=== PATIENT | male | born 1945 | race Caucasian/White ===

== ENCOUNTER 2023-11-29 17:43 | Observation (INO) ==
--- OUTSIDE RECORDS SUMMARY | 2023-11-29 17:48 | External Medical Summary | Summary of Care ---
Author Name Unknown Organization [facility] Address [address] [place] [address] Phone [phone] Care Team Providers Care Neurological Physiotherapist Name Role Phone Deangelo Saldaña MD Primary Care Provider + Reason for Visit * Reason Comments Follow Up 4 month return. Pt d enied any new concerns Encounter Details Date Type Department Care Team (Late st Contact Info) Description 11/11/2023 12:00 PM EDT [facility] [address] [facility] [place] [address] Deangelo Saldaña MD [address] [facility] [place] [address] HTN, goal below 130/80*; Mixed hyperlipidemia; Recurrent UTI; Chronic kidney disease, stage 3a (HCC); Bilateral carpal tunnel syndrome; Need for yyginmazpv-tkzqued-zn rtussis (Tdap) vaccine Allergies No known active allergiesdocumented as of this encounter (statuses as of 11/11/2023) Medications Medication Sig Dispensed Refills Start Date End Date Status Atorvastatin Calcium 80 MG Oral Tablet (Lipitor) Take 1 Tablet by mouth in the morning. 04/25/2021 Active Escitalopram Oxalate 10 MG Oral Tablet (Lexapro) Take 1 Tablet by mouth in the morning. 05/18/2021 Active Multivitamin Men 50+ Oral Tablet Take by mouth daily . Active Co Q10 200 MG Oral Capsule Take 100 mg by mouth in the morning. Active Bioflavonoids 1000 MG Oral Tablet Take by mouth daily . Active Ginkgo Biloba 40 MG Oral Tablet Take 1 Tablet by mouth in the morning. Active Fluticasone Propionate HFA 110 MCG/ACT Inhalation Aerosol (Flovent Hfa) Inhale 2 Puffs by mouth in the morning and 2 Puffs before bedtime. Active Systane ICaps AREDS2 Oral Capsule Take by mouth . Active Betamethasone Dipropionate Aug 0.05 % External Cream (Diprolene AF) 2 times a day. To affected area. 08/11/2022 Active Famotidine 10 MG Oral Tablet (Pepcid AC) Take 1 Tablet by mouth in the morning and 1 Tablet before bedtime. Take 1 tab every morning take 2 tabs at bedtime . Active Candesartan Cilexetil 16 MG Oral Tablet (Atacand)Indicatio ns:HTN, goal below 130/80 Take 1 Tablet by mouth in the morning. 90 Tablet 1 11/11/2023 Active Htsizrb-Phovkb-Ykp ll Pertussis 5-2.5-18.5 LF-MCG/0.5 Suspension Prefilled Syringe (Boostrix)Indicati ons:Need for diphtheria-tetanus -pertussis (Tdap) vaccine Inject 0.5 mL into a large muscle once for 1 dose. As directed 0.5 mL 11/11/2023 11/11/2023 Active Candesartan Cilexetil 32 MG Oral Tablet (Atacand) Take 1 Tablet by mouth at bedtime. 04/25/2021 11/11/2023 Discontinued (Medication/ Dose Changed) documented as of this encounter (statuses as of 11/11/2023) Active Problems Problem Noted Date Diagnosed Date Chronic kidney disease, stage 3a 09/15/2022 Overview: Per CKD protocol HTN, goal below 130/80 05/29/2021 Mixed hyperlipidemia 05/29/2021 VLADIMIR (generalized anxiety disorder) 05/29/2021 Nonrheumatic mitral valve regurgitation 05/29/20 Mild aortic insufficiency 05/29/2021 Aortic valve sclerosis 05/29/2021 History of acute prostatitis 05/29/2021 documented as of this encounter (statuses as of 11/11/2023) Resolved Problems Problem Noted Date Diagnosed Date Resolved Date Hyperlipidemia 05/29/2021 05/29/2021 documented as of this encounter (statuses as of 11/11/2023) Immunizations Name Administration Dates Next Due COVID-19 mRNA, LNP-s, No Pre serve, 2-Dose Series (Tiendeo) 05/17/2021,07/06/2020,06/15/2020 Covid-19, Mrna, Lnp-s, Pf, B ivalent, 30 Mcg, IM, 12 yrs and above (Tiendeo) 05/26/2022 Pneumococcal Conjugate Vacci ne, 20-valent ([id number]) 12/04/2021 Pneumococcal Polysaccharide PPV23 (Pneumovax) 04/22/2020 Seasonal Influenza, Quadriva lent Hd (Fluzone Hd) 05/22/2023,05/29/2021 Seasonal Influenza, Quadriva lent Hd, 65+ Yrs 05/19/2022 Zoster Vaccine Recombinant (Shingrix) 04/22/2020 documented as of this encounter Social History Tobacco Use Types Packs/Day Years Used Date Smoking Tobacco: Never Smokeless Tobacco: Never Tobacco Cessation:Counseling Given: Not Answered Alcohol Use Standard Drinks/Week Comments Never 0 (1 standard drink = 0.6 oz pur e alcohol) PHQ-2 Answer Date Recorded PHQ Adult Total Score 0 05/07/2022 Hunger Vital Sign Answer Date Recorded Within the past 12 months, y ou worried that your food would run out before you got the money to buy more. Never true 05/28/20 21 Within the past 12 months, t he food you bought just didn't last and you didn't have money to get more. Never true 05/28/2021 Sex and Gender Information Value Date Recorded Sex Assigned at Male 12/01/2021 8:12 PM EDT Gender Identity Male 12/01/2021 8:12 PM EDT Sexual Orientation Straight 12/01/2021 8: 12 PM EDT Job Start Date Occupation Industry Not on file Not on file Not on file documented as of this encounter Last Filed Vital Signs Vital Sign Reading Time Taken Comments Blood Pressure 108/58 11/11/2023 12:01 PM EDT Pulse 64 11/11/2023 12:01 PM EDT Temperature 35.7 C (96.3 F) 11/11/2023 12:01 PM E DT Respiratory Rate - - Oxygen Saturation 97% 11/11/2023 12:01 PM EDT Inhaled Oxygen Concentration - - Weight 73.6 kg (162 lb 3.2 oz) 11/11/2023 12:01 PM EDT Height 172.7 cm (5' 8") 11/11/2023 12:01 PM EDT Body Mass Index 24.66 11/11/2023 12:01 PM EDT documented in this encounter Progress Notes * Deangelo Saldaña MD - 11/11/2023 12:40 PM EDT Chief Complaint Patient presents with Follow Up 4 month return. Pt denied any new concerns SUBJECTIVE: Michael Farah is a 78 year old male with PMH as below who presents for f/u htn, ckd iii. No cp, sob bojorquez. Active at home, golfing, staying hydrated. Has seen urology about uti, told to hydrate which is doing now, no uti symptoms. Sees cardiology this month as well and also seeing ortho for cts. Patient Active Problem List Diagnosis HTN, goal below 130/80 Mixed hyperlipidemia VLADIMIR (generalized anxiety disorder) Nonrheumatic mitral valve regurgitation Mild aortic insufficiency Aortic valve sclerosis History of acute prostatitis Chronic kidney disease, stage 3a (HCC) Current Outpatient Medications Medication Sig Dispense Refill Atorvastatin Calcium 80 MG Oral Tablet (Lipitor) Take 1 Tablet by mouth in the morning. Escitalopram Oxalate 10 MG Oral Tablet (Lexapro) Take 1 Tablet by mouth in the morning. Multivitamin Men 50+ Oral Tablet Take by mouth daily . Co Q10 200 MG Oral Capsule Take 100 mg by mouth in the morning. Bioflavonoids 1000 MG Oral Tablet Take by mouth daily . Ginkgo Biloba 40 MG Oral Tablet Take 1 Tablet by mouth in the morning. Fluticasone Propionate HFA 110 MCG/ACT Inhalation Aerosol (Flovent Hfa) Inhale 2 Puffs by mouth in the morning and 2 Puffs before bedtime. Systane ICaps AREDS2 Oral Capsule Take by mouth . Betamethasone Dipropionate Aug 0.05 % External Cream (Diprolene AF) 2 times a day. To affected area. Famotidine 10 MG Oral Tablet (Pepcid AC) Take 1 Tablet by mouth in the morning and 1 Tablet before bedtime. Take 1 tab every morning take 2 tabs at bedtime . Candesartan Cilexetil 16 MG Oral Tablet (Atacand) Take 1 Tablet by mouth in the morning. 90 Tablet 1 Zkdcmku-Bvwzvv-Hncvi Pertussis 5-2.5-18.5 LF-MCG/0.5 Suspension Prefilled Syringe (Boostrix) Inject0.5 mL into a large muscle once for 1 dose. As directed 0.5 mL 0 No current facility-administered medications for this visit. Review of patient's allergies indicates: No Known Allergies Health Maintenance Due Topic Date Due DTaP,Tdap,and Td Vaccines (1 - Tdap) Never done Zoster Vaccines (2 of 2) 06/17/2020 COVID-19 Vaccine (5 - 2022- season) 2023 Albumin/Creatinine Ratio 11/14/2023 CKD PHOS USE SMARTSET 87344 11/14/2023 ROS: CONSTITUTIONAL: No fevers, sweats, or chills EYE: No recent significant change in vision and No eye pain, redness, discharge EARS: No ear pain, No drainage, No tinnitus or vertigo, and No recent change in hearing PULMONARY: No cough, sputum, or hemoptysis, No wheezing, No rales, No shortness of breath, and No recent change in breathing CARDIOVASCULAR: No chest pain, No shortness of breath, No dyspnea on exertion, No orthopnea, No paroxysmal nocturnal dyspnea, No edema, No palpitations, and No syncope GASTROINTESTINAL: No abdominal pain, No change in bowel habits, No significant heartburn, No significant change in appetite, No nausea, vomiting, diarrhea, or constipation, No hematemesis, No blood in stools or black tarry stools, No abdominal bloating or early satiety, and No dysphagia ALL OTHER SYSTEMS NEGATIVE I reviewed social, PMH, PSH, and family history and updated where needed. Social History Socioeconomic History Marital status: Spouse name: Not on file Number of children: 3 Years of education: Not on file Highest education level: Not on file Occupational History Occupation: retired Tobacco Use Smoking status: Never Smokeless tobacco: Never Vaping Use Vaping status: Never Used Substance and Sexual Activity Alcohol use: Never Drug use: Never Sexual activity: Not on file Other Topics Concern Not on file Social History Narrative Not on file Social Determinants of Health Financial Resource Strain: Not on file Food Insecurity: No Food Insecurity (05/28/2021) Hunger Vital Sign Worried About Running Out of Food in the Last Year: Never true Ran Out of Food in the Last Year: Never true Transportation Needs: Not on file Physical Activity: Not on file Stress: Not on file Social Connections: Not on file Intimate Partner Violence: Not on file Housing Stability: Not on file Past Medical History: Diagnosis Date History of acute prostatitis 05/29/2021 Mild aortic insufficiency 05/29/2021 Nonrheumatic mitral valve regurgitation 05/29/2021 Past Surgical History: Procedure Laterality Date COLONOSCOPY, DIAGNOSTIC (RECTUM) 09/03/2021 diverticulosis / COLONOSCOPY FLEXIBLE PROXIMAL DIAGNOSTIC performed by Slava Nash MD at ENDOSCOPY [facility] EGD, FLEXIBLE, DIAGNOSTIC 09/03/2021 reflux esophagitis, gastric polyps / ESOPHAGOGASTRODUODENOSCOPY (EGD), FLEXIBLE, TRANSORAL, DIAGNOSTIC performed by Slava Nash MD at ENDOSCOPY [facility] INNER EAR FLUID SAC SURGERY W/SHUNT Left NECK SPINE FUSION (CERV, BELOW C2) NECK SPINE FUSION (CERV, BELOW C2) 06/16/2023 CO RPR INGUN HERNIA SLIDING ANY AGE REMOVE CATARACT, INSERT LENS PROSTH Right 07/28/2023 RIGHT EXTRACAPSULAR CATARACT REMOVAL WITH INTRAOCULAR LENS performed by Eugene Shipley MDa OR [facility] REMOVE CATARACT, INSERT LENS PROSTH Left 08/11/2023 LEFT EXTRACAPSULAR CATARACT REMOVAL WITH INTRAOCULAR LENS performed by Eugene Shipley MD at OR [facility] UROLOGY SURGERY PROCEDURE NEC 08/2022 urolift Family History Problem Relation Name Age of Onset Cancer Sister melanoma OBJECTIVE: PHYSICAL EXAM: BP 108/58 | Pulse 64 | Temp 35.7 C (96.3 F) (Tympanic) | Ht 1.727 m (5' 8") | Wt 73.6 kg (162 lb 3.2 oz) | SpO2 97% | BMI 24.66 kg/m | BSA 1.88 m General: alert, healthy, and no distress Head: Normocephalic, No masses, lesions, tenderness or abnormalities Eye Exam: conjunctiva are pink and non-injected, sclera clear Heart: regular rate & rhythm, no murmur, no gallops, PMI non-displaced, S-1 normal, and S-2 normal Lungs: normal respiratory rate and rhythm, lungs clear to auscultation Psych: normal affect, no flight of ideas or tangential thought, good eye contact, no pressured speech ASSESSMENT: I10 HTN, goal below 130/80 (primary encounter diagnosis) E78.2 Mixed hyperlipidemia N39.0 Recurrent UTI N18.31 Chronic kidney disease, stage 3a (HCC) G56.03 Bilateral carpal tunnel syndrome Z23 Need for pttdcpkkcy-svwsukj-mvfoyfamw (Tdap) vaccine PLAN: HTN, goal below 130/80 (Primary) - Candesartan Cilexetil 16 MG Oral Tablet (Atacand); Take 1 Tablet by mouth in the morning. Low last 2 readings, cut candesartan to 16 mg from 32 Recheck bp cardiology Mixed hyperlipidemia Cont atorvastatin Recurrent UTI Monitor Hydration Chronic kidney disease, stage 3a (HCC) - COMPREHENSIVE METABOLIC PANEL; Future; Expected date: 11/11/2023 - ALBUMIN / CREATININE RATIO, URINE; Future; Expected date: 11/11/2023 - PHOSPHORUS; Future; Expected date: 11/11/2023 Bilateral carpal tunnel syndrome Await ortho Need for aoqxhsnknm-ngljngl-szhtrwhck (Tdap) vaccine - Wdxmqdh-Fvbflv-Sbsui Pertussis 5-2.5-18.5 LF-MCG/0.5 Suspension Prefilled Syringe (Boostrix); Inject 0.5 mL into a large muscle once for 1 dose. As directed Follow Up: Return in about 6 months (around 05/12/2024), or if symptoms worsen or fail to improve, for Labs Today. | For: Labs Today Deangelo Saldaña MD documented in this encounter Nursing Notes * Mulu Garcia MED ASSIST - 11/11/2023 12:03 PM EDT Chief Complaint Patient presents with Follow Up 4 month return. Pt denied any new concerns documented in this encounter Plan of Treatment Upcoming Encounters Date Type Department Care Team (Late st Contact Info) Description 11/24/2023 2:15 PM EDT Office Visit Orthopaedics Jimmy [address] [phone] Carri Taylor MD [address] [place] [address] 12/04/2023 11:00 AM EDT Office Visit Cardiology, [facility] [address] [place] [address] Pipe Moctezuma PA-C [address] [place] [address] 01/19/2024 3:00 PM EDT Office Visit General Internal Medicine [facility] [address] [facility] [place] [address] Deangelo Saldaña MD [address] [facility] [place] [address] 03/07/2024 3:00 PM EDT Office Visit Dermatology [facility] [address] [place] [address] Oriana Ambrosio MD [address] [place] [address] 06/23/2024 1:00 PM EST Office Visit General Internal Medicine [facility] [address] [place] [address] Deangelo Saldaña MD [address] [facility] [place] [address] Pending Results Name Type Priority Associated Diagnoses Date /Time COMPREHENSIVE METABOLIC PANEL Lab Routine Chronic kidney disease, stage 3a (HCC) 11/11/2023 12:42 PM EDT ALBUMIN / CREATININE RATIO, URINE Lab Routine Chronic kidney disease, stage 3a (HCC) 11/11/2023 12:43 PM EDT PHOSPHORUS Lab Routine Chronic kidney disease, stage 3a (HCC) 11/11/2023 12:42 PM EDT Scheduled Orders Name Type Priority Associated Diagnoses Orde r Schedule COMPREHENSIVE METABOLIC PANEL Lab Routine Chronic kidney disease, stage 3a (HCC) Expected: 11/11/2023 (Approximate), Expires: 11/10/2024 ALBUMIN / CREATININE RATIO, URINE Lab Routine Chronic kidney disease, stage 3a (HCC) Expected: 11/11/2023 (Approximate), Expires: 11/10/2024 PHOSPHORUS Lab Routine Chronic kidney disease, stage 3a (HCC) Expected: 11/11/2023 (Approximate), Expires: 11/10/2024 Health Maintenance Due Date Last Done Comments DTaP,Tdap,and Td Vaccines (1 - Tdap) 1964 Zoster Vaccines (2 of 2) 06/17/2020 04/22/2020 COVID-19 Vaccine (5 - 2022-24 season) 2023 05/26/2022, 05/17/2021, 07/06/2020, Additional history exists Albumin/Creatinine Ratio 11/14/2023 11/13/2022, 05/09 CKD PHOS USE SMARTSET 82175 11/14/2023 11/13/2022 GFR 01/12/2024 07/14/2023, 05/08, 11/13/2022, Additional history exists CKD HGB USE SMARTSET 93782 07/14/202407/14, 07/14/2023, 05/22/2023, Additional history exists Depression Screening 11/10/2024 11/11/2023 Pneumococcal Vaccine: 65+ Years Completed 12/04/2021, 04/22/2020 Influenza Vaccine (FLU shot) Completed , 05/19/2022, 03/20/2022, Additional history exists GARDASIL-HPV IMMUNIZATION SERIES Aged Out No longer eligible based on patient's age to complete this topic Hepatitis B Aged Out No longer eligi ble based on patient's age to complete this topic MENINGOCOCCAL (MENACTRA/MENVEO) Aged Out No longer eligible based on patient's age to complete this topic documented as of this encounter Medical Devices Implanted Type Area Adobe Flex Developer Device Identifier Shelf Expiration Date Model / Serial / Lot Lens Li61ao 13.00mm 18.00 - [id number] - [id number] Implanted:Qty: 1 on 07/28/2023 by Eugene Shipley MD at OR [facility] Right: Eye [employer] 04/07/2028 [id number] / [id number] / [id number] Lens Li61ao 13.00mm 17.50 - [id number] - [id number] Implanted:Qty: 1 on 08/11/2023 by Eugene Shipley MD at OR [facility] Left: Eye [employer] 03/07/2028 [id number] / [id number] / [id number] documented as of this encounter Visit Diagnoses Diagnosis HTN, goal below 130/80- Primary Unspecified essential hypertension Mixed hyperlipidemia Recurrent UTI Urinary tract infection, site not specified Chronic kidney disease, stage 3a (HCC) Bilateral carpal tunnel syndrome Carpal tunnel syndrome Need for qcaemcyruk-uonqouf-hllzqzzim (Tdap) vaccine Need for prophylactic vaccination with combined mwgfrnzroe-agmttfl-rtsuqypsz (DTP) vaccine documented in this encounter Advance Directives * Full Code (Latest Code Status on File) Date Activated Date Inactivated Comments 08/11/2023 11:27 AM 08/11/2023 5:24 PM This order re flects the patients wishes and were consensually agreed upon. Question Answer Comments Discussion of Advance Directives occurred with: Patient Does the patient have a Living Will? No Does the patient have Health Care Power of Attor leslie? No * Full Code Date Activated Date Inactivated Comments 07/28/2023 11:12 AM 07/28/2023 5:12 PM This order reflects the patients wishes and were consensually agreed upon. Question Answer Comments Discussion of Advance Directives occurred with: Patient Does the patient have a Living Will? No Does the patient have Health Care Power of Attor leslie? No Care Teams Neurological Physiotherapist Relationship Specialty Start Date End Date Deangelo Saldaña MD [address] [place] [address] PCP - General Internal Medicine 02/06/21 documented as of this encounter
--- OUTSIDE RECORDS SUMMARY | 2023-11-29 17:48 | External Medical Summary | Summary of Care ---
Author Name Unknown Organization [facility] Address [address] [place] [address] Phone [phone] Care Team Providers Care Handy Worker Name Role Phone Deangelo Saldaña MD Primary Care Provider + Reason for Visit * Reason Onset Date Comments Surgery 11/24/2023 Encounter Details Date Type Department Care Team (Late st Contact Info) Description 11/24/2023 Telephone Orthopaed[address] [phone] Carri Taylor MD [address] [place] [address] Surgery Allergies No known active allergiesdocumented as of this encounter (statuses as of 11/24/2023) Medications Medication Sig Dispensed Refills Start Date [...] Active Candesartan Cilexetil 16 MG Oral Tablet (Atacand)Indications: HTN, goal below 130/80 Take 1 Tablet by mouth in the morning. 90 Tablet 1 11/11/2023 Active documented as of this encounter (statuses as of 11/24/2023) Active Problems Problem Noted Date Diagnosed Date Bilateral carpal tunnel syndrome 11/24/2023 Chronic kidney disease, stage 3a 09/15/2022 Overview: Per CKD protocol HTN, goal below 130/80 05/29/2021 Mixed hyperlipidemia 05/29/2021 VLADIMIR (generalized anxiety disorder) 05/29/2021 Nonrheumatic mitral valve regurgitation 05/29/20 21 Mild aortic insufficiency 05/29/2021 Aortic valve sclerosis 05/29/2021 History of acute prostatitis 05/29/2021 documented as of this encounter (statuses as of 11/24/2023) Resolved Problems Problem Noted Date Diagnosed Date Resolved Date Hyperlipidemia 05/29/2021 05/29/2021 documented as of this encounter (statuses as of 11/24/2023) Immunizations Name Administration Dates Next Due COVID-19 mRNA, LNP-s, No Pre serve, 2-Dose Series (iKaaz) 05/17/2021,07/06/2020,06/15/2020 Covid-19, Mrna, Lnp-s, Pf, B ivalent, 30 Mcg, IM, 12 yrs and above (iKaaz) 05/26/2022 Pneumococcal Conjugate Vacci ne, 20-valent ([id number]) 12/04/2021 Pneumococcal Polysaccharide PPV23 (Pneumovax) 04/22/2020 Seasonal Influenza, Quadriva lent Hd (Fluzone Hd) 05/22/2023,05/29/2021 Seasonal Influenza, Quadriva lent Hd, 65+ Yrs 05/19/2022 Zoster Vaccine Recombinant (Shingrix) 04/22/2020 documented as of this encounter Social History Tobacco Use Types Packs/Day Years Used Date Smoking Tobacco: Never Smokeless Tobacco: Never Alcohol Use Standard Drinks/Week Comments Never 0 (1 standard drink = 0.6 oz pur e alcohol) PHQ-2 Answer Date Recorded PHQ Adult Total Score 0 11/11/2023 Hunger Vital Sign Answer Date Recorded Within [...] on file documented as of this encounter Miscellaneous Notes * Telephone Encounter - Palak Hutton OSA - 11/24/2023 2:59 PM EDT Per Brandon team please schedule 2 week post-op. DOS: 11/27/2023. Thank you. documented in this encounter Plan of Treatment Upcoming Encounters Date Type Department Care Team (Late st Contact Info) Description 11/27/2023 Hospital Encounter OR [facility], Operating Room, [facility] 3rd Floor [address] [place] [address] Carri Taylor MD [address] [place] [address] [place] [id number] 12/04/2023 11:00 AM EDT Office Visit Cardiology, [facility] [address] [facility] [place] [address] Pipe Moctezuma PA-C [address] [place] [address] 03/07/2024 3:00 PM EDT Office Visit Dermatology Shanika Paul [address] [place] [address] Oriana Ambrosio MD [address] [place] [address] 06/23/2024 1:00 PM EST Office Visit General Internal Medicine [facility] [address] [facility] [place] [address] Deangelo Saldaña MD [address] [place] [address] Scheduled Procedures Name Priority Associated Diagnoses Date/Ti me NEUROPLASTY MEDIAN NERVE AT CARPAL TUNNEL Bilateral carpal tunnel syndrome Health Maintenance Due Date Last Done Comments DTaP,Tdap,and Td Vaccines (1 - Tdap) 1964 Zoster Vaccines (2 of 2) 06/17/2020 04/22/2020 COVID-19 Vaccine ( season) 2023 05/26/2022, 05/17/2021, 07/06/2020, Additional history exists GFR 05/12/2024 11/11/2023, 02/0 11/2023, 05/22/2023, Additional history exists CKD HGB USE SMARTSET 10663 07/14/202407/14, 07/14/2023, 05/22/2023, Additional history exists Albumin/Creatinine Ratio 11/10/2024 024, 11/13/2022, 06/05/2021 CKD PHOS USE SMARTSET 37846 11/10/2024 11/11/2023, 0 11/13/2022 Depression Screening 11/10/2024 11/11/2023 Pneumococcal Vaccine: 65+ [...] this encounter Medical Devices Implanted Type Area Rail Switch Operator Device Identifier Shelf Expiration Date Model / Serial / Lot Lens Li61ao 13.00mm 18.00 - [id number] - [id number] Implanted:Qty: 1 on 07/28/2023 by Eugene Shipley MD at OR [facility] Right: Eye [employer] 04/07/2028 [id number] / [id number] / [id number] Lens Li61ao 13.00mm 17.50 - [id number] - [id number] Implanted:Qty: 1 on 08/11/2023 by Eugene Shipley MD at OR [facility] Left: Eye [employer]OM[employer] 03/07/2028 [id number] / [id number] / [id number] documented as of this encounter Advance Directives * Full Code [...] Power of Attor leslie? No Care Teams Handy Worker Relationship Specialty Start Date End Date Deangelo Saldaña MD [address] [facility], [place] [address] PCP - General Internal Medicine 02/06/21 documented as of this encounter
--- OUTSIDE RECORDS SUMMARY | 2023-11-29 17:48 | External Medical Summary | Summary of Care ---
Author Name Unknown Organization [facility] Address [address] [place] [address] Phone [phone] Care Team Providers Care Dietary Tech Name Role Phone Deangelo Saldaña MD Primary Care Provider + Reason for Visit * Reason Onset Date Comments Test Results 11/27/2023 Encounter Details Date Type Department Care Team (Late st Contact Info) Description 11/27/2023 Telephone Cardiology, [facility] [address] [place] [address] Shraddha Aquino CRNP [address] [place] [address] Test Results Allergies No known active allergiesdocumented as of this encounter (statuses as of 11/27/2023) Medications Medication Sig Dispensed Refills Start Date [...] as of this encounter (statuses as of 11/27/2023) Active Problems Problem Noted Date Diagnosed Date Bilateral carpal tunnel syndrome 11/24/2023 Chronic kidney disease, stage 3a 09/15/2022 Overview: Per CKD protocol HTN, goal below 130/80 05/29/2021 Mixed hyperlipidemia 05/29/2021 VLADIMIR (generalized anxiety disorder) 05/29/2021 Nonrheumatic mitral valve regurgitation 05/29/20 Mild aortic insufficiency 05/29/2021 Aortic valve sclerosis 05/29/2021 History of acute prostatitis 05/29/2021 documented as of this encounter (statuses as of 11/27/2023) Resolved Problems Problem Noted Date Diagnosed Date Resolved Date Hyperlipidemia 05/29/2021 05/29/2021 documented as of this encounter (statuses as of 11/27/2023) Immunizations Name Administration Dates Next Due COVID-19 mRNA, LNP-s, No Pre serve, 2-Dose Series ([employer]) 05/17/2021,07/06/2020,06/15/2020 Covid-19, Mrna, Lnp-s, Pf, B ivalent, 30 Mcg, IM, 12 yrs and above ([employer]) 05/26/2022 Pneumococcal Conjugate Vacci ne, 20-valent ([id number]) 12/04/2021 Pneumococcal Polysaccharide PPV23 (Pneumovax) 04/22/2020 Seasonal [...] money to get more. Never true 05/28/2021 Utilities Answer Date Recorded Do you have trouble paying y our heating, water, or electric bill? (Adult - for ages 18 years and over) Not on file 11/24/2023 Is your family able to pay t he heat, water, or electric bill? (Household - for ages 0-17 years) Not on file 11/24/2023 Does your family have access to good internet? (Household - for ages 0-17 years) Not on file 11/24/2023 Social Connections Answer Date Recorded How often do you feel lonely or isolated from those around you? (Adult - for ages 18 years and over) Not on file 11/24/2023 Sex and Gender Information Value Date Recorded Sex Assigned at Male 12/01/2021 8:12 PM EDT Gender Identity Male 12/01/2021 8:12 PM EDT Sexual Orientation Straight 12/01/2021 8: 12 PM EDT Job Start Date Occupation Industry Not on file Not on file Not on file documented as of this encounter Miscellaneous Notes * Telephone Encounter - Nadia Delgado CMA - 11/27/2023 9:25 AM EDT My g sent. * Telephone Encounter - Nadia Delgado CMA - 11/27/2023 9:24 AM EDT ----- Message from Shraddha Aquino sent at 11/27/2023 9:00 AM EDT ----- Results reviewed in coverage of Dr. Gentile LVEF normal 69%. Moderate concentric LVH with left ventricular outflow tract gradient. LV was hyperdynamic. Mild aortic stenosis and regurgitation. Please have the patient keep his follow-up appointment with Pipe on 08/05. Consider cardiac MRI due to LVOT gradient. documented in this encounter Plan of Treatment Upcoming Encounters Date Type Department Care Team (Late st Contact Info) Description 12/04/2023 11:00 AM EDT Office Visit Cardiology, [facility] [address] [facility] [place] [address] [facility] [address] [facility] [place] [address] 12/11/2023 11:30 AM EDT Office Visit Orthopaedics, [facility] [address] [place] [address] Karena Brumfield PA-C [address] [place] [address] 03/07/2024 3:00 PM EDT Office Visit [facility] [address] [place] [address] Oriana Ambrosio MD [address] [place] [address] 06/23/2024 1:00 PM EST Office Visit General Internal Medicine [facility] Samuel [address] [facility] [place] [address] Deangelo Saldaña MD [address] [facility] [place] [address] Scheduled Procedures Name Priority Associated Diagnoses Date/Ti me NEUROPLASTY MEDIAN NERVE AT CARPAL TUNNEL Bilateral carpal tunnel syndrome 11/27/2023 2:34 PM EDT Health Maintenance Due Date Last Done Comments DTaP,Tdap,and Td Vaccines (1 - Tdap) 1964 Zoster Vaccines (2 of 2) 06/17/2020 04/22/2020 COVID-19 Vaccine ( season) 2023 05/26/2022, 05/17/2021, 07/06/2020, Additional history exists GFR 05/12/2024 11/11/2023, 02/0 11/2023, 05/22/2023, Additional history exists CKD HGB USE SMARTSET 26798 07/14/202407/14, 07/14/2023, 05/22/2023, Additional history exists Albumin/Creatinine Ratio 11/10/2024 024, 11/13/2022, 06/05/2021 CKD PHOS USE SMARTSET 56210 11/10/2024 11/11/2023, 0 11/13/2022 Depression Screening 11/10/2024 [...] this encounter Medical Devices Implanted Type Area Bellmaker Device Identifier Shelf Expiration Date Model / Serial / Lot Lens Li61ao 13.00mm 18.00 - [id number] - [id number] Implanted:Qty: 1 on 07/28/2023 by Eugene Shipley MD at OR [facility] Right: Eye [employer] 04/07/2028 [id number] / [id number] / [id number] Lens Li61ao 13.00mm 17.50 - [id number] - [id number] Implanted:Qty: 1 on 08/11/2023 by Eugene Shipley MD at OR [facility] Left: Eye BAUSCH & LOMB 03/07/2028 [id number] / [id number] / [id number] documented as of this encounter Advance Directives [...] Power of Attor leslie? No Care Teams Dietary Tech Relationship Specialty Start Date End Date Deangelo Saldaña MD [address] [place] [address] PCP - General Internal Medicine 02/06/21 documented as of this encounter
--- OUTSIDE RECORDS SUMMARY | 2023-11-29 17:48 | External Medical Summary | Summary of Care ---
Author Name Unknown Organization [facility] Address [address] [place] [address] Phone [phone] Care Team Providers Care [place] Laborer Name Role Phone Deangelo Saldaña MD Primary Care Provider + Reason for Visit * Reason Comments Outpatient Testing Encounter Details Date Type Department Care Team (Late st Contact Info) Description 11/11/2023 12:40 PM EDT Laboratory Laboratory [facility] Petra Muro [address] [place] [phone] [facility] [address] [place] [address] Chronic kidney disease, stage 3a (HCC) Allergies No known active allergiesdocumented as of [...] Active Candesartan Cilexetil 16 MG Oral Tablet (Atacand)Indications :HTN, goal below 130/80 Take 1 Tablet by mouth in the morning. 90 Tablet 1 11/11/2023 Active Jtfxxtk-Bydpyl-Kumyq Pertussis 5-2.5-18.5 LF-MCG/0.5 Suspension Prefilled Syringe (Boostrix)Indication s:Need for uegtjymwaf-jtzbiqy-v ertussis (Tdap) vaccine Inject 0.5 mL into a large muscle once for 1 dose. As directed 0.5 mL 11/11/2023 11/11/2023 Active documented as of this encounter [...] mRNA, LNP-s, No Pre serve, 2-Dose Series ([employer]) 05/17/2021,07/06/2020,06/15/2020 Covid-19, Mrna, Lnp-s, Pf, B ivalent, 30 Mcg, IM, 12 yrs and above ([employer]) 05/26/2022 Pneumococcal Conjugate Vacci ne, 20-valent ([id number]) 12/04/2021 Pneumococcal Polysaccharide PPV23 (Pneumovax) 04/22/2020 Seasonal [...] on file documented as of this encounter Plan of Treatment Upcoming Encounters Date Type Department Care Team (Late st Contact Info) Description 11/24/2023 2:15 PM EDT [facility] [address] [place] [phone] Carri Taylor MD [address] [place] [address] 12/04/2023 11:00 AM EDT Office Visit Cardiology, [facility] [address] [place] [address] Pipe Moctezuma PA-C [address] [place] [address] 01/19/2024 3:00 PM EDT Office Visit [facility] [address] Deangelo Saldaña MD 200 [facility] [place] [address] 03/07/2024 3:00 PM EDT Office Visit Dermatology [facility] [address] [place] [address] Oriana Ambrosio MD [address] [place] [address] 06/23/2024 1:00 PM EST Office Visit General Internal Medicine [facility] [place] [address] [facility] [place] [address] Deangelo Saldaña MD [address] [facility] [place] [address] Pending Results Name Type Priority Associated Diagnoses Date /Time COMPREHENSIVE METABOLIC PANEL Lab Routine Chronic kidney disease, stage 3a (HCC) 11/11/2023 12:42 PM EDT PHOSPHORUS Lab Routine Chronic kidney disease, stage 3a (HCC) 11/11/2023 12:42 PM EDT ALBUMIN / CREATININE RATIO, URINE Lab Routine Chronic kidney disease, stage 3a ([facility]) 11/11/2023 12:43 PM EDT Health Maintenance Due Date Last Done Comments DTaP,Tdap,and Td Vaccines (1 - Tdap) 1964 Zoster Vaccines (2 of 2) 06/17/2020 04/22/2020 COVID-19 Vaccine (24 season) 2023 05/26/2022, 05/17/2021, 07/06/2020, Additional history exists Albumin/Creatinine Ratio 11/14/2023 11/13/2022, 05/09 CKD PHOS USE SMARTSET 48895 11/14/2023 11/13/2022 GFR 01/12/2024 07/14/2023, 05/08, 11/13/2022, Additional history exists CKD HGB USE SMARTSET 71045 07/14/202407/14, 07/14/2023, 05/22/2023, Additional history exists Depression [...] this encounter Medical Devices Implanted Type Area [employer] Device Identifier Shelf Expiration Date Model / Serial / Lot Lens Li61ao 13.00mm 18.00 - [id number] - [id number] Implanted:Qty: 1 on 07/28/2023 by Eugene Shipley MD at OR [facility] Right: Eye [employer] 04/07/2028 [id number] / [id number] / [id number] Lens Li61ao 13.00mm 17.50 - [id number] - [id number] Implanted:Qty: 1 on 08/11/2023 by Eugene Shipley MD at OR [facility] Left: Eye [employer]OMB 03/07/2028 [id number] / [id number] / [id number] documented as of this encounter Visit Diagnoses Diagnosis Chronic kidney disease, stage 3a (HCC) documented in this encounter Advance Directives * [...] Power of Attor leslie? No Care Teams [place] Laborer Relationship Specialty Start Date End Date Deagnelo Saldaña MD [address] [facility] [place] [address] PCP - General Internal Medicine 02/06/21 documented as of this encounter
--- OUTSIDE RECORDS SUMMARY | 2023-11-29 17:48 | External Medical Summary | Summary of Care ---
Author Name Unknown Organization [facility] Address [address] [place] [address] Phone [phone] Care Team Providers Care Photostat Operator Name Role Phone Deangelo Saldaña MD Primary Care Provider + Reason for Visit * Auth/Cert Specialty Diagnoses / Procedures Referred By Stefanie stephenson Referred To Contact Diagnoses Bilateral carpal tunnel syndrome Bilateral carpal tunnel syndrome [G56.03] Procedures CARPAL TUNNEL SURGERY BILATERAL NEUROPLASTY MEDIAN NERVE AT CARPAL TUNNEL Carri Taylor MD [address] [place] [address] Or [facility] [address] [place] [address] Referral ID Status Reason Start Date Expiration Date Visits Re quested Visits Authorized [id number] Encounter Details Date Type Department Care Team (Latest Contact Info) Description 11/27/2023 10:01 AM EDT - 11/27/2023 12:43 PM EDT Hospital Encounter OR [facility], Operating Room, [facility] 3rd Floor [address] [place] [address] Carri Taylor MD [address] [place] [phone] Discharge Disposition: Home - Self Care Allergies No known active allergiesdocumented as of this encounter (statuses as of 11/28/2023) Medications Medication Sig Dispensed Refills Start Date [...] as of this encounter (statuses as of 11/28/2023) Active Problems Problem Noted Date Diagnosed Date Bilateral carpal tunnel syndrome 11/24/2023 Chronic kidney disease, stage 3a 09/15/2022 Overview: Per CKD protocol HTN, goal below 130/80 05/29/2021 Mixed hyperlipidemia 05/29/2021 VLADIMIR (generalized anxiety disorder) 05/29/2021 Nonrheumatic mitral valve regurgitation 05/29/20 Mild aortic insufficiency 05/29/2021 Aortic valve sclerosis 05/29/2021 History of acute prostatitis 05/29/2021 documented as of this encounter (statuses as of 11/28/2023) Resolved Problems Problem Noted Date Diagnosed Date Resolved Date Hyperlipidemia 05/29/2021 05/29/2021 documented as of this encounter (statuses as of 11/28/2023) Immunizations Name Administration Dates Next Due COVID-19 mRNA, LNP-s, No Pre serve, 2-Dose Series (iHandle) 05/17/2021,07/06/2020,06/15/2020 Covid-19, Mrna, Lnp-s, Pf, B ivalent, 30 Mcg, IM, 12 yrs and above (Pfizer) 05/26/2022 Pneumococcal Conjugate Vacci ne, 20-valent (Hoyxhpd30) 12/04/2021 Pneumococcal Polysaccharide PPV23 (Pneumovax) 04/22/2020 Seasonal [...] Sign Reading Time Taken Comments Blood Pressure 150/84 11/27/2023 12:18 PM EDT Pulse 60 11/27/2023 12:18 PM EDT Temperature 36 C (96.8 F) 11/27/2023 12:18 PM EDT Respiratory Rate 14 11/27/2023 12:18 PM EDT Oxygen Saturation 98% 11/27/2023 12:18 PM EDT Inhaled Oxygen Concentration - - Weight - - Height - - Body Mass Index - - documented in this encounter Discharge Instructions * Discharge Instr - AVS* Shraddha Chahal PA-C - 11/27/2023 12:19 PM EDT Discharge Date: 11/27/2023 Check your Patient Education Brochure for further information. If you have any further questions orconcerns after discharge and before 4:00 p.m. please contact your orthopaedic surgeon at [phone] (Orthopaedics [facility]). After 4:00 p.m. or on the weekend, call [phone] and ask for the physician animated cartoons painter. Scheduling Services is available daily between the hours of 8:00 a.m. and 9:00 p.m. by calling . Go to the Emergency Room if you feel the situation is an emergency. If you present to another facility's emergency room, please call and inform your surgeon's office at the phone number provided above. The information below provides you with the instructions and the list of medications you need to betaking following discharge from the hospital. If you have any questions, please ask before leaving.Please carry this letter with you when you see your doctor in the clinic. If you have questions, you can reach us at the numbers above. Diet: Progress to prescribed diet as tolerated. Activity: Keep hand elevated above the level of your heart and apply ice as needed. Light use of your hand and fingers is encouraged, but please avoid any heavy lifting or twisting maneuvers with the hand that was operated on. Swelling of your operative hand is normal. Encourage elevation and movement of fingers. Wound Care: Keep dressing clean and dry until first postoperative visit. You may take a shower or bath as long as you do not get the dressing wet. Medications: Ibuprofen or Tylenol as needed. Warnings/Concerns: Call your surgeon promptly if any of the following occur: A. Excessive bleeding B. Fever greater than 101 degrees F (38.3 degrees centigrade) C. Persistent nausea and vomiting D. Redness, swelling or pus-like drainage E. Pain that is not relieved by medication F. Fingers become cold, blue, or numb G. You are unable to pass urine within eight hours after your arrival home Date you may return to work or school: To be discussed post operatively. Notes to be provided if needed. See your primary care physician as needed. documented in this encounter Progress Notes * Shraddha Chahal PA-C - 11/27/2023 12:19 PM EDT [facility] [address] [facility] [id number] OUTPATIENT SURGERY DISCHARGE SUMMARY NOTE Name: Michael Farah Location: [facility] Date: 11/27/2023 Time: 12:19 PM Surgery Date: 11/27/2023 Procedure: BILATERAL NEUROPLASTY MEDIAN NERVE AT CARPAL TUNNEL Bilateral Surgeon: Carri Taylor MD Discharge Diagnosis: same After examination of this patient, I have determined he is ready for discharge to home when the patient meets criteria. Discharge instructions were given to the patient. documented in this encounter H&P Notes * Shraddha Chahal PA-C - 11/27/2023 11:02 AM EDT HISTORY & PHYSICAL INTERVAL NOTE [facility] [address] [facility] [id number] History and Physical Update: Name: Michael Farah Location: [facility] Date: 11/27/2023 Time: 11:02 AM DATE OF HISTORY AND PHYSICAL: 11/24/23 BP: 147 mmHg/67 mmHg (11/27/23 1041) Pulse: 59 (11/27/23 1041) Resp: 13 (11/27/23 1041) Temp: 36.11 C (11/27/23 1041) Temp Summary: Temp Min: 36.1 C (97 F) Max: 36.1 C (97 F) SpO2: 98 % (11/27/23 1041) O2 flow rate: Supplemental O2 Delivery: Room Air, None (11/27/23 104) Heart: 2+ distal regular pulses Lung: equal non-labored respirations bilaterally Other Pertinent Physical Exam: none I have reviewed the H&P previously performed and examined the patient today. There are no new findings noted. Source Note - Delisa Brown MD - 11/24/2023 2:48 PM EDT Images from the original note were not included. Name : Michael Farah Date : 11/24/2023 Michael Farah is a 78 year old male who presents for consultation for bilateral carpal tunnel syndrome. Consult requested by Self. History: Date of injury / Onset of symptoms : 6 months ago History - Patient endorses approximately 6 months of numbness, paresthesias, and weakness in bilateral hands affecting thumb, index and long fingers, and palm. Symptoms are worse at night and often keep him awake. Denies pain. Weakness has developed mostly in the right hand and he occasionally drops things and has difficulty with fine motor tasks. EMG from 10/20/23 shows moderate/severe bilateral carpal tunnel syndrome. Patient is also approx 4 months s/p C spine fusion surgery and initially attributed his symptoms tohis radiculopathy, but since the surgery his proximal symptoms have improved but his hand/wrist symptoms continued to worsen. His neurosurgeon was the one who initially ordered the EMG study. 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 Does not smoke. Denies diabetes, heart disease, or lung disease. Does not take blood thinners. Duration of symptoms : 6 mo Sport or Occupation: retired Workman Compensation: n/a Severity: Pain Scale - none Previous Treatments : none Dominant Hand : right EM10/20/23 at [facility]- moderate/severe median nerve compression on the right and moderate median nerve compression on the left. Past Medical History: Diagnosis Date History of acute prostatitis 05/29/2021 Mild aortic insufficiency 05/29/2021 Nonrheumatic mitral valve regurgitation 05/29/2021 Past Surgical History: Procedure Laterality Date COLONOSCOPY, DIAGNOSTIC (RECTUM) 09/03/2021 diverticulosis / COLONOSCOPY FLEXIBLE PROXIMAL DIAGNOSTIC performed by Slava Nash MD at ENDOSCOPY [facility] EGD, FLEXIBLE, DIAGNOSTIC 09/03/2021 reflux esophagitis, gastric polyps / ESOPHAGOGASTRODUODENOSCOPY (EGD), FLEXIBLE, TRANSORAL, DIAGNOSTIC performed by Slava Nash MD at ENDOSCOPY [facility] INNER EAR FLUID SAC SURGERY W/SHUNT Left NECK SPINE FUSION (CERV, BELOW C2) NECK SPINE FUSION (CERV, BELOW C2) 06/16/2023 MO RPR INGUN HERNIA SLIDING ANY AGE REMOVE CATARACT, INSERT LENS PROSTH Right 07/28/2023 RIGHT EXTRACAPSULAR CATARACT REMOVAL WITH INTRAOCULAR LENS performed by Eugene Shipley MDat OR [facility] REMOVE CATARACT, INSERT LENS PROSTH Left 08/11/2023 LEFT EXTRACAPSULAR CATARACT REMOVAL WITH INTRAOCULAR LENS performed by Eugene Shipley MD at OR [facility] UROLOGY SURGERY PROCEDURE NEC 08/2022 urolift Current medication list reviewed. Review of patient's allergies indicates: No Known Allergies Family History Problem Relation Name Age of Onset Cancer Sister melanoma Social History Socioeconomic History Marital status: Spouse [...] Never true Transportation Needs: Not on file Social Connections: Unknown (11/24/2023) Social Connections How often do you feel lonely or isolated from those around you? (Adult - for ages 18 years and over): Not on file Housing Stability: Not on file ROS EXAM: Constitutional - No change in weight, No weakness, No fatigue and No fevers, sweats, or chills HEENT - Normal Musculoskelatal - normal, except as noted otherwise Pulmonary - No cough, sputum, or hemoptysis, No wheezing and No shortness of breath Cardiovascular - No chest pain, No shortness of breath, No dyspnea on exertion, No edema and No palpitations Hematologic - No coagulation disorder, No anemia and No abnormal bleeding Extremities - No pain, redness or edema in the extremities Skin / Integumentary - No edema , No rash and No itching Neurologic - Normal balance, No headaches and No seizures Endocrine - No thyroid disease and No history of diabetes Sleep - No sleep disorders Physical Exam: HAND / WRIST / ELBOW EXAM: There were no vitals filed for this visit. There is no height or weight on file to calculate BMI. General: alert & oriented x 3, pleasant, cooperative, appears stated age and well developed, well nourished HEENT: hearing intact, EOMI, conjunctiva pink and mucous membranes moist Neck: no masses/good motion Skin: no pertinent skin lesions, openings, rashes, ulcers and no erythema PV: good peripheral pulses to b/L UE, less than 2 sec cap refill b/L UE and no cyanosis Elbow: no lesions or tenderness to palpation, full range of motion without pain or obvious instability. Hand: Positive tinel's sign over bilateral carpal tunnel. Diminished sensation in median nerve distribution bilaterally, R>L. Sensation normal in ulnar and radial distributions bilaterally. Food Production Manager strength 5/5 bilaterally. Motor intact in median, ulnar, and radial nerve distributions bilaterally. No evidence of thenar atrophy, no intrinsic weakness. Neuro: aside from above findings, motor/sensory grossly intact b/L UE and normal mental status MS: 5/5 motor strength to bilateral UE, normal symmetry and tone. Heart: 2+ distal regular pulses Lung: equal non-labored respirations bilaterally Radiology: I personally reviewed the EMG report with Dr. Taylor indicating moderate/severe median nerve compression on the right and moderate median nerve compression on the left. EMG 10/20/23 Assessment : Michael Farah is a 78 year old lxftl-wtiz-rwapuhax male with bilateral carpal tunnel syndrome for 6 months. Plan: Complete discussion of diagnosis, prognosis, and treatment options including risks and benefits hastaken place on this encounter. Patient has elected to proceed with bilateral open carpal tunnel release under local anesthesia in the operating room. Surgical date set for this 11/27/23. Consent form was reviewed and signed in office today after thorough discussion of risks/benefits ofsurgery. Discussed the possibility of trial of steroid injections however given the patient's disease severity and personal preferences, would like to proceed with surgery. Patient has demonstrated understanding, with all current questions answered, and is satisfied with the plan of care. Educational Handout and Contact information has been provided and the patient has been instructed to contact the office with any questions or concerns that may arise. This patient was seen and examined with Dr. Saulo Taylor MD. in clinic on 11/24/2023. Delisa Brown MD [facility] Name : Michael Farah Date : 11/24/2023 I saw and evaluated the patient today. I have reviewed the resident/fellow physician note and agree. Michael Farah is a 78 year old yaixr-hjxw-icefurad male with bilateral carpal tunnel syndrome for 6 months. Discussion of diagnosis, prognosis, and treatment options have been reviewed in detailon today's date. Discussion of treatment options of conservative non-operative management includingobservation, activity modification, medical management, bracing, versus injection, versus additional diagnostic testing, versus surgery reviewed on todays date. Patient presents with bilateral hand numbness, primarily thumb index and long finger with associated weakness and night time symptoms. On exam, subjective numbness in median distribution with positive tinels otherwise neurovascularly intact distally. EMG positive for bilateral carpal tunnel. Has attempted conservative treatment including bracing. After discussion of patient's symptoms, exam, diagnosis, prognosis, and treatment options, patient agrees to proceed with surgical treatment. Risks of continued symptoms, pain, decreased function, decreased mobility, infection, bleeding, bruising, stiffness, scarring, swelling, neurovascular injury, need for additional surgery reviewed. Plan for bilateral carpal tunnel release under local only anesthesia. Consents signed. Patient scheduled. Patient is instructed to monitor their symptoms and call with questions or concerns or to arrange a follow-up appointment on an as-needed basis.The patient demonstrates understanding, willing to proceed, with all current questions answered, satisfied with the plan of care. I have discussed the patient's management with the medical trainee and agree with the note. Please refer to the documented findings and plan of care. This patient's visit today consisted of an evaluation. I was present and confirmed the findings of the history and exam. Carri Taylor MD FAAOS Hand & Upper Extremity Surgeon [facility] documented in this encounter OR Notes * OR Surgeon - Carri Taylor MD - 11/27/2023 12:19 PM EDT [facility] [address] [place] [id number] OPERATIVE REPORT Name: Michael Farah Encounter: [id number] Date: 11/27/23 Location: OR [facility] Date of Service: 11/27/23 Pre-operative Diagnosis: Bilateral Carpal Tunnel Syndrome Post-operative Diagnosis: Same Procedure Performed: Bilateral Carpal Tunnel Release Surgeon: Carri Taylor MD Assistants: Shraddha Chahal PA-C. No qualified resident available. My Fire Chief Deputy was necessary throughout the procedure(s) for positioning, retraction, and closure. I understand that section 1842 (b)(7)(D) of the Social Security Act generally prohibits Medicare physician fee schedule payment for the services of snkzwqzmso-my-rlngnew in teaching hospitals when qualified residents are available to furnish such services. I certify that the services for which payoh nt is claimed were medically necessary, and that no qualified resident was available to perform theservices. I further understand that these services are subject to post-payment review by the Medicare carrier. Anesthesia: WALANT (wide awake local only no tourniquet) Antibiotics: none IV Fluids: none EBL: 2 & 2 mL Urine Output: n/a Drains: none Implants: none Specimens: none Tourniquet Time: none minutes Operative Findings: Moderate nerve compression of the median nerve beneath the transverse carpal ligament. Complications: none Indication for procedure: Michael Farah is a 78 year old male patient with bilateral carpal tunnel syndrome unrelieved with conservative treatment who has elected to proceed with operative treatment. Complete discussion of diagnosis, prognosis, and treatment alternatives has again taken place on this encounter including the risks and benefits of nonoperative and operative management. Risks of operative intervention reviewed include but are not limited to pain, bleeding, bruising, stiffness, swelling, scarring, infection, neurovascular injury, and need for additional surgery. Pillar pain, hypersensitivity, and possible incomplete motor and sensory recovery were discussed. Patient has again demonstrated understand ing and willingness to proceed with no further questions at this point. Side and site were marked and consents were verified. Discussion of wide awake local anesthesia without tourniquet including risks and benefits reviewed in PACU. Patient demonstrated understanding and was willing to proceed. Consents reviewed and side and site verified. In the pre-operative holding area approximately 26 minutes prior to incision the patient was provided local anesthetic injection at each incision site of 10 mL 10:1 1% lidocaine with1/[id number] epinephrine buffered with sodium bicarb. Patient tolerated injection well without difficulty or complication. Description of procedure: After meeting with the OR team, the patient was transferred to the operative suite where they were placed supine on the operative table in supine position with all bony prominences well-padded. The patient, procedure, sides, and sites were identified and verified as a complete pre-operative time-out was performed. Local with MAC Anesthesia was administered. The limb was then sterilely prepped anddraped in standard fashion. Attention was first paid to the Left Upper Extremity. A standard volar carpal tunnel incision was made longitudinally in line with the radial border of the ring finger extending distally to Hernandez's cardinal line. The skin was sharply incised with a 15 blade, and bipolar electrocautery used for hemostasis. Using loupe magnification, dissection was performed, and with retractors in place, the palmar fascia was transected in line with the skin incision revealing the transverse carpal ligament. The transverse carpal ligament was then divided longitudinally under direct visualization with carefulattention being paid to protect the underlying median nerve. Division of the transverse carpal ligament was carried distally to the sentinel fat and a freer was used to assess for complete distal release. Proximally, blunt dissection of the soft tissue superficial to the ligament was performed prior to bluntly freeing structures from the undersurface of the ligament. Under direct visualization the remainder of the transverse carpal ligament was divided paying careful attention to the median nerve and its branches. The release was then assessed with a freer for complete release proximally. Themedian nerve was then inspected and verified to be intact and free of compression. No space-occupying lesion was visualized. Attention was then paid to the Right Upper Extremity. With separate instrumentation, a standard volar carpal tunnel incision was made longitudinally in line with the radial border of the ring finger extending distally to Hernandez's cardinal line. Bipolar electrocautery used for hemostasis. Using loupe magnification, the palmar fascia was transected in line with the skin incision revealing the transverse carpal ligament. The transverse carpal ligament was then divided longitudinally under direct visualization with careful attention being paid to protect the underlying median nerve proximally anddistally. Under direct visualization the remainder of the transverse carpal ligament was divided paying careful attention to the median nerve and its branches. The release was then assessed with a freer for complete release proximally and distally. The median nerve was then inspected and verified to be intact and free of compression. No space-occupying lesion was visualized. The wounds were then thoroughly irrigated and closed with interrupted 4-0 Nylon. A sterile dressingof xeroform, 4x4's, webroll, and an km bandage was applied. Brisk capillary refill was noted throughout all digits. Drapes were taken down as patient was transferred to the PACU in stable condition,tolerating the procedure well with no complications. Post-operative plan: Michael Farah is scheduled to follow-up at 10-14 days for post-operative examination, evaluation, and suture removal. He is provided a box of disposable gloves. The patient is instructed to keeptheir dressing in place, clean, dry, and intact. Elevation of the operative extremity is to be usedfor edema control as well as gentle motion of the digits. They are instructed to call with questions or concerns that may arise. Attestation: I was physically present for the entirety of the procedure and performed all critical or reece portions of the procedure. Carri Taylor MD [facility] Department of Orthopaedic Surgery [phone] documented in this encounter Plan of Treatment Upcoming Encounters Date Type Department Care Team (Late st Contact Info) Description 12/04/2023 11:00 AM EDT Office Visit Cardiology, [facility] [address] [place] [address] Pipe Moctezuma PA-C [address] [place] [place] [address] 12/11/2023 11:30 AM EDT Office Visit Orthopaedics, [facility] [address] [place] [address] Karena Brumfield PA-C [address] [place] [address] 03/07/2024 3:00 PM EDT Office Visit Dermatology [facility] [address] [place] [address] Oriana Ambrosio MD [address] [place] [address] 06/23/2024 1:00 PM EST Office Visit General Internal Medicine [facility] [address] [place] [address] Deangelo Saldaña MD [address] [place] [address] Health Maintenance Due Date Last Done Comments DTaP,Tdap,and Td Vaccines (1 - Tdap) 1964 Zoster Vaccines (2 of 2) 06/17/2020 04/22/2020 COVID-19 Vaccine (5 - 24 season) 2023 05/26/2022, 05/17/2021, 07/06/2020, Additional history exists GFR 05/12/2024 11/11/2023, 02/0 11/2023, 05/22/2023, Additional history exists CKD HGB USE SMARTSET 70993 07/14/202407/14, 07/14/2023, 05/22/2023, Additional history exists Albumin/Creatinine Ratio 11/10/2024 024, 11/13/2022, 06/05/2021 CKD PHOS USE SMARTSET 88190 11/10/2024 11/11/2023, 0 11/13/2022 Depression Screening 11/10/2024 [...] this encounter Medical Devices Implanted Type Area Application Support Administrator Device Identifier Shelf Expiration Date Model / Serial / Lot Lens Li61ao 13.00mm 18.00 - [id number] - [id number] Implanted:Qty: 1 on 07/28/2023 by Eugene Shipley MD at OR [facility] Right: Eye [employer] 04/07/2028 [id number] / [id number] / [id number] Lens Li61ao 13.00mm 17.50 - [id number] - [id number] Implanted:Qty: 1 on 08/11/2023 by Eugene Shipley MD at OR [facility] Left: Eye [employer]OM[employer] 03/07/2028 [id number] / [id number] / [id number] documented as of this encounter Visit Diagnoses Diagnosis Bilateral carpal tunnel syndrome- Primary Carpal tunnel syndrome documented in this encounter Active and Recently Administered Medications Times are shown in EDT. PRN Medication Order 11/25/2023 11/26/2023 11/27/2023 sodium chloride IR 0.9 % irrigation (CANCELED) ONCE PRN INTRA PROCEDURE, Starting on Thu11/27/23 at 1201, Until Thu11/27/23 at 1214, Intra-Op 1201 (Given - Provid er: Carri Taylor MD - Comment: PRN) documented in this encounter Advance Directives * Full Code (Latest Code Status on File) Date Activated Date Inactivated Comments 11/27/2023 12:19 PM 11/27/2023 4:44 PM This order reflects the patients wishes and were consensually agreed upon. Question Answer Comments Discussion of Advance Directives occurred with: Patient * Full Code Date Activated Date Inactivated Comments 08/11/2023 11:27 [...] Power of Attor leslie? No Care Teams Photostat Operator Relationship Specialty Start Date End Date Deangelo Saldaña MD [address] [place] [address] PCP - General Internal Medicine 02/06/21 documented as of this encounter
--- OUTSIDE RECORDS SUMMARY | 2023-11-29 17:48 | External Medical Summary | Summary of Care ---
Author Name Unknown Organization [facility] Address [address] [place] [address] Phone [phone] Care Team Providers Care Ophthalmology Surgical Technician Name Role Phone Deangelo Saldaña MD Primary Care Provider + Reason for Visit * Reason Comments NEW PATIENT Bilateral CTS ; numb ness and tingling and weakness Encounter Details Date Type Department Care Team (Late st Contact Info) Description 11/24/2023 2:15 PM EDT Office Visit Orthopaedics [facility] [address] [place] [address] Carri Taylor MD [address] [place], [place] [phone] Bilateral carpal tunnel syndrome* Allergies No known active allergiesdocumented as of this encounter (statuses as of 11/25/2023) Medications Medication Sig Dispensed Refills Start Date [...] as of this encounter (statuses as of 11/25/2023) Active Problems Problem Noted Date Diagnosed Date Bilateral carpal tunnel syndrome 11/24/2023 Chronic kidney disease, stage 3a 09/15/2022 Overview: Per CKD protocol HTN, goal below 130/80 05/29/2021 Mixed hyperlipidemia 05/29/2021 VLADIMIR (generalized anxiety disorder) 05/29/2021 Nonrheumatic mitral valve regurgitation 05/29/20 21 Mild aortic insufficiency 05/29/2021 Aortic valve sclerosis 05/29/2021 History of acute prostatitis 05/29/2021 documented as of this encounter (statuses as of 11/25/2023) Resolved Problems Problem Noted Date Diagnosed Date Resolved Date Hyperlipidemia 05/29/2021 05/29/2021 documented as of this encounter (statuses as of 11/25/2023) Immunizations Name Administration Dates Next Due COVID-19 mRNA, LNP-s, No Pre serve, 2-Dose Series ([facility]) 05/17/2021,07/06/2020,06/15/2020 Covid-19, Mrna, Lnp-s, Pf, B ivalent, 30 Mcg, IM, 12 yrs and above ([facility]) 05/26/2022 Pneumococcal Conjugate Vacci ne, 20-valent ([id number]) 12/04/2021 Pneumococcal Polysaccharide PPV23 (Pneumovax) 04/22/2020 Seasonal [...] on file documented as of this encounter H&P Notes * Delisa Brown MD - 11/24/2023 2:48 PM [...] none Dominant Hand : right EM10/20/23 at [facility]- moderate/severe median nerve compression on the right and moderate median nerve compression on the left. Past Medical History: Diagnosis Date History of acute prostatitis 05/29/2021 Mild aortic insufficiency 05/29/2021 Nonrheumatic mitral valve regurgitation 05/29/2021 Past Surgical History: Procedure Laterality Date COLONOSCOPY, DIAGNOSTIC (RECTUM) 09/03/2021 diverticulosis / COLONOSCOPY FLEXIBLE PROXIMAL DIAGNOSTIC performed by Slava Nash MD at ENDOSCOPY [facility] EGD, FLEXIBLE, DIAGNOSTIC 09/03/2021 reflux esophagitis, gastric polyps / ESOPHAGOGASTRODUODENOSCOPY (EGD), FLEXIBLE, TRANSORAL, DIAGNOSTIC performed by Slava Nash MD at ENDOSCOPY [facility] INNER EAR FLUID SAC SURGERY W/SHUNT Left NECK SPINE FUSION (CERV, BELOW C2) NECK SPINE FUSION (CERV, BELOW C2) 06/16/2023 AL RPR INGUN HERNIA SLIDING ANY AGE REMOVE CATARACT, INSERT LENS PROSTH Right 07/28/2023 RIGHT EXTRACAPSULAR CATARACT REMOVAL WITH INTRAOCULAR LENS performed by Eugene Shipley MDat OR [facility] REMOVE CATARACT, INSERT LENS PROSTH Left 08/11/2023 LEFT EXTRACAPSULAR CATARACT REMOVAL WITH INTRAOCULAR LENS performed by Eugene Shipley MD at OR [facility] UROLOGY SURGERY PROCEDURE NEC 08/2022 urolift Current [...] normal in ulnar and radial distributions bilaterally. Drum Reel Cutter strength 5/5 bilaterally. Motor intact in median, [...] Michael Farah is a 78 year old [id number] male with bilateral carpal tunnel syndrome for [...] in clinic on 11/24/2023. Delisa Brown MD [facility] Name : Michael Farah Date : 11/24/2023 I saw and evaluated the patient today. I have reviewed the resident/fellow physician note and agree. Michael Farah is a 78 year old [id number] male with bilateral carpal tunnel syndrome for [...] MD FAAOS Hand & Upper Extremity Surgeon [facility] documented in this encounter Plan of Treatment Upcoming Encounters Date Type Department Care Team (Latest Contact Info) Description 11/27/2023 1:55 PM EDT Hospital Encounter OR [facility], Operating Room, [facility] 3rd Floor [address] [place] [address] Carri Taylor MD [address] [place] [address] 11/27/2023 1:55 PM EDT - 11/27/2023 3:01 PM EDT Surgery OR [facility], Operating Room, [facility] 3rd Floor [address] [place] [address] Carri Taylor MD [address] [place] [address] BILATERAL NEUROPLASTY MEDIAN NERVE AT CARPAL TUNNEL 12/04/2023 11:00 AM EDT Office Visit Cardiology, [facility] [address] [place] [address] Pipe Moctezuma PA-C [address] [place] [address] 03/07/2024 3:00 PM EDT Office Visit Dermatology [facility] [address] [place] [address] Oriana Ambrosio MD [address] [place] [address] 06/23/2024 1:00 PM EST Office Visit General Internal Medicine [facility] [address] [facility] [place] [address] Deangelo Saldaña MD [address] [facility] [place] [address] Scheduled Procedures Name Priority Associated Diagnoses Date/Ti me NEUROPLASTY MEDIAN NERVE AT CARPAL TUNNEL Bilateral carpal tunnel syndrome 11/27/2023 1:55 PM EDT Health Maintenance Due Date Last Done Comments DTaP,Tdap,and Td Vaccines (1 - Tdap) 1964 Zoster Vaccines (2 of 2) 06/17/2020 04/22/2020 COVID-19 Vaccine ( season) 2023 05/26/2022, 05/17/2021, 07/06/2020, Additional history exists GFR 05/12/2024 11/11/2023, 02/0 11/2023, 05/22/2023, Additional history exists CKD HGB USE SMARTSET 33393 07/14/202407/14, 07/14/2023, 05/22/2023, Additional history exists Albumin/Creatinine Ratio 11/10/20242 024, 11/13/2022, 06/05/2021 CKD PHOS USE SMARTSET 97176 11/10/2024 11/11/2023, 0 11/13/2022 Depression Screening 11/10/2024 [...] this encounter Medical Devices Implanted Type Area Theatre Arts Professor Device Identifier Shelf Expiration Date Model / Serial / Lot Lens Li61ao 13.00mm 18.00 - [id number] - [id number] Implanted:Qty: 1 on 07/28/2023 by Eugene Shipley MD at OR [facility] Right: Eye [employer] 04/07/2028 [id number] / [id number] / [id number] Lens Li61ao 13.00mm 17.50 - [id number] - [id number] Implanted:Qty: 1 on 08/11/2023 by Eugene Shipley MD at OR [facility] Left: Eye [employer] 03/07/2028 [id number] / [id number] / [id number] documented as of this encounter Visit Diagnoses Diagnosis Bilateral carpal tunnel syndrome- Primary Carpal tunnel syndrome Bilateral carpal tunnel syndrome- Primary Carpal tunnel syndrome Bilateral carpal tunnel syndrome Carpal tunnel syndrome documented in this encounter Advance Directives * [...] Power of Attor leslie? No Care Teams Ophthalmology Surgical Technician Relationship Specialty Start Date End Date Deangelo Saldaña MD [address] [facility] [place] [address] PCP - General Internal Medicine 02/06/21 documented as of this encounter
--- OUTSIDE RECORDS SUMMARY | 2023-11-29 17:49 | External Medical Summary | Summary of Care ---
Author Name Unknown Organization [facility] Address [address] [place] [address] Phone [phone] Care Team Providers Care Chemical Dependency Therapist Name Role Phone Deangelo Saldaña MD Primary Care Provider + Reason for Visit * Reason Comments Outpatient Testing Encounter Details Date Type Department Care Team (Late st Contact Info) Description 07/14/2023 10:10 AM EST Laboratory Laboratory [facility] [address] [place] [phone] [facility] [address] [place] [address] Chronic kidney disease, stage 3a (HCC) Allergies No known active allergiesdocumented as of this encounter (statuses as of 07/14/2023) Medications Medication Sig Dispensed Refills Start Date End Date Status Candesartan Cilexetil 32 MG Oral Tablet (Atacand) Take 1 Tablet by mouth at bedtime. 0 04/25/2021 Active Atorvastatin Calcium 80 MG Oral Tablet (Lipitor) Take 1 Tablet by mouth in the morning. 0 04/25/2021 Active Escitalopram Oxalate 10 MG Oral Tablet (Lexapro) Take 1 Tablet by mouth in the morning. 0 05/18/2021 Active Multivitamin Men 50+ Oral Tablet Take by mouth daily . 0 Active Co Q10 200 MG Oral Capsule Take by mouth daily . 0 Active Bioflavonoids 1000 MG Oral Tablet Take by mouth daily . 0 Active Ginkgo Biloba 40 MG Oral Tablet Take 1 Tablet by mouth in the morning. 0 Active Fluticasone Propionate HFA 110 MCG/ACT Inhalation Aerosol (Flovent Hfa) Inhale 2 Puffs by mouth in the morning and 2 Puffs before bedtime. 0 Active Systane ICaps AREDS2 Oral Capsule Take by mouth . 0 Active Betamethasone Dipropionate Aug 0.05 % External Cream (Diprolene AF) 2 times a day. To affected area. 0 08/11/2022 Active Famotidine 20 MG Oral Tablet (Pepcid) Take 0.5 Tablets by mouth daily as needed for Heartburn. 0 08/22/2022 Active documented as of this encounter (statuses as of 07/14/2023) Active Problems Problem Noted Date Diagnosed Date Chronic kidney disease, stage 3a 09/15/2022 Overview: Per CKD protocol HTN, goal below 130/80 05/29/2021 Mixed hyperlipidemia 05/29/2021 VLADIMIR (generalized anxiety disorder) 05/29/2021 Nonrheumatic mitral valve regurgitation 05/29/20 Mild aortic insufficiency 05/29/2021 Aortic valve sclerosis 05/29/2021 History of acute prostatitis 05/29/2021 documented as of this encounter (statuses as of 07/14/2023) Resolved Problems Problem Noted Date Diagnosed Date Resolved Date Hyperlipidemia 05/29/2021 05/29/2021 documented as of this encounter (statuses as of 07/14/2023) Immunizations Name Administration Dates Next Due COVID-19 mRNA, LNP-s, No Pre serve, 2-Dose Series ([facility]) 05/17/2021,07/06/2020,06/15/2020 Covid-19, Mrna, Lnp-s, Pf, B ivalent, 30 Mcg, IM, 12 yrs and above ([facility]) 05/26/2022 Pneumococcal Conjugate Vacci ne, 20-valent ([id number]) 12/04/2021 Pneumococcal Polysaccharide PPV23 (Pneumovax) 04/22/2020 Seasonal [...] Department Care Team (Latest Contact Info) Description 07/28/2023 12:06 PM EST Hospital Encounter [facility], Operating Room [facility] [address] [facility] [place] [phone] Eugene Shipley MD [address] [address] 07/28/2023 12:06 PM EST - 07/28/2023 12:43 PM EST Surgery OR [facility], Operating Room [facility] [address] [place] [phone] Eugene Shipley MD [address] [address] RIGHT EXTRACAPSULAR CATARACT REMOVAL WITH INTRAOCULAR LENS 08/11/2023 12:25 PM EST Hospital Encounter [facility], Operating Room [facility] [address] [place] [phone] Eugene Shipley MD [address] [address] 08/11/2023 12:25 PM EST - 08/11/2023 1:02 PM EST [facility] [place] [phone] Eugene Shipley MD [facility] [address] [address] LEFT EXTRACAPSULAR CATARACT REMOVAL WITH INTRAOCULAR LENS 11/11/2023 11:00 AM EDT Cardiac Studies [facility] [place] [address] 12/04/2023 11:00 AM EDT Office Visit Cardiology, [facility] [address] [facility] [place] [address] Pipe Moctezuma PA-C [address] [place] [address] 01/19/2024 3:00 PM EDT Office Visit General Internal Medicine [facility] [address] [place] [address] Deangelo Saldaña MD [address] [place] [address] 03/07/2024 3:00 PM EDT Office Visit Dermatology [facility] [address] [place] [address] Oriana Ambrosio MD [address] [place], [place] [phone] Pending Results Name Type Priority Associated Diagnoses Date /Time LIPID PANEL WITH DIRECT LDL IF TG IS HIGH Lab Routine Chronic kidney disease, stage 3a (HCC) 07/14/2023 9:24 AM EST COMPREHENSIVE METABOLIC PANEL Lab Routine Chronic kidney disease, stage 3a (HCC) 07/14/2023 9:24 AM EST Scheduled Procedures Name Priority Associated Diagnoses Date/Ti me EXTRACAPSULAR CATARACT REMOVAL WITH INTRAOCULAR LENS Combined forms of age-related cataract of right eye 07/28/2023 12:06 PM EST EXTRACAPSULAR CATARACT REMOVAL WITH INTRAOCULAR LENS Combined forms of age-related cataract of left eye 08/11/2023 12:25 PM EST Health Maintenance Due Date Last Done Comments DTaP,Tdap,and Td Vaccines (1 - Tdap) 1964 Zoster Vaccines (2 of 2) 06/17/2020 04/22/2020 COVID-19 Vaccine (5 - season) 2023 05/26/2022, 05/17/2021, 07/06/2020, Additional history exists Depression Screening 05/07/2023 05/07/2022 Albumin/Creatinine Ratio 11/14/2023 11/13/2022, 12/02/2021 CKD PHOS USE SMARTSET 01164 11/14/2023 11/13/2022 GFR 11/21/2023 05/22/2023, 06/0 01/2023, 08/20/2022, Additional history exists CKD HGB USE SMARTSET 27862 07/14/202407/14, 07/14/2023, 05/22/2023, Additional history exists Pneumococcal Vaccine: 65+ Years Completed 12/04/2021, 04/22/2020 [...] documented as of this encounter Medical Devices Not on filedocumented as of this encounter Procedures Procedure Name Priority Date/Time Associated Diagnosis Comments DIFFERENTIAL, AUTOMATED Routine 07/14/2023 9:24 AM EST Chronic kidney disease, stage 3a (HCC) CBC Routine 07/14/2023 9:24 AM EST Chronic kidney disease, stage 3a (HCC) CBC Routine 07/14/2023 9:24 AM EST Chronic kidney disease, stage 3a (HCC) documented in this encounter Results * (ABNORMAL) DIFFERENTIAL, AUTOMATED (07/14/2023 9:24 AM EST) WBC 6.10 4.00 - 10.80 K/uL 07/14/2023 9:34 AM [facility] 56-02 Neutrophils % 52.8 40.0 - 75.0 % 07/14/2023 9:34 AM [facility] 56-02 Lymphocytes % 29.0 18.0 - 42.0 % 07/14/2023 9:34 AM [facility] 56-02 Monocytes % 13.3(H) 1.0 - 11.0 % 07/14/2023 9:34 AM EST [facility] 56-02 Eosinophils % 4.4 0.0 - 6.0 % 07/14/2023 9:34 AM EST [facility] 56-02 Basophils % 0.5 0.0 - 2.0 % 07/14/2023 9:34 AM [facility] 56-02 Absolute Neutrophils 3.22 1.80 - 7.70 K/uL 07/14/2023 9:34 AM [facility] 56-02 Absolute Lymphocytes 1.77 1.00 - 4.80 K/ul 07/14/2023 9:34 AM [facility] 56-02 Absolute Monocytes 0.81 0.00 - 1.10 K/uL 07/14/2023 9:34 AM [facility] 56-02 Absolute Eosinophils 0.27 0.00 - 0.70 K/uL 07/14/2023 9:34 AM [facility] 56-02 Absolute Basophils 0.03 0.00 - 0.20 K/uL 07/14/2023 9:34 AM [facility] 56-02 Blood Venous blood specimen / Unknown Venipuncture / Unknown 07/14/2023 9:24 AM EST 07/14/2023 9:24 AM EST Deangelo Saldaña MD LAB BLOOD ORDERA BLES [facility] 56-[address] [place], [place] [phone] * (ABNORMAL) CBC (07/14/2023 9:24 AM EST) Pathologist [facility] WBC 6.10 4.00 - 10.80 K/uL 07/14/2023 9:34 AM [facility] 56- RBC 4.18 4.50 - 5.25 M/uL 07/14/2023 9:34 AM [facility] 56- HGB 13.6(L) 14.0 - 16.8 g/dL 07/14/2023 9:34 AM [facility] 56- HCT 42.1 40.0 - 48.4 % 07/14/2023 9:34 AM [facility] 56- MCV 100.7 82.0 - 99.5 fL 07/14/2023 9:34 AM [facility] 56- MCH 32.5 27.0 - 34.0 pg 07/14/2023 9:34 AM [facility] 56- MCHC 32.3 32.0 - 36.0 g/dL 07/14/2023 9:34 AM [facility] 56- RDW 12.0 11.5 - 15.5 % 07/14/2023 9:34 AM [facility] 56- PLT 280 140 - 400 K/uL 07/14/2023 9:34 AM [facility] 56- MPV 9.5 6.6 - 11.1 fL 07/14/2023 9:34 AM [facility] 56- Blood Venous blood specimen / Unknown Venipuncture / Unknown 07/14/2023 9:24 AM EST 07/14/2023 9:24 AM EST Deangelo Saldaña MD LAB BLOOD ORDERA BLES [facility] [address] [facility] [address] documented in this encounter Visit Diagnoses Diagnosis Chronic kidney disease, stage 3a (HCC) Combined forms of age-related cataract of right eye Other and combined forms of senile cataract Combined forms of age-related cataract of left eye Other and combined forms of senile cataract documented in this encounter Care Teams Chemical Dependency Therapist Relationship Specialty Start Date End Date Deangelo Saldaña MD [address] [facility] [address] P[facility] - General Internal Medicine 02/06/21 documented as of this encounter
--- OUTSIDE RECORDS SUMMARY | 2023-11-29 17:49 | External Medical Summary | Summary of Care ---
Author Name Unknown Organization [facility] Address [address] [address] Phone [phone] Care Team Providers Care Last Sawyer Name Role Phone Deangelo Saldaña MD Primary Care Provider + Reason for Visit * Reason Comments Other Pt has irregular pin k/red lesion on L lower leg. Unsure how long its been there. H/o BCC. Encounter Details Date Type Department Care Team (Late st Contact Info) Description 08/17/2023 9:00 AM EDT Office Visit Dermatology, Atiya Sena [facility] [address] [address] Steph May PA-C 27 [facility] [address] [address] Neoplasm of uncertain behavior of skin* Allergies No known active allergiesdocumented as of this encounter (statuses as of 08/17/2023) Medications Medication Sig Dispensed Refills Start Date [...] To affected area. 0 08/11/2022 Active Famotidine 10 MG Oral Tablet (Pepcid AC) Take 1 Tablet by mouth in the morning and 1 Tablet before bedtime. Take 1 tab every morning take 2 tabs at bedtime . 0 Active documented as of this encounter (statuses as of 08/17/2023) Active Problems Problem Noted Date Diagnosed Date Chronic kidney disease, stage 3a 09/15/2022 Overview: Per CKD protocol HTN, goal below 130/80 05/29/2021 Mixed hyperlipidemia 05/29/2021 VLADIMIR (generalized anxiety disorder) 05/29/2021 Nonrheumatic mitral valve regurgitation 05/29/20 21 Mild aortic insufficiency 05/29/2021 Aortic valve sclerosis 05/29/2021 History of acute prostatitis 05/29/2021 documented as of this encounter (statuses as of 08/17/2023) Resolved Problems Problem Noted Date Diagnosed Date Resolved Date Hyperlipidemia 05/29/2021 05/29/2021 documented as of this encounter (statuses as of 08/17/2023) Immunizations Name Administration Dates Next Due COVID-19 mRNA, LNP-s, No Pre serve, 2-Dose Series ([employer]) 05/17/2021,07/06/2020,06/15/2020 Covid-19, Mrna, Lnp-s, Pf, B ivalent, 30 Mcg, IM, 12 yrs and above ([employer]) 05/26/2022 Pneumococcal Conjugate Vacci ne, 20-valent ([id number]) 12/04/2021 Pneumococcal Polysaccharide PPV23 (Pneumovax) 04/22/2020 Seasonal [...] on file documented as of this encounter Progress Notes * Steph May PA-C - 08/17/2023 9:00 AM EDT SUBJECTIVE: CC: Chief Complaint Patient presents with Other Pt has irregular pink/red lesion on L lower leg. Unsure how long its been there. H/o BCC. HPI: Michael Farah is a 78 year old male who is an established patient presenting for skin lesion. Last dermatology clinic visit: 12/[address] Ambrosio for skin check s/p shave and curettage of BCC right lower leg. Concerns with lesion on the left lower leg present for unknown period of time. Lesion described as irregular-pink and red. No pain or bleeding. He states he was self-treating with Diprolene and occlusion and it does seem better-just removed dressing today. 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 From [facility] and trained there. Retired to [employer] to be by daughter. REVIEW OF SYSTEMS: See HPI- all other findings negative Constitutional: (-) fever, chills, sweats, weight loss Cardiovascular: (-) lower extremity edema Skin: (-) no rash or new or changing moles or skin lesions Heme/Lymph: (-) no new or enlarging lumps or bumps MEDICA TIONS: Current Outpatient Medications Medication Sig Dispense Refill Candesartan Cilexetil 32 MG Oral Tablet (Atacand) Take 1 Tablet by mouth at bedtime. Atorvastatin Calcium 80 MG Oral Tablet (Lipitor) Take 1 Tablet by mouth in the morning. Escitalopram Oxalate 10 MG Oral Tablet (Lexapro) Take 1 Tablet by mouth in the morning. Multivitamin Men 50+ Oral Tablet Take by mouth daily . Co Q10 200 MG Oral Capsule Take by mouth daily . Bioflavonoids 1000 MG Oral Tablet Take by [...] morning take 2 tabs at bedtime . No current facility-administered medications for this visit. ALLERG Y: Patient has no known allergies. OBJECTIVE: GEN: Healthy, alert, no distress, appears oriented, pleasant, and cooperative. PSYCH: Appropriate mood and affect, alert SKIN: Detailed exam to area of concern on the left lower leg was completed and are within normal limits with the following exceptions: 1A. L lower leg-medial calf 2cm nieto flat plaque with pink scale and telangiectasia. DDX: large cellacanthoma r/o NMSC\ ASSESSMENT/PLAN: Neoplasm of uncertain behavior of skin (Primary) - DERM EXAM - DERM (IMAGES ONLY, NO REPORT) - SURGICAL PATHOLOGY A. L lower leg-medial calf 2cm nieto flat plaque with pink scale and telangiectasia. DDX: large cell acanthoma r/o NMSC -Shave removal and curettage of the lesion noted above to remove and confirm diagnosis. The procedure, risks including but not limited to; (scarring, bleeding, infection, pain, and bruising), benefits, alternatives and expected outcomes were discussed with the patient, and obtained verbal consent from pt. Time out called. Patient identified, procedure verified, site identified and verified. Patient and staff present in agreement. Area prepped with alcohol and anesthetized using lidocaine. Shaveof lesion performed followed by curettage for cure. 20% AlCl and bandaging applied. Specimen sent to pathology. Patient instructed in routine post-op care and given wound care pamphlet. Total size 2.8cm Patient alone today. Follow-up: pending bx Photos taken, patient consented to photos taken. Contact patient via [email or web address] Applicable photos (if any) and chart reviewed by Dr. Wes Woodward. The patient was encouraged to contact me with any further questions or concerns. Steph May PA-C 08/17/2023 * Silvio Woodward MD - 08/17/2023 9:00 AM EDT I have reviewed the relevant notes and photographs taken by Steph May PA-C. I have reviewed and agree with the assessment and plan. Silvio Woodward MD documented in this encounter Nursing Notes * Alma Greene MED ASSIST - 08/17/2023 8:57 AM EDT Chief Complaint Patient presents with Other Pt has irregular pink/red lesion on L lower leg. Unsure how long its been there. H/o BCC. documented in this encounter Plan of Treatment Upcoming Encounters Date Type Department Care Team (Late st Contact Info) Description 10/19/2023 12:20 PM EDT Office Visit General Internal Medicine [facility] [place] [address] [address] Yaneth Kay MD [address] [place] [address] 11/11/2023 11:00 AM EDT Cardiac Studies Cardiac Studies, [facility] [address] [facility] [place] [address] 12/04/2023 11:00 AM EDT Office Visit Cardiology, [facility] [address] [place] [address] Pipe Moctezuma PA-C [address] [place] [address] 01/19/2024 3:00 PM EDT Office Visit General Internal Medicine [facility] [address] [facility] [place] [address] Deangelo Saldaña MD 200 [facility] [place] [address] 03/07/2024 3:00 PM EDT Office Visit Dermatology [facility] [address] [place] [address] Oriana Ambrosio MD [address] [place] [address] Pending Results Name Type Priority Associated Diagnoses Date /Time SURGICAL PATHOLOGY Pathology Routine Neoplasm of uncertain behavior of skin 08/17/2023 9:23 AM EDT SURGICAL PATHOLOGY Pathology Routine Neoplasm of uncertain behavior of skin 08/17/2023 9:26 AM EDT Health Maintenance Due Date Last Done Comments DTaP,Tdap,and Td Vaccines (1 - Tdap) 1964 Zoster Vaccines (2 of 2) 06/17/2020 04/22/2020 COVID-19 Vaccine ( season) 2023 05/26/2022, 05/17/2021, 07/06/2020, Additional history exists Depression Screening 05/07/2023 05/07/2022 Albumin/Creatinine Ratio 11/14/2023 11/13/2022, 05/09 CKD PHOS USE SMARTSET 21204 11/14/2023 11/13/2022 GFR 01/12/2024 07/14/2023, 05/08, 11/13/2022, Additional history exists CKD HGB USE SMARTSET 93879 07/14/202407/14, 07/14/2023, 05/22/2023, Additional history exists Pneumococcal [...] this encounter Medical Devices Implanted Type Area Highway Design Engineer Device Identifier Shelf Expiration Date Model / Serial / Lot Lens Li61ao 13.00mm 18.00 - [id number] - [id number] Implanted:Qty: 1 on 07/28/2023 by Eugene Shipley MD at OR [facility] Right: Eye [employer] 04/07/2028 [id number] / [id number] / [id number] Lens Li61ao 13.00mm 17.50 - [id number] - [id number] Implanted:Qty: 1 on 08/11/2023 by Eugene Shipley MD at OR [facility] Left: Eye [employer]OMB 03/07/2028 [id number] / [id number] / [id number] documented as of this encounter Procedures Procedure Name Priority Date/Time Associated Diagnosis Comments DERM EXAM - DERM (IMAGES ONLY, NO REPORT) Routine 08/17/2023 9:23 AM EDT Neoplasm of uncertain behavior of skin documented in this encounter Results * DERM EXAM - DERM (IMAGES ONLY, NO REPORT) (08/17/2023 9:23 AM EDT) Narrative Scheduling, Silent - 08/17/2023 9:23 AM EDT This is an imaging study not interpreted or resulted by a [facility] or [email or web address] contracted radiologist. Steph May PA-C RADIOLOGY (RAD GENERAL) documented in this encounter Visit Diagnoses Diagnosis Neoplasm of uncertain behavior of skin- Primary documented in this encounter Advance Directives Latest Code Status on File Code Status Date Activated Date Inactivated Comments Full Code 08/11/2023 11:27 AM 08/11/2023 5:24 PM This o rder reflects the patients wishes and were consensually agreed upon. Question Answer Comments Discussion of Advance Directives occurred with: Patient Does the patient have a Living Will? No Does the patient have Health Care Power of Farmworker Poultry? No Code Status History Code Status Date Activated Date Inactivated Comments Full Code 07/28/2023 11:12 AM 07/28/2023 5:12 PM This order reflects the patients wishes and were consensually agreed upon. Question Answer Comments Discussion of Advance Directives occurred with: Patient Does the patient have a Living Will? No Does the patient have Health Care Power of Farmworker Poultry? No Care Teams Last Sawyer Relationship Specialty Start Date End Date Deangelo Saldaña MD [address] [place] [address] PCP - General Internal Medicine 02/06/21 documented as of this encounter
--- OUTSIDE RECORDS SUMMARY | 2023-11-29 17:49 | External Medical Summary | Summary of Care ---
Author Name Unknown Organization [facility] Address [address] [place] [address] Phone [phone] Care Team Providers Care Wire Mesh Knitter Name Role Phone Deangelo Saldaña MD Primary Care Provider + Reason for Visit * Reason Onset Date Comments Encounter Created in Error 08/10/2023 Encounter Details Date Type Department Care Team (Late st Contact Info) Description 08/10/2023 Telephone General Internal Medicine [facility] [address] [facility] [place] [address] Deangelo Saldaña MD [address] [place] [address] Encounter Created in Error Allergies No known active allergiesdocumented as of this encounter (statuses as of 08/10/2023) Medications Medication Sig Dispensed Refills Start Date [...] as of this encounter (statuses as of 08/10/2023) Active Problems Problem Noted Date Diagnosed Date Chronic kidney disease, stage 3a 09/15/2022 Overview: Per CKD protocol HTN, goal below 130/80 05/29/2021 Mixed hyperlipidemia 05/29/2021 VLADIMIR (generalized anxiety disorder) 05/29/2021 Nonrheumatic mitral valve regurgitation 05/29/20 Mild aortic insufficiency 05/29/2021 Aortic valve sclerosis 05/29/2021 History of acute prostatitis 05/29/2021 documented as of this encounter (statuses as of 08/10/2023) Resolved Problems Problem Noted Date Diagnosed Date Resolved Date Hyperlipidemia 05/29/2021 05/29/2021 documented as of this encounter (statuses as of 08/10/2023) Immunizations Name Administration Dates Next Due COVID-19 mRNA, LNP-s, No Pre serve, 2-Dose Series ([employer]) 05/17/2021,07/06/2020,06/15/2020 Covid-19, Mrna, Lnp-s, Pf, B ivalent, 30 Mcg, IM, 12 yrs and above ([employer]) 05/26/2022 Pneumococcal Conjugate Vacci ne, 20-valent ([id number]) 12/04/2021 Pneumococcal Polysaccharide PPV23 (Pneumovax) 04/22/2020 Seasonal [...] Department Care Team (Latest Contact Info) Description 08/11/2023 12:25 PM EST Hospital Encounter [facility], Operating Room [facility] [address] [id number] Eugene Shipley MD [address] [address] 08/11/2023 12:25 PM EST - 08/11/2023 1:02 PM EST Surgery OR [facility], Operating Room [facility] [address] [id number] Eugene Shipley MD [address] [address] LEFT EXTRACAPSULAR CATARACT REMOVAL WITH INTRAOCULAR LENS 08/17/2023 9:00 AM EDT Office Visit Dermatology, Atiya Sena [address] [address] Steph May PA-C [address] [place] [address] [address] 10/19/2023 12:20 PM EDT Office Visit General Internal Medicine [facility] [place] [address] Yaneth Kay MD 200 [facility] [place] [address] 11/11/2023 11:00 AM EDT Cardiac Studies Cardiac Studies, [facility] [address] [place] [address] 12/04/2023 11:00 AM EDT Office Visit Cardiology, [facility] [address] [place] [address] Pipe Moctezuma PA-C 132 [facility] [place] [address] 01/19/2024 3:00 PM EDT Office Visit General Internal Medicine [facility] [address] [facility] [place] [address] Deangelo Saldaña MD 200 [facility] [place] [address] 03/07/2024 3:00 PM EDT Office Visit Dermatology [facility] [address] [place], [place] [address] Oriana Ambrosio MD [address] [place] [phone] Scheduled Procedures Name Priority Associated Diagnoses Date/Ti [...] 11/14/2023 11/13/2022, 05/09 CKD PHOS USE SMARTSET 08600 11/14/2023 11/13/2022 GFR 01/12/2024 07/14/2023, 05/08, 11/13/2022, Additional history exists CKD HGB USE SMARTSET 75581 07/14/202407/14, 07/14/2023, 05/22/2023, Additional history exists Pneumococcal [...] this encounter Medical Devices Implanted Type Area Sulfuric Acid Plant Supervisor Device Identifier Shelf Expiration Date Model / Serial / Lot Lens Li61ao 13.00mm 18.00 - [id number] - [id number] Implanted:Qty: 1 on 07/28/2023 by Eugene Shipley MD at [facility] Right: Eye [employer] 04/07/2028 [id number] / [id number] / [id number] documented as of this encounter Advance Directives Latest Code Status on File Code Status Date Activated Date Inactivated Comments Full Code 07/28/2023 11:12 AM 07/28/2023 5:12 PM This order reflects the patients wishes and were consensually agreed upon. Question Answer Comments Discussion of Advance Directives occurred with: Patient Does the patient have a Living Will? No Does the patient have Health Care Power of Tune Up Mechanic? No Care Teams Wire Mesh Knitter Relationship Specialty Start Date End Date Deangelo Saldaña MD 200 [place] [address] PCP - General Internal Medicine 02/06/21 documented as of this encounter
--- OUTSIDE RECORDS SUMMARY | 2023-11-29 17:49 | External Medical Summary | Summary of Care ---
Author Name Unknown Organization [facility] Address [address] [place] [address] Phone [phone] Care Team Providers Care Pipe Production Worker Name Role Phone Deangelo Saldaña MD Primary Care Provider + Reason for Visit * Reason Comments EMG Encounter Details Date Type Department Care Team (Late st Contact Info) Description 10/20/2023 1:00 PM EDT NeuroDiagnostic Study Neurophysiology [facility] [address] [facility] [place] [address] Brooklynn Hernandez MD [address] [facility] [place] [address] Arrived Allergies No known active allergiesdocumented as of this encounter (statuses as of 10/20/2023) Medications Medication Sig Dispensed Refills Start Date [...] as of this encounter (statuses as of 10/20/2023) Active Problems Problem Noted Date Diagnosed Date Chronic kidney disease, stage 3a 09/15/2022 Overview: Per CKD protocol HTN, goal below 130/80 05/29/2021 Mixed hyperlipidemia 05/29/2021 VLADIMIR (generalized anxiety disorder) 05/29/2021 Nonrheumatic mitral valve regurgitation 05/29/20 Mild aortic insufficiency 05/29/2021 Aortic valve sclerosis 05/29/2021 History of acute prostatitis 05/29/2021 documented as of this encounter (statuses as of 10/20/2023) Resolved Problems Problem Noted Date Diagnosed Date Resolved Date Hyperlipidemia 05/29/2021 05/29/2021 documented as of this encounter (statuses as of 10/20/2023) Immunizations Name Administration Dates Next Due COVID-19 mRNA, LNP-s, No Pre serve, 2-Dose Series ([employer]) 05/17/2021,07/06/2020,06/15/2020 Covid-19, Mrna, Lnp-s, Pf, B ivalent, 30 Mcg, IM, 12 yrs and above ([employer]) 05/26/2022 Pneumococcal Conjugate Vacci ne, 20-valent ([id number]) 12/04/2021 Pneumococcal Polysaccharide PPV23 (Pneumovax) 04/22/2020 Seasonal [...] as of this encounter Progress Notes * Brooklynn Hernandez MD - 10/20/2023 1:47 PM EDT [facility] Neurophysiology Department [place], [place] Test Date: 10/20/2023 Patient: Gagan Rodriguez : 2045 Physician: Brooklynn Hernandez MD Sex: Male Height: 5' 8" Ref Phys: Kimberly Villanueva MD ID#: [id number] Weight: 160 lbs. Curing Pickling Packer: Sai Villagomez Patient Complaints: bl hand numbness and tingling fingers 1-4 x months. Sx are worse nocturnally. The pt had had radicular sx rad to the LUE which resolved with surgery. Pt is not diabetic Patient History / Exam: Pos Tinel's and Phalen's bl wrist, mod weakness bl APB. 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 There is a moderately severe demyelinating left median neuropathy at the level of the wrist not causing active or chronic denervation. 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 NCV & EMG Findings: The right median distal motor latency is markedly prolonged the amplitude is mildly reduced and theconduction velocity is reduced the left median distal motor latency is moderately prolonged the amplitude is normal and the conduction velocity is mildly reduced. The right ulnar motor response is normal. Right median sensory response from digit 2 to wrist is absent the right ulnar sensory response fromdigit 5 to wrist is normal in the right radial sensory responses normal. The left median sensory response from palm to wrist is absent. The left older said 3 latency from palm to wrist is mildly prolonged and amplitude mildly reduced EMG of the right upper extremity shows mild chronic denervation In the right APB. EMG of the left upper extremity shows mildly decreased recruitment in the left APB Brooklynn Hernandez MD NCS+ Motor Nerve Results Latency Amplitude Segment Distance Velocity Min F-Lat Temperature Site (ms) Norm (mV) Norm cm m/s Norm (ms) Norm (C) Left Median (with F) Wrist 7.1 < 4.6 5.1 > 4.0 Wrist-APB 7 - Elbow 12.5 - 4.6 - Elbow-Wrist 25 46 > 49 - Right Median (with F) Wrist 9.9 < 4.6 3.8 > 4.0 Wrist-APB 7 37.9 < 32.0 - Elbow 16.3 - 3.8 - Elbow-Wrist 26 41 > 49 - Right Ulnar (with F) Wrist 3.6 < 3.7 10.8 > 6.0 Wrist-ADM 6.5 31.5 < 32.0 - Bel Elbow 7.3 - 10.6 - Bel Elbow-Wrist 22 59 > 52 - Abv Elbow 9.2 - 10.6 - Abv Elbow-Bel Elbow 10 53 - - Abv Elbow-Wrist 32 57 - Motor Segments Delta-O Distance CV Segment (ms) (cm) (m/s) Norm Left Median (with F) Wrist-APB 7 Elbow-Wrist 5.4 25 46 > 49 Right Median (with F) Wrist-APB 7 Elbow-Wrist 6.4 26 41 > 49 Right Ulnar (with F) Wrist-ADM 6.5 Bel Elbow-Wrist 3.7 22 59 > 52 Abv Elbow-Bel Elbow 1.90 10 53 - Abv Elbow-Wrist 5.6 32 57 - Sensory Nerve Results Latency (Peak) Amplitude ( O-P ) Segment Distance Temperature Site (ms) Norm (V) Norm (cm) (C) Right Median Sensory Wrist-Dig II NR < 3.7 NR > 15 Wrist-Dig II 13 - Left Median-Ulnar Palmar Sensory Median Palm-Wrist NR < 2.4 NR > 50 Palm-Wrist 8 - Ulnar Palm-Wrist 3.5 < 2.4 6 > 15 Palm-Wrist 8 - Right Radial Sensory Forearm-Snuff Box 2.6 < 3.0 20 > 20 Forearm-Snuff Box 10 - Left Ulnar Sensory Wrist-Dig V 3.2 < 3.2 20 > 10 Wrist-Dig V 11 - Right Ulnar Sensory Wrist-Dig V 3.1 < 3.2 15 > 10 Wrist-Dig V 11 - Inter-Nerve Comparisons Nerve 1 Value 1 Nerve 2 Value 2 Parameter Result Normal Sensory Sites L Median Palm-Wrist - L Ulnar Palm-Wrist 3.5 ms Peak Lat Diff - <0.40 EMG+ Side Muscle Root Ins Act Fibs Fasic Others Poly Dur Amp Recrt Activation Commt Left FCR C6-C7 NL 0 0 None 0 NL NL NL NL Left FDI C8-T1 NL 0 0 None 0 NL NL NL NL Left APB C8-T1 NL 0 0 None 0 NL NL NL Fair Right FCR C6-C7 NL 0 0 None 0 NL NL NL NL Right FDI C8-T1 NL 0 0 None 0 NL NL NL NL Right APB C8-T1 NL 0 0 None 2+ NL 1+ NL Fair documented in this encounter Plan of Treatment Upcoming Encounters Date Type Department Care Team (Late st Contact Info) Description 10/28/2023 11:00 AM EDT [facility] [address] [place], [place] [address] Mandy Parsons MD [address] [place] [address] 11/11/2023 11:00 AM EDT Cardiac Studies Cardiac Studies, [facility] [address] [facility] [place] [address] 12/04/2023 11:00 AM EDT Office Visit Cardiology, [facility] [address] [place] [address] Pipe Moctezuma PA-C [address] [place] [address] 01/19/2024 3:00 PM EDT Office Visit General Internal Medicine [facility] [address] [place] [address] Deangelo Saldaña MD [address] [facility] [place] [address] 03/07/2024 3:00 PM EDT Office Visit Dermatology [facility] [address] [place] [address] Oriana Ambrosio MD [address] [place] [address] Health Maintenance Due Date Last Done Comments DTaP,Tdap,and Td Vaccines (1 - Tdap) 1964 Zoster Vaccines (2 of 2) 06/17/2020 04/22/2020 COVID-19 Vaccine ( - 2022-24 season) 2023 05/26/2022, 05/17/2021, 07/06/2020, Additional history exists Depression Screening 05/07/2023 05/07/2022 Albumin/Creatinine Ratio 11/14/2023 11/13/2022, 05/09 CKD PHOS USE SMARTSET 28130 11/14/2023 11/13/2022 GFR 01/12/2024 07/14/2023, 05/08, 11/13/2022, Additional history exists CKD HGB USE SMARTSET 99414 07/14/202407/14, 07/14/2023, 05/22/2023, Additional history exists Pneumococcal [...] this encounter Medical Devices Implanted Type Area Rn Dialysis Device Identifier Shelf Expiration Date Model / Serial / Lot Lens Li61ao 13.00mm 18.00 - [id number] - [id number] Implanted:Qty: 1 on 07/28/2023 by Eugene Shipley MD at OR [facility] Right: Eye [employer] 04/07/2028 [id number] / [id number] / [id number] Lens Li61ao 13.00mm 17.50 - [id number] - [id number] Implanted:Qty: 1 on 08/11/2023 by Eugene Shipley MD at OR [facility] Left: Eye BA[employer]CH [employer] LOMB 03/07/2028 [id number] / [id number] / [id number] documented as of this encounter Visit Diagnoses Diagnosis Bilateral carpal tunnel syndrome- Primary Carpal tunnel syndrome documented in this encounter Advance Directives Latest [...] the patient have Health Care Power of Forestry Tree Pruner? No Code Status History Code Status Date Activated Date Inactivated Comments Full Code 07/28/2023 11:12 AM 07/28/2023 5:12 PM This order reflects the patients wishes and were consensually agreed upon. Question Answer Comments Discussion of Advance Directives occurred with: Patient Does the patient have a Living Will? No Does the patient have Health Care Power of Forestry Tree Pruner? No Care Teams Pipe Production Worker Relationship Specialty Start Date End Date Deangelo Saldaña MD [address] [place] [address], [place] [address] PCP - General Internal Medicine 02/06/21 documented as of this encounter
--- OUTSIDE RECORDS SUMMARY | 2023-11-29 17:49 | External Medical Summary ---
Author Name Unknown Address Unknown Organization K09:[facility] [place] [address] Laboratory Report Ordering Provider Test Date Status GILA NI 11/11/2023 12:42:53 Final Observation Date Value Abnormality Reference (Units ) Status Phosphate 11/11/2023 12:42:53 3.6 2.5-4.8 (m g/dL) Final Performing Location [facility] [place] [id number]
--- OUTSIDE RECORDS SUMMARY | 2023-11-29 17:49 | External Medical Summary | Summary of Care ---
Author Name Unknown Organization [facility] Address [address] [place] [address] Phone [phone] Care Team Providers Care Advertisement Distributor Name Role Phone Deangelo Saldaña MD Primary Care Provider + Reason for Visit * Reason Onset Date Comments Hematuria 09/25/2023 Encounter Details Date Type Department Care Team (Late st Contact Info) Description 09/25/2023 Telephone General Internal Medicine [facility] [address] [facility] [place] [address] Deangelo Saldaña MD [address] [facility] [place] [address] Hematuria Allergies No known active allergiesdocumented as of this encounter (statuses as of 09/25/2023) Medications Medication Sig Dispensed Refills Start Date [...] as of this encounter (statuses as of 09/25/2023) Active Problems Problem Noted Date Diagnosed Date Chronic kidney disease, stage 3a 09/15/2022 Overview: Per CKD protocol HTN, goal below 130/80 05/29/2021 Mixed hyperlipidemia 05/29/2021 VLADIMIR (generalized anxiety disorder) 05/29/2021 Nonrheumatic mitral valve regurgitation 05/29/20 Mild aortic insufficiency 05/29/2021 Aortic valve sclerosis 05/29/2021 History of acute prostatitis 05/29/2021 documented as of this encounter (statuses as of 09/25/2023) Resolved Problems Problem Noted Date Diagnosed Date Resolved Date Hyperlipidemia 05/29/2021 05/29/2021 documented as of this encounter (statuses as of 09/25/2023) Immunizations Name Administration Dates Next Due COVID-19 mRNA, LNP-s, No Pre serve, 2-Dose Series ([email or web address]) 05/17/2021,07/06/2020,06/15/2020 Covid-19, Mrna, Lnp-s, Pf, B ivalent, 30 Mcg, IM, 12 yrs and above ([email or web address]) 05/26/2022 Pneumococcal Conjugate Vacci ne, 20-valent ([id number]) 12/04/2021 Pneumococcal Polysaccharide PPV23 (Pneumovax) 04/22/2020 Seasonal [...] encounter Miscellaneous Notes * Telephone Encounter - Amparo Miller LPN - 09/25/2023 1:45 PM EDT Patient is aware and verbalizes understanding. Patient will walk in to lab at own convenience * Telephone Encounter - Yaneth Kay MD - 09/25/2023 1:35 PM EDT Done * Telephone Encounter - Amparo Miller LPN - 09/25/2023 1:15 PM EDT Patient states that he started to have hematuria this morning Denies any other urinary sx's Afebrile He has a history of UTI's Dr. Kay advised patient the last time, when this happened again he should come in to have a UA C&S done Patient is asking for orders to be placed Pharm selected. Please advise. documented in this encounter Plan of Treatment Upcoming Encounters Date Type Department Care Team (Late st Contact Info) Description 10/28/2023 11:00 AM EDT Office Visit General Internal Medicine [facility] [address] [place] [address] Mandy Parsons MD [address] [place] [address] 11/11/2023 11:00 AM EDT Cardiac Studies Cardiac Studies, [facility] [address] [facility] [place] [address] 12/04/2023 11:00 AM EDT Office Visit Cardiology, [facility] [address] [facility] [address] Pipe Moctezuma PA-Carri [address] [place] [address] 01/19/2024 3:00 PM EDT Office Visit General Internal Medicine [facility] [address] [place] [address] Deangelo Saldaña MD [address] [place] [address] 03/07/2024 3:00 PM EDT Office Visit Dermatology [facility] [address] [place] [address] Oriana Ambrosio MD [address] [place] [address] Scheduled Orders Name Type Priority Associated Diagnoses Orde r Schedule URINALYSIS WITH MICROSCOPIC EXAM Lab Routine Gross hematuria Expected: 09/25/2023 (Approximate), Expires: 09/24/2024 CULTURE, URINE, QUANTITATIVE Lab Routine Gross hematuria Expected: 09/25/2023, Expires: 09/24/2024 Health Maintenance Due Date Last Done Comments DTaP,Tdap,and Td Vaccines (1 - Tdap) 1964 Zoster Vaccines (2 of 2) 06/17/2020 04/22/2020 COVID-19 Vaccine (5 - 2022-24 season) 2023 05/26/2022, 05/17/2021, 07/06/2020, Additional history exists Depression Screening 05/07/2023 05/07/2022 Albumin/Creatinine Ratio 11/14/2023 11/13/2022, 05/09 CKD PHOS USE SMARTSET 66156 11/14/2023 11/13/2022 GFR 01/12/2024 07/14/2023, 05/08, 11/13/2022, Additional history exists CKD HGB USE SMARTSET 83822 07/14/202407/14, 07/14/2023, 05/22/2023, Additional history exists Pneumococcal [...] this encounter Medical Devices Implanted Type Area Nuclear Fuel Processing Technician Device Identifier Shelf Expiration Date Model / Serial / Lot Lens Li61ao 13.00mm 18.00 - [id number] - [id number] Implanted:Qty: 1 on 07/28/2023 by Eugene Shipley MD at OR [facility] Right: Eye [employer] 04/07/2028 [id number] / [id number] / [id number] Lens Li61ao 13.00mm 17.50 - [id number] - [id number] Implanted:Qty: 1 on 08/11/2023 by Eugene Shipley MD at OR [facility] Left: Eye BA[employer]CH [employer] LOMB 03/07/2028 [id number] / [id number] / [id number] documented as of this encounter Visit Diagnoses Diagnosis Gross hematuria- Primary documented in this encounter Advance Directives [...] the patient have Health Care Power of Meat Cooler? No Code Status History Code Status Date Activated Date Inactivated Comments Full Code 07/28/2023 11:12 AM 07/28/2023 5:12 PM This order reflects the patients wishes and were consensually agreed upon. Question Answer Comments Discussion of Advance Directives occurred with: Patient Does the patient have a Living Will? No Does the patient have Health Care Power of Meat Cooler? No Care Teams Advertisement Distributor Relationship Specialty Start Date End Date Deangelo Saldaña MD [address] [facility] [place] [place] [address] PCP - General Internal Medicine 02/06/21 documented as of this encounter
--- OUTSIDE RECORDS SUMMARY | 2023-11-29 17:49 | External Medical Summary | Summary of Care ---
Author Name Unknown Organization [facility] Address [address] [place] [address] Phone [phone] Care Team Providers Care Senior Javascript Engineer Name Role Phone Deangelo Saldaña MD Primary Care Provider + Reason for Visit * Reason Onset Date Comments Appointment 05/18/2023 Encounter Details Date Type Department Care Team (Late st Contact Info) Description 05/18/2023 Telephone General Internal Medicine [facility] [place] [address] [facility] [place] [address] Deangelo Saldaña MD 200 [facility] [place] [address] Appointment Allergies No known active allergiesdocumented as of [...] day. To affected area. 0 08/11/2022 Active documented as of this encounter (statuses [...] mRNA, LNP-s, No Pre serve, 2-Dose Series ([employer]) 05/17/2021,07/06/2020,06/15/2020 Covid-19, Mrna, Lnp-s, Pf, B ivalent, 30 Mcg, IM, 12 yrs and above ([employer]KO) 05/26/2022 Pneumococcal Conjugate Vacci ne, 20-valent ([id number]) 12/04/2021 Pneumococcal Polysaccharide PPV23 (Pneumovax) 04/22/2020 Seasonal Influenza, Quadriva lent Hd (Fluzone Hd) 05/29/2021 Seasonal Influenza, Quadriva lent Hd, 65+ Yrs [...] encounter Miscellaneous Notes * Telephone Encounter - Judy Booker LPN - 05/18/2023 11:00 AM EST Pt is calling and requesting a pre op clearance between the dates of 05/20/23-06/02/13. States that he needs a physical, blood work and an EKG and has this documentation to provide. Appt was scheduled 05/22/2023. Used 2 same day slots due to no available CPE appt's. documented in this encounter Plan of Treatment Upcoming Encounters Date Type Department Care Team (Late st Contact Info) Description 10/19/2023 12:20 PM EDT Office Visit General Internal Medicine [facility] [address] [place] [address] Yaneth Kay MD 200 [facility] [place] [address] 11/11/2023 11:00 AM EDT Cardiac Studies Cardiac Studies, [facility] [address] [place] [address] 12/04/2023 11:00 AM EDT Office Visit Cardiology, [facility] [address] [place] [address] Pipe Moctezuma PA-C [address] [facility] [place] [address] 01/19/2024 3:00 PM EDT Office Visit General Internal Medicine [facility] [place] [address] [facility] [place] [address] Deangelo Saldaña MD 200 [facility] [place] [address] 03/07/2024 3:00 PM EDT [facility] [address] [place] [address] Oriana Ambrosio MD [address] [place] [address] Health Maintenance Due Date Last Done Comments DTaP,Tdap,and Td Vaccines (1 - Tdap) 1964 Zoster Vaccines (2 of 2) 06/17/2020 04/22/2020 COVID-19 Vaccine ( - 2022-24 season) 2023 05/26/2022, 05/17/2021, 07/06/2020, Additional history exists Depression Screening 05/07/2023 05/07/2022 Albumin/Creatinine Ratio 11/14/2023 11/13/2022, 05/09 CKD PHOS USE SMARTSET 09376 11/14/2023 11/13/2022 GFR 01/12/2024 07/14/2023, 05/08, 11/13/2022, Additional history exists CKD HGB USE SMARTSET 51980 07/14/202407/14, 07/14/2023, 05/22/2023, Additional history exists Pneumococcal [...] this encounter Medical Devices Implanted Type Area Accounting Consultant Device Identifier Shelf Expiration Date Model / Serial / Lot Lens Li61ao 13.00mm 18.00 - [id number] - [id number] Implanted:Qty: 1 on 07/28/2023 by Eugene Shipley MD at OR [facility] Right: Eye [employer]OM[employer] 04/07/2028 [id number] / [id number] / [id number] Lens Li61ao 13.00mm 17.50 - [id number] - [id number] Implanted:Qty: 1 on 08/11/2023 by Eugene Shipley MD at OR [facility] Left: Eye [employer]CH [employer] LOMB 03/07/2028 [id number] / [id number] / [id number] documented as of this encounter Advance Directives [...] the patient have Health Care Power of Agricultural Research Director? No Code Status History Code Status Date Activated Date Inactivated Comments Full Code 07/28/2023 11:12 AM 07/28/2023 5:12 PM This order reflects the patients wishes and were consensually agreed upon. Question Answer Comments Discussion of Advance Directives occurred with: Patient Does the patient have a Living Will? No Does the patient have Health Care Power of Agricultural Research Director? No Care Teams Senior Javascript Engineer Relationship Specialty Start Date End Date Deangelo Saldaña MD 200 [place] [address] PCP - General Internal Medicine 02/06/21 documented as of this encounter
--- OUTSIDE RECORDS SUMMARY | 2023-11-29 17:49 | External Medical Summary | Summary of Care ---
Author Name Unknown Organization [facility] Address [address] [place] [address] Phone [phone] Care Team Providers Care Airplane Dispatcher Name Role Phone Deangelo Saldaña MD Primary Care Provider + Reason for Visit * Auth/Cert Specialty Diagnoses / Procedures Referred By Stefanie stephenson Referred To Contact Diagnoses Combined forms of age-related cataract of left eye Combined forms of age-related cataract of left eye [H25.812] Procedures REMOVE CATARACT, INSERT LENS PROSTH LEFT EXTRACAPSULAR CATARACT REMOVAL WITH INTRAOCULAR LENS Referral ID Status Reason Start Date Expiration Date Visits Re quested Visits Authorized [id number] Encounter Details Date Type Department Care Team (Latest Contact Info) Description 08/11/2023 11:22 AM EST - 08/11/2023 1:24 PM EST Hospital Encounter [facility], Operating [facility] [address] [place] [phone] Eugene Shipley MD [address] [address] Discharge Disposition: Home - Self Care Allergies No known active allergiesdocumented as of this encounter (statuses as of 08/12/2023) Medications Medication Sig Dispensed Refills Start Date [...] as of this encounter (statuses as of 08/12/2023) Active Problems Problem Noted Date Diagnosed Date Chronic kidney disease, stage 3a 09/15/2022 Overview: Per CKD protocol HTN, goal below 130/80 05/29/2021 Mixed hyperlipidemia 05/29/2021 VLADIMIR (generalized anxiety disorder) 05/29/2021 Nonrheumatic mitral valve regurgitation 05/29/20 Mild aortic insufficiency 05/29/2021 Aortic valve sclerosis 05/29/2021 History of acute prostatitis 05/29/2021 documented as of this encounter (statuses as of 08/12/2023) Resolved Problems Problem Noted Date Diagnosed Date Resolved Date Hyperlipidemia 05/29/2021 05/29/2021 documented as of this encounter (statuses as of 08/12/2023) Immunizations Name Administration Dates Next Due COVID-19 mRNA, LNP-s, No Pre serve, 2-Dose Series ([employer]) 05/17/2021,07/06/2020,06/15/2020 Covid-19, Mrna, Lnp-s, Pf, B ivalent, 30 Mcg, IM, 12 yrs and above ([employer]) 05/26/2022 Pneumococcal Conjugate Vacci ne, 20-valent ([id number]) 12/04/2021 Pneumococcal Polysaccharide PPV23 (Pneumovax) 04/22/2020 Seasonal [...] Sign Reading Time Taken Comments Blood Pressure 112/58 08/11/2023 1:03 PM EST Pulse 58 08/11/2023 1:03 PM EST Temperature 36.1 C (97 F) 08/11/2023 1:03 PM EST Respiratory Rate 16 08/11/2023 1:03 PM EST Oxygen Saturation 97% 08/11/2023 1:03 PM EST Inhaled Oxygen Concentration - - Weight 72.6 kg (160 lb) 07/20/2023 3:24 PM EST Height 172.7 cm (5' 8") 07/20/2023 3:24 PM EST Body Mass Index 24.33 07/20/2023 3:24 PM EST documented in this encounter Discharge Instructions * Discharge Instr - AVS* Shraddha Lopez Scribe - 06/23/2023 9:12 AM EST Discharge Date: 08/11/23 You may call Doctor Violetta at during business hours and for after-hours emergencies. Your attending physician at the time of your discharge was: Eugene Shipley MD The information below provides you with the instructions and the list of medications you need to betaking following discharge from the hospital. If you have any questions, please ask before leaving.Please carry this letter with you when you see your doctor in the clinic. Diet: Normal diet Activity: No lifting or pushing or pulling more than 10 lbs for 1 week Driving: Do not drive for 24 hours after surgery. Date you may return to work or school: N/A Follow Up - Return appointment(s): 08/12/23 @12:[address] Barnes See your director of medical staff services in 1day(s). SPECIAL INSTRUCTIONS EYEDROPS for healing and infection prevention. 8 am (Breakfast) 12 noon (Lunch) 6 pm (Supper) 10 pm (Bedtime) Duration PGB X X X X 1 Week PGB X X X 1 Week PGB X X 1 Week PGB X 1 Week 1. Use your eye drops 4 times on the afternoon and evening after your surgery. 2. DO NOT RUB OR PUT PRESSURE ON THE EYE for 4 weeks after surgery. 3. Please keep your surgical eye closed on the ride home and then at home for a total of 1-2 hours after surgery. 4. You may sit, walk, watch TV, read, and perform routine activities. 5. NO exercise for 2 weeks after surgery. It is OK to walk. 6. DO NOT go underwater for 2 weeks after surgery, e.g. no swimming or hot-tubs. 7. It is OK to shower, wash your face, shave, shampoo your hair the day AFTER Surgery (a few drops of water are OK). 8. Continue warm compresses for 5 minutes, 2 times per day. 9. Sleep with the shield taped over your eyes for 2 weeks after surgery. 10. NO eye make-up for 2 weeks after surgery. 11. DO NOT make any eye drop changes to your other eye. 12. Dr. Shipley suggests that all patients remain in the area for a minimum of the one week following surgery if traveling within the [place]. Patients traveling internationally should wait 4 weeks. 13. You may return to work soon after surgery; please discuss this with Dr. Shipley. 14. You can expect the following after surgery during the first 4-6 weeks. Itchiness/scratchiness around the eye. Redness in the white of the eye. Double vision/ Fluctuation in vision. Droopiness of the eyelid. 15. Your vision should gradually improve in days and weeks after surgery. If your vision is gettingworse (not better), or your eye more red, or you are having increasing pain, or you are having new floaters or flashing lights, CALL US IMMEDIATELY. IF YOU HAVE ANY PROBLEMS, QUESTIONS OR CONCERNS, DO NOT HESITATE TO CALL US AT [phone] AT ANY TIME documented in this encounter Progress Notes * Eugene Shipley MD - 08/11/2023 12:59 PM EST [facility] [address] [address] OUTPATIENT SURGERY DISCHARGE SUMMARY NOTE Name: Michael Farah Location: OR [facility]/OR Date: 08/11/2023 Time: 12:59 PM Surgery Date: 08/11/2023 Procedure: Procedure(s): LEFT EXTRACAPSULAR CATARACT REMOVAL WITH INTRAOCULAR LENS Left Surgeon: Surgeon(s): Eugene Shipley MD Discharge Diagnosis: Combined Senile Cataract left eye- H25.812 After examination of this patient, I have determined he is ready for discharge to home when the patient meets criteria. Discharge instructions were given to the patient. Note has been documented by Shraddha Lopez on 08/11/2023 documented in this encounter H&P Notes * Eugene Shipley MD - 08/11/2023 7:52 AM EST Images from the original note were not included. Office Visit 07[facility]13[facility] [facility] Internal Medicine Preop examination +5 more Dx Follow Up ; Referred by Deangelo Saldaña MD Reason for Visit Progress Notes Deangelo Saldaña MD (Physician) Internal Medicine Expand All Collapse All Chief Complaint Patient presents with Follow Up Patient presents for a 3 month follow up. Patient also presents for pre-op visit for cataract surgery scheduled for 07/28/2023. Patient states that appointment is for his right eye, and his left eye surgery is scheduled for 08/11/2023. Patient is also c/o chronic right shoulder pain - he's asking for a referral to physical therapy. SUBJECTIVE: Michael Farah is a 78 year old male with PMH as below who presents for pre- op risk assessment for scheduled cataract surgery scheduled for 07/28/23 (right) and 08/11/23 (left) for decrease vision which will be done by Dr. Shipley. No cp, sob, bojorquez. No tremor. Neck pain better after fusion , surgery went well. Would like pt for chronic right shoulder pain, no current urinary symptoms Problem List Patient Active Problem List Diagnosis Code HTN, goal below 130/80 I10 Mixed hyperlipidemia E78.2 VLADIMIR (generalized anxiety disorder) F41.1 Nonrheumatic mitral valve regurgitation I34.0 Mild aortic insufficiency I35.1 Aortic valve sclerosis I35.8 History of acute prostatitis Z87.438 Chronic kidney disease, stage 3a (HCC) N18.31 Current Medications Current Outpatient Medications Medication Sig Dispense Refill [...] 1 Tablet by mouth in the morning. Systane ICaps AREDS2 Oral Capsule Take by mouth . Famotidine 20 MG Oral Tablet (Pepcid) Take 0.5 Tablets by mouth daily as needed for Heartburn. Fluticasone Propionate HFA 110 MCG/ACT Inhalation Aerosol (Flovent Hfa) Inhale 2 Puffs by mouth in the morning and 2 Puffs before bedtime. Betamethasone Dipropionate Aug 0.05 % External Cream (Diprolene AF) 2 times a day. To affected area. No current facility-administered medications for this visit. Allergies Review of patient's allergies indicates: No Known Allergies Health Maintenance Due Topic Date Due DTaP,Tdap,and Td Vaccines (1 - Tdap) Never done Zoster Vaccines (2 of 2) 06/17/2020 COVID-19 Vaccine (5 - 2022- season) 2023 Depression Screening 05/07/2023 ROS: CONSTITUTIONAL: No change in weight, No weakness, and No fevers, sweats, or chills EYE: No eye pain, redness, discharge, and No diplopia PULMONARY: No cough, sputum, or hemoptysis, No wheezing, No rales, No shortness of breath, and No recent change in breathing CARDIOVASCULAR: No chest pain, No shortness of breath, No dyspnea on exertion, No orthopnea, No paroxysmal nocturnal dyspnea, No edema, No palpitations, and No syncope ALL OTHER SYSTEMS NEGATIVE I reviewed social, PMH, PSH, and family history and updated where needed. Social History Socioeconomic History Marital status: Spouse name: Not on file Number of children: 3 Years of education: Not on file Highest education level: Not on file Occupational History Occupation: retired Tobacco Use Smoking status: Never Smokeless tobacco: Never Vaping Use Vaping Use: Never used Substance and Sexual Activity Alcohol use: Never [...] Housing Stability: Not on file Past Medical History Past Medical History: Diagnosis Date History of acute prostatitis 05/29/2021 Mild aortic insufficiency 05/29/2021 Nonrheumatic mitral valve regurgitation 05/29/2021 Past Surgical History Past Surgical History: Procedure Laterality Date COLONOSCOPY, DIAGNOSTIC (RECTUM) 09/03/2021 diverticulosis / COLONOSCOPY FLEXIBLE PROXIMAL DIAGNOSTIC performed by Slava Nash MD at [facility] EGD, FLEXIBLE, DIAGNOSTIC 09/03/2021 reflux esophagitis, gastric polyps / ESOPHAGOGASTRODUODENOSCOPY (EGD), FLEXIBLE, TRANSORAL, DIAGNOSTIC performed by Slava Nash MD at [facility] INNER EAR FLUID SAC SURGERY W/SHUNT Left NECK SPINE FUSION (CERV, BELOW C2) NECK SPINE FUSION (CERV, BELOW C2) 06/16/2023 MD RPR INGUN HERNIA SLIDING ANY AGE UROLOGY SURGERY PROCEDURE NEC 08/2022 urolift Family History Problem Relation Age of Onset Cancer Sister melanoma OBJECTIVE: PHYSICAL EXAM: Vitals: 07/13/23 1351 07/13/23 1400 Temp: 35.8 C (96.4 F) Pulse: 48 66 SpO2: 100% BP: 108/64 BMI: 24.61 General: alert, healthy, and no distress Head: [...] thought, good eye contact, no pressured speech Neuro: to table w/o aid 05/22/23 EKG: Sinus bradycardia Otherwise normal ECG When compared with ECG of 22-AUG-2022 10:33, No significant change was found I reviewed last inr, gfr, glucose, cbc, lft 01/2023 stress: The stress echo is negative for inducible ischemia. The exercise test was terminated due to fatigue. No chest discomfort was reported. The heart rate response to exercise was normal. The blood pressure response to exercise was normal. A moderately peak workload was achieved, 8 minutes 15 seconds on a Gigi protocol, 10.4 METs. RESTING STUDY: The LV wall thickness is mildly increased (concentric). The qualitative LV ejection fraction is 55-59% (normal). Mild aortic valve sclerosis is present. Aortic stenosis is absent. Mild aortic valve regurgitation is present. There is moderate mitral annular calcification. ASSESSMENT: Z01.818 Preop examination (primary encounter diagnosis) I35.1 Mild aortic insufficiency N18.31 Chronic kidney disease, stage 3a (HCC) M25.511,G89.29 Chronic right shoulder pain M75.121 Nontraumatic complete tear of right rotator cuff R31.29 Microscopic hematuria PLAN: Preop examination (Primary) Acceptable risk for surgery w/o further cardiac work up needed Mild aortic insufficiency No symptoms Echo scheduled to follow Chronic kidney disease, stage 3a (HCC) - LIPID PANEL WITH DIRECT LDL IF TG IS HIGH; Future; Expected date: 07/13/2023 - COMPREHENSIVE METABOLIC PANEL; Future; Expected date: 07/13/2023 - CBC WITH WBC DIFFERENTIAL; Future; Expected date: 07/13/2023 Await labs Chronic right shoulder pain - PHYSICAL THERAPY REFERRAL OP Nontraumatic complete tear of right rotator cuff - PHYSICAL THERAPY REFERRAL OP Microscopic hematuria - URINALYSIS WITH MICROSCOPIC EXAM; Future; Expected date: 07/13/2023 Likely from infection, recheck urine to make sure resolved Follow-up: Return in about 4 months (around 11/11/2023), or if symptoms worsen or fail to improve. | Check-out note: Urine today Deangelo Saldaña MD Other Notes All notes Nursing Note from Mulu Garcia MED ASSIST Instructions Return in about 4 months (around 11/11/2023), or if symptoms worsen or fail to improve. After Visit Summary (Printed 07/13/2023) Additional Documentation Vitals: BP 108/64 Pulse 66 Temp 35.8 C (96.4 F) (Tympanic) Ht 1.727 m (5' 8") Wt 73.4 kg (161 lb 12.8 oz) SpO2 100% BMI 24.60 kg/m BSA 1.88 m More Vitals Flowsheets: Nurse Rooming Tool, Encounter Vitals Encounter Info: Billing Info, History, Allergies, Detailed Report, Questionnaires Communications View All Conversations on this Encounter Encounter Note sent to [facility] Chart Routed to Eugene Shipley MD Patient Handouts No notes of this type exist for this encounter. Orders Placed CBC WITH WBC DIFFERENTIAL COMPREHENSIVE METABOLIC PANEL URINALYSIS WITH MICROSCOPIC EXAM LIPID PANEL WITH DIRECT LDL IF TG IS HIGH PHYSICAL THERAPY REFERRAL OP Authorized All Encounter Results Medication Changes (Patient preference/discontinuation) (Patient preference/discontinuation) Patient not taking: Reported on 07/13/2023 (Patient preference/discontinuation) Patient not taking: Reported on 07/13/2023 Medication List Visit Diagnoses Preop examination Mild aortic insufficiency Chronic kidney disease, stage 3a (HCC) Chronic right shoulder pain Nontraumatic complete tear of right rotator cuff Microscopic hematuria Problem List Encounters with Related Results Laboratory (07/14/2023) Laboratory (07/13/2023) Note has been documented by Shraddha Lopez on 08/11/2023 * Eugene Shipley MD - 08/11/2023 7:52 AM EST HISTORY & PHYSICAL INTERVAL NOTE [facility] [address] [place] [address] History and Physical Update: Name: Michael Farah Location: Room/bed info not found Date: 08/11/2023 Time: 7:52 AM DATE OF HISTORY AND PHYSICAL: 07/13/23 BP: 125 mmHg/57 mmHg (08/11/23 1140) Pulse: 56 (08/11/23 1140) Temp: 36.67 C (08/11/23 1140) Temp Summary: Temp Min: 36.7 C (98 F) Max: 36.7 C (98 F) SpO2: 97 % (08/11/23 1140) O2 flow rate: Supplemental O2 Delivery: Room Air, None (08/11/23 1140) Does patient take a beta esteban? No Did patient stop anticoagulants? No Heart Exam: regular rate and rhythm Lung Exam: clear to auscultation bilaterally Other Pertinent Physical Exam: none I have reviewed the H&P previously performed and examined the patient today. There are no new findings noted. documented in this encounter Nursing Notes * Venessa Ford RN - 08/11/2023 1:23 PM EST Patient awake and oriented x3. Denies pain. No drainage from eye noted. Tolerating PO fluids. Discharge instructions given and patient verbalizes understanding. Patient ambulated to private vehicle and discharged to home. * Mely Rivas RN - 08/11/2023 11:33 AM EST Surgical consent verified with patient. Patient agrees with listed procedure and verified signature. documented in this encounter OR Notes * OR Surgeon - Eugene Shipley MD - 08/11/2023 12:58 PM EST [facility] [address] [address] OPERATIVE REPORT Name: Michael Farah Date: 08/11/2023 Time: 12:59 PM Location: [facility] Service: Ophthalmology Date of Operation: 08/11/2023 Pre-op Diagnosis: Visually significant combined cataract, left eye Post-op Diagnosis: Same Operative Procedure: Phacoemulsification with posterior chamber intraocular lens implantation, sharron (69873 Standard Cataract) Surgeon: Eugene Shipley MD Assistants: None Anesthesia: topical Implant/Graft: B&L: 17.5 [id number]; SN: [id number] Complications: none Drains: none Urine Output: minimal Specimen and Disposition: none Estimated Blood Loss: minimal Indications: The patient has noticed a decrease in their visual acuity now interfering with their activities of daily living. Slit-lamp examination revealed a visually significant lens opacity which appears to be a significant component of the decrease in visual acuity. After discussion of risks, benefits, and alternatives, the patient has elected to proceed with cataract extraction and lens implantation. Description of Procedure: The patient was brought to the operating room. A "time out" was called toconfirm the correct patient, the correct eye, the correct diagnosis, the correct procedure, relevant allergies and surgical considerations. The patient's eye was prepped and draped in the usual fashion. A wire lid speculum was placed between the lids. A paracentesis site was made, approximately three oclock hours away from the incision site. Intracameral lidocaine was injected into the anterior chamber. A clear cornea incision was then made with a keratome, and then viscoelastic was injected into the anterior chamber. A continuous curvilinearcapsulorrhexis was created using a cystitome and Utrata forcep. Hydrodissection was then performed using balanced salt solution. The nucleus was emulsified using the phacoemulsification handpiece. The cortex was removed using the automated irrigation aspiration unit. Viscoelastic was then used to deepen the capsular bag. A posterior chamber lens was then inserted into the capsular bag. The capsular bag was polished and then excess viscoelastic was aspirated using the irrigation aspiration unit. The wound was hydrated, tested and found to be water tight. Intracameral Moxifloxacin was given. After the post-operative drops were given, including topical antibiotic, and steroid, a shield was placed. The patient tolerated the procedure well. Condition: The patient left the operating room in good condition. Disposition: In and Out Recovery Unit Attestation: I performed the procedure Note has been documented by Shraddha Lopez on 08/11/2023 documented in this encounter Plan of Treatment Upcoming Encounters Date Type Department Care Team (Late st Contact Info) Description 08/17/2023 9:00 AM EDT Office Visit Dermatology, [facility] [address] [place] [address] Steph May PA-C [address] [place] [address] 10/19/2023 12:20 PM EDT Office Visit General Internal Medicine [address] [place] [address] [place] [address] Yaneth Kay MD [address] [place] [address] [address] 11/11/2023 11:00 AM EDT Cardiac Studies Cardiac Studies, [facility] [address] [address] 12/04/2023 11:00 AM EDT Office Visit Cardiology, [facility] [address] [place] [address] Pipe Moctezuma PA-C [address] [place] [address] 01/19/2024 3:00 PM EDT Office Visit General Internal Medicine [facility] [address] [place] [address] Deangelo Saldaña MD [address] [place] [address] 03/07/2024 3:00 PM EDT Office Visit Dermatology [facility] [address] [place] [address] Oriana Ambrosio MD [address] [place] [address] Health Maintenance Due Date Last Done Comments DTaP,Tdap,and Td Vaccines (1 - Tdap) 1964 Zoster Vaccines (2 of 2) 06/17/2020 04/22/2020 COVID-19 Vaccine (2022- season) 2023 05/26/2022, 05/17/2021, 07/06/2020, Additional history exists Depression Screening 05/07/2023 05/07/2022 Albumin/Creatinine Ratio 11/14/2023 11/13/2022, 05/09 CKD PHOS USE SMARTSET 74047 11/14/2023 11/13/2022 GFR 01/12/2024 07/14/2023, 05/08, 11/13/2022, Additional history exists CKD HGB USE SMARTSET 93275 07/14/202407/14, 07/14/2023, 05/22/2023, Additional history exists Pneumococcal [...] this encounter Medical Devices Implanted Type Area Pharmacovigilance Safety Expert Device Identifier Shelf Expiration Date Model / Serial / Lot Lens Li61ao 13.00mm 18.00 - [id number] - [id number] Implanted:Qty: 1 on 07/28/2023 by Eugene Shipley MD at OR [facility] Right: Eye [employer] 04/07/2028 [id number] / [id number] / [id number] Lens Li61ao 13.00mm 17.50 - [id number] - [id number] Implanted:Qty: 1 on 08/11/2023 by Eugene Shipley MD at [facility] Left: Eye [employer] 03/07/2028 [id number] / [id number] / [id number] documented as of this encounter Administered Medications Inactive Administered Medications - up to 3 most recent administrations Medication Order MAR Action Action Date Dose Rate Site Acetaminophen (Tylenol) tab 650 mg 650 mg, Oral, PRN Pain, Mild, Starting on Thu08/11/23 at 1253, Until Thu08/11/23 at 1724, For 1 dose, Maximum of 4 grams (4000 mg) per day., Post-op Flurbiprofen Sodium (Ocufen) 0.03 % ophthalmic solution 1 Drop 1 Drop, Left eye, Q5 MINUTES, First dose on Thu08/11/23 at 1200, Last dose on Thu08/11/23 at 1210, For 3 doses Given 08/11/2023 11:53 AM EST 1 Drop Given 08/11/2023 11:48 AM EST 1 Drop Given 08/11/2023 11:42 AM EST 1 Drop isolyte-S pH 7.4 infusion Intravenous, at 75 mL/hr, Plasma-LYTE 148, isolyte-S, and isolyte-S pH 7.4 are considered equivalent - including for MAR barcode scanning., CONTINUOUS, Starting on Thu08/11/23 at 1200, Until Thu08/11/23 at 1724, Pre-Op Continue from Pre-Op 08/11/2023 12:31 PM EST 75 mL/hr New Bag 08/11/2023 11:54 AM EST 75 mL/hr moxifloxacin (Vigamox) 0.5 % ophthalmic solution 1 Drop 1 Drop, Left eye, Q5 MINUTES, First dose on Thu08/11/23 at 1200, Last dose on Thu08/11/23 at 1210, For 3 doses, PRE-OP: One drop to left eye every 5 minutes for 3 doses, Pre-Op Given 08/11/2023 11:5 3 AM EST 1 Drop Given 08/11/2023 11:48 AM EST 1 Drop Given 08/11/2023 11:42 AM EST 1 Drop proparacaine (Alcaine) 0.5 % ophthalmic solution 1 Drop 1 Drop, Left eye, ONCE, On Thu08/11/23 at 1200, For 1 dose, PRE-OP: 15 minutes prior to scheduled surgery time for 1 dose, Pre-Op Given 08/11/2023 11:4 2 AM EST 1 Drop tropicamide 1%-cyclopentolate 1%-phenylephrine 2.5% ophthalmic solution 1 Drop 1 Drop, Left eye, Q5 MINUTES, First dose on Thu08/11/23 at 1200, Last dose on Thu08/11/23 at 1210, For 3 doses, Pre-Op Given 08/11/2023 11:53 AM EST 1 Drop Given 08/11/2023 11:48 AM EST 1 Drop Given 08/11/2023 11:42 AM EST 1 Drop documented in this encounter Active and Recently Administered Medications Times are shown in EST. Scheduled Medication Order 08/09/2023 08/10/2023 08/11/2023 Flurbiprofen Sodium (Ocufen) 0.03 % ophthalmic solution 1 Drop (COMPLETED) 1 Drop, Left eye, Q5 MINUTES, First dose on Thu08/11/23 at 1200, Last dose on Thu08/11/23 at 1210, For 3 doses 1142 (Given - Provid er: Tanvi Eckert RN)1148 (Given - Provider: Tanvi Eckert RN)1153 (Given - Provider: Tanvi Eckert RN) moxifloxacin (Vigamox) 0.5 % ophthalmic solution 1 Drop (COMPLETED) 1 Drop, Left eye, Q5 MINUTES, First dose on Thu08/11/23 at 1200, Last dose on Thu08/11/23 at 1210, For 3 doses, PRE-OP: One drop to left eye every 5 minutes for 3 doses, Pre-Op 1142 (Given - Provid er: Tanvi Eckert RN)1148 (Given - Provider: Tanvi Eckert RN)1153 (Given - Provider: Tanvi Eckert RN) Povidone-Iodine (Betadine) 5 % 2 mL syringe ophthalmic solution 1 Drop 1 Drop, Left eye, ONCE, On Thu08/11/23 at 1200, For 1 dose, Pre-Op 1200 (Due) proparacaine (Alcaine) 0.5 % ophthalmic solution 1 Drop (COMPLETED) 1 Drop, Left eye, ONCE, On Thu08/11/23 at 1200, For 1 dose, PRE-OP: 15 minutes prior to scheduled surgery time for 1 dose, Pre-Op 1142 (Given - Provid er: Tanvi Eckert RN) tropicamide 1%-cyclopentolate 1%-phenylephrine 2.5% ophthalmic solution 1 Drop (COMPLETED) 1 Drop, Left eye, Q5 MINUTES, First dose on Thu08/11/23 at 1200, Last dose on Thu08/11/23 at 1210, For 3 doses, Pre-Op 1142 (Given - Provid er: Tanvi Eckert RN)1148 (Given - Provider: Tanvi Eckert RN)1153 (Given - Provider: Tanvi Eckert RN) Continuous Medication Order 08/09/2023 08/10/2023 08/11/2023 isolyte-S pH 7.4 infusion Intravenous, at 75 mL/hr, Plasma-LYTE 148, isolyte-S, and isolyte-S pH 7.4 are considered equivalent - including for MAR barcode scanning., CONTINUOUS, Starting on Thu08/11/23 at 1200, Until Thu08/11/23 at 1724, Pre-Op 1154 (New Bag - Prov ider: Tanvi Eckert RN)1231 (Continue from Pre-Op - Provider: Evie Phillips CRNA)1254 (Anes Intra-Op Fluid - Provider: Evie Phillips CRNA) PRN Medication Order 08/09/2023 08/10/2023 08/11/2023 Acetaminophen (Tylenol) tab 650 mg 650 mg, Oral, PRN Pain, Mild, Starting on Thu08/11/23 at 1253, Until Thu08/11/23 at 1724, For 1 dose, Maximum of 4 grams (4000 mg) per day., Post-op balanced salt solution (Bss) ophthalmic solution (CANCELED) ONCE PRN INTRA PROCEDURE, Starting on Thu08/11/23 at 1243, Until Thu08/11/23 at 1249, Intra-Op 1243 (Given - Provid er: Eugene Shipley MD - Comment: qs) DUOVISC inj KIT (CANCELED) ONCE PRN INTRA PROCEDURE, Starting on Thu08/11/23 at 1244, Until Thu08/11/23 at 1249, Intra-Op 1244 (Given - Provid er: Eugene Shipley MD - Comment: qs) hydroxypropyl methylcellulose ([place]oat) 2 % intraocular inj (CANCELED) ONCE PRN INTRA PROCEDURE, Starting on Thu08/11/23 at 1244, Until Thu08/11/23 at 1249, Intra-Op 1244 (Given - Provid er: Eugene Shipley MD - Comment: qs) Lidocaine 1 % (PF) inj (CANCELED) ONCE PRN INTRA PROCEDURE, Starting on Thu08/11/23 at 1244, Until Thu08/11/23 at 1249, Intra-Op 1244 (Given - Provid er: Eugene Shipley MD - Comment: qs) Moxifloxacin intracameral inj (CANCELED) ONCE PRN INTRA PROCEDURE, Starting on Thu08/11/23 at 1247, Until Thu08/11/23 at 1249, Intra-Op 1247 (Given - Provid er: Eugene Shipley MD - Comment: qs) prednisoLONE Acetate (Pred Forte) 1 % ophthalmic suspension (CANCELED) ONCE PRN INTRA PROCEDURE, Starting on Thu08/11/23 at 1244, Until Thu08/11/23 at 1249, Intra-Op 1244 (Given - Provid er: Eugene Shipley MD - Comment: qs) Tetracaine (Pontocaine) 0.5 % ophthalmic solution (CANCELED) ONCE PRN INTRA PROCEDURE, Starting on Thu08/11/23 at 1244, Until Thu08/11/23 at 1249, Intra-Op 1244 (Given - Provid er: Eugene Shipley MD - Comment: qs) documented in this encounter Advance Directives Latest [...] the patient have Health Care Power of Wellness Coordinator? No Code Status History Code Status Date Activated Date Inactivated Comments Full Code 07/28/2023 11:12 AM 07/28/2023 5:12 PM This order reflects the patients wishes and were consensually agreed upon. Question Answer Comments Discussion of Advance Directives occurred with: Patient Does the patient have a Living Will? No Does the patient have Health Care Power of Wellness Coordinator? No Care Teams Airplane Dispatcher Relationship Specialty Start Date End Date Deangelo Saldaña MD [address] [place] [address] PCP - General Internal Medicine 02/06/21 documented as of this encounter
--- OUTSIDE RECORDS SUMMARY | 2023-11-29 17:49 | External Medical Summary | Summary of Care ---
Author Name Unknown Organization [facility] Address [address] [place] [address] Phone [phone] Care Team Providers Care Political Anthropologist Name Role Phone Deangelo Saldaña MD Primary Care Provider + Reason for Visit * Reason Comments Outpatient Testing Encounter Details Date Type Department Care Team (Late st Contact Info) Description 09/25/2023 2:50 PM EDT Laboratory Laboratory [facility] [address] [place] [phone] Pod3, Specimen Drop Off [facility] [address] [place] [address] Gross hematuria Allergies No known active allergiesdocumented as of [...] mRNA, LNP-s, No Pre serve, 2-Dose Series (Kadient) 05/17/2021,07/06/2020,06/15/2020 Covid-19, Mrna, Lnp-s, Pf, B ivalent, 30 Mcg, IM, 12 yrs and above (Kadient) 05/26/2022 Pneumococcal Conjugate Vacci ne, 20-valent ([id number]) 12/04/2021 Pneumococcal Polysaccharide PPV23 (Pneumovax) 04/22/2020 Seasonal [...] AM EDT Office Visit General Internal Medicine [facility] [address] [place] [address] [address] Mandy Parsons MD [address] [place] [address] [address] [address] 11/11/2023 11:00 AM EDT Cardiac Studies Cardiac Studies, [facility] 132 [facility] [place] [address] 12/04/2023 11:00 AM EDT Office Visit Cardiology, [facility] 132 [facility] [place] [address] Pipe Moctezuma PA-C 132 [facility] [place] [address] 01/19/2024 3:00 PM EDT Office Visit General Internal Medicine [facility] [address] [place] [address] [address] [address] Deangelo Saldaña MD [address] [address] 03/07/2024 3:00 PM EDT Office Visit Dermatology Shanika Paul [address] [place] [address] Oriana Ambrosio MD [address] [place] [address] Pending Results Name Type Priority Associated Diagnoses Date /Time URINALYSIS WITH MICROSCOPIC EXAM Lab Routine Gross hematuria 09/25/2023 2:52 PM EDT CULTURE, URINE, QUANTITATIVE Lab Routine Gross hematuria 09/25/2023 2:52 PM EDT Health Maintenance Due Date Last Done Comments DTaP,Tdap,and Td Vaccines (1 - Tdap) 1964 Zoster Vaccines (2 of 2) 06/17/2020 04/22/2020 COVID-19 Vaccine ( - season) 2023 05/26/2022, 05/17/2021, 07/06/2020, Additional history exists Depression Screening 05/07/2023 05/07/2022 Albumin/Creatinine Ratio 11/14/2023 11/13/2022, 1202/2021 CKD PHOS USE SMARTSET 41008 11/14/2023 11/13/2022 GFR 01/12/2024 07/14/2023, 05/08, 11/13/2022, Additional history exists CKD HGB USE SMARTSET 59534 07/14/202407/14, 07/14/2023, 05/22/2023, Additional history exists Pneumococcal [...] this encounter Medical Devices Implanted Type Area Court Security Officer Device Identifier Shelf Expiration Date Model / Serial / Lot Lens Li61ao 13.00mm 18.00 - [id number] - [id number] Implanted:Qty: 1 on 07/28/2023 by Eugene Shipley MD at OR [facility] Right: Eye [employer] LOMB 04/07/2028 [id number] / [id number] / [id number] Lens Li61ao 13.00mm 17.50 - [id number] - [id number] Implanted:Qty: 1 on 08/11/2023 by Eugene Shipley MD at OR [facility] Left: Eye BAUSCH & LOMB 03/07/2028 [id number] / [id number] / [id number] documented as of this encounter Visit Diagnoses Diagnosis Gross hematuria documented in this encounter Advance Directives Latest [...] the patient have Health Care Power of Tenterer? No Code Status History Code Status Date Activated Date Inactivated Comments Full Code 07/28/2023 11:12 AM 07/28/2023 5:12 PM This order reflects the patients wishes and were consensually agreed upon. Question Answer Comments Discussion of Advance Directives occurred with: Patient Does the patient have a Living Will? No Does the patient have Health Care Power of Tenterer? No Care Teams Political Anthropologist Relationship Specialty Start Date End Date Deangelo Saldaña MD [address] [place] [address] PCP - General Internal Medicine 02/06/21 documented as of this encounter
--- OUTSIDE RECORDS SUMMARY | 2023-11-29 17:49 | External Medical Summary | Summary of Care ---
Author Name Unknown Organization [facility] Address [address] [place] [address] Phone [phone] Care Team Providers Care Bicycle Repairman Name Role Phone Deangelo Saldaña MD Primary Care Provider + Reason for Visit * Reason Onset Date Comments Hematuria 09/25/2023 Encounter Details Date Type Department Care Team (Late st Contact Info) Description 09/25/2023 Telephone General Internal Medicine [facility] [address] [facility] [place] [address] Deangelo Saldaña MD 200 [facility] [place] [address] Hematuria Allergies No known active allergiesdocumented as [...] mRNA, LNP-s, No Pre serve, 2-Dose Series (AppSocially) 05/17/2021,07/06/2020,06/15/2020 Covid-19, Mrna, Lnp-s, Pf, B ivalent, 30 Mcg, IM, 12 yrs and above (AppSocially) 05/26/2022 Pneumococcal Conjugate Vacci ne, 20-valent ([id number]) 12/04/2021 Pneumococcal Polysaccharide PPV23 (Pneumovax) 04/22/2020 Seasonal [...] AM EDT Office Visit General Internal Medicine [facility] [address] [place] [address] Mandy Parsons MD 200 [facility] [place] [address] 11/11/2023 11:00 AM EDT Cardiac Studies Cardiac Studies, [facility] 132 [place] [address] 12/04/2023 11:00 AM EDT Office Visit Cardiology, [facility] 132 [place] [address] Pipe Moctezuma PA-Carri 132 [facility] [place] [address] 01/19/2024 3:00 PM EDT Office Visit General Internal Medicine [facility] [address] [facility] [place] [address] Deangelo Saldaña MD [address] [facility] [place] [address] 03/07/2024 3:00 PM EDT Office Visit Dermatology [facility] [address] [place] [address] Oriana Ambrosio MD [address] [place] [address] Scheduled Orders Name Type Priority Associated Diagnoses [...] 11/14/2023 11/13/2022, 05/09 CKD PHOS USE SMARTSET 73600 11/14/2023 11/13/2022 GFR 01/12/2024 07/14/2023, 05/08, 11/13/2022, Additional history exists CKD HGB USE SMARTSET 76190 07/14/202407/14, 07/14/2023, 05/22/2023, Additional history exists Pneumococcal [...] this encounter Medical Devices Implanted Type Area Investigator Utility Bill Complaints Device Identifier Shelf Expiration Date Model / Serial / Lot Lens Li61ao 13.00mm 18.00 - [id number] - [id number] Implanted:Qty: 1 on 07/28/2023 by Eugene Shipley MD at OR [facility] Right: Eye [employer]CH [employer] LOMB 04/07/2028 [id number] / [id number] / [id number] Lens Li61ao 13.00mm 17.50 - [id number] - [id number] Implanted:Qty: 1 on 08/11/2023 by Eugene Shipley MD at OR [facility] Left: Eye BAUSCH [employer] LOMB 03/07/2028 [id number] / [id number] / [id number] documented as of this encounter Visit Diagnoses [...] the patient have Health Care Power of Director Of Content Marketing? No Code Status History Code Status Date Activated Date Inactivated Comments Full Code 07/28/2023 11:12 AM 07/28/2023 5:12 PM This order reflects the patients wishes and were consensually agreed upon. Question Answer Comments Discussion of Advance Directives occurred with: Patient Does the patient have a Living Will? No Does the patient have Health Care Power of Director Of Content Marketing? No Care Teams Bicycle Repairman Relationship Specialty Start Date End Date Deangelo Saldaña MD 200 [place] [address] PCP - General Internal Medicine 02/06/21 documented as of this encounter
--- OUTSIDE RECORDS SUMMARY | 2023-11-29 17:49 | External Medical Summary | Summary of Care ---
Author Name Unknown Organization [facility] Address [address] [place] [address] Phone [phone] Care Team Providers Care Sheet Heater Helper Name Role Phone Deangelo Saldaña MD Primary Care Provider + Reason for Visit * Reason Onset Date Comments Appointment 10/26/2023 Encounter Details Date Type Department Care Team (Late st Contact Info) Description 10/26/2023 Telephone General Internal Medicine [facility] 200 [facility] [place] [address] Deangelo Saldaña MD 200 [facility] [place] [address] Appointment Allergies No known active allergiesdocumented as of this encounter (statuses as of 10/26/2023) Medications Medication Sig Dispensed Refills Start Date End Date Status Candesartan Cilexetil 32 MG Oral Tablet (Atacand) Take 1 Tablet by mouth at bedtime. 04/25/2021 Active Atorvastatin Calcium 80 MG Oral Tablet (Lipitor) Take 1 Tablet by mouth in the morning. 04/25/2021 Active Escitalopram Oxalate 10 MG Oral Tablet (Lexapro) Take 1 Tablet by mouth in the morning. 05/18/2021 Active Multivitamin Men 50+ Oral Tablet Take by mouth daily . Active Co Q10 200 MG Oral Capsule Take by mouth daily . Active Bioflavonoids 1000 MG Oral Tablet Take [...] take 2 tabs at bedtime . Active documented as of this encounter (statuses as of 10/26/2023) Active Problems Problem Noted Date Diagnosed Date Chronic kidney disease, stage 3a 09/15/2022 Overview: Per CKD protocol HTN, goal below 130/80 05/29/2021 Mixed hyperlipidemia 05/29/2021 VLADIMIR (generalized anxiety disorder) 05/29/2021 Nonrheumatic mitral valve regurgitation 05/29/20 Mild aortic insufficiency 05/29/2021 Aortic valve sclerosis 05/29/2021 History of acute prostatitis 05/29/2021 documented as of this encounter (statuses as of 10/26/2023) Resolved Problems Problem Noted Date Diagnosed Date Resolved Date Hyperlipidemia 05/29/2021 05/29/2021 documented as of this encounter (statuses as of 10/26/2023) Immunizations Name Administration Dates Next Due COVID-19 mRNA, LNP-s, No Pre serve, 2-Dose Series (Socrative) 05/17/2021,07/06/2020,06/15/2020 Covid-19, Mrna, Lnp-s, Pf, B ivalent, 30 Mcg, IM, 12 yrs and above (Socrative) 05/26/2022 Pneumococcal Conjugate Vacci ne, 20-valent ([id number]) 12/04/2021 Pneumococcal Polysaccharide PPV23 (Pneumovax) 04/22/2020 Seasonal [...] Telephone Encounter - Judy Booker LPN - 10/26/2023 2:15 PM EDT Rescheduled 10/28/23 provider canceled appt on 11/11/23 with PCP using 2 return slots on 11/11/23. documented in this encounter Plan of Treatment Upcoming Encounters Date Type Department Care Team (Late st Contact Info) Description 11/11/2023 11:00 AM EDT Cardiac Studies Cardiac Studies, [facility] [address] [place] [address] 11/11/2023 12:00 PM EDT Office Visit General Internal Medicine [facility] [address] [place] [address] Deangelo Saldaña MD [address] [place] [address] 11/24/2023 2:15 PM EDT Office Visit Orthopaedics [facility] [address] [place] [id number] Carri Taylor MD [address] [place] [address] 12/04/2023 11:00 AM EDT Office Visit Cardiology, [facility] [address] [place] [address] Pipe Moctezuma PA-Carri [address] [place] [address] 01/19/2024 3:00 PM EDT Office Visit General Internal Medicine [facility] 200 [facility] [address] Deangelo Saldaña MD [facility] [address] 03/07/2024 3:00 PM EDT Office Visit Dermatology [facility] [address] [place] [address] Oriana Ambrosio MD [address] [place] [address] Health Maintenance Due Date Last Done Comments DTaP,Tdap,and Td Vaccines (1 - Tdap) 1964 Zoster Vaccines (2 of 2) 06/17/2020 04/22/2020 COVID-19 Vaccine (5 - 2022-24 season) 2023 05/26/2022, 05/17/2021, 07/06/2020, Additional history exists Depression Screening 05/07/2023 05/07/2022 Albumin/Creatinine Ratio 11/14/2023 11/13/2022, 1202/2021 CKD PHOS USE SMARTSET 91757 11/14/2023 11/13/2022 GFR 01/12/2024 07/14/2023, 05/08, 11/13/2022, Additional history exists CKD HGB USE SMARTSET 01971 07/14/202407/14, 07/14/2023, 05/22/2023, Additional history exists Pneumococcal [...] this encounter Medical Devices Implanted Type Area Stretcher Leveler Operator Device Identifier Shelf Expiration Date Model / Serial / Lot Lens Li61ao 13.00mm 18.00 - [id number] - [id number] Implanted:Qty: 1 on 07/28/2023 by Eugene Shipley MD at OR [facility] Right: Eye [employer]USCH [employer] LOMB 04/07/2028 [id number] / [id number] / [id number] Lens Li61ao 13.00mm 17.50 - [id number] - [id number] Implanted:Qty: 1 on 08/11/2023 by Eugene Shipley MD at OR [facility] Left: Eye BAUSCH & LOMB 03/07/2028 [id number] / [id number] / [id number] documented as of this encounter Advance Directives [...] Power of Attor leslie? No Care Teams Sheet Heater Helper Relationship Specialty Start Date End Date Deangelo Saldaña MD [address] [place] [address], [place] [address] PCP - General Internal Medicine 02/06/21 documented as of this encounter
--- OUTSIDE RECORDS SUMMARY | 2023-11-29 17:49 | External Medical Summary | Summary of Care ---
Author Name Unknown Organization [facility] Address [address] [place] [address] Phone [phone] Care Team Providers Care Foot Piece Assembler Name Role Phone Deangelo Saldaña MD Primary Care Provider + Encounter Details Date Type Department Care Team (Late st Contact Info) Description 10/20/2023 Result Scan Unspecified Department <No scans attached> Allergies No known active allergiesdocumented as of this encounter (statuses as of 10/21/2023) Medications Medication Sig Dispensed Refills Start Date [...] as of this encounter (statuses as of 10/21/2023) Active Problems Problem Noted Date Diagnosed Date Chronic kidney disease, stage 3a 09/15/2022 Overview: Per CKD protocol HTN, goal below 130/80 05/29/2021 Mixed hyperlipidemia 05/29/2021 VLADIMIR (generalized anxiety disorder) 05/29/2021 Nonrheumatic mitral valve regurgitation 05/29/20 Mild aortic insufficiency 05/29/2021 Aortic valve sclerosis 05/29/2021 History of acute prostatitis 05/29/2021 documented as of this encounter (statuses as of 10/21/2023) Resolved Problems Problem Noted Date Diagnosed Date Resolved Date Hyperlipidemia 05/29/2021 05/29/2021 documented as of this encounter (statuses as of 10/21/2023) Immunizations Name Administration Dates Next Due COVID-19 mRNA, LNP-s, No Pre serve, 2-Dose Series (Bex) 05/17/2021,07/06/2020,06/15/2020 Covid-19, Mrna, Lnp-s, Pf, B ivalent, 30 Mcg, IM, 12 yrs and above (Bex) 05/26/2022 Pneumococcal Conjugate Vacci ne, 20-valent ([id number]) 12/04/2021 Pneumococcal Polysaccharide PPV23 (Pneumovax) 04/22/2020 Seasonal [...] the money to buy more. Never true 12/21/20 21 Within the past 12 months, t [...] AM EDT Office Visit General Internal Medicine [facility] [address] [place] [address] [address] Mandy Parsons MD [address] [facility] [place] [address] 11/11/2023 11:00 AM EDT Cardiac Studies [facility], [facility] [place] [address] 11/24/2023 2:15 PM EDT Office Visit Orthopaedics Shanika Paul [address] [place] [phone] Carri Taylor MD [address] [place] [address] 12/04/2023 11:00 AM EDT Office Visit Cardiology, [facility] 132 [facility] [place] [address] Pipe Mo[place] PA-C [facility] [address] 01/19/2024 3:00 PM EDT Office Visit General Internal Medicine [facility] [address] [place] [address] [address] Deangelo Saldaña MD [address] [facility] [place] [address] 03/07/2024 3:00 PM EDT Office Visit Dermatology Shanika Paul [address] [place] [address] Oriana Ambrosio MD [address] [place] [address] Health Maintenance Due Date Last Done Comments DTaP,Tdap,and Td Vaccines (1 - Tdap) 1964 Zoster Vaccines (2 of 2) 06/17/2020 04/22/2020 COVID-19 Vaccine (5 - 2022-24 season) 2023 05/26/2022, 05/17/2021, 07/06/2020, Additional history exists Depression Screening 05/07/2023 05/07/2022 Albumin/Creatinine Ratio 11/14/2023 11/13/2022, 05/09 CKD PHOS USE SMARTSET 80283 11/14/2023 11/13/2022 GFR 01/12/2024 07/14/2023, 05/08, 11/13/2022, Additional history exists CKD HGB USE SMARTSET 63889 07/14/202407/14, 07/14/2023, 05/22/2023, Additional history exists Pneumococcal [...] this encounter Medical Devices Implanted Type Area Workforce Development Assistant Device Identifier Shelf Expiration Date Model / Serial / Lot Lens Li61ao 13.00mm 18.00 - [id number] - [id number] Implanted:Qty: 1 on 07/28/2023 by Eugene Shipley MD at OR [facility] Right: Eye BA[employer]CH [employer] LOMB 04/07/2028 [id number] / [id number] / [id number] Lens Li61ao 13.00mm 17.50 - [id number] - [id number] Implanted:Qty: 1 on 08/11/2023 by Eugene Shipley MD at OR [facility] Left: Eye BAUSCH & LOMB 03/07/2028 [id number] / [id number] / [id number] documented as of this encounter Procedures Procedure Name Priority Date/Time Associated Diagnosis Comments PROCEDURE SCANNED RESULT 10/20/2023 documented in this encounter Results * PROCEDURE SCANNED RESULT (10/20/2023) 10/20/2023 No Physician Data Unknown SURGERY documented in this encounter Advance Directives Latest [...] the patient have Health Care Power of Dredging Inspector? No Code Status History Code Status Date Activated Date Inactivated Comments Full Code 07/28/2023 11:12 AM 07/28/2023 5:12 PM This order reflects the patients wishes and were consensually agreed upon. Question Answer Comments Discussion of Advance Directives occurred with: Patient Does the patient have a Living Will? No Does the patient have Health Care Power of Dredging Inspector? No Care Teams Foot Piece Assembler Relationship Specialty Start Date End Date Deangelo Saldaña MD 200 [facility] [address] PCP - General Internal Medicine 02/06/21 documented as of this encounter
--- OUTSIDE RECORDS SUMMARY | 2023-11-29 17:49 | External Medical Summary | Summary of Care ---
Author Name Unknown Organization [facility] Address [address] [place] [address] Phone [phone] Care Team Providers Care Shipping Team Leader Name Role Phone Deangelo Saldaña MD Primary Care Provider + Reason for Visit * Reason Onset Date Comments Appointment 10/23/2023 LVM TO SCHED EMG Encounter Details Date Type Department Care Team (Late st Contact Info) Description 10/23/2023 Telephone Neurophysiology, [facility] [employer] [address] [place] [address] Specified, [facility] [address] [place] [address] Appointment (LVM TO SCHED EMG) Allergies No known active allergiesdocumented as of this encounter (statuses as of 10/23/2023) Medications Medication Sig Dispensed Refills Start Date [...] as of this encounter (statuses as of 10/23/2023) Active Problems Problem Noted Date Diagnosed Date Chronic kidney disease, stage 3a 09/15/2022 Overview: Per CKD protocol HTN, goal below 130/80 05/29/2021 Mixed hyperlipidemia 05/29/2021 VLADIMIR (generalized anxiety disorder) 05/29/2021 Nonrheumatic mitral valve regurgitation 05/29/20 Mild aortic insufficiency 05/29/2021 Aortic valve sclerosis 05/29/2021 History of acute prostatitis 05/29/2021 documented as of this encounter (statuses as of 10/23/2023) Resolved Problems Problem Noted Date Diagnosed Date Resolved Date Hyperlipidemia 05/29/2021 05/29/2021 documented as of this encounter (statuses as of 10/23/2023) Immunizations Name Administration Dates Next Due COVID-19 mRNA, LNP-s, No Pre serve, 2-Dose Series ([employer]) 05/17/2021,07/06/2020,06/15/2020 Covid-19, Mrna, Lnp-s, Pf, B ivalent, 30 Mcg, IM, 12 yrs and above ([employer]) 05/26/2022 Pneumococcal Conjugate Vacci ne, 20-valent ([id number]) 12/04/2021 Pneumococcal Polysaccharide PPV23 (Pneumovax) 04/22/2020 Seasonal [...] encounter Miscellaneous Notes * Telephone Encounter - Evie Harrell OSA - 10/23/2023 12:01 PM EDT LVM TO SCHED EMG documented in this encounter Plan of Treatment Upcoming Encounters Date Type Department Care Team (Late st Contact Info) Description 10/28/2023 11:00 AM EDT Office Visit General Internal Medicine [facility] [address] [place] [address] Mandy Parsons MD [address] [place] [address] 11/11/2023 11:00 AM EDT Cardiac Studies Cardiac Studies, [facility] [address] [facility] [place] [address] 11/24/2023 2:15 PM EDT Office Visit Orthopaedics Shanika Paul [address] [place] [address] Carri Taylor MD 16 [place] [address] 12/04/2023 11:00 AM EDT Office Visit Cardiology, [facility] [address] [place] [address] Pipe Moctezuma PA-C [address] [place] [address] 01/19/2024 3:00 PM EDT Office Visit General Internal Medicine [facility] 200 [facility] [place] [address] Deangelo Saldaña MD 200 [facility] [place] [address] 03/07/2024 3:00 PM EDT Office Visit Dermatology [facility] [address] [place] [address] Oriana Ambrosio MD [address] [place] [address] Health Maintenance Due Date Last Done Comments DTaP,Tdap,and Td Vaccines (1 - Tdap) 1964 Zoster Vaccines (2 of 2) 06/17/2020 04/22/2020 COVID-19 Vaccine ( - 2022-24 season) 2023 05/26/2022, 05/17/2021, 07/06/2020, Additional history exists Depression Screening 05/07/2023 05/07/2022 Albumin/Creatinine Ratio 11/14/2023 11/13/2022, 05/09 CKD PHOS USE SMARTSET 12041 11/14/2023 11/13/2022 GFR 01/12/2024 07/14/2023, 05/08, 11/13/2022, Additional history exists CKD HGB USE SMARTSET 21682 07/14/202407/14, 07/14/2023, 05/22/2023, Additional history exists Pneumococcal [...] this encounter Medical Devices Implanted Type Area Continuous Mining Machine Lode Miner Device Identifier Shelf Expiration Date Model / Serial / Lot Lens Li61ao 13.00mm 18.00 - [id number] - [id number] Implanted:Qty: 1 on 07/28/2023 by Eugene Shipley MD at OR [facility] Right: Eye [employer]OMB 04/07/2028 [id number] / [id number] / [id number] Lens Li61ao 13.00mm 17.50 - [id number] - [id number] Implanted:Qty: 1 on 08/11/2023 by Eugene Shipley MD at OR [facility] Left: Eye BAUSCH & LOMB 03/07/2028 [id number] / [id number] / [id number] documented as of this encounter Advance Directives [...] the patient have Health Care Power of Purchasing Manager? No Code Status History Code Status Date Activated Date Inactivated Comments Full Code 07/28/2023 11:12 AM 07/28/2023 5:12 PM This order reflects the patients wishes and were consensually agreed upon. Question Answer Comments Discussion of Advance Directives occurred with: Patient Does the patient have a Living Will? No Does the patient have Health Care Power of Purchasing Manager? No Care Teams Shipping Team Leader Relationship Specialty Start Date End Date Deangelo Saldaña MD 200 [place] [address] PCP - General Internal Medicine 9/1/21 documented as of this encounter
--- OUTSIDE RECORDS SUMMARY | 2023-11-29 17:49 | External Medical Summary ---
Author Name Unknown Address Unknown Organization K09:[facility] [address] [place] [address] Laboratory Report Ordering Provider Test Date Status GILA NI 11/11/2023 12:42:53 Final Observation Date Value Abnormality Reference (Units ) Status BUN 11/11/2023 12:42:53 26 Above high normal 6-20 (mg/dL) Final Creatinine 11/11/2023 12:42:53 1.4 Above high normal 0.6-1.2 (mg/dL) Final Glomerular filtration rate/1.73 sq M.predicted [Volume Rate/Area] in Serum, Plasma or Blood by Creatinine-based formula (CKD-EPI) 11/11/2023 12:42:53 53 Below low normal >=60 (mL/min) Final eGFR is calculated based on the CKD-EPI 2020 equation Sodium 11/11/2023 12:42:53 139 135-146 (m mol/L) Final Potassium 11/11/2023 12:42:53 4.7 3.5-5.1 (m mol/L) Final Cl 11/11/2023 12:42:53 101 98-107 (mm ol/L) Final CO2 11/11/2023 12:42:53 27 22-32 (mmo l/L) Final Anion gap 11/11/2023 12:42:53 11 7-15 (mmol /L) Final Glucose 11/11/2023 12:42:53 106 70-120 (mg /dL) Final Albumin 11/11/2023 12:42:53 4.2 3.8-5.0 (g /dL) Final AST (Aspartate aminotransferase) 11/11/2023 12:42:53 27 10-50 (U/L) Final Alk Phos 11/11/2023 12:42:53 69 35-130 (U/ L) Final Bilirubin, Total 11/11/2023 12:42:53 0.4 <=1 .2 (mg/dL) Final Calcium 11/11/2023 12:42:53 9.6 8.4-10.2 ( mg/dL) Final Protein 11/11/2023 12:42:53 6.7 6.0-8.3 (g /dL) Final ALT (Alanine aminotransferase) 11/11/2023 12:42:53 23 10-50 (U/L) Final Performing Location [facility] [address] [place] [address]
--- OUTSIDE RECORDS SUMMARY | 2023-11-29 17:49 | External Medical Summary ---
Author Name Unknown Address Unknown Organization K09:[facility] - [address] [place] [address] Laboratory Report Ordering Provider Test Date Status GILA NI 07/14/2023 09:24:13 Final Observation Date Value Abnormality Reference (Units ) Status BUN 07/14/2023 09:24:13 22 Above high normal 6-20 (mg/dL) Final Creatinine 07/14/2023 09:24:13 1.3 Above high normal 0.6-1.2 (mg/dL) Final Glomerular filtration rate/1.73 sq M.predicted [Volume Rate/Area] in Serum, Plasma or Blood by Creatinine-based formula (CKD-EPI) 07/14/2023 09:24:13 55 Below low normal >=60 (mL/min) Final eGFR is calculated based on the CKD-EPI 2020 equation SODIUM 07/14/2023 09:24:13 137 135-146 (m mol/L) Final Potassium 07/14/2023 09:24:13 4.6 3.5-5.1 (m mol/L) Final Cl 07/14/2023 09:24:13 101 98-107 (mm ol/L) Final CO2 07/14/2023 09:24:13 27 22-32 (mmo l/L) Final Anion gap 07/14/2023 09:24:13 9 7-15 (mmol /L) Final Glucose 07/14/2023 09:24:13 91 70-120 (mg /dL) Final Albumin 07/14/2023 09:24:13 4.3 3.8-5.0 (g /dL) Final AST (Aspartate aminotransferase) 07/14/2023 09:24:13 27 10-50 (U/L) Final Alk Phos 07/14/2023 09:24:13 72 35-130 (U/ L) Final Bilirubin, Total 07/14/2023 09:24:13 0.4 <=1 .2 (mg/dL) Final Calcium 07/14/2023 09:24:13 9.6 8.4-10.2 ( mg/dL) Final Protein 07/14/2023 09:24:13 6.6 6.0-8.3 (g /dL) Final ALT (Alanine aminotransferase) 07/14/2023 09:24:13 32 10-50 (U/L) Final Performing Location [facility] - [address] [place] [address]
--- OUTSIDE RECORDS SUMMARY | 2023-11-29 17:49 | External Medical Summary | Summary of Care ---
Author Name Unknown Organization [facility] Address [address] [place] [address] Phone [phone] Care Team Providers Care Maternity Floor Supervisor Name Role Phone Deangelo Saldaña MD Primary Care Provider + Encounter Details Date Type Department Care Team (Latest Contact Info) Description 08/17/2023 9:23 AM EDT - 08/17/2023 11:59 PM EDT Hospital Encounter Radiology [facility] [address] [place] [address] Arrived Discharge Disposition: Home - Self Care Allergies No known active allergiesdocumented as of this encounter (statuses as of 08/18/2023) Medications Medication Sig Dispensed Refills Start Date [...] as of this encounter (statuses as of 08/18/2023) Active Problems Problem Noted Date Diagnosed Date Chronic kidney disease, stage 3a 09/15/2022 Overview: Per CKD protocol HTN, goal below 130/80 05/29/2021 Mixed hyperlipidemia 05/29/2021 VLADIMIR (generalized anxiety disorder) 05/29/2021 Nonrheumatic mitral valve regurgitation 05/29/20 21 Mild aortic insufficiency 05/29/2021 Aortic valve sclerosis 05/29/2021 History of acute prostatitis 05/29/2021 documented as of this encounter (statuses as of 08/18/2023) Resolved Problems Problem Noted Date Diagnosed Date Resolved Date Hyperlipidemia 05/29/2021 05/29/2021 documented as of this encounter (statuses as of 08/18/2023) Immunizations Name Administration Dates Next Due COVID-19 mRNA, LNP-s, No Pre serve, 2-Dose Series (Elli) 05/17/2021,07/06/2020,06/15/2020 Covid-19, Mrna, Lnp-s, Pf, B ivalent, 30 Mcg, IM, 12 yrs and above (Elli) 05/26/2022 Pneumococcal Conjugate Vacci ne, 20-valent ([id number]) 12/04/2021 Pneumococcal Polysaccharide PPV23 (Pneumovax) 04/22/2020 Seasonal [...] PM EDT Office Visit General Internal Medicine [facility] [address] [place] [address] Yaneth Kay MD [address] [place] [address] 11/11/2023 11:00 AM EDT Cardiac Studies Cardiac Studies, [facility] [address] 12/04/2023 11:00 AM EDT Office Visit Cardiology, [facility] 132 [facility] [place] [address] Pipe Moctezuma PA-C 132 [facility] [place] [place] [address] 01/19/2024 3:00 PM EDT Office Visit General Internal Medicine [facility] [address] [place] [address] Deangelo Saldaña MD [address] [facility] [place] [address] 03/07/2024 3:00 PM EDT Office Visit Dermatology Shanika Paul [address] [place] [address] Oriana Ambrosio MD [address] [place] [address] Health Maintenance Due Date Last Done Comments DTaP,Tdap,and Td Vaccines (1 - Tdap) 1964 Zoster Vaccines (2 of 2) 06/17/2020 04/22/2020 COVID-19 Vaccine (5 - 2022-24 season) 2023 05/26/2022, 05/17/2021, 07/06/2020, Additional history exists Depression Screening 05/07/2023 05/07/2022 Albumin/Creatinine Ratio 11/14/2023 11/13/2022, 05/09 CKD PHOS USE SMARTSET 64578 11/14/2023 11/13/2022 GFR 01/12/2024 07/14/2023, 05/08, 11/13/2022, Additional history exists CKD HGB USE SMARTSET 95917 07/14/202407/14, 07/14/2023, 05/22/2023, Additional history exists Pneumococcal [...] this encounter Medical Devices Implanted Type Area Adjunct Phlebotomy Instructor Device Identifier Shelf Expiration Date Model / Serial / Lot Lens Li61ao 13.00mm 18.00 - [id number] - [id number] Implanted:Qty: 1 on 07/28/2023 by Eugene Shipley MD at OR [facility] Right: Eye BAUSCH [employer] LOMB 04/07/2028 [id number] / [id number] / [id number] Lens Li61ao 13.00mm 17.50 - [id number] - [id number] Implanted:Qty: 1 on 08/11/2023 by Eugene Shipley MD at OR [facility] Left: Eye BAUSCH [employer] LOMB 03/07/2028 [id number] / [id number] / [id number] documented as of this encounter Procedures Procedure [...] interpreted or resulted by a [facility] or [facility] contracted radiologist. Steph May PA-C RADIOLOGY (RAD GENERAL) documented in this encounter Advance Directives Latest [...] the patient have Health Care Power of Coagulator? No Code Status History Code Status Date Activated Date Inactivated Comments Full Code 07/28/2023 11:12 AM 07/28/2023 5:12 PM This order reflects the patients wishes and were consensually agreed upon. Question Answer Comments Discussion of Advance Directives occurred with: Patient Does the patient have a Living Will? No Does the patient have Health Care Power of Coagulator? No Care Teams Maternity Floor Supervisor Relationship Specialty Start Date End Date Deangelo Saldaña MD 200 [facility] [place] [address] PCP - General Internal Medicine 02/06/21 documented as of this encounter
--- OUTSIDE RECORDS SUMMARY | 2023-11-29 17:49 | External Medical Summary | Summary of Care ---
Author Name Unknown Organization [facility] Address [address] [place] [address] Phone [phone] Care Team Providers Care Carton Machine Operator Name Role Phone Deangelo Saldaña MD Primary Care Provider + Encounter Details Date Type Department Care Team (Late st Contact Info) Description 10/23/2023 Telephone Access Center, [facility] [address] *DO NOT REMOVE THIS DEPARTMENT* [place] [address] Services, Scheduling [address] [place] [address] Allergies No known active allergiesdocumented as of [...] mRNA, LNP-s, No Pre serve, 2-Dose Series ([employer]) 05/17/2021,07/06/2020,06/15/2020 Covid-19, Mrna, Lnp-s, Pf, B ivalent, 30 Mcg, IM, 12 yrs and above ([employer]) 05/26/2022 Pneumococcal Conjugate Vacci ne, 20-valent ([id number]) 12/04/2021 Pneumococcal Polysaccharide PPV23 (Pneumovax) 04/22/2020 Seasonal [...] encounter Miscellaneous Notes * Telephone Encounter - Ana Mcmahan OSA - 10/23/2023 11:12 AM EDT Patient fax referral for EMG from provider. Please contact patient for scheduling. documented in this encounter Plan of Treatment Upcoming Encounters Date Type Department Care Team (Late st Contact Info) Description 10/28/2023 11:00 AM EDT Office Visit General Internal Medicine [facility] [address] [place] [address] Mandy Parsons MD [address] [facility] [place] [address] 11/11/2023 11:00 AM EDT Cardiac Studies Cardiac Studies, [facility] 132 [facility] [place] [address] 11/24/2023 2:15 PM EDT Office Visit Orthopaedics Shanika aPul [address] [place] [address] Carri Taylor MD [address] [place] [address] 12/04/2023 11:00 AM EDT [facility] [place] [address] Pipe Moctezuma PA-C [address] [place] [address] 01/19/2024 3:00 PM EDT Office Visit General Internal Medicine [facility] [place] 200 [facility] [place] [address] Deangelo Saldaña MD 200 [facility] [place] [address] 03/07/2024 3:00 PM EDT Office Visit Dermatology [facility] [address] [place] [address] Oriana Ambrosio MD [address] [place] [address] Health Maintenance Due Date Last Done Comments DTaP,Tdap,and Td Vaccines (1 - Tdap) 1964 Zoster Vaccines (2 of 2) 06/17/2020 04/22/2020 COVID-19 Vaccine (5 - 2022- season) 2023 05/26/2022, 05/17/2021, 07/06/2020, Additional history exists Depression Screening 05/07/2023 05/07/2022 Albumin/Creatinine Ratio 11/14/2023 11/13/2022, 05/09 CKD PHOS USE SMARTSET 70838 11/14/2023 11/13/2022 GFR 01/12/2024 07/14/2023, 05/08, 11/13/2022, Additional history exists CKD HGB USE SMARTSET 23683 07/14/202407/14, 07/14/2023, 05/22/2023, Additional history exists Pneumococcal [...] this encounter Medical Devices Implanted Type Area Machine Washer Device Identifier Shelf Expiration Date Model / Serial / Lot Lens Li61ao 13.00mm 18.00 - [id number] - [id number] Implanted:Qty: 1 on 07/28/2023 by Eugene Shipley MD at OR [facility] Right: Eye [employer] LOMB 04/07/2028 [id number] / [id number] / [id number] Lens Li61ao 13.00mm 17.50 - [id number] - [id number] Implanted:Qty: 1 on 08/11/2023 by Eugene Shipley MD at OR [facility] Left: Eye BAUSCH [employer] LOMB 03/07/2028 [id number] / [id number] / [id number] documented as of this encounter Advance Directives [...] Power of Attor leslie? No Care Teams Carton Machine Operator Relationship Specialty Start Date End Date Deangelo Saldaña MD 200 [facility] [place] [address] PCP - General Internal Medicine 02/06/21 documented as of this encounter
--- OUTSIDE RECORDS SUMMARY | 2023-11-29 17:49 | External Medical Summary ---
Author Name Unknown Address Unknown Organization K01:[facility] - [address] [facility] [address] [place] [address] Laboratory Report Ordering Provider Test Date Status LUÍS ABDALLA 09/25/2023 14:52:05 Final <10,000 colonies/ml mixed no rmal anne Observation Date Value Abnormality Reference (Units ) Status Bacteria identified in Specimen by Culture 09/25/2023 14:52:05 [id number] OCCUS SPECIES Abnormal Final 10,000 to 100,000 colonies/m L Enterococcus species Performing Location [facility] - [address] [facility] [address] Ordering Provider Test Date Status LUÍS ABDALLA 09/25/2023 14:52:05 Final Observation Date Value Abnormality Reference (Units ) Status Ampicillin 09/25/2023 14:52:05 1 Susceptible Susceptible <16 , Resistant >=16 Final Nitrofurantoin susceptibility 09/25/2023 14:52:05 8 Susceptible Susceptible <64 , Intermediate >=64 , Resistant >=128 Final Tetracyclinesusceptibility 09/25/2023 14:52:05 16 Resistant Susceptible <8 , Intermediate >=8 , Resistant >=16 Final Vancomycinsusceptibility 09/25/2023 14:52:05 2 Susceptible Susceptible <8 , Intermediate >=8 , Resistant >=32 Final Test: Culture, Urine, Quanti tative
Specimen Source: Urine, Clean Catch
Specimen Type: Urine
Specimen Date: 09/25/2023 2:52 PM
Result Date: 09/29/2023 1:33 PM
Result Status: Final result
Abnormal: Yes
Resulting Lab: [facility]
[address] [facility] [address]
[place] [address]

CULTURE

10,000 to 100,000 colonies/mL Enterococcus species (Abnormal)

<10,000 colonies/ml mixed normal anne

SUSCEPTIBILITY

Enterococcus
species
METHOD ETEST

AMPICILLIN 1 Susceptible
NITROFURANTOIN 8 Susceptible
TETRACYCLINE 16 Resistant
VANCOMYCIN 2 Susceptible

null Performing Location [facility] - [address] [facility] [address]
--- OUTSIDE RECORDS SUMMARY | 2023-11-29 17:49 | External Medical Summary | Summary of Care ---
Author Name Unknown Organization [facility] Address [address] [facility] [address] Phone [phone] Care Team Providers Care Compliance Director Name Role Phone Deangelo Saldaña MD Primary Care Provider + Reason for Visit * Reason Comments Other Pt has irregular pin k/red lesion on L lower leg. Unsure how long its been there. H/o BCC. Encounter Details Date Type Department Care Team (Late st Contact Info) Description 08/17/2023 9:00 AM EDT Office Visit Dermatology, [facility] Sen[facility] [address] [place] [address] Steph May PA-C 27 [facility] [address] [place] [address] Neoplasm of uncertain behavior of skin* Allergies [...] mRNA, LNP-s, No Pre serve, 2-Dose Series ([employer]) 05/17/2021,07/06/2020,06/15/2020 Covid-19, Mrna, Lnp-s, Pf, B ivalent, 30 Mcg, IM, 12 yrs and above ([employer]) 05/26/2022 Pneumococcal Conjugate Vacci ne, 20-valent ([id number]) 12/04/2021 Pneumococcal Polysaccharide PPV23 (Pneumovax) 04/22/2020 Seasonal [...] leg s/p curettage 12/2022 Followed previously in [place] area and had remote h/o BCC on chest treated with likely ED&C based on description History of skin disorders: SK, lucero angioma(s) Tanning Bed Use: no Sunscreen use: yes when planning to be outdoors for long periods PERTINENT FAMILY HISTORY: Skin cancer: sister with history of advanced retroperitoneal melanoma treated at [facility] Skin disorders: no SOCIAL HISTORY: 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 From [facility] and trained there. Retired to [employer] to be by daughter. REVIEW OF SYSTEMS: [...] consented to photos taken. Contact patient via [facility] Applicable photos (if any) and chart reviewed by Dr. Wes Woodward. The patient was encouraged to contact me with any further questions or concerns. Steph May PA-C 08/17/2023 documented in this encounter Nursing Notes * [...] PM EDT Office Visit General Internal Medicine [facility] 200 [facility] [place] [address] Yaneth Kay MD 200 [facility] [place] [address] 11/11/2023 11:00 AM EDT Cardiac Studies Cardiac Studies, [facility] [address] [facility] [place] [address] 12/04/2023 11:00 AM EDT Office Visit Cardiology, [facility] [address] [facility] [place] [address] Pipe Moctezuma PA-C [address] [place] [address] 01/19/2024 3:00 PM EDT Office Visit General Internal Medicine [facility] [place] [address] [facility] [place] [address] Deangelo Saldaña MD [address] [facility] [place] [address] 03/07/2024 3:00 PM EDT Office Visit Dermatology [facility] 16 [place] [address] Oriana Ambrosio MD 16 [place] [address] Pending Results Name Type Priority Associated Diagnoses [...] 11/14/2023 11/13/2022, 1202/2021 CKD PHOS USE SMARTSET 90620 11/14/2023 11/13/2022 GFR 01/12/2024 07/14/2023, 05/08, 11/13/2022, Additional history exists CKD HGB USE SMARTSET 35755 07/14/202407/14, 07/14/2023, 05/22/2023, Additional history exists Pneumococcal [...] this encounter Medical Devices Implanted Type Area Vp Care Management Device Identifier Shelf Expiration Date Model / Serial / Lot Lens Li61ao 13.00mm 18.00 - [id number] - [id number] Implanted:Qty: 1 on 07/28/2023 by Eugene Shipley MD at OR [facility] Right: Eye BAUSCH [employer] LOMB 04/07/2028 [id number] / [id number] / [id number] Lens Li61ao 13.00mm 17.50 - [id number] - [id number] Implanted:Qty: 1 on 08/11/2023 by Eugene Shipley MD at OR [facility] Left: Eye BAUSCH & LOMB 03/07/2028 [id number] / [id number] / [id number] documented as of this encounter Procedures Procedure [...] interpreted or resulted by a [facility] or [facility] contracted radiologist. Steph May PA-C RADIOLOGY (RAD [...] the patient have Health Care Power of Chopping Machine Operator? No Code Status History Code Status Date Activated Date Inactivated Comments Full Code 07/28/2023 11:12 AM 07/28/2023 5:12 PM This order reflects the patients wishes and were consensually agreed upon. Question Answer Comments Discussion of Advance Directives occurred with: Patient Does the patient have a Living Will? No Does the patient have Health Care Power of Chopping Machine Operator? No Care Teams Compliance Director Relationship Specialty Start Date End Date Deangelo Saldaña MD [address] [place] [address] PCP - General Internal Medicine 02/06/21 documented as of this encounter
--- OUTSIDE RECORDS SUMMARY | 2023-11-29 17:49 | External Medical Summary | Summary of Care ---
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 [H25.811] Procedures REMOVE CATARACT, INSERT LENS PROSTH RIGHT EXTRACAPSULAR CATARACT REMOVAL WITH INTRAOCULAR LENS Referral ID Status Reason Start Date Expiration Date Visits Re quested Visits Authorized [id number] Encounter Details Date Type Department Care Team (Latest Contact Info) Description 07/28/2023 11:11 AM EST - 07/28/2023 1:11 PM EST Hospital Encounter OR [facility], Operating Room [facility] [address] [place] [phone] Eugene Shipley MD [facility] Mae[address] Alba [address] [place] [address] Discharge Disposition: Home - Self Care Allergies No known active allergiesdocumented as of this encounter (statuses as of 07/29/2023) Medications Medication Sig Dispensed Refills Start Date [...] 2 tabs at bedtime . 0 Active Famotidine 20 MG Oral Tablet (Pepcid) Take 1 Tablet by mouth daily as needed for Heartburn. 1 0 08/22/2022 07/20/2023 Discontinued (Medication/ Dose Changed) documented as of this encounter (statuses as of 07/29/2023) Active Problems Problem Noted Date Diagnosed Date Chronic kidney disease, stage 3a 09/15/2022 Overview: Per CKD protocol HTN, goal below 130/80 05/29/2021 Mixed hyperlipidemia 05/29/2021 VLADIMIR (generalized anxiety disorder) 05/29/2021 Nonrheumatic mitral valve regurgitation 05/29/20 Mild aortic insufficiency 05/29/2021 Aortic valve sclerosis 05/29/2021 History of acute prostatitis 05/29/2021 documented as of this encounter (statuses as of 07/29/2023) Resolved Problems Problem Noted Date Diagnosed Date Resolved Date Hyperlipidemia 05/29/2021 05/29/2021 documented as of this encounter (statuses as of 07/29/2023) Immunizations Name Administration Dates Next Due COVID-19 mRNA, LNP-s, No Pre serve, 2-Dose Series (Learnhive) 05/17/2021,07/06/2020,06/15/2020 Covid-19, Mrna, Lnp-s, Pf, B ivalent, 30 Mcg, IM, 12 yrs and above (Pfizer) 05/26/2022 Pneumococcal Conjugate Vacci ne, 20-valent ([id number]) 12/04/2021 Pneumococcal Polysaccharide PPV23 (Pneumovax) 04/22/2020 Seasonal [...] Sign Reading Time Taken Comments Blood Pressure 115/51 07/28/2023 12:51 PM EST Pulse 60 07/28/2023 12:51 PM EST Temperature 36 C (96.8 F) 07/28/2023 12:36 PM EST Respiratory Rate 16 07/28/2023 12:51 PM EST Oxygen Saturation 95% 07/28/2023 12:51 PM EST Inhaled Oxygen Concentration - - Weight 72.6 kg (160 lb) 07/28/2023 11:23 AM EST Height 172.7 cm (5' 8") 07/28/2023 11:23 AM EST Body Mass Index 24.33 07/28/2023 11:23 AM EST documented in this encounter Discharge Instructions * Discharge Instr - AVS* Eugene Shipley MD - 06/23/2023 8:59 AM EST Discharge Date: 07/28/23 You may call Doctor Violetta at during [...] school: N/A Follow Up - Return appointment(s): 07/29/23 @12:[address] Barnes See your medical support specialist in 1day(s). SPECIAL INSTRUCTIONS EYEDROPS for healing [...] DO NOT HESITATE TO CALL US AT [phone] AT ANY TIME IEugene MD personally performed the services described in this documentation. All medical record entries made by the scribe were at my direction and in my presence. I have reviewed the chart and agree that the record reflects my personal performance and is accurate and complete. Eugene monte MD. 07/28/2023. 12:34 PM. documented in this encounter H&P Notes * Eugene Shipley MD - 07/28/2023 6:30 AM EST HISTORY & PHYSICAL INTERVAL NOTE [facility] [address] [place] [phone] History and Physical Update: Name: Michael Farah Location: Room/bed info not found Date: 07/28/2023 Time: 6:30 AM DATE OF HISTORY AND PHYSICAL: 07/13/23 BP: 122 mmHg/55 mmHg (07/28/23 1123) Pulse: 53 (07/28/23 1123) Temp: 35.78 C (07/28/23 1123) Temp Summary: Temp Min: 35.8 C (96.4 F) Max: 35.8 C (96.4 F) SpO2: 99 % (07/28/23 1123) O2 flow rate: Supplemental O2 Delivery: Room Air, None (07/28/23 112) Does patient take a beta esteban? No Did patient stop anticoagulants? No Heart Exam: regular rate and rhythm Lung Exam: clear to auscultation bilaterally Other Pertinent Physical Exam: none I have reviewed the H&P previously performed and examined the patient today. There are no new findings noted. documented in this encounter Nursing Notes * Marquita Puckett RN - 07/28/2023 1:10 PM EST Patient awake and oriented x3. Denies pain. No drainage from eye noted. Tolerating PO fluids. Discharge instructions given and patient verbalizes understanding. Patient ambulated to private vehicle and discharged to home. * Marquita Puckett RN - 07/28/2023 12:50 PM EST Ambulated to BR. * Marquita Puckett RN - 07/28/2023 12:36 PM EST Pt received PACU II drowsy, denies pain, eye tape intact to R eye. * Gabby Acosta RN - 07/28/2023 11:33 AM EST Surgical consent verified with patient. Patient agrees with listed procedure and verified signature. documented in this encounter Plan of Treatment Upcoming Encounters Date Type Department Care Team (Latest Contact Info) Description 08/11/2023 12:25 PM EST [facility] [place] [phone] Eugene Shipley MD [address] [place] [address] 08/11/2023 12:25 PM EST - 08/11/2023 1:02 PM EST [facility] [place] [phone] Eugene Shipley MD [address] [place] [address] LEFT EXTRACAPSULAR CATARACT REMOVAL WITH INTRAOCULAR LENS 10/19/2023 12:20 PM EDT Office Visit General Internal Medicine [facility] [address] [place] [address] Yaneth Kay MD [address] [place] [address] 11/11/2023 11:00 AM EDT Cardiac Studies Cardiac Studies, [facility] [address] [facility] [place] [address] 12/04/2023 11:00 AM EDT Office Visit Cardiology, [facility] [address] [facility] [place] [address] Pipe Moctezuma PA-C [address] [facility] [place] [address] 01/19/2024 3:00 PM EDT Office Visit General Internal Medicine [facility] [address] [place] [address] Deangelo Saldaña MD 200 [facility] [place] [address] 03/07/2024 3:00 PM EDT Office Visit Dermatology [facility] [address] [place] [address] Oriana Ambrosio MD [address] [place] [phone] Scheduled Procedures Name Priority Associated Diagnoses Date/Ti [...] 11/14/2023 11/13/2022, 05/09 CKD PHOS USE SMARTSET 57416 11/14/2023 11/13/2022 GFR 01/12/2024 07/14/2023, 05/08, 11/13/2022, Additional history exists CKD HGB USE SMARTSET 38158 07/14/202407/14, 07/14/2023, 05/22/2023, Additional history exists Pneumococcal [...] this encounter Medical Devices Implanted Type Area Spa Manager Device Identifier Shelf Expiration Date Model / Serial / Lot Lens Li61ao 13.00mm 18.00 - [id number] - [id number] Implanted:Qty: 1 on 07/28/2023 by Eugene Shipley MD at OR [facility] Right: Eye [employer] 04/07/2028 [id number] / [id number] / [id number] documented as of this encounter Administered Medications Inactive Administered Medications - up to 3 most recent administrations Medication Order MAR Action Action Date Dose Rate Site Acetaminophen (Tylenol) tab 650 mg 650 mg, Oral, PRN Pain, Mild, Starting on Thu07/28/23 at 1240, Until Thu07/28/23 at 1712, For 1 dose, Maximum of 4 grams (4000 mg) per day., Post-op Flurbiprofen Sodium (Ocufen) 0.03 % ophthalmic solution 1 Drop 1 Drop, Right eye, Q5 MINUTES, First dose on Thu07/28/23 at 1145, Last dose on Thu07/28/23 at 1155, For 3 doses Given 07/28/2023 11:32 AM EST 1 Drop Given 07/28/2023 11:25 AM EST 1 Drop Given 07/28/2023 11:19 AM EST 1 Drop isolyte-S pH 7.4 infusion Intravenous, at 75 mL/hr, Plasma-LYTE 148, isolyte-S, and isolyte-S pH 7.4 are considered equivalent - including for MAR barcode scanning., CONTINUOUS, Starting on Thu07/28/23 at 1145, Until Thu07/28/23 at 1712, Pre-Op Continue from Pre-Op 07/28/2023 12:05 PM EST 75 mL/hr New Bag 07/28/2023 11:31 AM EST 75 mL/hr moxifloxacin (Vigamox) 0.5 % ophthalmic solution 1 Drop 1 Drop, Right eye, Q5 MINUTES, First dose on Thu07/28/23 at 1145, Last dose on Thu07/28/23 at 1155, For 3 doses, PRE-OP: One drop to right eye every 5 minutes for 3 doses, Pre-Op Given 07/28/2023 11:32 AM EST 1 Drop Given 07/28/2023 11:25 AM EST 1 Drop Given 07/28/2023 11:19 AM EST 1 Drop proparacaine (Alcaine) 0.5 % ophthalmic solution 1 Drop 1 Drop, Right eye, ONCE, On Thu07/28/23 at 1145, For 1 dose, PRE-OP: 15 minutes prior to scheduled surgery time for 1 dose, Pre-Op Given 07/28/2023 11:1 9 AM EST 1 Drop tropicamide 1%-cyclopentolate 1%-phenylephrine 2.5% ophthalmic solution 1 Drop 1 Drop, Right eye, Q5 MINUTES, First dose on e 07/28/23 at 1145, Last dose on Thu07/28/23 at 1155, For 3 doses, Pre-Op Given 07/28/2023 11:32 AM EST 1 Drop Given 07/28/2023 11:25 AM EST 1 Drop Given 07/28/2023 11:19 AM EST 1 Drop documented in this encounter Active and Recently Administered Medications Times are shown in EST. Scheduled Medication Order 07/26/2023 07/27/2023 07/28/2023 Flurbiprofen Sodium (Ocufen) 0.03 % ophthalmic solution 1 Drop (COMPLETED) 1 Drop, Right eye, Q5 MINUTES, First dose on Thu07/28/23 at 1145, Last dose on Thu07/28/23 at 1155, For 3 doses 1119 (Given - Provid er: Gabby Acosta RN)1125 (Given - Provider: Gabby Acosta RN)1132 (Given - Provider: Gabby Acosta RN) moxifloxacin (Vigamox) 0.5 % ophthalmic solution 1 Drop (COMPLETED) 1 Drop, Right eye, Q5 MINUTES, First dose on Thu07/28/23 at 1145, Last dose on Thu07/28/23 at 1155, For 3 doses, PRE-OP: One drop to right eye every 5 minutes for 3 doses, Pre-Op 1119 (Given - Provid er: Gabby Acosta RN)1125 (Given - Provider: Gabby Acosta RN)1132 (Given - Provider: Gabby Acosta RN) Povidone-Iodine (Betadine) 5 % 2 mL syringe ophthalmic solution 1 Drop 1 Drop, Right eye, ONCE, On 07/28/23 at 1145, For 1 dose, Pre-Op 1145 (Due) proparacaine (Alcaine) 0.5 % ophthalmic solution 1 Drop (COMPLETED) 1 Drop, Right eye, ONCE, On Thu07/28/23 at 1145, For 1 dose, PRE-OP: 15 minutes prior to scheduled surgery time for 1 dose, Pre-Op 1119 (Given - Provid er: Gabby Acosta RN) tropicamide 1%-cyclopentolate 1%-phenylephrine 2.5% ophthalmic solution 1 Drop (COMPLETED) 1 Drop, Right eye, Q5 MINUTES, First dose on Thu07/28/23 at 1145, Last dose on Thu07/28/23 at 1155, For 3 doses, Pre-Op 1119 (Given - Provid er: Gabby Acosta RN)1125 (Given - Provider: Gabby Acosta RN)1132 (Given - Provider: Gabby Acosta RN) Continuous Medication Order 07/26/2023 07/27/2023 07/28/2023 isolyte-S pH 7.4 infusion Intravenous, at 75 mL/hr, Plasma-LYTE 148, isolyte-S, and isolyte-S pH 7.4 are considered equivalent - including for MAR barcode scanning., CONTINUOUS, Starting on Thu07/28/23 at 1145, Until Thu07/28/23 at 1712, Pre-Op 1131 (New Bag - Prov ider: Gabby Acosta RN)1205 (Continue from Pre-Op - Provider: Sukhdeep Diggs CRNA)1231 (Anes Intra-Op Fluid - Provider: Sukhdeep Diggs CRNA) PRN Medication Order 07/26/2023 07/27/2023 07/28/2023 Acetaminophen (Tylenol) tab 650 mg 650 mg, Oral, PRN Pain, Mild, Starting on Thu07/28/23 at 1240, Until Thu07/28/23 at 1712, For 1 dose, Maximum of 4 grams (4000 mg) per day., Post-op balanced salt solution (Bss) ophthalmic solution (CANCELED) ONCE PRN INTRA PROCEDURE, Starting on Thu07/28/23 at 1223, Until Thu07/28/23 at 1231, Intra-Op 1223 (Given - Provid er: Eugene Shipley MD - Comment: qs) DUOVISC inj KIT (CANCELED) ONCE PRN INTRA PROCEDURE, Starting on Thu07/28/23 at 1223, Until Thu07/28/23 at 1231, Intra-Op 1223 (Given - Provid er: Eugene Shipley MD - Comment: qs) hydroxypropyl methylcellulose (Ocucoat) 2 % intraocular inj (CANCELED) ONCE PRN INTRA PROCEDURE, Starting on e 07/28/23 at 1224, Until 07/28/23 at 1231, Intra-Op 1224 (Given - Provid er: Eugene Shipley MD - Comment: qs) Lidocaine 1 % (PF) inj (CANCELED) ONCE PRN INTRA PROCEDURE, Starting on e 07/28/23 at 1224, Until 07/28/23 at 1231, Intra-Op 1224 (Given - Provid er: Eugene Shipley MD - Comment: qs) Moxifloxacin intracameral inj (CANCELED) ONCE PRN INTRA PROCEDURE, Starting on Thu07/28/23 at 1224, Until Thu07/28/23 at 1231, Intra-Op 1224 (Given - Provid er: Eugene Shipley MD - Comment: qs) prednisoLONE Acetate (Pred Forte) 1 % ophthalmic suspension (CANCELED) ONCE PRN INTRA PROCEDURE, Starting on Thu07/28/23 at 1224, Until 07/28/23 at 1231, Intra-Op 1224 (Given - Provid er: Jolene eBnavides RN) Tetracaine (Pontocaine) 0.5 % ophthalmic solution (CANCELED) ONCE PRN INTRA PROCEDURE, Starting on Thu07/28/23 at 1217, Until e 07/28/23 at 1231, Intra-Op 1217 (Given - Provid er: Jolene Benavides RN) documented in this encounter Advance Directives Latest Code Status on File Code Status Date Activated Date Inactivated Comments Full Code 07/28/2023 11:12 AM 07/28/2023 5:12 PM This order reflects the patients wishes and were consensually agreed upon. Question Answer Comments Discussion of Advance Directives occurred with: Patient Does the patient have a Living Will? No Does the patient have Health Care Power of Welder Fitter Apprentice? No Care Teams Chemistry Teacher Relationship Specialty Start Date End Date Deangelo Saldaña MD [address] [facility], [place] [id number] PCP - General Internal Medicine 02/06/21 documented as of this encounter
--- OUTSIDE RECORDS SUMMARY | 2023-11-29 17:49 | External Medical Summary ---
Author Name Unknown Address Unknown Organization [id number]:LABORATORY [facility] - [address] [facility] [address] Laboratory Report Ordering Provider Test Date Status LUÍS ABDALLA 09/25/2023 14:52:05 Final Observation Date Value Abnormality Reference (Units ) Status Color of Urine by Auto 09/25/2023 14:52:05 Dark Yellow Colorless, Light Yellow, Yellow, Dark Yellow Final Clarity, Urine 09/25/2023 14:52:05 Slightly Cloudy Abnormal Clear Final Glucose [Mass/volume] in Urine by Automated test strip 09/25/2023 14:52:05 Negative Negative (mg/dL) Final Bilirubin.total [Presence] in Urine by Automated test strip 09/25/2023 14:52:05 Negative Negative Final Ketones [Mass/volume] in Urine by Automated test strip 09/25/2023 14:52:05 Negative Negative (mg/dL) Final Specific gravity, Urine 09/25/2023 14:52:05 1.011 1.003-1.030 Final Hemoglobin [Presence] in Urine by Automated test strip 09/25/2023 14:52:05 Large Abnormal Negative Final pH, Urine 09/25/2023 14:52:05 6.0 5.0-7.5 (Units) Final Protein [Mass/volume] in Urine by Automated test strip 09/25/2023 14:52:05 30 Abnormal Negative (mg/dL) Final Urobilinogen [Mass/volume] in Urine by Automated test strip 09/25/2023 14:52:05 Normal Normal (mg/dL) Final Nitrite [Presence] in Urine by Automated test strip 09/25/2023 14:52:05 Negative Negative Final Leukocyte esterase [Presence] in Urine by Automated test strip 09/25/2023 14:52:05 Large Abnormal Negative Final RBC, Urine 09/25/2023 14:52:05 50+ Abnormal 0-2 (/HPF) Final WBC, Urine 09/25/2023 14:52:05 50+ Abnormal 0-2 (/HPF) Final Bacteria [#/area] in Urine sediment by Microscopy high power field 09/25/2023 14:52:05 151-200 Abnormal 0-25 (/HPF) Final Leukocyte clumps [#/area] in Urine sediment by Microscopy high power field 09/25/2023 14:52:05 Present Abnormal None (/HPF) Final Performing Location LABORATORY [facility] - [facility] [address]. [facility] [address]
--- OUTSIDE RECORDS SUMMARY | 2023-11-29 17:50 | External Medical Summary | Summary of Care ---
Author Name Unknown Organization [facility] Address [address] [place] [address] Phone [phone] Care Team Providers Care Director [employer] Name Role Phone Deangelo Saldaña MD Primary Care Provider + Encounter Details Date Type Department Care Team (Late st Contact Info) Description 06/09/2023 Orders Only Outcomes Research Department [address] [place] [address] Steph Mariee [facility] Other*[id number] Allergies No known active allergiesdocumented as of this encounter (statuses as of 06/09/2023) Medications Medication Sig Dispensed Refills Start Date [...] as needed for Heartburn. 0 08/22/2022 Active Diclofenac Sodium 1 % External Gel (Voltaren)Indications: Nontraumatic incomplete tear of right rotator cuff APPLY FOUR TIMES A DAY DIRECTED 0 04/07/2023 Active Nisoldipine ER 8.5 MG Oral Tablet Extended Release 24 HourIndications:HTN, goal below 130/80 Hold until directed 0 05/22/2023 Active documented as of this encounter (statuses as of 06/09/2023) Active Problems Problem Noted Date Diagnosed Date Chronic kidney disease, stage 3a 09/15/2022 Overview: Per CKD protocol HTN, goal below 130/80 05/29/2021 Mixed hyperlipidemia 05/29/2021 VLADIMIR (generalized anxiety disorder) 05/29/2021 Nonrheumatic mitral valve regurgitation 05/29/20 21 Mild aortic insufficiency 05/29/2021 Aortic valve sclerosis 05/29/2021 History of acute prostatitis 05/29/2021 documented as of this encounter (statuses as of 06/09/2023) Resolved Problems Problem Noted Date Diagnosed Date Resolved Date Hyperlipidemia 05/29/2021 05/29/2021 documented as of this encounter (statuses as of 06/09/2023) Immunizations Name Administration Dates Next Due COVID-19 mRNA, LNP-s, No Pre serve, 2-Dose Series (Umthunzi) 05/17/2021,07/06/2020,06/15/2020 Covid-19, Mrna, Lnp-s, Pf, B ivalent, 30 Mcg, IM, 12 yrs and above (Umthunzi) 05/26/2022 Pneumococcal Conjugate Vacci ne, 20-valent ([id number]) 12/04/2021 Pneumococcal Polysaccharide PPV23 (Pneumovax) 04/22/2020 Seasonal [...] Care Team (Late st Contact Info) Description 07/13/2023 1:40 PM EST Office Visit General Internal Medicine [facility] [place] [address] Deangelo Saldaña MD 200 [facility] [place] [address] 11/11/2023 11:00 AM EDT Cardiac Studies Cardiac Studies, [facility] [address] [facility] [place] [address] 12/04/2023 11:00 AM EDT Office Visit Cardiology, [facility] [address] [place] [address] Pipe Moctezuma PA-C [address] [place] [address] 03/07/2024 3:00 PM EDT Office Visit Dermatology Shanika Paul [address] [place] [id number] Oriana Ambrosio MD [address] [place] [id number] Scheduled Orders Name Type Priority Associated Diagnoses Orde r Schedule MYCODE SUBSEQUENT ADULT Lab Routine MyCode Research Other*[id number] Every 6 Months for 2 Occurrences starting 06/09/2023 until 06/28/2024 Health Maintenance Due Date Last Done Comments DTaP,Tdap,and Td Vaccines (1 - Tdap) 1964 Zoster Vaccines (2 of 2) 06/17/2020 04/22/2020 COVID-19 Vaccine (5 - 2022-24 season) 2023 05/26/2022, 05/17/2021, 07/06/2020, Additional history exists Depression Screening 05/07/2023 05/07/2022 Albumin/Creatinine Ratio 11/14/2023 11/13/2022, 05/09 CKD PHOS USE SMARTSET 77078 11/14/2023 11/13/2022 GFR 11/21/2023 05/22/2023, 0601/2023, 08/20/2022, Additional history exists CKD HGB USE SMARTSET 33344 05/22/202405/22, 11/13/2022, 11/13/2022, Additional history exists Pneumococcal Vaccine: 65+ Years Completed 12/04/2021, 04/22/2020 Influenza Vaccine (FLU shot) Completed , 05/19/2022, 05/29/2021 GARDASIL-HPV IMMUNIZATION SERIES Aged Out No longer eligible based on patient's age to complete this topic Hepatitis B Aged Out No longer eligi ble based on patient's age to complete this topic MENINGOCOCCAL (MENACTRA/MENVEO) Aged Out No longer eligible based on patient's age to complete this topic documented as of this encounter Medical Devices Not on filedocumented as of this encounter Visit Diagnoses Diagnosis MyCode Research Other*[id number] documented in this encounter Care Teams Director [employer] Relationship Specialty Start Date End Date Deangelo Saldaña MD [address] [place] [address] PCP - General Internal Medicine 02/06/21 documented as of this encounter
--- OUTSIDE RECORDS SUMMARY | 2023-11-29 17:50 | External Medical Summary ---
Author Name Unknown Address Unknown Organization K09:LABORATORY [address] - [facility] [place] [address] Laboratory Report Ordering Provider Test Date Status LUÍS ABDALLA 06/10/2023 09:15:53 Final Observation Date Value Abnormality Reference (Units ) Status Color of Urine by Auto 06/10/2023 09:15:53 Yellow Light Yellow, Yellow, Dark Yellow Final Clarity, Urine 06/10/2023 09:15:53 Cloudy Abnormal Clear Final Glucose [Mass/volume] in Urine by Automated test strip 06/10/2023 09:15:53 Negative Negative (mg/dL) Final Bilirubin.total [Presence] in Urine by Automated test strip 06/10/2023 09:15:53 Negative Negative Final Ketones [Mass/volume] in Urine by Automated test strip 06/10/2023 09:15:53 Negative Negative (mg/dL) Final Specific gravity, Urine 06/10/2023 09:15:53 1.010 1.003-1.030 Final Hemoglobin [Presence] in Urine by Automated test strip 06/10/2023 09:15:53 Large Abnormal Negative Final pH, Urine 06/10/2023 09:15:53 5.5 5.0-7.5 (Units) Final Protein [Mass/volume] in Urine by Automated test strip 06/10/2023 09:15:53 100 Abnormal Negative (mg/dL) Final Urobilinogen [Mass/volume] in Urine by Automated test strip 06/10/2023 09:15:53 0.2 0.2, 1.0 (mg/dL) Final Nitrite [Presence] in Urine by Automated test strip 06/10/2023 09:15:53 Negative Negative Final Leukocyte esterase [Presence] in Urine by Automated test strip 06/10/2023 09:15:53 Small Abnormal Negative Final RBC, Urine 06/10/2023 09:15:53 20-29 Abnormal 0-2 (/HPF) Final WBC, Urine 06/10/2023 09:15:53 20-29 Abnormal 0-2 (/HPF) Final Bacteria [#/area] in Urine sediment by Microscopy high power field 06/10/2023 09:15:53 101-150 Abnormal 0-25 (/HPF) Final CULTURE, URINE - [facility] 06/10/2023 09:15:53 Final Quantitative urine culture t o be performed Performing Location LABORATORY [place] [address] [place] [address]
--- OUTSIDE RECORDS SUMMARY | 2023-11-29 17:50 | External Medical Summary | Summary of Care ---
Author Name Unknown Organization [facility] Address [address] [place] [address] Phone [phone] Care Team Providers Care Warpman Name Role Phone Deangelo Saldaña MD Primary Care Provider + Reason for Visit * Reason Comments Outpatient Testing Encounter Details Date Type Department Care Team (Late st Contact Info) Description 06/15/2023 11:00 AM EST Laboratory Laboratory [facility] Petra Muro [address] [place] [address] [facility] [address] [place] [address] Acute cystitis with hematuria Allergies No known active allergiesdocumented as of this encounter (statuses as of 06/15/2023) Medications Medication Sig Dispensed Refills Start Date [...] Active Diclofenac Sodium 1 % External Gel (Voltaren)Indication s:Nontraumatic incomplete tear of right rotator cuff APPLY FOUR TIMES A DAY DIRECTED 0 04/07/2023 Active Nisoldipine ER 8.5 MG Oral Tablet Extended Release 24 HourIndications:HTN, goal below 130/80 Hold until directed 0 05/22/2023 Active Amoxicillin 500 MG Oral Capsule (Amoxil)Indications: Acute cystitis with hematuria Take 1 Capsule by mouth in the morning and 1 Capsule at noon and 1 Capsule before bedtime. Do all this for 7 days. 21 Capsule 0 06/11/2023 06/18/2023 Active documented as of this encounter (statuses as of 06/15/2023) Active Problems Problem Noted Date Diagnosed Date Chronic kidney disease, stage 3a 09/15/2022 Overview: Per CKD protocol HTN, goal below 130/80 05/29/2021 Mixed hyperlipidemia 05/29/2021 VLADIMIR (generalized anxiety disorder) 05/29/2021 Nonrheumatic mitral valve regurgitation 05/29/20 21 Mild aortic insufficiency 05/29/2021 Aortic valve sclerosis 05/29/2021 History of acute prostatitis 05/29/2021 documented as of this encounter (statuses as of 06/15/2023) Resolved Problems Problem Noted Date Diagnosed Date Resolved Date Hyperlipidemia 05/29/2021 05/29/2021 documented as of this encounter (statuses as of 06/15/2023) Immunizations Name Administration Dates Next Due COVID-19 mRNA, LNP-s, No Pre serve, 2-Dose Series (FastDue) 05/17/2021,07/06/2020,06/15/2020 Covid-19, Mrna, Lnp-s, Pf, B ivalent, 30 Mcg, IM, 12 yrs and above (FastDue) 05/26/2022 Pneumococcal Conjugate Vacci ne, 20-valent ([id number]) 12/04/2021 Pneumococcal Polysaccharide PPV23 (Pneumovax) 04/22/2020 Seasonal [...] PM EST Office Visit General Internal Medicine [address] [place] [address] [place] [address] Deangelo Saldaña MD [address] [facility] [place] [address] 11/11/2023 11:00 AM EDT [facility] [address] [place] [address] 12/04/2023 11:00 AM EDT Office Visit Cardiology, [facility] 132 [facility] [place] [address] Pipe Moctezuma PA-C [address] [place] [address] 03/07/2024 3:00 PM EDT Office Visit Dermatology [facility] [address] [place] [address] Oriana Ambrosio MD [address] [place], [place] [id number] Pending Results Name Type Priority Associated Diagnoses Date /Time URINALYSIS, REFLEX TO CULTURE (NOT FOR NEUTROPENIC PATIENTS) Lab Routine Acute cystitis with hematuria 06/15/2023 10:24 AM EST URINALYSIS, REFLEX TO CULTURE (CUP ONLY) Lab Routine Acute cystitis with hematuria 06/15/2023 10:24 AM EST URINALYSIS, REFLEX TO CULTURE Lab Routine Acute cystitis with hematuria 06/15/2023 10:24 AM EST Health Maintenance Due Date Last Done Comments DTaP,Tdap,and Td Vaccines (1 - Tdap) 1964 Zoster Vaccines (2 of 2) 06/17/2020 04/22/2020 COVID-19 Vaccine ( season) 2023 05/26/2022, 05/17/2021, 07/06/2020, Additional history exists Depression Screening 05/07/2023 05/07/2022 Albumin/Creatinine Ratio 11/14/2023 11/13/2022, 05/09 CKD PHOS USE SMARTSET 98397 11/14/2023 11/13/2022 GFR 11/21/2023 05/22/2023, 06/01/2023, 08/20/2022, Additional history exists CKD HGB USE SMARTSET 19730 05/22/202405/22, 11/13/2022, 11/13/2022, Additional history exists Pneumococcal [...] as of this encounter Visit Diagnoses Diagnosis Acute cystitis with hematuria Acute cystitis documented in this encounter Care Teams Warpman Relationship Specialty Start Date End Date Deangelo Saldaña MD [address] [place] [address] PCP - General Internal Medicine 02/06/21 documented as of this encounter
--- OUTSIDE RECORDS SUMMARY | 2023-11-29 17:50 | External Medical Summary ---
Author Name Unknown Address Unknown Organization K09:[facility] [address] [place] [address] Laboratory Report Ordering Provider Test Date Status GILA NI 07/13/2023 14:34:28 Final Observation Date Value Abnormality Reference (Units ) Status Color of Urine by Auto 07/13/2023 14:34:28 Yellow Light Yellow, Yellow, Dark Yellow Final Clarity, Urine 07/13/2023 14:34:28 Clear Clear Final Glucose [Mass/volume] in Urine by Automated test strip 07/13/2023 14:34:28 Negative Negative (mg/dL) Final Bilirubin.total [Presence] in Urine by Automated test strip 07/13/2023 14:34:28 Negative Negative Final Ketones [Mass/volume] in Urine by Automated test strip 07/13/2023 14:34:28 Negative Negative (mg/dL) Final Specific gravity, Urine 07/13/2023 14:34:28 1.010 1.003-1.030 Final Hemoglobin [Presence] in Urine by Automated test strip 07/13/2023 14:34:28 Trace Abnormal Negative Final pH, Urine 07/13/2023 14:34:28 5.5 5.0-7.5 (Units) Final Protein [Mass/volume] in Urine by Automated test strip 07/13/2023 14:34:28 Negative Negative (mg/dL) Final Urobilinogen [Mass/volume] in Urine by Automated test strip 07/13/2023 14:34:28 0.2 0.2, 1.0 (mg/dL) Final Nitrite [Presence] in Urine by Automated test strip 07/13/2023 14:34:28 Negative Negative Final Leukocyte esterase [Presence] in Urine by Automated test strip 07/13/2023 14:34:28 Moderate Abnormal Negative Final RBC, Urine 07/13/2023 14:34:28 0-2 0-2 (/HPF) Final WBC, Urine 07/13/2023 14:34:28 30-49 Abnormal 0-2 (/HPF) Final Bacteria [#/area] in Urine sediment by Microscopy high power field 07/13/2023 14:34:28 0-25 0-25 (/HPF) Final Performing Location [facility] [address] [place] [address]
--- OUTSIDE RECORDS SUMMARY | 2023-11-29 17:50 | External Medical Summary | Summary of Care ---
Author Name Unknown Organization [facility] Address [address] [place] [address] Phone [phone] Care Team Providers Care Mainframe Architect Name Role Phone Deangelo Saldaña MD Primary Care Provider + Reason for Visit * Reason Comments Outpatient Testing Encounter Details Date Type Department Care Team (Late st Contact Info) Description 07/13/2023 2:20 PM EST Laboratory Laboratory [facility] State Petra Muro [address] [place] [address] [facility] [address] [place] [address] Microscopic hematuria Allergies No known active allergiesdocumented as of this encounter (statuses as of 07/13/2023) Medications Medication Sig Dispensed Refills Start Date [...] as of this encounter (statuses as of 07/13/2023) Active Problems Problem Noted Date Diagnosed Date Chronic kidney disease, stage 3a 09/15/2022 Overview: Per CKD protocol HTN, goal below 130/80 05/29/2021 Mixed hyperlipidemia 05/29/2021 VLADIMIR (generalized anxiety disorder) 05/29/2021 Nonrheumatic mitral valve regurgitation 05/29/20 Mild aortic insufficiency 05/29/2021 Aortic valve sclerosis 05/29/2021 History of acute prostatitis 05/29/2021 documented as of this encounter (statuses as of 07/13/2023) Resolved Problems Problem Noted Date Diagnosed Date Resolved Date Hyperlipidemia 05/29/2021 05/29/2021 documented as of this encounter (statuses as of 07/13/2023) Immunizations Name Administration Dates Next Due COVID-19 mRNA, LNP-s, No Pre serve, 2-Dose Series (Pureshield) 05/17/2021,07/06/2020,06/15/2020 Covid-19, Mrna, Lnp-s, Pf, B ivalent, 30 Mcg, IM, 12 yrs and above (Pureshield) 05/26/2022 Pneumococcal Conjugate Vacci ne, 20-valent ([id number]) 12/04/2021 Pneumococcal Polysaccharide PPV23 (Pneumovax) 04/22/2020 Seasonal [...] Encounter OR [facility], Operating Room [facility] 132 [facility] [place] [phone] Eugene Shipley MD [address] [address] 07/28/2023 12:06 PM EST - 07/28/2023 12:43 PM EST Surgery OR [facility], Operating Room OSS [address] [place] [phone] Eugene Shipley MD [address] [address] RIGHT EXTRACAPSULAR CATARACT REMOVAL WITH INTRAOCULAR LENS 08/11/2023 12:25 PM EST Hospital Encounter OR [facility], Operating Room OSS [address] [place] [phone] Eugene Shipley MD [address] [address] 08/11/2023 12:25 PM EST - 08/11/2023 1:02 PM EST Surgery OR [facility], [facility] [phone] Eugene Shipley MD [facility] [address] [place] [address] LEFT EXTRACAPSULAR CATARACT REMOVAL WITH INTRAOCULAR LENS 11/11/2023 11:00 AM EDT Cardiac Studies Cardiac Studies, [facility] 132 [place] [address] 12/04/2023 11:00 AM EDT Office Visit Cardiology, [facility] 132 [place] [address] Pipe Moctezuma PA-C 132 [place] [address] 01/19/2024 3:00 PM EDT Office Visit General Internal Medicine [facility] 200 [place] [address] Deangelo Saldaña MD 200 [place] [address] 03/07/2024 3:00 PM EDT Office Visit Dermatology [facility] [address] [place] [address] Oriana Ambrosio MD [address] [place] [address] Pending Results Name Type Priority Associated Diagnoses Date /Time URINALYSIS WITH MICROSCOPIC EXAM Lab Routine Microscopic hematuria 07/13/2023 2:34 PM EST Scheduled Procedures Name Priority Associated Diagnoses [...] 11/14/2023 11/13/2022, 05/09 CKD PHOS USE SMARTSET 34088 11/14/2023 11/13/2022 GFR 11/21/2023 05/22/2023, 06/0 01/2023, 08/20/2022, Additional history exists CKD HGB USE SMARTSET 06851 05/22/202405/22, 11/13/2022, 11/13/2022, Additional history exists Pneumococcal [...] as of this encounter Visit Diagnoses Diagnosis Microscopic hematuria Combined forms of age-related cataract of right eye Other and combined forms of senile cataract Combined forms of age-related cataract of left eye Other and combined forms of senile cataract documented in this encounter Care Teams Mainframe Architect Relationship Specialty Start Date End Date Deangelo Saldaña MD 200 [facility] [place] [place] [address] PCP - General Internal Medicine 02/06/21 documented as of this encounter
--- OUTSIDE RECORDS SUMMARY | 2023-11-29 17:50 | External Medical Summary ---
Author Name Unknown Address Unknown Organization K01:[facility] - [address] [place] [id number] Laboratory Report Ordering Provider Test Date Status LUÍS ABDALLA 06/15/2023 10:24:18 Final Observation Date Value Abnormality Reference (Units) Status Bacteria identified in Specimen by Culture 06/15/2023 10:24:18 No significant growth Final Test: Culture, Urine, Quanti tative
Specimen Source: Urine, Clean Catch
Specimen Type: Urine
Specimen Date: 06/15/2023 10:24 AM
Result Date: 06/16/2023 2:44 PM
Result Status: Final result
Resulting Lab: [facility]
[address]
[facility] [address]

CULTURE

No significant growth

null Performing Location [facility] - [address] [facility] [address]
--- OUTSIDE RECORDS SUMMARY | 2023-11-29 17:50 | External Medical Summary | Summary of Care ---
Author Name Unknown Organization [facility] Address [address] [place] [address] Phone [phone] Care Team Providers Care Asphalt Worker Name Role Phone Deangelo Saldaña MD Primary Care Provider + Reason for Visit * Reason Onset Date Comments Urinary Tract Infection Symptoms 06/10/2023 Encounter Details Date Type Department Care Team (Late st Contact Info) Description 06/10/2023 Telephone General Internal Medicine [facility] [place] [address] [facility] [place] [address] Deangelo Saldaña MD [address] [place] [address] Urinary Tract Infection Symptoms Allergies No known active allergiesdocumented as of this encounter (statuses as of 06/11/2023) Medications Medication Sig Dispensed Refills Start Date [...] as of this encounter (statuses as of 06/11/2023) Active Problems Problem Noted Date Diagnosed Date Chronic kidney disease, stage 3a 09/15/2022 Overview: Per CKD protocol HTN, goal below 130/80 05/29/2021 Mixed hyperlipidemia 05/29/2021 VLADIMIR (generalized anxiety disorder) 05/29/2021 Nonrheumatic mitral valve regurgitation 05/29/20 21 Mild aortic insufficiency 05/29/2021 Aortic valve sclerosis 05/29/2021 History of acute prostatitis 05/29/2021 documented as of this encounter (statuses as of 06/11/2023) Resolved Problems Problem Noted Date Diagnosed Date Resolved Date Hyperlipidemia 05/29/2021 05/29/2021 documented as of this encounter (statuses as of 06/11/2023) Immunizations Name Administration Dates Next Due COVID-19 mRNA, LNP-s, No Pre serve, 2-Dose Series (ZEALER) 05/17/2021,07/06/2020,06/15/2020 Covid-19, Mrna, Lnp-s, Pf, B ivalent, 30 Mcg, IM, 12 yrs and above (ZEALER) 05/26/2022 Pneumococcal Conjugate Vacci ne, 20-valent ([id number]) 12/04/2021 Pneumococcal Polysaccharide PPV23 (Pneumovax) 04/22/2020 Seasonal [...] encounter Miscellaneous Notes * Telephone Encounter - Yaneth Kay MD - 06/11/2023 6:48 PM EST See other my G * Telephone Encounter - Yaneth Kay MD - 06/10/2023 12:58 PM EST Await urine culture before treatment * Telephone Encounter - Amparo Miller LPN - 06/10/2023 8:08 AM EST Patient states that he was told by Dr. Kay the next time he has hematuria to come in to give a urine sample Patient started this morning with hematuria He denies any other sx's Afebrile Advised patient that Dr. Kay has an order already placed in his chart and that he can come in to the lab now to give his urine sample Patient will walk in to lab at own convenience (No appts available at any clinic today) Pharm selected. Please advise. documented in this encounter Plan of Treatment Upcoming Encounters Date Type Department Care Team (Late st Contact Info) Description 07/13/2023 1:40 PM EST Office Visit General Internal Medicine [facility] [address] [facility] [place] [address] Deangelo Saldaña MD [address] [facility] [place] [address] 11/11/2023 11:00 AM EDT Cardiac Studies Cardiac Studies, [facility] 132 [facility] [place] [address] 12/04/2023 11:00 AM EDT Office Visit Cardiology, [facility] 132 [facility] [place] [address] Pipe Moctezuma PA-C 132 [place] [address] 03/07/2024 3:00 PM EDT Office Visit Dermatology [facility] [address] [place], [place] [id number] Oriana Ambrosio MD [address] [place] [address] Health Maintenance Due Date Last Done Comments DTaP,Tdap,and Td Vaccines (1 - Tdap) 1964 Zoster Vaccines (2 of 2) 06/17/2020 04/22/2020 COVID-19 Vaccine (5 - 2022-24 season) 2023 05/26/2022, 05/17/2021, 07/06/2020, Additional history exists Depression Screening 05/07/2023 05/07/2022 Albumin/Creatinine Ratio 11/14/2023 11/13/2022, 12/2 02/2021 CKD PHOS USE SMARTSET 30298 11/14/2023 11/13/2022 GFR 11/21/2023 05/22/2023, 0601/2023, 08/20/2022, Additional history exists CKD HGB USE SMARTSET 41168 05/22/202405/22, 11/13/2022, 11/13/2022, Additional history exists Pneumococcal [...] Not on filedocumented as of this encounter Care Teams Asphalt Worker Relationship Specialty Start Date End Date Deangelo Saldaña MD [address] [place] [address] PCP - General Internal Medicine 02/06/21 documented as of this encounter
--- OUTSIDE RECORDS SUMMARY | 2023-11-29 17:50 | External Medical Summary ---
Author Name Unknown Address Unknown Organization K01:[facility]ORATORY [facility] - [address] [place] [address] Laboratory Report Ordering Provider Test Date Status LUÍS ABDALLA 06/10/2023 09:15:53 Final Observation Date Value Abnormality Reference (Units ) Status Bacteria identified in Specimen by Culture 06/10/2023 09:15:53 [id number]^ENTEROC OCCUS SPECIES Abnormal Final >100,000 colonies/mL Enteroc occus species Performing Location [facility] [place] - [address] [place] [address] Ordering Provider Test Date Status LUÍS ABDALLA 06/10/2023 09:15:53 Final Observation Date Value Abnormality Reference (Units ) Status Ampicillin 06/10/2023 09:15:53 <=2 Susceptible Final Nitrofurantoin susceptibility 06/10/2023 09:15:53 <=16 Susceptible Final Tetracyclinesusceptibility 06/10/2023 09:15:53 >=16 Resistant Final Vancomycinsusceptibility 06/10/2023 09:15:53 1 Susceptible Final Test: Culture, Urine, Quanti tative
Specimen Source: Urine, Clean Catch
Specimen Type: Urine
Specimen Date: 06/10/2023 9:15 AM
Result Date: 06/12/2023 2:19 PM
Result Status: Final result
Abnormal: Yes
Resulting Lab: [facility]
[address]
[place] [address]

CULTURE

>100,000 colonies/mL Enterococcus species (Abnormal)

SUSCEPTIBILITY

Enterococcus
species
METHOD MICROBROTH
DILUTIONS

AMPICILLIN <=2 Susceptible
NITROFURANTOIN <=16 Susceptible
TETRACYCLINE >=16 Resistant
VANCOMYCIN 1 Susceptible

null Performing Location [facility] - [address] [facility] [address] [id number]
--- OUTSIDE RECORDS SUMMARY | 2023-11-29 17:50 | External Medical Summary ---
Author Name Unknown Address Unknown Organization K01:[facility] [place] [facility] [place] - [address] [facility] [place] [address] Laboratory Report Ordering Provider Test Date Status DO RAINEJOSESHONDA 07/14/2023 09:24:13 Final Observation Date Value Abnormality Reference (Units ) Status Triglyceride 07/14/2023 09:24:13 125 <=174 ( mg/dL) Final Triglyceride Reference Range s (mg/dL):
<150 Acceptable
150-174 Borderline high
175-499 High
>=500 Very high Cholesterol 07/14/2023 09:24:13 160 <200 (mg /dL) Final Total Cholesterol Reference Ranges (mg/dL):
<200 Desirable
200-239 Borderline high
>=240 High HDL 07/14/2023 09:24:13 46 >39 (mg/dL ) Final HDL Cholesterol Reference Ra nges (mg/dL):
>=60 High (Desirable)
<50 Low (Undesirable) For Females
<40 Low (Undesirable) For Males NON-HDL CHOLESTEROL 07/14/2023 09:24:13 114 <=159 (mg/dL) Final Non-HDL Cholesterol Referenc e Range (mg/dL):
<100 Target level for high risk ASCVD patient
<130 Optimal for general population
130-159 Near optimal for general population
160-189 Borderline High
190-219 High
>=220 Very High LDL, (calculated) 07/14/2023 09:24:13 89 <= 129 (mg/dL) Final LDL Cholesterol Reference Ra nges (mg/dL):
<70 Target level for high risk ASCVD patient
<100 Optimal for general population
100-129 Near optimal for general population
130-159 Borderline high
160-189 High
>=190 Very high Performing Location [facility] [facility] - [address] [facility] [address]
--- OUTSIDE RECORDS SUMMARY | 2023-11-29 17:50 | External Medical Summary | Summary of Care ---
Author Name Unknown Organization [facility] Address [address] [place] [address] Phone [phone] Care Team Providers Care Automation Operator Name Role Phone Deangelo Saldaña MD Primary Care Provider + Encounter Details Date Type Department Care Team (Late st Contact Info) Description 06/16/2023 [facility]phone [facility] 200 [facility] [place] [address] Deangelo Saldaña MD 200 [facility] [place] [id number] Allergies No known active allergiesdocumented as of this encounter (statuses as of 06/16/2023) Medications Medication Sig Dispensed Refills Start Date [...] as of this encounter (statuses as of 06/16/2023) Active Problems Problem Noted Date Diagnosed Date Chronic kidney disease, stage 3a 09/15/2022 Overview: Per CKD protocol HTN, goal below 130/80 05/29/2021 Mixed hyperlipidemia 05/29/2021 VLADIMIR (generalized anxiety disorder) 05/29/2021 Nonrheumatic mitral valve regurgitation 05/29/20 21 Mild aortic insufficiency 05/29/2021 Aortic valve sclerosis 05/29/2021 History of acute prostatitis 05/29/2021 documented as of this encounter (statuses as of 06/16/2023) Resolved Problems Problem Noted Date Diagnosed Date Resolved Date Hyperlipidemia 05/29/2021 05/29/2021 documented as of this encounter (statuses as of 06/16/2023) Immunizations Name Administration Dates Next Due COVID-19 mRNA, LNP-s, No Pre serve, 2-Dose Series (GlassesGroupGlobal) 05/17/2021,07/06/2020,06/15/2020 Covid-19, Mrna, Lnp-s, Pf, B ivalent, 30 Mcg, IM, 12 yrs and above (GlassesGroupGlobal) 05/26/2022 Pneumococcal Conjugate Vacci ne, 20-valent ([id number]) 12/04/2021 Pneumococcal Polysaccharide PPV23 (Pneumovax) 04/22/2020 Seasonal [...] encounter Miscellaneous Notes * Telephone Encounter - Luz Elena Burton LPN - 06/16/2023 1:06 PM EST Urinalysis is done but culture is still pending. Faxed most recent results. * Telephone Encounter - Kiara Lofton OSA - 06/16/2023 12:44 PM EST Patient is having surgery today and the surgical center needs results from urine labs, please fax to [phone] documented in this encounter Plan of Treatment Upcoming Encounters Date Type Department Care Team (Late st Contact Info) Description 07/13/2023 1:40 PM EST Office Visit General Internal Medicine [facility] 200 [facility] [place] [address] Deangelo Saldaña MD 200 [facility] [place] [address] 11/11/2023 11:00 AM EDT Cardiac Studies Cardiac Studies, [facility] [address] [facility] [place] [address] 12/04/2023 11:00 AM EDT [facility] [place] [address] Pipe Moct[address]uma [facility]C [facility] [place] [address] 03/07/2024 3:00 PM EDT Office Visit Dermatology [facility] [address] [place] [address] Oriana Ambrosio MD [address] [place] [address] Health Maintenance Due Date Last Done Comments DTaP,Tdap,and Td Vaccines (1 - Tdap) 1964 Zoster Vaccines (2 of 2) 06/17/2020 04/22/2020 COVID-19 Vaccine ( season) 2023 05/26/2022, 05/17/2021, 07/06/2020, Additional history exists Depression Screening 05/07/2023 05/07/2022 Albumin/Creatinine Ratio 11/14/2023 11/13/2022, 05/09 CKD PHOS USE SMARTSET 76667 11/14/2023 11/13/2022 GFR 11/21/2023 05/22/2023, 06/01/2023, 08/20/2022, Additional history exists CKD HGB USE SMARTSET 70860 05/22/202405/22, 11/13/2022, 11/13/2022, Additional history exists Pneumococcal [...] filedocumented as of this encounter Care Teams Automation Operator Relationship Specialty Start Date End Date Deangelo Saldaña MD 200 [facility] [place] [address] PCP - General Internal Medicine 02/06/21 documented as of this encounter
--- OUTSIDE RECORDS SUMMARY | 2023-11-29 17:50 | External Medical Summary ---
Author Name Unknown Address Unknown Organization K09:[facility] [address] [place] [address] Laboratory Report Ordering Provider Test Date Status GILA NI 07/14/2023 09:24:13 Final Observation Date Value Abnormality Reference (Units ) Status WBC, Total 07/14/2023 09:24:13 6.10 4.00-10.8 0 (K/uL) Final RBC 07/14/2023 09:24:13 4.18 4.50-5.25 (M/uL) Final Hemoglobin 07/14/2023 09:24:13 13.6 Below low normal 14 .0-16.8 (g/dL) Final HCT 07/14/2023 09:24:13 42.1 40.0-48.4 (%) Final MCV 07/14/2023 09:24:13 100.7 82.0-99.5 (fL) Final MCH 07/14/2023 09:24:13 32.5 27.0-34.0 (pg) Final MCHC 07/14/2023 09:24:13 32.3 32.0-36.0 (g/dL) Final RDW 07/14/2023 09:24:13 12.0 11.5-15.5 (%) Final Platelets 07/14/2023 09:24:13 280 140-400 (K /uL) Final MPV 07/14/2023 09:24:13 9.5 6.6-11.1 ( fL) Final Performing Location [facility] [place] [address]
--- OUTSIDE RECORDS SUMMARY | 2023-11-29 17:50 | External Medical Summary | Summary of Care ---
Author Name Unknown Organization [facility] Address [address] [place] [address] Phone [phone] Care Team Providers Care Creel Cleaner Name Role Phone Deangelo Saldaña MD Primary Care Provider + Reason for Referral * Evaluate & Treat - Unlimited Visits (Within 30 days (routine)) - Authorized Specialty Diagnoses / Procedures Referred By Stefanie stephenson Referred To Contact Physical Therapy / Physical Medicine And Rehab Diagnoses Chronic right shoulder pain Nontraumatic complete tear of right rotator cuff Deangelo Saldaña MD [address] [place] [address] Referral ID Status Reason Start Date Expiration Date Visits Requested Visits Authorized [id number] Authorized Specialty Services Required 07/13/[phone] Question Answer Referral Priority Within 30 days (routine) Where should this appointment be scheduled? [facility] Reason for Visit * Reason Comments Follow Up Patient presents for a 3 month follow up. Patient also presents for pre-op visit for cataract surgery scheduled for 07/28/2023. Patient states that appointment is for his right eye, and his left eye surgery is scheduled for 08/11/2023. Patient is also c/o chronic right shoulder pain - he's asking for a referral to physical therapy. Encounter Details Date Type Department Care Team (Late st Contact Info) Description 07/13/2023 1:40 PM EST Office Visit General Internal Medicine [facility] Samuel [address] [place] [address] Deangelo Saldaña MD [address] [place] [address] [address] Preop examination*; Mild aortic insufficiency; Chronic kidney disease, stage 3a (HCC); Chronic right shoulder pain; Nontraumatic complete tear of right rotator cuff; Microscopic hematuria Allergies No known active allergiesdocumented [...] Active Diclofenac Sodium 1 % External Gel (Voltaren)Indicati ons:Nontraumatic incomplete tear of right rotator cuff APPLY FOUR TIMES A DAY DIRECTED 0 04/07/2023 07/13/2023 Discontinue d(Patient preference/ discontinua tion) Nisoldipine ER 8.5 MG Oral Tablet Extended Release 24 HourIndications:HT N, goal below 130/80 Hold until directed 0 05/22/2023 07/13/2023 Discontinue d(Patient preference/ discontinua tion) Amoxicillin 500 MG Oral Capsule (Amoxil)Indication s:Acute cystitis with hematuria Take 1 Capsule by mouth in the morning and 1 Capsule at noon and 1 Capsule before bedtime. Do all this for 7 days. 21 Capsule 0 06/11/2023 07/13/2023 Discontinue d(Patient preference/ discontinua tion) documented as of this encounter (statuses as [...] mRNA, LNP-s, No Pre serve, 2-Dose Series (Kappa Prime) 05/17/2021,07/06/2020,06/15/2020 Covid-19, Mrna, Lnp-s, Pf, B ivalent, 30 Mcg, IM, 12 yrs and above (Kappa Prime) 05/26/2022 Pneumococcal Conjugate Vacci ne, 20-valent ([id number]) 12/04/2021 Pneumococcal Polysaccharide PPV23 (Pneumovax) 04/22/2020 Seasonal [...] Sign Reading Time Taken Comments Blood Pressure 108/64 07/13/2023 1:51 PM EST Pulse 66 07/13/2023 2:00 PM EST Temperature 35.8 C (96.4 F) 07/13/2023 1:51 PM ES T Respiratory Rate - - Oxygen Saturation 100% 07/13/2023 1:51 PM EST Inhaled Oxygen Concentration - - Weight 73.4 kg (161 lb 12.8 oz) 07/13/2023 1:51 PM EST Height 172.7 cm (5' 8") 07/13/2023 1:51 PM EST Body Mass Index 24.6 07/13/2023 1:51 PM EST documented in this encounter Progress Notes * Deangelo Saldaña MD - 07/13/2023 2:08 PM EST Chief Complaint Patient presents with Follow Up [...] right shoulder pain, no current urinary symptoms Patient Active Problem List Diagnosis Code HTN, goal below 130/80 I10 Mixed hyperlipidemia E78.2 VLADIMIR (generalized anxiety disorder) F41.1 Nonrheumatic mitral valve regurgitation I34.0 Mild aortic insufficiency I35.1 Aortic valve sclerosis I35.8 History of acute prostatitis Z87.438 Chronic kidney disease, stage 3a (HCC) N18.31 Current Outpatient Medications Medication Sig Dispense Refill [...] Vaccines (2 of 2) 06/17/2020 COVID-19 Vaccine (2022- season) 2023 Depression Screening 05/07/2023 ROS: CONSTITUTIONAL: [...] performed by Slava Nash MD at [facility] EGD, FLEXIBLE, DIAGNOSTIC 09/03/2021 reflux esophagitis, gastric polyps / ESOPHAGOGASTRODUODENOSCOPY (EGD), FLEXIBLE, TRANSORAL, DIAGNOSTIC performed by Slava Nash MD at ENDOSCOPY [facility] INNER EAR FLUID SAC SURGERY W/SHUNT Left NECK SPINE FUSION (CERV, BELOW C2) NECK SPINE FUSION (CERV, BELOW C2) 06/16/2023 CO RPR INGUN HERNIA SLIDING ANY AGE UROLOGY [...] Check-out note: Urine today Deangelo Saldaña MD documented in this encounter Nursing Notes * Mulu Garcai MED ASSIST - 07/13/2023 1:56 PM EST Chief Complaint Patient presents with Follow Up Patient presents for a 3 month follow up. Patient also presents for pre-op visit for cataract surgery scheduled for 07/28/2023. Patient states that appointment is for his right eye, and his left eye surgery is scheduled for 08/11/2023. Patient is also c/o chronic right shoulder pain - he's asking for a referral to physical therapy. documented in this encounter Plan of Treatment Upcoming Encounters Date Type Department Care Team (Latest Contact Info) Description 07/28/2023 12:06 PM EST Hospital Encounter OR [facility], Operating Room [facility] [address] [facility] [place] [phone] Eugene Shipley MD [address] [address] 07/28/2023 12:06 PM EST - 07/28/2023 12:43 PM EST [facility] [place] [phone] Eugene Shipley MD [address] [address] RIGHT EXTRACAPSULAR CATARACT REMOVAL WITH INTRAOCULAR LENS 08/11/2023 12:25 PM EST Hospital Encounter OR [facility], Operating Room [facility] [address] [place] [phone] Eugene Shipley MD [address] [address] 08/11/2023 12:25 PM EST - 08/11/2023 1:02 PM EST Surgery OR [facility], Operating Room [facility] [address] [place], [place] [phone] Eugene Shipley MD [facility] Maeve Mireles [address] [place] [address], [place] [address] LEFT EXTRACAPSULAR CATARACT REMOVAL WITH INTRAOCULAR LENS 11/11/2023 11:00 AM EDT Cardiac Studies Card[facility] [place] [place] [address] 12/04/2023 11:00 AM EDT Office Visit Cardiology, [facility] 132 [facility] [place], [place] [address] Pipe Moctezuma PA-C [address] [place] [address] 01/19/2024 3:00 PM EDT Office Visit General Internal Medicine [facility] [address] [place] [address] Deangelo Saldaña MD 200 [place] [address] 03/07/2024 3:00 PM EDT Office Visit Dermatology [facility] [address] [place] [address] Oriana Ambrosio MD [address] [place] [address] Scheduled Orders Name Type Priority Associated Diagnoses Orde r Schedule LIPID PANEL WITH DIRECT LDL IF TG IS HIGH Lab Routine Chronic kidney disease, stage 3a (HCC) Expected: 07/13/2023, Expires: 07/13/2024 COMPREHENSIVE METABOLIC PANEL Lab Routine Chronic kidney disease, stage 3a (HCC) Expected: 07/13/2023 (Approximate), Expires: 07/12/2024 CBC WITH WBC DIFFERENTIAL Lab Routine Chronic kidney disease, stage 3a (HCC) Expected: 07/13/2023 (Approximate), Expires: 07/13/2024 URINALYSIS WITH MICROSCOPIC EXAM Lab Routine Microscopic hematuria Expected: 07/13/2023 (Approximate), Expires: 07/12/2024 Scheduled Procedures Name Priority Associated Diagnoses Date/Ti me EXTRACAPSULAR CATARACT REMOVAL WITH INTRAOCULAR LENS Combined forms of age-related cataract of right eye 07/28/2023 12:06 PM EST EXTRACAPSULAR CATARACT REMOVAL WITH INTRAOCULAR LENS Combined forms of age-related cataract of left eye 08/11/2023 12:25 PM EST Scheduled Referrals Name Type Priority Associated Diagnoses Orde r Schedule PHYSICAL THERAPY REFERRAL OP Referral Within 30 days (routine) Chronic right shoulder pain Nontraumatic complete tear of right rotator cuff Ordered: 07/13/2023 Health Maintenance Due Date Last Done Comments DTaP,Tdap,and Td Vaccines (1 - Tdap) 1964 Zoster Vaccines (2 of 2) 06/17/2020 04/22/2020 COVID-19 Vaccine ( season) 2023 05/26/2022, 05/17/2021, 07/06/2020, Additional history exists Depression Screening 05/07/2023 05/07/2022 Albumin/Creatinine Ratio 11/14/2023 11/13/2022, 05/09 CKD PHOS USE SMARTSET 41483 11/14/2023 11/13/2022 GFR 11/21/2023 05/22/2023, 06/0 01/2023, 08/20/2022, Additional history exists CKD HGB USE SMARTSET 57176 05/22/202405/22, 11/13/2022, 11/13/2022, Additional history exists Pneumococcal [...] as of this encounter Visit Diagnoses Diagnosis Preop examination- Primary Preoperative examination, unspecified Mild aortic insufficiency Aortic valve disorders Chronic kidney disease, stage 3a (HCC) Chronic right shoulder pain Pain in joint, shoulder region Nontraumatic complete tear of right rotator cuff Microscopic hematuria Combined forms of age-related cataract of right eye Other and combined forms of senile cataract Combined forms of age-related cataract of left eye Other and combined forms of senile cataract documented in this encounter Care Teams Creel Cleaner Relationship Specialty Start Date End Date Deangelo Saldaña MD [address] [place] [address] PCP - General Internal Medicine 02/06/21 documented as of this encounter
--- OUTSIDE RECORDS SUMMARY | 2023-11-29 17:50 | External Medical Summary ---
Author Name Unknown Address Unknown Organization [id number]:LABORATORY [facility] - [address] [facility] [address] Laboratory Report Ordering Provider Test Date Status LUÍS ABDALLA 06/15/2023 10:24:18 Final Observation Date Value Abnormality Reference (Units ) Status Color of Urine by Auto 06/15/2023 10:24:18 Light Yellow Colorless, Light Yellow, Yellow, Dark Yellow Final Clarity, Urine 06/15/2023 10:24:18 Clear Clear Final Glucose [Mass/volume] in Urine by Automated test strip 06/15/2023 10:24:18 Negative Negative (mg/dL) Final Bilirubin.total [Presence] in Urine by Automated test strip 06/15/2023 10:24:18 Negative Negative Final Ketones [Mass/volume] in Urine by Automated test strip 06/15/2023 10:24:18 Negative Negative (mg/dL) Final Specific gravity, Urine 06/15/2023 10:24:18 1.012 1.003-1.030 Final Hemoglobin [Presence] in Urine by Automated test strip 06/15/2023 10:24:18 Negative Negative Final pH, Urine 06/15/2023 10:24:18 6.0 5.0-7.5 (Units) Final Protein [Mass/volume] in Urine by Automated test strip 06/15/2023 10:24:18 Negative Negative (mg/dL) Final Urobilinogen [Mass/volume] in Urine by Automated test strip 06/15/2023 10:24:18 Normal Normal (mg/dL) Final Nitrite [Presence] in Urine by Automated test strip 06/15/2023 10:24:18 Negative Negative Final Leukocyte esterase [Presence] in Urine by Automated test strip 06/15/2023 10:24:18 Small Abnormal Negative Final RBC, Urine 06/15/2023 10:24:18 3-5 Abnormal 0-2 (/HPF) Final WBC, Urine 06/15/2023 10:24:18 3-5 Abnormal 0-2 (/HPF) Final Bacteria [#/area] in Urine sediment by Microscopy high power field 06/15/2023 10:24:18 26-50 Abnormal 0-25 (/HPF) Final Transitional cells [#/area] in Urine sediment by Microscopy high power field 06/15/2023 10:24:18 1-4 Abnormal None (/HPF) Final CULTURE, URINE - [facility] 06/15/2023 10:24:18 Final Quantitative urine culture t o be performed Performing Location LABORATORY [facility] - [address] [facility] [address]
[2023-11-29 18:25] LABS: Basophils # (auto) 0.03 K/uL (0.00-0.20); Basophils % (auto) 0.4 %; Eosinophils # (auto) 0.12 K/uL (0.00-0.50); Eosinophils % (auto) 1.5 %; Hematocrit (blood only) 40.4 % (42.0-52.0); Hemoglobin 13.7 g/dl (14.0-18.0); Immature Granulocytes # (auto) 0.03 K/uL (0.01-0.20); Immature Granulocytes % (auto) 0.4 %; Lymphocytes # (auto) 1.47 K/uL (1.20-3.40); Lymphocytes % (auto) 18.7 %; Mean Corpuscular Hemoglobin 32.9 pg (25.0-34.0); Mean Corpuscular Hgb Conc 33.9 g/dL (32.0-36.0); Mean Corpuscular Volume 96.9 fL (80.0-100.0); Mean Platelet Volume 9.4 fL (9.4-12.4); Monocytes # (auto) 0.67 K/uL (0.11-0.59); Monocytes % (auto) 8.5 %; Neutrophils # (auto) 5.54 K/uL (1.40-6.50); Neutrophils % (auto) 70.5 %; Platelet Count 260 K/uL (130-400); RDW Coefficient of Variation 11.8 % (11.5-14.5); RDW Standard Deviation 42.4 fL (36.4-46.3); Red Blood Count 4.17 M/uL (4.70-6.10); White Blood Count 7.86 K/ul (4.8-10.8)
[2023-11-29 18:43] LABS: Albumin Globulin Ratio 1.4 (0.9-2); Albumin Level 4.1 gm/dl (3.4-5.0); BUN Creatinine Ratio 18.3 (10-20); Bilirubin,Total 0.5 mg/dl (0.2-1.0); Calcium 9.5 mg/dl (8.6-10.3); Creatinine Clr Calc Pharmacy 44.2 ml/min; Est GFR (African American) 59.6 ml/min; Est GFR (Non-African American) 51.4 ml/min; Globulin 2.9 gm/dl (2.5-4.0); Potassium 4.4 mmol/L (3.5-5.1)
[2023-11-29 18:53] LABS: Partial Thromboplastin Time 27 Seconds (21-31); Prothrombin Time 11.1 Seconds (9.0-12.0)
[2023-11-29 19:01] LABS: Troponin I High Sensitivity 63.9 pg/ml (0-20)
--- NOTE | 2023-11-29 19:22 | Emergency Department Note ---
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 He denies any chest pain or shortness of breath. He had a subtle headache at the time but nothing now. No weakness or numbness in the arms or legs. No belly pain, nausea, vomiting or diarrhea. No dysuria, urgency or frequency. No other exacerbating or remitting factors. No history of A-fib but does have a history of hypertension, hyperlipidemia, and notes that he did have an episode of SVT. ADDITIONAL HISTORY OBTAINED: provides additional history that he had an echo recently by [facility] and had an enlarged left atrium Chronic Medical/Social Conditions Affecting Care: Per HPI PAST MEDICAL HISTORY:See Below PAST SURGICAL HISTORY:See Below FAMILY HISTORY:See Below SOCIAL HISTORY:See Below HOME MEDICATIONS:See Below ALLERGIES:See Below VITALS:See Below PHYSICAL EXAMINATION: GENERAL: Sitting up in bed, alert, well appearing, well nourished, no distress, non-toxic EYE EXAM: normal conjunctiva. OROPHARYNX: mucous membranes are moist NECK: supple, no nuchal rigidity, no adenopathy, non-tender LUNGS: Clear to auscultation. Normal chest wall mechanics HEART: no murmurs, S1 normal and S2 normal ABDOMEN: abdomen soft, non-tender, normo-active bowel sounds, no masses, no rebound or guarding. UPPER EXTREMITIES: upper extremities are grossly normal. LOWER EXTREMITIES: No pitting edema. NEURO EXAM: Normal sensorium, cranial nerves II-XII grossly intact, normal speech, no gross weakness of arms, no gross weakness of legs. MEDICAL DECISION MAKING: Patient is a 78-year-old male with a past medical history of hypertension and hyperlipidemia that presents the ER for the above-stated complaint. IV was established blood was obtained. Labs show no significant leukocytosis or anemia. INR unremarkable. BMP with LFTs bilirubin was unremarkable. Troponin was positive. Portable AP upright 1 view of the chest shows no focal trait. Patient was given aspirin updated bedside discussed case with the hospitalist for further evaluation management treatment. EKG was unremarkable. No chest pain at this time and nothing to suggest ACS consequently we will hold on heparin. Consults/Care Managements Discussions: Per MDM Triage Nursing notes reviewed. Limited review of prior medical records performed Vital Signs: reviewed and remarkable for no significant abnormalities Differential diagnosis: Cardiac ischemia, aortic dissection, pulmonary embolism, pneumothorax, pneumonia, pericarditis, myocarditis, esophageal rupture, GERD, cholecystitis, pancreatitis, musculoskeletal, as well as other pathologies. ER treatment provided: See below Diagnostics interpreted by me include EKG and cardiac monitoring as listed below: -Cardiac Monitoring: An order was placed for continuous cardiac monitoring. The monitor shows a rate of 70 with sinus rhythm. -ECG: Sinus rhythm rate 71 Normal axis No PVCs QTc 406 -Laboratory studies:Interpreted by me as stated above in MDM and shown below. Imaging studies: Xrays: As interpreted by me: Portable AP upright 1 view of the chest shows no focal CTs show: None Procedures: None Critical Care: None Past Med/Surg History Problem List (Updated 11/30/23 @ 00:59 by Prateek Nogueira DO) Elevated troponin (Acute) Pulse irregularity (Acute) HTN (hypertension) (Acute) HLD (hyperlipidemia) Medical History HLD (hyperlipidemia) HTN (hypertension) Social History Smoking Status: Never smoker Preferred Language: Serbian Feels Safe at Home: Yes Allergies Allergies Allergy/AdvReac Type Severity Reaction Status Date / Time No Known Allergies Allergy Verified 11/29/23 20:10 Home Meds Home Medications Medication Instructions Recorded Confirmed antiox.multivit 10-heafm3s 280 1 cap PO DAILY 11/10/22 11/29/23 mg-lutein 10 mg-zeaxanthin 2 mg capsule (I-Caps) atorvastatin 80 mg tablet 80 mg PO DAILY 11/10/22 11/29/23 bioflavonoids 1,000 mg tablet 1,000 mg PO DAILY 11/10/22 11/29/23 candesartan 32 mg tablet 32 mg PO HS 11/10/22 11/29/23 coQ10 (ubiquinol) 200 mg capsule 200 mg PO DAILY 11/10/22 11/29/23 escitalopram oxalate 10 mg tablet 10 mg PO DAILY 11/10/22 11/29/23 famotidine 20 mg tablet 10 mg PO BID Heartburn 11/10/22 11/29/23 ginkgo biloba 40 mg tablet 40 mg PO DAILY 11/10/22 11/29/23 vvbkqvxbsxju-qfv-memjm acid-vit 1 tab PO DAILY 11/10/22 11/29/23 K-lycop 400 mcg-20 mcg-370 mcg tablet (Men's 50 Plus Multivitamin) nisoldipine 8.5 mg tablet,extended 8.5 mg PO DAILY 11/10/22 11/29/23 release 24 hr fluticasone propionate 110 1 puff inhalation BID PRN 11/29/23 11/29/23 mcg/actuation HFA aerosol inhaler Shortness Of Breath Results & Data (ED) Vital Signs Vital Signs - 24 hr 11/29/23 17:45 11/29/23 19:23 11/29/23 19:39 Temperature 36.9 C Temperature Source Temporal Artery Scan Pulse Rate 74 68 70 Pulse Rate [Apical] Pulse Rate from SpO2 Sensor 71 Pulse Rhythm [Apical] Pulse Strength [Apical] Respiratory Rate 19 9 L Respiratory Effort / Characteristics Non-Labored Spontaneous Respiratory Depth Normal Respiratory Pattern Blood Pressure 144/78 H Blood Pressure [Left Arm] Blood Pressure Mean 100 Blood Pressure Mean [Left Arm] Blood Pressure Position [Left Arm] Pulse Oximetry 97 97 Oxygen Delivery Method Room Air Sepsis Recent Fever Within 48 Hours No Sepsis New/Unexplained Change in Mental Status N/A Sepsis Action Taken by Nursing No Action Required 11/29/23 20:09 11/29/23 20:15 11/29/23 20:30 Temperature Temperature Source Pulse Rate 70 66 Pulse Rate [Apical] Pulse Rate from SpO2 Sensor 69 70 66 Pulse Rhythm [Apical] Pulse Strength [Apical] Respiratory Rate 12 12 Respiratory Effort / Characteristics Respiratory Depth Respiratory Pattern Blood Pressure Blood Pressure [Left Arm] Blood Pressure Mean Blood Pressure Mean [Left Arm] Blood Pressure Position [Left Arm] Pulse Oximetry 97 96 96 Oxygen Delivery Method Sepsis Recent Fever Within 48 Hours Sepsis New/Unexplained Change in Mental Status Sepsis Action Taken by Nursing 11/29/23 20:50 11/29/23 20:51 11/29/23 21:00 Temperature Temperature Source Pulse Rate 66 Pulse Rate [Apical] Pulse Rate from SpO2 Sensor 68 Pulse Rhythm [Apical] Pulse Strength [Apical] Respiratory Rate 14 Respiratory Effort / Characteristics Respiratory Depth Respiratory Pattern Blood Pressure 132/70 Blood Pressure [Left Arm] Blood Pressure Mean 84 Blood Pressure Mean [Left Arm] Blood Pressure Position [Left Arm] Pulse Oximetry 96 96 Oxygen Delivery Method Room Air Sepsis Recent Fever Within 48 Hours Sepsis New/Unexplained Change in Mental Status Sepsis Action Taken by Nursing 11/29/23 21:00 11/29/23 21:06 11/29/23 21:12 Temperature Temperature Source Pulse Rate 68 65 Pulse Rate [Apical] 67 Pulse Rate from SpO2 Sensor 70 65 Pulse Rhythm [Apical] Irregular Pulse Strength [Apical] Normal Respiratory Rate 18 18 14 Respiratory Effort / Characteristics Non-Labored Spontaneous Respiratory Depth Normal Respiratory Pattern Regular Blood Pressure Blood Pressure [Left Arm] 132/70 Blood Pressure Mean Blood Pressure Mean [Left Arm] 90 Blood Pressure Position [Left Arm] Pulse Oximetry 95 96 96 Oxygen Delivery Method Room Air Sepsis Recent Fever Within 48 Hours Sepsis New/Unexplained Change in Mental Status Sepsis Action Taken by Nursing 11/29/23 21:24 11/29/23 21:48 11/29/23 21:51 Temperature Temperature Source Pulse Rate 76 64 65 Pulse Rate [Apical] Pulse Rate from SpO2 Sensor Pulse Rhythm [Apical] Pulse Strength [Apical] Respiratory Rate 17 17 20 Respiratory Effort / Characteristics Respiratory Depth Respiratory Pattern Blood Pressure Blood Pressure [Left Arm] Blood Pressure Mean Blood Pressure Mean [Left Arm] Blood Pressure Position [Left Arm] Pulse Oximetry Oxygen Delivery Method Sepsis Recent Fever Within 48 Hours Sepsis New/Unexplained Change in Mental Status Sepsis Action Taken by Nursing 11/29/23 22:15 11/29/23 22:33 11/29/23 22:42 Temperature Temperature Source Pulse Rate 72 66 65 Pulse Rate [Apical] Pulse Rate from SpO2 Sensor 66 66 Pulse Rhythm [Apical] Pulse Strength [Apical] Respiratory Rate 23 14 17 Respiratory Effort / Characteristics Respiratory Depth Respiratory Pattern Blood Pressure Blood Pressure [Left Arm] Blood Pressure Mean Blood Pressure Mean [Left Arm] Blood Pressure Position [Left Arm] Pulse Oximetry 95 95 Oxygen Delivery Method Sepsis Recent Fever Within 48 Hours Sepsis New/Unexplained Change in Mental Status Sepsis Action Taken by Nursing 11/29/23 22:51 11/29/23 23:00 11/29/23 23:00 Temperature Temperature Source Pulse Rate 66 67 Pulse Rate [Apical] 64 Pulse Rate from SpO2 Sensor 66 Pulse Rhythm [Apical] Regular Pulse Strength [Apical] Normal Respiratory Rate 12 18 12 Respiratory Effort / Characteristics Non-Labored Spontaneous Respiratory Depth Normal Respiratory Pattern Regular Blood Pressure 144/55 H Blood Pressure [Left Arm] 144/55 H Blood Pressure Mean 74 Blood Pressure Mean [Left Arm] 84 Blood Pressure Position [Left Arm] Sitting Pulse Oximetry 96 95 96 Oxygen Delivery Method Room Air Room Air Sepsis Recent Fever Within 48 Hours Sepsis New/Unexplained Change in Mental Status Sepsis Action Taken by Nursing 11/29/23 23:06 11/29/23 23:12 11/29/23 23:18 Temperature Temperature Source Pulse Rate 67 64 65 Pulse Rate [Apical] Pulse Rate from SpO2 Sensor 65 Pulse Rhythm [Apical] Pulse Strength [Apical] Respiratory Rate 12 13 Respiratory Effort / Characteristics Respiratory Depth Respiratory Pattern Blood Pressure Blood Pressure [Left Arm] Blood Pressure Mean Blood Pressure Mean [Left Arm] Blood Pressure Position [Left Arm] Pulse Oximetry 96 Oxygen Delivery Method Sepsis Recent Fever Within 48 Hours Sepsis New/Unexplained Change in Mental Status Sepsis Action Taken by Nursing 11/29/23 23:27 Temperature Temperature Source Pulse Rate 72 Pulse Rate [Apical] Pulse Rate from SpO2 Sensor 69 Pulse Rhythm [Apical] Pulse Strength [Apical] Respiratory Rate 19 Respiratory Effort / Characteristics Respiratory Depth Respiratory Pattern Blood Pressure Blood Pressure [Left Arm] Blood Pressure Mean Blood Pressure Mean [Left Arm] Blood Pressure Position [Left Arm] Pulse Oximetry 92 Oxygen Delivery Method Sepsis Recent Fever Within 48 Hours Sepsis New/Unexplained Change in Mental Status Sepsis Action Taken by Nursing Laboratory Data 11/29/23 18:11 11/29/23 18:11 Lab Results 11/29/23 11/29/23 Range/Units 18:11 19:53 WBC 7.86 (4.8-10.8) K/ul RBC 4.17 L (4.70-6.10) M/uL Hgb 13.7 L (14.0-18.0) g/dl Hct 40.4 L (42.0-52.0) % MCV 96.9 (80.0-100.0) fL MCH 32.9 (25.0-34.0) pg MCHC 33.9 (32.0-36.0) g/dL RDW Std Deviation 42.4 (36.4-46.3) fL RDW Coeff of Jose Alejandro 11.8 (11.5-14.5) % Plt Count 260 (130-400) K/uL MPV 9.4 (9.4-12.4) fL Immature Gran % (Auto) 0.4 % Neut % (Auto) 70.5 % Lymph % (Auto) 18.7 % [place] % (Auto) 8.5 % Eos % (Auto) 1.5 % Baso % (Auto) 0.4 % Neut # (Auto) 5.54 (1.40-6.50) K/uL Lymph # (Auto) 1.47 (1.20-3.40) K/uL [place] # (Auto) 0.67 H (0.11-0.59) K/uL Eos # (Auto) 0.12 (0.00-0.50) K/uL Baso # (Auto) 0.03 (0.00-0.20) K/uL Immature Gran # (Auto) 0.03 (0.01-0.20) K/uL PT 11.1 (9.0-12.0) Seconds INR 1.0 (0.9-1.1) APTT 27 (21-31) Seconds PTT Ratio 1.0 Sodium 135 L (136-145) mmol/L Potassium 4.4 (3.5-5.1) mmol/L Chloride 102 (98-107) mmol/L Carbon Dioxide 26 (21-32) mmol/L Anion Gap 7 (3-11) BUN 24 H (6-23) mg/dl Creatinine 1.31 (0.6-1.4) mg/dl Est Cr Clr Drug Dosing 44.2 ml/min Est GFR ( Amer) 59.6 ml/min Est GFR (Non-Af Amer) 51.4 ml/min BUN/Creatinine Ratio 18.3 (10-20) Glucose 95 (70-99(Fasting)) mg/dl Calcium 9.5 (8.6-10.3) mg/dl Total Bilirubin 0.5 (0.2-1.0) mg/dl AST 29 (13-39) U/L ALT 21 (7-52) U/L Alkaline Phosphatase 56 (34-104) U/L Troponin I High Sens 63.9 H* 61.9 H* (0-20) pg/ml Total Protein 7.0 (6.0-8.3) gm/dl Albumin 4.1 (3.4-5.0) gm/dl Globulin 2.9 (2.5-4.0) gm/dl Albumin/Globulin Ratio 1.4 (0.9-2) Administered Medications Discontinued Medications Aspirin (Aspirin Chew 324 Mg) 243 mg PO NOW STA Stop: 11/29/23 19:20 Last Admin: 11/29/23 19:23 Dose: 243 mg Documented By: STEPHANIE Sodium Chloride (Nss) 500 mls @ 999 mls/hr IV .Q31M ONE Stop: 11/29/23 19:49 Last Infusion: 11/29/23 20:15 Dose: Infused Documented By: Admin: 11/29/23 19:24 Dose: 999 mls/hr Documented By: STEPHANIE Imaging Data Radiologist's Impression: Chest X-Ray 11/29/23 17:49 SINGLE VIEW CHEST CLINICAL HISTORY: Atypical chest pain FINDINGS: A PA chest radiograph is compared to study dated 623. The cardiomediastinal silhouette is unremarkable. The lungs and pleural spaces are clear. No pneumothorax is seen. The skeletal structures are osteopenic. The bony thorax is grossly intact. Fusion hardware is seen in the lower cervical spine. Anchors are noted in the left humeral head. IMPRESSION: No active disease in the chest. ACT 112: Negative or not required by law. Electronically signed by: Delano Marcos M.D. 11/29/2023 7:32 PM Discharge Plan Visit Data Chief Complaint: Cardiac Assessment Stated Complaint: IRREGULAR HEART RATE, ELEVATED BP ED Provider: Prateek Nogueira Discharge Problem: Elevated troponin, HTN (hypertension), Pulse irregularity Forms Stand Alone Forms: My [facility] Prescriptions Prescriptions: No Action atorvastatin 80 mg Tablet 80 mg PO DAILY ginkgo biloba 40 mg Tablet 40 mg PO DAILY Rx Instructions: give with meal/snack famotidine 20 mg Tablet 10 mg PO BID candesartan 32 mg tablet 32 mg PO HS bioflavonoids 1,000 mg Tablet 1,000 mg PO DAILY escitalopram oxalate 10 mg tablet 10 mg PO DAILY nisoldipine 8.5 mg tablet extended release 24 hr 8.5 mg PO DAILY coQ10 (ubiquinol) 200 mg Capsule 200 mg PO DAILY I-Caps 280-10-2 mg Capsule 1 cap PO DAILY Men's 50 Plus Multivitamin 400-20-370 mcg Tablet 1 tab PO DAILY fluticasone propionate 110 mcg/actuation HFA aerosol inhaler 1 puff INHALATION BID PRN (Reason: Shortness Of Breath) Referrals Referrals: Doberstein,Deangelo F., MD [Primary Care Provider] - Discharge Problem: HTN (hypertension) Qualifiers: Hypertension type: unspecified Qualified Code(s): I10 - Essential (primary) hypertension
[2023-11-29] MEDS: ASPIRIN CHEW 324 MG PO STA (19:23)
[2023-11-29] MEDS: SODIUM CHLORIDE 0.9% 500 ML IV ONE (19:24)
--- NOTE | 2023-11-29 19:33 | XRay Report ---
SINGLE VIEW CHEST CLINICAL HISTORY: Atypical chest pain FINDINGS: A PA chest radiograph is compared to study dated 623. The cardiomediastinal silhouette is u nremarkable. The lungs and pleural spaces are clear. No pneumothorax is seen. The skeletal structures are osteopenic. The bony thorax is grossly intact. Fusion hardware is seen in the lower cervical spi ne. Anchors are noted in the left humeral head. IMPRESSION: No active disease in the chest. ACT 112: Negative or not required by law. Electronically signed by: Delano Marcos M.D. 11/29/2023 7:32 PM
--- NOTE | 2023-11-30 00:45 | History & Physical Report ---
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 Patient states recently his blood pressure medication adjusted by PCP as blood pressure was running low, initially nisoldipine was stopped and later candesartan dose was reduced to 16 mg daily and patient recently had echocardiogram which showed left atrium severely enlarged and resting peak instantaneous left ventricular outflow tract gradient 7.7 mmHg and inducible peak instantaneous left ventricular outflow tract gradient is a 66.7 mmHg. Going to have followup appointment with cardiology. Patient was concerned and was checking his blood pressure and his pulse regularly. He found his blood pressure was again going high and went back to his previous BP meds regimen yesterday. Patient also found his pulse to be irregular when he decided to come to the ER today. Denies any chest pain or shortness of breath. Did treadmill yesterday and today for 30 minutes each day with 3 sessions of 10 minutes of continuous exercise without any symptoms. No headaches. No dizziness. No blurred vision. No runny nose or sore throat. No cough. Appetite is okay. No nausea or abdominal pain. Normal bowel and bladder movements. Currently resting comfortably and hemodynamically stable. In the ER his initial troponin was 63 and repeat was 61. Pulse irregularity EKG okay we will monitor on telemetry cardio consulted for a.m. elevated troponin initial troponin 63 and repeat is 61 EKG okay and patient asymptomatic we will follow serial cardiac enzymes and echo n.p.o. cardiac consult in a.m. 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 Patient states recently his blood pressure medication adjusted by PCP as blood pressure was running low, initially nisoldipine was stopped and later candesartan dose was reduced to 16 mg daily and patient recently had echocardiogram which showed left atrium severely enlarged and resting peak instantaneous left ventricular outflow tract gradient 7.7 mmHg and inducible peak instantaneous left ventricular outflow tract gradient is a 66.7 mmHg. Going to have followup appointment with cardiology. Patient was concerned and was checking his blood pressure and his pulse regularly. He found his blood pressure was again going high and went back to his previous BP meds regimen yesterday. Patient also found his pulse to be irregular when he decided to come to the ER today. Denies any chest pain or shortness of breath. Did treadmill yesterday and today for 30 minutes each day with 3 sessions of 10 minutes of continuous exercise without any symptoms. No headaches. No dizziness. No blurred vision. No runny nose or sore throat. No cough. Appetite is okay. No nausea or abdominal pain. Normal bowel and bladder movements. Currently resting comfortably and hemodynamically stable. In the ER his initial troponin was 63 and repeat was 61. past medical history. As mentioned above. past surgical history. Colonoscopy and EGD. In the ER for food sac surgery with shunt on left side. Cervical spine fusion surgery with below C2. bilateral cataracts. Urological procedure. Social history. . No smoking. No alcohol use. No drug use. Family history. Sister had melanoma. Allergies Allergy/AdvReac Type Severity Reaction Status Date / Time No Known Allergies Allergy Verified 11/29/23 20:10 Home Medications Medication Instructions Recorded Confirmed Type antiox.multivit 10-nokot7h 280 1 cap PO DAILY 11/10/22 11/29/23 History mg-lutein 10 mg-zeaxanthin 2 mg capsule (I-Caps) atorvastatin 80 mg tablet 80 mg PO DAILY 11/10/22 11/29/23 History bioflavonoids 1,000 mg tablet 1,000 mg PO DAILY 11/10/22 11/29/23 History candesartan 32 mg tablet 32 mg PO HS 11/10/22 11/29/23 History coQ10 (ubiquinol) 200 mg capsule 200 mg PO DAILY 11/10/22 11/29/23 History escitalopram oxalate 10 mg tablet 10 mg PO DAILY 11/10/22 11/29/23 History famotidine 20 mg tablet 10 mg PO BID Heartburn 11/10/22 11/29/23 History ginkgo biloba 40 mg tablet 40 mg PO DAILY 11/10/22 11/29/23 History cfleukpeysmr-bcu-kxixq acid-vit 1 tab PO DAILY 11/10/22 11/29/23 History K-lycop 400 mcg-20 mcg-370 mcg tablet (Men's 50 Plus Multivitamin) nisoldipine 8.5 mg tablet,extended 8.5 mg PO DAILY 11/10/22 11/29/23 History release 24 hr fluticasone propionate 110 1 puff inhalation BID PRN 11/29/23 11/29/23 History mcg/actuation HFA aerosol inhaler Shortness Of Breath Past Med/Surg History Problem List (Updated 11/30/23 @ 00:59 by Prateek Nogueira DO) Elevated troponin (Acute) Pulse irregularity (Acute) HTN (hypertension) (Acute) HLD (hyperlipidemia) Medical History HLD (hyperlipidemia) HTN (hypertension) Social History Smoking Status: Never smoker Second Hand Exposure: No; Do You Dip or Chew Tobacco: No; Tobacco Cessation Education Requested by Patient: No Hx Alcohol Use: No Hx Substance Use: No Preferred Language: French Communication Ability: Effective Motorcycle Subassembler Required: No Beliefs That Will Affect Care: None Current Living Situation: Spouse Other Information That Helps Us Care for You: No Feels Safe at Home: Yes Safety Concerns: Feels Safe At This Time Assistive Devices: Glasses Review of Systems Review of Systems: All systems reviewed & are unremarkable except as noted in HPI & below Physical Exam Physical Exam: General- Not in distress Head- atraumatic Eyes- PERRL ENT- oropharynx clear Neck- supple, no JVD, no carotid bruit Lungs- clear to auscultation no wheezing or crackles. Heart- irregular rhythm; no murmur, no gallop. Abdomen- normal bowel sounds, soft, nontender, no distension Extremities- no pretibial edema, no erythema seen Neuro- alert, oriented PERRL,; no facial palsy; no dysarthria; moves extremities. Results & Data Results & Data Vital Signs (Past 12 Hours) Vital Signs Temp Pulse Pulse Resp BP BP Pulse Ox 11/29/23 23:27 72 19 92 11/29/23 23:18 65 11/29/23 23:12 64 13 96 11/29/23 23:06 67 12 11/29/23 23:00 67 12 144/55 H 96 11/29/23 23:00 64 18 144/55 H 95 11/29/23 22:51 66 12 96 11/29/23 22:42 65 17 95 11/29/23 22:33 66 14 95 11/29/23 22:15 72 23 11/29/23 21:51 65 20 11/29/23 21:48 64 17 11/29/23 21:24 76 17 11/29/23 21:12 65 14 96 11/29/23 21:06 67 18 132/70 96 11/29/23 21:00 68 18 95 11/29/23 21:00 132/70 11/29/23 20:51 66 14 96 11/29/23 20:50 96 11/29/23 20:30 66 12 96 11/29/23 20:15 70 12 96 11/29/23 20:09 97 11/29/23 19:39 70 9 L 97 11/29/23 19:23 68 11/29/23 17:45 36.9 C 74 19 144/78 H 97 O2 Del Method 11/29/23 23:27 11/29/23 23:18 11/29/23 23:12 11/29/23 23:06 11/29/23 23:00 Room Air 11/29/23 23:00 Room Air 11/29/23 22:51 11/29/23 22:42 11/29/23 22:33 11/29/23 22:15 11/29/23 21:51 11/29/23 21:48 11/29/23 21:24 11/29/23 21:12 11/29/23 21:06 Room Air 11/29/23 21:00 11/29/23 21:00 11/29/23 20:51 11/29/23 20:50 Room Air 11/29/23 20:30 11/29/23 20:15 11/29/23 20:09 11/29/23 19:39 11/29/23 19:23 11/29/23 17:45 Room Air Diagnostic Findings Laboratory Results WBC 7.86 K/ul (4.8-10.8) 11/29/23 18:11 RBC 4.17 M/uL (4.70-6.10) L 11/29/23 18:11 Hgb 13.7 g/dl (14.0-18.0) L 11/29/23 18:11 Hct 40.4 % (42.0-52.0) L 11/29/23 18:11 MCV 96.9 fL (80.0-100.0) 11/29/23 18:11 MCH 32.9 pg (25.0-34.0) 11/29/23 18:11 MCHC 33.9 g/dL (32.0-36.0) 11/29/23 18:11 RDW Std Deviation 42.4 fL (36.4-46.3) 11/29/23 18:11 RDW Coeff of Jose Alejandro 11.8 % (11.5-14.5) 11/29/23 18:11 Plt Count 260 K/uL (130-400) 11/29/23 18:11 MPV 9.4 fL (9.4-12.4) 11/29/23 18:11 Immature Gran % (Auto) 0.4 % 11/29/23 18:11 Neut % (Auto) 70.5 % 11/29/23 18:11 Lymph % (Auto) 18.7 % 11/29/23 18:11 [place] % (Auto) 8.5 % 11/29/23 18:11 Eos % (Auto) 1.5 % 11/29/23 18:11 Baso % (Auto) 0.4 % 11/29/23 18:11 Neut # (Auto) 5.54 K/uL (1.40-6.50) 11/29/23 18:11 Lymph # (Auto) 1.47 K/uL (1.20-3.40) 11/29/23 18:11 [place] # (Auto) 0.67 K/uL (0.11-0.59) H 11/29/23 18:11 Eos # (Auto) 0.12 K/uL (0.00-0.50) 11/29/23 18:11 Baso # (Auto) 0.03 K/uL (0.00-0.20) 11/29/23 18:11 Immature Gran # (Auto) 0.03 K/uL (0.01-0.20) 11/29/23 18:11 PT 11.1 Seconds (9.0-12.0) 11/29/23 18:11 INR 1.0 (0.9-1.1) 11/29/23 18:11 APTT 27 Seconds (21-31) 11/29/23 18:11 PTT Ratio 1.0 11/29/23 18:11 Sodium 135 mmol/L (136-145) L 11/29/23 18:11 Potassium 4.4 mmol/L (3.5-5.1) 11/29/23 18:11 Chloride 102 mmol/L (98-107) 11/29/23 18:11 Carbon Dioxide 26 mmol/L (21-32) 11/29/23 18:11 Anion Gap 7 (3-11) 11/29/23 18:11 BUN 24 mg/dl (6-23) H 11/29/23 18:11 Creatinine 1.31 mg/dl (0.6-1.4) 11/29/23 18:11 Est Cr Clr Drug Dosing 44.2 ml/min 11/29/23 18:11 Est GFR ( Amer) 59.6 ml/min 11/29/23 18:11 Est GFR (Non-Af Amer) 51.4 ml/min 11/29/23 18:11 BUN/Creatinine Ratio 18.3 (10-20) 11/29/23 18:11 Glucose 95 mg/dl (70-99(Fasting)) 11/29/23 18:11 Calcium 9.5 mg/dl (8.6-10.3) 11/29/23 18:11 Total Bilirubin 0.5 mg/dl (0.2-1.0) 11/29/23 18:11 AST 29 U/L (13-39) 11/29/23 18:11 ALT 21 U/L (7-52) 11/29/23 18:11 Alkaline Phosphatase 56 U/L (34-104) 11/29/23 18:11 Troponin I High Sens 61.9 pg/ml (0-20) H* 11/29/23 19:53 Total Protein 7.0 gm/dl (6.0-8.3) 11/29/23 18:11 Albumin 4.1 gm/dl (3.4-5.0) 11/29/23 18:11 Globulin 2.9 gm/dl (2.5-4.0) 11/29/23 18:11 Albumin/Globulin Ratio 1.4 (0.9-2) 11/29/23 18:11 Impressions Chest X-Ray 11/29/23 17:49 SINGLE VIEW CHEST CLINICAL HISTORY: Atypical chest pain FINDINGS: A PA chest radiograph is compared to study dated 623. The cardiomediastinal silhouette is unremarkable. The lungs and pleural spaces are clear. No pneumothorax is seen. The skeletal structures are osteopenic. The bony thorax is grossly intact. Fusion hardware is seen in the lower cervical spine. Anchors are noted in the left humeral head. IMPRESSION: No active disease in the chest. ACT 112: Negative or not required by law. Electronically signed by: Delano Marcos M.D. 11/29/2023 7:32 PM ECG Additional Comments: ECG. Normal sinus rhythm rate 71. No acute ST changes seen. Code Status & VTE Plan VTE Prophylaxis Plan VTE Prophylaxis will be ordered: Yes
[2023-11-30] MEDS ORDERED: ACETAMINOPHEN 325 MG TAB PO PRN (01:10)
[2023-11-30] MEDS ORDERED: NITROGLYCERIN SL 0.4 MG/TAB TAB SL PRN (01:10)
[2023-11-30] MEDS ORDERED: POLYETHYLENE (MIRALAX) 17 GM PACK PO PRN (01:10)
[2023-11-30] MEDS ORDERED: FLUTICASONE FUROATE 100MCG 14 PUFFS/INHALER INH PRN (01:18)
--- NOTE | 2023-11-30 08:05 | Electrocardiogram Report ---
Test Reason : Blood Pressure : / mmHG Vent. Rate : 071 BPM Atrial Rate : 071 BPM P-R Int : 170 ms QRS Dur : 088 ms QT Int : 374 ms P-R-T Axes : 047 007 051 degrees QTc Int : 406 ms Normal sinus rhythm Normal ECG When compared with ECG of 10-NOV-2022 17:43, Premature supraventricular complexes are no longer Present Confirmed by Timmy Houser ([id number]) on 11/30/2023 8:05:11 AM Referred By: Confirmed By:Timmy Houser
[2023-11-30] MEDS: ATORVASTATIN 40 MG TAB PO SCH (08:25)
[2023-11-30] MEDS: FAMOTIDINE 10 MG TABLET PO SCH (08:25)
[2023-11-30] MEDS: ESCITALOPRAM OXALATE 10 MG TAB PO SCH (08:25)
[2023-11-30] MEDS: NISOLDIPINE 8.5 MG PO SCH (11:04)
--- NOTE | 2023-11-30 11:39 | Electrocardiogram Report ---
Test Reason : Blood Pressure : / mmHG Vent. Rate : 056 BPM Atrial Rate : 056 BPM P-R Int : 194 ms QRS Dur : 100 ms QT Int : 424 ms P-R-T Axes : 064 027 059 degrees QTc Int : 409 ms Sinus bradycardia Otherwise normal ECG When compared with ECG of 29-NOV-2023 18:09, No significant change was found Confirmed by Timmy Houser ([id number]) on 11/30/2023 11:38:48 AM Referred By: REFERRED SELF Confirmed By:Timmy Houser
--- NOTE | 2023-11-30 13:02 | Cardiology Consultation ---
Date of Consultation November 30, 2023 Assessment & Plan (1) Elevated troponin: (2) Pulse irregularity: (3) HTN (hypertension): (4) HLD (hyperlipidemia): Plan In follow-up of recent issues with labile blood pressure readings and his history of aortic valve regurgitation the patient underwent an outpatient transthoracic echocardiogram 3 days ago on 11/27/2023. The report was reviewed and the images were reviewed independently. Hyperdynamic left ventricular systolic function was present, which was new compared to his previous stress echocardiogram performed in 2022, the resting ejection fraction was in the range of 65 to 69% at the time of the echocardiogram last week. The resting peak left ventricular outflow tract gradient was 7.7 mmHg, and there was an inducible left ventricular outflow tract gradient with Valsalva up to 67 mmHg. Moderate concentric left ventricular hypertrophy was present. The aortic valve was moderately calcified with findings suggestive of mild aortic valve stenosis and mild aortic regurgitation in addition to the LV outflow tract gradient. This echocardiogram however was performed without the patient having taken his calcium channel esteban, nisoldipine. He is now back on this medication. I question if the elevation in the troponin I is related to his left ventricular hypertrophy, hyperdynamic left ventricular systolic function, and he did have carpal tunnel release and believes that he had both local anesthetic with epinephrine injected. 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 The mild elevation in troponin may be related to underlying myocardial strain. Patient does not have symptoms suggestive angina. At present, he is back on the nisoldipine and the candesartan. His heart rate was in the 50s for seen this morning, but at present is in the 60s. I have requested a third troponin level. If the level is stable, will plan on repeating a resting echocardiogram as well as having him exercise on the treadmill today. 65 minutes were spent in direct patient care including review of his previous records and interpreting test as noted independently. 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 The patient notes a longstanding history of hypertension and had been treated with the medications nisoldipine and candesartan on a chronic basis. In 2022 he had been in the emergency department with concerns of an irregular heartbeat that he felt after a golf outing. A follow-up Zio patch monitor revealed premature atrial contractions of moderate frequency. He underwent an exercise stress echocardiogram on 01/22/2023 which was negative for ischemia having exercise just over 8 minutes on a Gigi protocol. More recently he has been noted to have low blood pressure readings at the time of a primary care follow-up. He had been counseled to discontinue his nisoldipine and ultimately his candesartan dose was cut in half to 16 mg daily. He had since noted that his blood pressures have been a bit higher than his usual, with systolic blood pressures in the 130s to 140s which is higher than what he is used to. Last week on 11/27/2023 he underwent a resting echocardiogram as an outpatient at [facility] that was performed just after 7 in the morning. Shortly thereafter he had undergone bilateral carpal tunnel release on the same day and he states that the procedure was uneventful. Over the weekend he exercised several times running on the treadmill at 5 mph, and was asymptomatic. Last evening however he felt his pulse and thought that it was irregular prompting him to come back to the emergency department. Allergies Allergy/AdvReac Type Severity Reaction Status Date / Time No Known Allergies Allergy Verified 11/29/23 20:10 Home Medications Medication Instructions Recorded Confirmed Type antiox.multivit 10-yyabu7t 280 1 cap PO DAILY 11/10/22 11/29/23 History mg-lutein 10 mg-zeaxanthin 2 mg capsule (I-Caps) atorvastatin 80 mg tablet 80 mg PO DAILY 11/10/22 11/29/23 History bioflavonoids 1,000 mg tablet 1,000 mg PO DAILY 11/10/22 11/29/23 History candesartan 32 mg tablet 32 mg PO HS 11/10/22 11/29/23 History coQ10 (ubiquinol) 200 mg capsule 200 mg PO DAILY 11/10/22 11/29/23 History escitalopram oxalate 10 mg tablet 10 mg PO DAILY 11/10/22 11/29/23 History famotidine 20 mg tablet 10 mg PO BID Heartburn 11/10/22 11/29/23 History ginkgo biloba 40 mg tablet 40 mg PO DAILY 11/10/22 11/29/23 History fqmbmzhrzufa-nyh-mzxoc acid-vit 1 tab PO DAILY 11/10/22 11/29/23 History K-lycop 400 mcg-20 mcg-370 mcg tablet (Men's 50 Plus Multivitamin) nisoldipine 8.5 mg tablet,extended 8.5 mg PO DAILY 11/10/22 11/29/23 History release 24 hr fluticasone propionate 110 1 puff inhalation BID PRN 11/29/23 11/29/23 History mcg/actuation HFA aerosol inhaler Shortness Of Breath Patient History Social History Smoking Status: Never smoker Second Hand Exposure: No; Do You Dip or Chew Tobacco: No; Tobacco Cessation Education Requested by Patient: No Hx Alcohol Use: No Hx Substance Use: No Preferred Language: Serbian Communication Ability: Effective Machine Grainer Required: No Beliefs That Will Affect Care: None Current Living Situation: Spouse Other Information That Helps Us Care for You: No Feels Safe at Home: Yes Safety Concerns: Feels Safe At This Time Assistive Devices: Glasses Review of Systems Review of Systems: All systems reviewed & are unremarkable except as noted in HPI & below Physical Exam Constitutional: WD/WN, vitals as above Respiratory: normal respiratory effort, lungs clear to auscultation Cardiovascular: RRR, no murmur, no edema Gastrointestinal (Abdomen): normal bowel sounds, soft, nontender, no hepatosplenomegaly Neurologic: PERRL, EOMI, accommodation nl, no face palsy, no dysarthria Results & Data Vital Signs (Past 12 Hours) Vital Signs Temp Pulse Pulse Resp BP BP Pulse Ox 11/30/23 11:14 36.7 C 81 18 147/75 H 96 11/30/23 11:06 72 18 11/30/23 10:48 79 14 95 11/30/23 10:48 147/75 H 11/30/23 10:18 56 L 10 L 11/30/23 09:09 53 L 7 L 11/30/23 08:00 53 L 12 11/30/23 08:00 11/30/23 08:00 11/30/23 07:09 36.4 C L 64 18 123/76 97 11/30/23 07:06 59 L 14 11/30/23 06:15 52 L 15 11/30/23 06:09 36.8 C 58 L 18 108/68 98 11/30/23 04:55 56 L 11/30/23 03:30 55 L 97 11/30/23 03:24 81 18 93 11/30/23 03:15 53 L 9 L 96 11/30/23 03:06 57 L 12 118/60 97 11/30/23 02:51 51 L 17 95 11/30/23 02:42 52 L 15 94 11/30/23 02:15 58 L 9 L 95 11/30/23 02:06 53 L 21 95 11/30/23 01:57 54 L 15 94 11/30/23 01:52 53 L 20 109/65 95 11/30/23 01:51 11/30/23 01:42 53 L 6 L 95 11/30/23 01:31 55 L 11/30/23 01:30 55 L 13 96 11/30/23 01:21 84 34 H 11/30/23 01:00 59 L 15 109/65 92 Pulse Ox O2 Del Method O2 Del Method 11/30/23 11:14 Room Air 11/30/23 11:06 11/30/23 10:48 11/30/23 10:48 11/30/23 10:18 11/30/23 09:09 11/30/23 08:00 11/30/23 08:00 94 Room Air 11/30/23 08:00 Room Air 11/30/23 07:09 Room Air 11/30/23 07:06 11/30/23 06:15 11/30/23 06:09 Room Air 11/30/23 04:55 11/30/23 03:30 11/30/23 03:24 11/30/23 03:15 11/30/23 03:06 Room Air 11/30/23 02:51 11/30/23 02:42 11/30/23 02:15 11/30/23 02:06 11/30/23 01:57 11/30/23 01:52 Room Air 11/30/23 01:51 94 Room Air 11/30/23 01:42 11/30/23 01:31 11/30/23 01:30 11/30/23 01:21 11/30/23 01:00 Room Air Laboratory Results Cardiac Enzymes 11/29/23 11/29/23 Range/Units 18:11 19:53 AST 29 (13-39) U/L Troponin I High Sens 63.9 H* 61.9 H* (0-20) pg/ml Coagulation 11/29/23 Range/Units 18:11 PT 11.1 (9.0-12.0) Seconds APTT 27 (21-31) Seconds CBC 11/29/23 Range/Units 18:11 WBC 7.86 (4.8-10.8) K/ul RBC 4.17 L (4.70-6.10) M/uL Hgb 13.7 L (14.0-18.0) g/dl Hct 40.4 L (42.0-52.0) % Plt Count 260 (130-400) K/uL Neut # (Auto) 5.54 (1.40-6.50) K/uL Lymph # (Auto) 1.47 (1.20-3.40) K/uL [place] # (Auto) 0.67 H (0.11-0.59) K/uL Eos # (Auto) 0.12 (0.00-0.50) K/uL Baso # (Auto) 0.03 (0.00-0.20) K/uL Comprehensive Metabolic Panel 11/29/23 Range/Units 18:11 Sodium 135 L (136-145) mmol/L Potassium 4.4 (3.5-5.1) mmol/L Chloride 102 (98-107) mmol/L Carbon Dioxide 26 (21-32) mmol/L BUN 24 H (6-23) mg/dl Creatinine 1.31 (0.6-1.4) mg/dl Glucose 95 (70-99(Fasting)) mg/dl Calcium 9.5 (8.6-10.3) mg/dl AST 29 (13-39) U/L ALT 21 (7-52) U/L Alkaline Phosphatase 56 (34-104) U/L Total Protein 7.0 (6.0-8.3) gm/dl Albumin 4.1 (3.4-5.0) gm/dl Intake and Output 11/29/23 11/30/2311/29/24 22:59 06:59 14:59 Intake Total 500 / 500 Balance 500 / 500 Intake: IV 500 / 500 Sodium Chloride 0.9% 500 ml @ 500 / 500 999 mls/hr IV .Q31M ONE Rx#: [id number] Other: Weight 72.8 kg 72.8 kg Weight Measurement Method Chair Scale Built in [facility] Diagnostic Findings Co Airam. On EKG performed 11/29/2023 1809 interpret independently: Normal sinus rhythm at 71 bpm, normal EKG, compared to 11/10/2022, the previously noted premature atrial contractions are no longer present. Repeat tracing performed 11/30/2023 at 5:08 AM revealed sinus bradycardia 56 bpm, normal EKG (3) HTN (hypertension) Hypertension type: unspecified Qualified Code(s): I10 - Essential (primary) hypertension
[2023-11-30] MEDS: CEROVITE ADV FORMULA TAB PO SCH (14:09)
--- NOTE | 2023-11-30 15:56 | Communication Note ---
Date of Service: November 30, 2023 Repeat troponin trended down to 38.2 PG per mL. Patient went on to have an exercise stress echocardiogram that was negative for ischemia. Exercise terminated during stage II of Gigi protocol due to hypertensive blood pressure response with peak systolic blood pressure to 12 mmHg. Occasional premature atrial contractions were noted at rest. Moderate concentric left ventricular hypertrophy present on the resting echocardiogram performed today with hyperdynamic left ventricular systolic function. The patient initially presented to the hospital due to concerns of noting that his blood pressure had been high recently and he had noted an irregular heart rate. I believe the irregular heart rate/pulse is due to premature atrial contractions which is a known diagnosis for the patient. He is hesitant to try a beta-esteban as he recalls having been placed on one many years ago and he felt that it interacted with his asthma. He did however does not remember what agent this was. Is felt that the elevation in troponin is related to his left ventricular hypertrophy, and hypertension with resultant myocardial strain. I do not think his presentation is suggestive of an acute coronary syndrome, and stress test results are reassuring. No provocative the left ventricular outflow tract obstruction was observed on the resting echo today. Perhaps that which was observed on 11/27/[address] in the setting of hypovolemia. Patient stable for discharge from a cardiac perspective. Continue previous treatment with nisoldipine 8.5 mg daily, resume candesartan 32 mg daily as compared to 16 mg daily. He may take these medications as he had previously for years. Patient already has an outpatient cardiology follow-up visit with Mr. Moctezuma of our practice at which time his blood pressure will be reassessed. Future considerations could include transitioning nisolipine to diltiazem or verapamil for negative inotropic effect and heart rate lowering effect with baseline resting heart rate in the 70s today. Patient counseled to take it easy on his treadmill exercise pending optimization of his blood pressure.
--- NOTE | 2023-11-30 16:42 | Discharge Summary ---
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 Patient states recently his blood pressure medication adjusted by PCP as blood pressure was running low, initially nisoldipine was stopped and later candesartan dose was reduced to 16 mg daily and patient recently had echocardiogram which showed left atrium severely enlarged and resting peak instantaneous left ventricular outflow tract gradient 7.7 mmHg and inducible peak instantaneous left ventricular outflow tract gradient is a 66.7 mmHg. Going to have followup appointment with cardiology. Patient was concerned and was checking his blood pressure and his pulse regularly. He found his blood pressure was again going high and went back to his previous BP meds regimen yesterday. Patient also found his pulse to be irregular when he decided to come to the ER today. Denies any chest pain or shortness of breath. Did treadmill yesterday and today for 30 minutes each day with 3 sessions of 10 minutes of continuous exercise without any symptoms. No headaches. No dizziness. No blurred vision. No runny nose or sore throat. No cough. Appetite is okay. No nausea or abdominal pain. Normal bowel and bladder movements. Currently resting comfortably and hemodynamically stable. In the ER his initial troponin was 63 and repeat was 61. past medical history. As mentioned above. past surgical history. Colonoscopy and EGD. In the ER for food sac surgery with shunt on left side. Cervical spine fusion surgery with below C2. bilateral cataracts. Urological procedure. Social history. . No smoking. No alcohol use. No drug use. Family history. Sister had melanoma. Admission Exam Per Admitting Provider General- Not in distress Head- atraumatic Eyes- PERRL ENT- oropharynx clear Neck- supple, no JVD, no carotid bruit Lungs- clear to auscultation no wheezing or crackles. Heart- irregular rhythm; no murmur, no gallop. Abdomen- normal bowel sounds, soft, nontender, no distension Extremities- no pretibial edema, no erythema seen Neuro- alert, oriented PERRL,; no facial palsy; no dysarthria; moves extremit ies. Principal Diagnosis Elevated troponin Pulse irregularity Discharge Exam General- WD/WN elderly M in NAD Head- atraumatic Eyes- EOMI, PERRL Neck- supple, no JVD Lungs- clear to auscultation no wheezing or crackles. Heart- rrr, no murmur Abdomen- normal bowel sounds, soft, nontender, no distension Extremities- no pretibial edema, no erythema seen, moves extremities Neuro- alert, oriented PERRL, no facial asymmetry; moves extremities. 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 Patient states recently his blood pressure medication adjusted by PCP as blood pressure was running low, initially nisoldipine was stopped and later candesartan dose was reduced to 16 mg daily and patient recently had echocardiogram which showed left atrium severely enlarged and resting peak instantaneous left ventricular outflow tract gradient 7.7 mmHg and inducible peak instantaneous left ventricular outflow tract gradient is a 66.7 mmHg. Going to have followup appointment with cardiology. Patient was concerned and was checking his blood pressure and his pulse regularly. He found his blood pressure was again going high and went back to his previous BP meds regimen yesterday. Patient also found his pulse to be irregular when he decided to come to the ER today. Denies any chest pain or shortness of breath. Did treadmill yesterday and today for 30 minutes each day with 3 sessions of 10 minutes of continuous exercise without any symptoms. No headaches. No dizziness. No blurred vision. No runny nose or sore throat. No cough. Appetite is okay. No nausea or abdominal pain. Normal bowel and bladder movements. Currently resting comfortably and hemodynamically stable. In the ER his initial troponin was 63 and repeat was 61. Pulse irregularity elevated troponin EKG reviewed monitored on telemetry initial troponin 63 and repeat is 61 patient asymptomatic Cardiology consulted echo obtained and pt underwent stress echo as well - No provocative the left ventricular outflow tract obstruction was observed on the resting echo today. Perhaps that which was observed on 11/27/[address] the setting of hypovolemia. Patient stable for discharge from a cardiac perspective. Continue previous treatment with nisoldipine 8.5 mg daily, resume candesartan 32 mg daily as compared to 16 mg daily. He may take these medications as he had previously for years. Patient already has an outpatient cardiology follow-up visit with Mr. Moctezuma of our practice at which time his blood pressure will be reassessed. Future considerations could include transitioning nisolipine to diltiazem or verapamil for negative inotropic effect and heart rate lowering effect with baseline resting heart rate in the 70s today. Patient counseled to take it easy on his treadmill exercise pending optimization of his blood pressure. Hypertension continue home medication of candesartan and nisoldipine - cont. the same on discharge , and follow up w/ cardiology Bairon Moctezuma will monitor Hyperlipidemia on statin Generalized anxiety disorder on Lexapro CKD stage III presented with creatinine 1.3 will follow labs By [facility] guidelines, a determination that the admission or continued stay is not medically necessary has been made by a member of the UR committee and a physician for this hospital stay, therefore a Code 44 will be completed and the Inpatient admission will be changed to outpatient. Total Time Total Time Spent Total Time Spent (In Minutes): 40 Discharge Plan Discharge Items Patient Disposition: Home - Self-Care Reason For Visit: IRREGULAR HEART RATES, ELEVATED TROPONIN Discharge Diagnosis: Elevated troponin Pulse irregularity Activity: Per Instructions section Non-emergency contact: Primary Care Provider and Tectonophysicist Call non-emergency contact if: you have any medication questions and your symptoms worsen Follow-up/Referrals: Deangelo Saldaña MD [Primary Care Provider] - Diet: Heart Healthy Addtl Attending Provider Instructions: Follow up with your primary care doctor and director case. Continue taking nisoldipine 8.5 mg and candesartan 32 mg daily. Monitor your blood pressure at home and write down your numbers - discuss your numbers with your [facility] providers so that your medication can be further adjusted. Pending Studies at Discharge: No Stand-Alone Forms: My [facility], Smoking Cessation Medications and DC Order Prescriptions: Continued atorvastatin 80 mg Tablet 80 mg PO DAILY ginkgo biloba 40 mg Tablet 40 mg PO DAILY Rx Instructions: give with meal/snack famotidine 20 mg Tablet 10 mg PO BID candesartan 32 mg tablet 32 mg PO HS bioflavonoids 1,000 mg Tablet 1,000 mg PO DAILY escitalopram oxalate 10 mg tablet 10 mg PO DAILY nisoldipine 8.5 mg tablet extended release 24 hr 8.5 mg PO DAILY coQ10 (ubiquinol) 200 mg Capsule 200 mg PO DAILY I-Caps 280-10-2 mg Capsule 1 cap PO DAILY Men's 50 Plus Multivitamin 400-20-370 mcg Tablet 1 tab PO DAILY fluticasone propionate 110 mcg/actuation HFA aerosol inhaler 1 puff INHALATION BID PRN (Reason: Shortness Of Breath) Discharge Orders: Discharge Order (Routine); Ordered 11/30/23 Ordered By: Edwin Bolivar/Other Patient Handouts: High Blood Pressure Risk Factors, Hypertension Dc, High Blood Pressure Tx Admission Data Admit Date/Time: 11/30/23 00:30 Attending Provider: Edwin Clay Admit Provider: Derrek Nathan Primary Care Provider: Deangelo Saldaña Other Providers: Derrek Nathan; Shraddha Ortega; Tor Toledo; Ben Gentile; Jose Leiva; Rolf Aggarwal; Pipe Moctezuma; Bernadine Wu; Brooklynn Mosley; Camille Coreas; hSraddha Aquino; Eliseo Roman; Alf Caldwell; Nidhi Christiansen; Gabby Bedoya; Darlene Womack; Rickie Betancourt; Burak Sinclair; Lucie Chand Other Interventions: Discharge Summary Assessment (RN) Last Done: 11/30/23 17:12
--- NOTE | 2023-11-30 18:10 | Communication Note ---
Date of Service: November 30, 2023 Code 44 attestation: 78-year-old male admitted with increased troponin and also irregularity and has a history of hypertension. He was seen and evaluated by the search engine marketing manager and the attending physician. He was discharged home this afternoon appropriately. By CMS guidelines, a determination that the admission or continued stay is not medically necessary has been made by a member of the UR committee and a physician for this hospital stay, therefore a Code 44 will be completed and the Inpatient admission will be changed to outpatient. DR Carlota Wright Member UR committee
[2023-11-30] MEDS ORDERED: LOSARTAN POTASSIUM 50 MG TAB PO SCH (21:00)
== END 2023-11-30 17:38 | disposition home or self-care (01) | DRG 316 ==
LOC: ED 17:43 → INTOOBSV 11-30 00:30 → EDINP 11-30 00:30 → 1E 11-30 04:21

== ENCOUNTER 2024-05-06 19:01 | Inpatient (IN) ==
--- OUTSIDE RECORDS SUMMARY | 2024-05-06 19:07 | External Medical Summary | Summary of Care ---
Author Name Unknown Organization [facility] Address [address] [place] [address] Phone [phone] Care Team Providers Care Armature Repairer Name Role Phone Deangelo Saldaña MD Primary Care Provider + Reason for Visit * Reason Comments Skin Check Encounter Details Date Type Department Care Team (Late st Contact Info) Description 03/07/2024 3:00 PM EDT Office Visit Dermatology [address] [address] Oriana Ambrosio MD [address] [place] [id number] Seborrheic keratosis*; History of nonmelanoma skin cancer; Inflamed seborrheic keratosis; AK (actinic keratosis); Skin neoplasm; Seborrheic dermatitis Allergies No known active allergiesdocumented as of this encounter (statuses as of 03/08/2024) Medications Medication Sig Dispensed Refills Start Date [...] take 2 tabs at bedtime . Active Metoprolol Succinate ER 25 MG Oral Tablet Extended Release 24 Hour (Toprol XL) Take 0.5 Tablets by mouth daily. 16 Tablet 5 12/04/2023 Active amLODIPine Besylate 2.5 MG Oral Tablet (Norvasc)Indications: HTN, goal below 130/80 Take 1 Tablet by mouth daily. 90 Tablet 3 12/11/2023 Active Candesartan Cilexetil 32 MG Oral Tablet (Atacand) Take by mouth daily. Active Ketoconazole 2 % External Shampoo (Nizoral) Apply to scalp three times weekly in the shower. Lather, let sit for a few minutes, then rinse off. 120 mL 5 03/07/2024 Active documented as of this encounter (statuses as of 03/08/2024) Active Problems Problem Noted Date Diagnosed Date Bilateral carpal tunnel syndrome 11/24/2023 Chronic kidney disease, stage 3a 09/15/2022 Overview: Per CKD protocol HTN, goal below 130/80 05/29/2021 Mixed hyperlipidemia 05/29/2021 VLADIMIR (generalized anxiety disorder) 05/29/2021 Nonrheumatic mitral valve regurgitation 05/29/20 Mild aortic insufficiency 05/29/2021 Aortic valve sclerosis 05/29/2021 History of acute prostatitis 05/29/2021 documented as of this encounter (statuses as of 03/08/2024) Resolved Problems Problem Noted Date Diagnosed Date Resolved Date Hyperlipidemia 05/29/2021 05/29/2021 documented as of this encounter (statuses as of 03/08/2024) Immunizations Name Administration Dates Next Due COVID-19 mRNA, LNP-s, No Pre serve, 2-Dose Series (Circa) 05/17/2021,07/06/2020,06/15/2020 Covid-19, Mrna, Lnp-s, Pf, B ivalent, 30 Mcg, IM, 12 yrs and above (Pfizer) 05/26/2022 Pneumococcal Conjugate Vacci ne, 20-valent ([id number]) 12/04/2021 Pneumococcal Polysaccharide PPV23 (Pneumovax) 04/22/2020 Seasonal [...] as of this encounter Progress Notes * Chuck Sanchez MD - 03/08/2024 8:45 AM EDT I have discussed the patient's management with the medical trainee and agree with the note. Please refer to the documented findings and plan of care. This patient's visit today consisted of an evaluation and procedure. I was present and confirmed the findings of the history and exam, and was present for the reece and critical portions of the procedure. Chuck Sanchez MD * Chuck Sanchez MD - 03/08/2024 8:45 AM EDT I have discussed the patient's management with the medical trainee and agree with the note. Please refer to the documented findings and plan of care. This patient's visit today consisted of an evaluation and procedure. I was present and confirmed the findings of the history and exam, and was present for the reece and critical portions of the procedure. Chuck Sanchez MD * Oriana Ambrosio MD - 03/07/2024 3:00 PM EDT SUBJECTIVE: Chief Complaint: Chief Complaint Patient presents with Skin Check History of Present Illness: Michael Farah is a 78 year old male seen at the request of Deangelo Saldaña MD for routineskin check. Lesion on the forehead present for a couple of years. Getting bigger. Bothersome to patient becauseof location. No other lesions of concern. 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 From [facility] and trained there. Retired to [employer] to be by daughter. Data: Medications reviewed. Candesartan Cilexetil 32 MG Oral Tablet (Atacand) amLODIPine Besylate 2.5 MG Oral Tablet (Norvasc) Metoprolol Succinate ER 25 MG Oral Tablet Extended Release 24 Hour (Toprol XL) Famotidine 10 MG Oral Tablet (Pepcid AC) Betamethasone Dipropionate Aug 0.05 % External Cream (Diprolene AF) Systane ICaps AREDS2 Oral Capsule Bioflavonoids 1000 MG Oral Tablet Co Q10 200 MG Oral Capsule Fluticasone Propionate HFA 110 MCG/ACT Inhalation Aerosol (Flovent Hfa) Ginkgo Biloba 40 MG Oral Tablet Multivitamin Men 50+ Oral Tablet Atorvastatin Calcium 80 MG Oral Tablet (Lipitor) Escitalopram Oxalate 10 MG Oral Tablet (Lexapro) Review of Systems: General: Overall feels well, no fevers/chills, unintended weight loss or weight gain Skin: Besides HPI, no other new or changing moles or other concerns. Physical Exam: Gen: Healthy, alert, and no distress. Skin: Complete exam of face, lips, eyelids/conjunctiva, scalp, hair, neck, chest, back, abdomen, buttocks, right and left upper and lower extremities, bilateral hands and feet including the digits and nails were normal except: A. 3mm stippled brown-red macule within surrounding white macule on the left jain. Ddx: pigmentedAK vs residual SK vs LPLK B. Gritty erythematous papules consistent with actinic keratoses on the right forehead, right jain, left jain C. At the forehead, trunk and extremities are several scattered nieto/brown hyperkeratotic stuck on appearing waxy papules. Verrucous waxy papule with surrounding erythema on left wrist. D. Well healed scar at primary site(s) without evidence of recurrence. E. Fine, greasy scaling of scalp Assessment and Plan: A. Skin neoplasm, left jain Ddx: pigmented AK vs residual SK vs LPLK - Photos taken and placed in chart under "scans" - Biopsy by tangential shave was recommended which the patient was agreeable to. The risks, benefits, indications, alternatives, and complications were discussed, and informed consent was obtained. Specifically, the expectation of a permanent scar and risk of possible infection were explained and understood. If the procedure were to be declined, the lesion(s) could not be evaluated microscopically for diagnosis or abnormality, including cancer. A pre-procedure time-out was performed to verify the procedure, site(s) and appropriate supplies. We cleaned the site(s) with alcohol and anesthetizedwith 0.5% lidocaine with epinephrine at 1:200,000 concentration. Biopsy via horizontal technique was performed. Hemostasis was obtained with aluminum chloride. Petrolatum and bandage were applied. The patient tolerated the procedure well without complications and with minimal blood loss. Written wound care instructions were given. Specimen(s) sent to pathology. We will call with biopsy results and arrange appropriate follow-up care as indicated. B. Actinic keratoses -The diagnosis and malignant potential of the lesion(s) was explained. Treatment options were reviewed including cryotherapy, topical medications, and observation. All questions were addressed. -The patient would like to proceed with cryosurgery; Cryosurgery explained to the patient includingrisks of incomplete resolution, blistering, scabbing, permanent hyper/hypopigmentation and scarring, consent obtained, patient, site and procedure verified, and then cryotherapy was performed with Liquid Nitrogen via cryo spray unit to 4 lesions. Location noted in physical exam. Post op course explained. -Discussed that if any of these lesions fail to completely resolve after treatment, patient should call for re-evaluation. C. Seborrheic keratoses; inflamed seborrheic keratoses - The benign nature of these lesions was discussed with the patient - Discussed treatment with cryotherapy or shave removal for irritated lesions. - Treated with cryotherapy due to symptoms and clinical evidence of inflammation. - Cryotherapy was recommended for treatment today which patient was agreeable to. The risks, benefits, indications, alternatives, and complications were discussed, and informed consent was obtained. Specifically, the risks of permanent scar, loss or darkening of skin color, blister and recurrence of lesion were discussed. A total of 2 lesion(s) were treated with cryotherapy. The patient toleratedthe procedure well without complications. Wound care instructions were given. D. History of Nonmelanoma Skin Cancer/Scar/Chronic actinic damage - Well healed scar(s) with no evidence of recurrence - Recommended periodic skin exams and instructed to call clinic if patient notices any changing lesions, including rapid enlargement, changes in color or shape or symptoms, bleeding, or other concerns. The common features and behavior of non-melanoma skin cancers (e.g. basal cell carcinoma/squamouscell carcinoma) as well as the ABCDEs and ugly duckling features of melanoma were also reviewed. -Daily sun protection recommended including physical (i.e. clothing) and chemical blockers. Broad spectrum sunscreens with at least SPF 30 for UVB protection and UVA blockers such as zinc / titanium / mexoryl / parsol 1789 (AKA avobenzone or Helioplex) were recommended. E. Seborrheic Dermatitis - The patient was prescribed ketoconazole shampoo to use three times weekly and advised to lather, leave in for five minutes prior to rinsing. - OTC Neutrogena T/gel, Selsun, Head & Shoulders, ZincOn shampoo on other days. Rotate OTC shampoo monthly. Presumed diagnoses, expected natural histories, and management options discussed with the patient at length. Questions were addressed and anticipatory guidance provided. They were instructed to contact me if additional questions, concerns, or problems develop in the interim. Follow-up: 1 year for full skin check. Patient was encouraged to call/return to clinic if there were any questions, concerns, or new lesions. Patient was seen and examined with Dr. Chuck Sanchez Biopsy notification preference: Reggie Ambrosio MD 03/07/2024 10:36 AM REF: DEANGELO SALDAÑA [facility] [address] [id number] (office) [phone] (fax) PCP: DEANGELO SALDAÑA [address] [address] [phone] documented in this encounter Plan of Treatment Upcoming Encounters Date Type Department Care Team (Late st Contact Info) Description 03/14/2024 12:00 PM EDT Office Visit General Internal Medicine [facility] Samuel [address] [place] [address] [address] Yaneth Kay MD [address] [facility] [place] [address] 04/21/2024 1:30 PM EST Office Visit Cardiology, [facility] [address] [facility] [place] [address] Pipe Moctezuma PA-C [address] [place] [address] 06/23/2024 1:00 PM EST Office Visit General Internal Medicine [facility] [address] [facility] [place] [address] Deangelo Saldaña MD [address] [facility] [place] [address] 07/11/2024 2:30 PM EST Office Visit Cardiology, [facility] [address] [facility] [place] [address] Tor Toledo DO [address] [facility] [place] [address] 03/23/2025 1:00 PM EDT Office Visit Dermatology [place] [address] [place] [address] Rolf Payne MD [address], [place] [id number] Pending Results Name Type Priority Associated Diagnoses Date /Time SURGICAL PATHOLOGY Pathology Routine Skin neoplasm 03/07/2024 4:14 PM EDT Health Maintenance Due Date Last Done Comments DTap/Tdap Vaccines (1 - Tdap) 1964 Adult Wellness Visit 2010 Zoster Vaccines (2 of 2) 06/17/2020 04/22/2020 COVID-19 Vaccine ( season) 2024 05/26/2022, 05/17/2021, 07/06/2020, Additional history exists Influenza Vaccine (FLU shot) (#1) 2024 05/22/2023, 05/19/2022, 03/20/2022, Additional history exists GFR 05/12/2024 11/11/2023, 02/0 11/2023, 05/22/2023, Additional history exists CKD HGB USE SMARTSET 29225 07/14/202407/14, 07/14/2023, 05/22/2023, Additional history exists Albumin/Creatinine Ratio 11/10/2024 024, 11/13/2022, 06/05/2021 CKD PHOS USE SMARTSET 44428 11/10/2024 11/11/2023, 0 11/13/2022 Depression Screening 11/10/2024 11/11/2023 Pneumococcal Vaccine: 65+ Years Completed 12/04/2021, 04/22/2020 HPV (Gardasil) Vaccine Aged Out No lo nger eligible based on patient's age to complete this topic Hepatitis B Vaccine Aged Out No longe r eligible based on patient's age to complete this topic MENINGOCOCCAL (MENACTRA/MENVEO) Aged Out No longer eligible based on patient's age to complete this topic documented as of this encounter Medical Devices Implanted Type Area Chinchilla Machine Operator Device Identifier Shelf Expiration Date Model / Serial / Lot Lens Li61ao 13.00mm 18.00 - [id number] - [id number] Implanted:Qty: 1 on 07/28/2023 by Eugene Shipley MD at [facility] Right: Eye [employer] 04/07/2028 [id number] / [id number] / [id number] Lens Li61ao 13.00mm 17.50 - [id number] - [id number] Implanted:Qty: 1 on 08/11/2023 by Eguene Shipley MD at OR [facility] Left: Eye [employer] 03/07/2028 [id number] / [id number] / [id number] documented as of this encounter Visit Diagnoses Diagnosis Seborrheic keratosis- Primary Other seborrheic keratosis History of nonmelanoma skin cancer Personal history of other malignant neoplasm of skin Inflamed seborrheic keratosis AK (actinic keratosis) Actinic keratosis Skin neoplasm Neoplasm of unspecified nature of bone, soft tissue, and skin Seborrheic dermatitis Seborrheic dermatitis, unspecified documented in this encounter Advance Directives * [...] Power of Attor leslie? No Care Teams Armature Repairer Relationship Specialty Start Date End Date Deangelo Saldaña MD [address] [place] [address] PCP - General Internal Medicine 02/06/21 documented as of this encounter
--- OUTSIDE RECORDS SUMMARY | 2024-05-06 19:07 | External Medical Summary | Summary of Care ---
Author Name Unknown Organization [facility] Address [address] [place] [address] Phone [phone] Care Team Providers Care Baggage Porter Name Role Phone Deangelo Saldaña MD Primary Care Provider + Encounter Details Date Type Department Care Team (Late st Contact Info) Description 10/20/2023 [facility]phone [facility] [address] [facility] [place] [address] Deangelo Saldaña MD 200 [place] [address] Allergies No known active allergiesdocumented as of this encounter (statuses as of 01/19/2024) Medications Medication Sig Dispensed Refills Start Date [...] as of this encounter (statuses as of 01/19/2024) Active Problems Problem Noted Date Diagnosed Date Bilateral carpal tunnel syndrome 11/24/2023 Chronic kidney disease, stage 3a 09/15/2022 Overview: Per CKD protocol HTN, goal below 130/80 05/29/2021 Mixed hyperlipidemia 05/29/2021 VLADIMIR (generalized anxiety disorder) 05/29/2021 Nonrheumatic mitral valve regurgitation 05/29/20 Mild aortic insufficiency 05/29/2021 Aortic valve sclerosis 05/29/2021 History of acute prostatitis 05/29/2021 documented as of this encounter (statuses as of 01/19/2024) Resolved Problems Problem Noted Date Diagnosed Date Resolved Date Hyperlipidemia 05/29/2021 05/29/2021 documented as of this encounter (statuses as of 01/19/2024) Immunizations Name Administration Dates Next Due COVID-19 mRNA, LNP-s, No Pre serve, 2-Dose Series (LIA) 05/17/2021,07/06/2020,06/15/2020 Covid-19, Mrna, Lnp-s, Pf, B ivalent, 30 Mcg, IM, 12 yrs and above (LIA) 05/26/2022 Pneumococcal Conjugate Vacci ne, 20-valent ([id number]) 12/04/2021 Pneumococcal Polysaccharide PPV23 (Pneumovax) 04/22/2020 Seasonal [...] 03/07/2024 3:00 PM EDT Office Visit Dermatology [facility] [address] [place] [address] Oriana Ambrosio MD [address] [place] [address] 04/21/2024 1:30 PM EST Office Visit Cardiology, [facility] [address] [place] [address] Pipe Moctezuma PA-C [address] [address] 06/23/2024 1:00 PM EST [facility] [address] Deangelo Saldaña MD [address] [place] [address] 07/11/2024 2:30 PM EST Office Visit Cardiology, [facility] [address] [place] [address] [place], [address] [place] [address] Health Maintenance Due Date Last Done Comments DTaP,Tdap,and Td Vaccines (1 - Tdap) 1964 Adult Wellness Visit 2010 Zoster Vaccines (2 of 2) 06/17/2020 04/22/2020 COVID-19 Vaccine ( season) 2023 05/26/2022, 05/17/2021, 07/06/2020, Additional history exists Influenza Vaccine (FLU shot) (#1) 2024 05/22/2023, 05/19/2022, 03/20/2022, Additional history exists GFR 05/12/2024 11/11/2023, 02/0 11/2023, 05/22/2023, Additional history exists CKD HGB USE SMARTSET 12066 07/14/202407/14, 07/14/2023, 05/22/2023, Additional history exists Albumin/Creatinine Ratio 11/10/2024 024, 11/13/2022, 06/05/2021 CKD PHOS USE SMARTSET 01702 11/10/2024 11/11/2023, 0 11/13/2022 Depression Screening 11/10/2024 [...] this encounter Medical Devices Implanted Type Area Line Assigner Device Identifier Shelf Expiration Date Model / Serial / Lot Lens Li61ao 13.00mm 18.00 - [id number] - [id number] Implanted:Qty: 1 on 07/28/2023 by Eugene Shipley MD at OR [facility] Right: Eye [employer] 04/07/2028 [id number] / [id number] / [id number] Lens Li61ao 13.00mm 17.50 - [id number] - [id number] Implanted:Qty: 1 on 08/11/2023 by Eugene Shipley MD at OR [facility] Left: Eye [employer]CH [employer] LOMB 03/07/2028 [id number] / [id number] / [id number] documented as of this encounter Advance Directives [...] Power of Attor leslie? No Care Teams Baggage Porter Relationship Specialty Start Date End Date Deangelo Saldaña MD [address] [facility] [place] [address] PCP - General Internal Medicine 02/06/21 documented as of this encounter
--- OUTSIDE RECORDS SUMMARY | 2024-05-06 19:07 | External Medical Summary | Summary of Care ---
Author Name Unknown Organization [facility] Address [address] [place] [address] Phone [phone] Care Team Providers Care Fire Control Technician Name Role Phone Deangelo Saldaña MD Primary Care Provider + Reason for Visit * Reason Onset Date Comments Test Results 11/27/2023 Encounter Details Date Type Department Care Team (Late st Contact Info) Description 11/27/2023 Telephone Cardiology, [facility] [address] [place] [address] Shraddha Aquino CRNP [address] [place] [address] Test Results Allergies No known active allergiesdocumented as of this encounter (statuses as of 12/08/2023) Medications Medication Sig Dispensed Refills Start Date [...] in the morning. 90 Tablet 1 11/11/2023 4 Discontinued documented as of this encounter (statuses as of 12/08/2023) Active Problems Problem Noted Date Diagnosed Date Bilateral carpal tunnel syndrome 11/24/2023 Chronic kidney disease, stage 3a 09/15/2022 Overview: Per CKD protocol HTN, goal below 130/80 05/29/2021 Mixed hyperlipidemia 05/29/2021 VLADIMIR (generalized anxiety disorder) 05/29/2021 Nonrheumatic mitral valve regurgitation 05/29/20 21 Mild aortic insufficiency 05/29/2021 Aortic valve sclerosis 05/29/2021 History of acute prostatitis 05/29/2021 documented as of this encounter (statuses as of 12/08/2023) Resolved Problems Problem Noted Date Diagnosed Date Resolved Date Hyperlipidemia 05/29/2021 05/29/2021 documented as of this encounter (statuses as of 12/08/2023) Immunizations Name Administration Dates Next Due COVID-19 mRNA, LNP-s, No Pre serve, 2-Dose Series (Imaginatik) 05/17/2021,07/06/2020,06/15/2020 Covid-19, Mrna, Lnp-s, Pf, B ivalent, 30 Mcg, IM, 12 yrs and above (Imaginatik) 05/26/2022 Pneumococcal Conjugate Vacci ne, 20-valent ([id number]) 12/04/2021 Pneumococcal Polysaccharide PPV23 (Pneumovax) 04/22/2020 Seasonal [...] Telephone Encounter - Nadia Delgado CMA - 12/08/2023 1:30 PM EDT Letter mailed. * Telephone Encounter - Nadia Delgado CMA [...] Care Team (Late st Contact Info) Description 12/11/2023 11:30 AM EDT Office Visit Orthopaedics, [facility] [address] [place] [address] Karena Brumfield PA-C [address] [place] [address] 12/31/2023 2:30 PM EDT Office Visit Cardiology, [facility] [address] Pipe Moctezuma PA-C [facility] [place] [address] 03/07/2024 3:00 PM EDT Office Visit Dermatology [facility] [place] [address] [place] [address] Oriana Ambrosio MD 16 [place] [address] 06/23/2024 1:00 PM EST Office Visit General Internal [facility] [address] [facility] [place] [address] Deangelo Saldaña MD [address] [facility] [place] [address] Health Maintenance Due Date Last Done Comments DTaP,Tdap,and Td Vaccines (1 - Tdap) 1964 Zoster Vaccines (2 of 2) 06/17/2020 04/22/2020 COVID-19 Vaccine (5 - 2022-24 season) 2023 05/26/2022, 05/17/2021, 07/06/2020, Additional history exists Influenza Vaccine (FLU shot) (#1) 2024 05/22/2023, 05/19/2022, 03/20/2022, Additional history exists GFR 05/12/2024 11/11/2023, 02/0 11/2023, 05/22/2023, Additional history exists CKD HGB USE SMARTSET 26418 07/14/202407/14, 07/14/2023, 05/22/2023, Additional history exists Albumin/Creatinine Ratio 11/10/2024 024, 11/13/2022, 06/05/2021 CKD PHOS USE SMARTSET 15298 11/10/2024 11/11/2023, 0 11/13/2022 Depression Screening 11/10/2024 11/11/2023 Pneumococcal Vaccine: 65+ Years Completed 12/04/2021, 04/22/2020 GARDASIL-HPV IMMUNIZATION SERIES Aged Out No longer eligible based on patient's age to complete this topic Hepatitis B Aged Out No longer eligi ble based on patient's age to complete this topic MENINGOCOCCAL (MENACTRA/MENVEO) Aged Out No longer eligible based on patient's age to complete this topic documented as of this encounter Medical Devices Implanted Type Area Meteorological Engineer Device Identifier Shelf Expiration Date Model / Serial / Lot Lens Li61ao 13.00mm 18.00 - [id number] - [id number] Implanted:Qty: 1 on 07/28/2023 by Eugene Shipley MD at OR [facility] Right: Eye [employer] 04/07/2028 [id number] / [id number] / [id number] Lens Li61ao 13.00mm 17.50 - [id number] - [id number] Implanted:Qty: 1 on 08/11/2023 by Eugene Shipley MD at OR [facility] Left: Eye [employer]CH [employer] LOMB 03/07/2028 [id number] / [id number] / [id number] documented as of this encounter Advance Directives [...] Power of Attor leslie? No Care Teams Fire Control Technician Relationship Specialty Start Date End Date Deangelo Saldaña MD [address] [place] [address] PCP - General Internal Medicine 02/06/21 documented as of this encounter
--- OUTSIDE RECORDS SUMMARY | 2024-05-06 19:07 | External Medical Summary | Summary of Care ---
Author Name Unknown Organization [facility] Address [address] [place] [address] Phone [phone] Care Team Providers Care Weasand Trimmer Name Role Phone Deangelo Saldaña MD Primary Care Provider + Reason for Visit * Reason Onset Date Comments Advice 12/03/2023 Encounter Details Date Type Department Care Team (Late st Contact Info) Description 12/03/2023 Telephone Cardiology, [facility] [address] [facility] [place] [address] [place], [address] [facility] [place] [address] Advice Allergies No known active allergiesdocumented as of this encounter (statuses as of 12/04/2023) Medications Medication Sig Dispensed Refills Start Date [...] take 2 tabs at bedtime . Active Nisoldipine ER 8.5 MG Oral Tablet Extended Release 24 Hour Take 8.5 mg by mouth in the morning. Active Candesartan Cilexetil 16 MG Oral Tablet (Atacand)Indicatio ns:HTN, goal below 130/80 Take 2 Tablets by mouth in the morning. 12/03/2023 Active Candesartan Cilexetil 16 MG Oral Tablet (Atacand)Indicatio ns:HTN, goal below 130/80 Take 1 Tablet by mouth in the morning. 90 Tablet 1 11/11/2023 4 Discontinued documented as of this encounter (statuses as of 12/04/2023) Active Problems Problem Noted Date Diagnosed Date Bilateral carpal tunnel syndrome 11/24/2023 Chronic kidney disease, stage 3a 09/15/2022 Overview: Per CKD protocol HTN, goal below 130/80 05/29/2021 Mixed hyperlipidemia 05/29/2021 VLADIMIR (generalized anxiety disorder) 05/29/2021 Nonrheumatic mitral valve regurgitation 05/29/20 Mild aortic insufficiency 05/29/2021 Aortic valve sclerosis 05/29/2021 History of acute prostatitis 05/29/2021 documented as of this encounter (statuses as of 12/04/2023) Resolved Problems Problem Noted Date Diagnosed Date Resolved Date Hyperlipidemia 05/29/2021 05/29/2021 documented as of this encounter (statuses as of 12/04/2023) Immunizations Name Administration Dates Next Due COVID-19 mRNA, LNP-s, No Pre serve, 2-Dose Series (BeLocal) 05/17/2021,07/06/2020,06/15/2020 Covid-19, Mrna, Lnp-s, Pf, B ivalent, 30 Mcg, IM, 12 yrs and above (BeLocal) 05/26/2022 Pneumococcal Conjugate Vacci ne, 20-valent ([id number]) 12/04/2021 Pneumococcal Polysaccharide PPV23 (Pneumovax) 04/22/2020 Seasonal [...] encounter Miscellaneous Notes * Telephone Encounter - Shraddha Aquino CRNP - 12/04/2023 12:56 PM EDT Reviewed in coverage of Dr. Tol[place] Patient evaluated by Pipe Moctezuma PA-C today in office. BP 132/50 during office visit. HR 70s * Telephone Encounter - Jolene Shirley LPN - 12/03/2023 3:20 PM EDT ER on Thursday with SVT and high blood. Saw Tor [place] DO States he had a stress Echo that was normal. Today BP 180/75, and before phone call 160 systolic C/o SOB, denies chest pain, Reviewed medications and updated med list. * Telephone Encounter - Judy Booker LPN - 12/03/2023 3:08 PM EDT Pt is calling and is requesting an appt today in cardiology due to BP being 170/80. Denies sx and chest pain. Called cardiology scheduling and transferred the call to [facility]. documented in this encounter Plan of Treatment Upcoming Encounters Date Type Department Care Team (Late st Contact Info) Description 12/11/2023 11:30 AM EDT Office Visit Orthopaedics, [facility] [address] [place] [address] Karena [place] [address] 03/07/2024 3:00 PM EDT Office Visit [facility]atology [facility] [address] [place] [address] Oriana Ambrosio MD [address] [place] [address] [place] [address] 06/23/2024 1:00 PM EST Office Visit General Internal Medicine [employer] [address] [place] [address] Deangelo Saldaña MD [address] [place] [address] Health Maintenance Due Date Last Done Comments DTaP,Tdap,and Td Vaccines (1 - Tdap) 1964 Zoster Vaccines (2 of 2) 06/17/2020 04/22/2020 COVID-19 Vaccine (5 - 2022-24 season) 2023 05/26/2022, 05/17/2021, 07/06/2020, Additional history exists GFR 05/12/2024 11/11/2023, 02/0 11/2023, 05/22/2023, Additional history exists CKD HGB USE SMARTSET 38554 07/14/202407/14, 07/14/2023, 05/22/2023, Additional history exists Albumin/Creatinine Ratio 11/10/2024 024, 11/13/2022, 06/05/2021 CKD PHOS USE SMARTSET 75927 11/10/2024 11/11/2023, 0 11/13/2022 Depression Screening 11/10/2024 [...] this encounter Medical Devices Implanted Type Area Networking Engineer Device Identifier Shelf Expiration Date Model / Serial / Lot Lens Li61ao 13.00mm 18.00 - [id number] - [id number] Implanted:Qty: 1 on 07/28/2023 by Eugene Shipley MD at [facility] Right: Eye [employer] 04/07/2028 [id number] / [id number] / [id number] Lens Li61ao 13.00mm 17.50 - [id number] - [id number] Implanted:Qty: 1 on 08/11/2023 by Eugene Shipley MD at OR [facility] Left: Eye BAUSCH [employer] LOMB 03/07/2028 [id number] / [id number] / [id number] documented as of this encounter Visit Diagnoses Diagnosis HTN, goal below 130/80 Unspecified essential hypertension documented in this encounter Advance Directives * [...] Power of Attor leslie? No Care Teams Weasand Trimmer Relationship Specialty Start Date End Date Deangelo Saldaña MD [address] [place] [address] PCP - General Internal Medicine 02/06/21 documented as of this encounter
--- OUTSIDE RECORDS SUMMARY | 2024-05-06 19:07 | External Medical Summary | Summary of Care ---
Author Name Unknown Organization [facility] Address [address] [place] [address] Phone [phone] Care Team Providers Care Rac Specialist Name Role Phone Deangelo Saldaña MD Primary Care Provider + Reason for Visit * Reason Comments Follow Up Encounter Details Date Type Department Care Team (Late st Contact Info) Description 12/04/2023 11:00 AM EDT Office Visit Cardiology, [facility] [address] [facility] [place] [address] Pipe Moctezuma PA-C [address] [place] [address] HTN, goal below 130/80*; Mild aortic insufficiency; Aortic valve sclerosis; Palpitations; VLADIMIR (generalized anxiety disorder); Hospital discharge follow-up Allergies No known active allergiesdocumented as of this encounter (statuses as of 12/05/2023) Medications Medication Sig Dispensed Refills Start Date [...] Tablet (Atacand)Indications: HTN, goal below 130/80 Take 2 Tablets by mouth in the morning. 12/03/2023 Active Metoprolol Succinate ER 25 MG Oral Tablet Extended Release 24 Hour (Toprol XL) Take 0.5 Tablets by mouth daily. 16 Tablet 5 12/04/2023 Active documented as of this encounter (statuses as of 12/05/2023) Active Problems Problem Noted Date Diagnosed Date Bilateral carpal tunnel syndrome 11/24/2023 Chronic kidney disease, stage 3a 09/15/2022 Overview: Per CKD protocol HTN, goal below 130/80 05/29/2021 Mixed hyperlipidemia 05/29/2021 VLADIMIR (generalized anxiety disorder) 05/29/2021 Nonrheumatic mitral valve regurgitation 05/29/20 21 Mild aortic insufficiency 05/29/2021 Aortic valve sclerosis 05/29/2021 History of acute prostatitis 05/29/2021 documented as of this encounter (statuses as of 12/05/2023) Resolved Problems Problem Noted Date Diagnosed Date Resolved Date Hyperlipidemia 05/29/2021 05/29/2021 documented as of this encounter (statuses as of 12/05/2023) Immunizations Name Administration Dates Next Due COVID-19 mRNA, LNP-s, No Pre serve, 2-Dose Series ([employer]) 05/17/2021,07/06/2020,06/15/2020 Covid-19, Mrna, Lnp-s, Pf, B ivalent, 30 Mcg, IM, 12 yrs and above ([employer]) 05/26/2022 Pneumococcal Conjugate Vacci ne, 20-valent ([id number]) 12/04/2021 Pneumococcal Polysaccharide PPV23 (Pneumovax) 04/22/2020 Seasonal [...] Sign Reading Time Taken Comments Blood Pressure 132/50 12/04/2023 11:10 AM EDT Pulse 72 12/04/2023 11:10 AM EDT Temperature - - Respiratory Rate 16 12/04/2023 11:10 AM EDT Oxygen Saturation - - Inhaled Oxygen Concentration - - Weight 71.6 kg (157 lb 12 oz) 12/04/2023 11:10 A M EDT Height - - Body Mass Index 23.99 11/11/2023 12:01 PM EDT documented in this encounter Progress Notes * Pipe Moctezuma PA-C - 12/04/2023 11:00 AM EDT History of Present Illness: 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 Gentile in February 2023. The patient is being evaluated by the undersigned for the first time today. Patient with a history of labile hypertension chronically treated with nisolidipine (Sular) and candesartan. 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 Zio monitoring revealed sinus as the predominant rhythm with an average heart rate of 67 bpm. Occasional isolated supraventricular ectopies were observed along with 18 episodes ofSVT. Symptoms at that time correlated with sensed ectopy only. No significant arrhythmias observed.Stress testing in January 25, 2023 was negative for exercise induced myocardial ischemia at a moderate workload, 8 minutes and 15 seconds on a Gigi protocol. Recently, hypotension was observed leading to discontinuation of nisoldipine and reduction in candesartan. Resting echocardiography obtained on November 27, 2023 revealed hyperdynamic LV systolic function with inducible LV outflow tract gradient with Valsalva up to 67 mmHg. Moderate concentric LVH present. The aortic valve was described as moderately calcified with mild aortic stenosis and mild aortic regurgitation. Patient hospitalized at [facility] November 30 2023, presenting to the ER with a regular pulse, subtle headache. EKG on presentation revealed normal sinus rhythm at 71 bpm. High sensitivity troponin elevated as follows: 63.9 -> 61.9 -> 38.2 pg/mL. Patient seen in consultation byDr. Toledo who felt that the elevated troponin was related to the LVH, hyperdynamic function and p robable administration of epinephrine for carpal tunnel release on 11/27/2023. Volume depletion was felt to be present at the time of the outpatient TTE. On November 30, 2023 patient underwent exercise stress echocardiography, exercising for 4 minutes and 5seconds on the standard Gigi protocol to 91% age predicted maximum heart rate. Resting blood pressure was 167/66, rising to 216/65. Testing terminated due to fatigue and hypertensive blood pressure response. No evidence of inducible ischemia observed. Frequent asymptomatic atrial ectopy observed, b ecoming less frequent with activity, returning to baseline frequency post recovery interval. Resting echocardiography notable for moderate concentric LVH without resting reducible LV outflow tract gradient. Aortic valve stenosis was mild as was the degree of aortic insufficiency. The left atrial, which was described as severely enlarged on outpatient TTE, was described as mildly enlarged on echocardiography at [facility]> Patient notes an episode yesterday while paying the bills, feeling stressed and anxious. Blood pressure checks post hospital discharge have revealed somewhat labile readings ranging from 105/70 to 183/80. Patient notes calming down today after the intake blood pressure by the nurse of 132/50 obtained observed, 116/60 on my evaluation later on. Patient notes feeling well when active. He enjoys exercising. No activity related chest pain. No significant tachypalpitations though chronically intermittently aware of ectopy and concern regarding the possibility of future atrial fibrillation noting left atrial enlargement. No unusual shortness of breath. No fluid retention. No dizziness or syncope.No melena or hematochezia. Notes past issues of Tenormin in the late 1970's or 1980s causing an asthma exacerbation. Patient Active Problem List Diagnosis HTN, goal below 130/80 Mixed hyperlipidemia VLADIMIR (generalized anxiety disorder) Nonrheumatic mitral valve regurgitation Mild aortic insufficiency Aortic valve sclerosis History of acute prostatitis Chronic kidney disease, stage 3a (HCC) Bilateral carpal tunnel syndrome Past Medical History: Diagnosis Date History of acute prostatitis 05/29/2021 Mild aortic insufficiency 05/29/2021 Nonrheumatic mitral valve regurgitation 05/29/2021 Past Surgical History: Procedure Laterality Date CARPAL TUNNEL SURGERY Bilateral 11/27/2023 BILATERAL NEUROPLASTY MEDIAN NERVE AT CARPAL TUNNEL performed by Carri Taylor MD at [facility] COLONOSCOPY, DIAGNOSTIC (RECTUM) 09/03/2021 diverticulosis / COLONOSCOPY FLEXIBLE PROXIMAL DIAGNOSTIC performed by Slava Nash MD at ENDOSCOPY [facility] EGD, FLEXIBLE, DIAGNOSTIC 09/03/2021 reflux esophagitis, gastric polyps / ESOPHAGOGASTRODUODENOSCOPY (EGD), FLEXIBLE, TRANSORAL, DIAGNOSTIC performed by Slava Nash MD at ENDOSCOPY [facility] INNER EAR FLUID SAC SURGERY W/SHUNT Left NECK SPINE FUSION (CERV, BELOW C2) NECK SPINE FUSION (CERV, BELOW C2) 06/16/2023 HI RPR INGUN HERNIA SLIDING ANY AGE REMOVE CATARACT, INSERT LENS PROSTH Right 07/28/2023 RIGHT EXTRACAPSULAR CATARACT REMOVAL WITH INTRAOCULAR LENS performed by Eugene Shipley MDat OR [facility] REMOVE CATARACT, INSERT LENS PROSTH Left 08/11/2023 LEFT EXTRACAPSULAR CATARACT REMOVAL WITH INTRAOCULAR LENS performed by Eugene Shipley MD at OR [facility] UROLOGY SURGERY PROCEDURE NEC 08/2022 urolift Family [...] on file Housing Stability: Not on file Social History Social History Narrative Not on file Complete Review of Systems is as stated above, negative, or noncontributory. Review of patient's allergies indicates: No Known Allergies Current Outpatient Medications Medication Sig Dispense Refill [...] morning take 2 tabs at bedtime . Nisoldipine ER 8.5 MG Oral Tablet Extended Release 24 Hour Take 8.5 mg by mouth in the morning. Candesartan Cilexetil 16 MG Oral Tablet (Atacand) Take 2 Tablets by mouth in the morning. No current facility-administered medications for this visit. OBJECTIVE/PHYSICAL EXAMINATION: BP 132/50 (BP Site: Left Arm, BP Position: Sitting, BP Cuff Size: Regular) | Pulse 72 | Resp 16 | Wt 71.6 kg (157 lb 12 oz) | BMI 23.99 kg/m | BSA 1.85 m Blood pressure my evaluation was 116/60, equal in both arms General: Alert and oriented x3. No acute distress. Pleasant. Comfortable. Cooperative. Skin: No rash Eyes: PER. Conjunctiva pink, sclera clear. HENT: Normocephalic. Atraumatic. Neck: No carotid bruits. No JVD. No HJR. Heart: Regular rate and rhythm, 70 bpm. Grade 2/6 systolic murmur. No diastolic murmur. No rub. No gallop. PMI is nondisplaced. Lungs: Clear to auscultation. No wheeze. No rales. No rhonchi Abdomen: +BS. Soft. Nontender. No masses. No organomegaly. Extremities: No clubbing, cyanosis, or edema. Pulses: radial=2/4, posterior tibial=2/4. Limited neurological examination: No focal deficit. Data: November 27, 2023 TTE Interpretation Summary (as per Dr. Aggarwal): The qualitative LV ejection fraction is 65-69% (normal). The LV wall thickness is moderately increased (concentric). The resting peak instantaneous left ventricular outflow tract gradient is 7.7 mm Hg. The inducible peak instantaneous left ventricular outflow tract gradient is 66.7 mm Hg. Left ventricular wall motion is hyperdynamic Theleft atrium is severely enlarged (>48 ml/m^2,). The left ventricular diastolic function is mildly abnormal (grade I). The aortic valve is moderately calcified. Mild aortic valve stenosis is present. Mild aortic valve regurgitation is present. Echocardiography at the time of stress testing on November 30, 2023 was described as mildly dilated December 04, 2023 EKG: Normal sinus rhythm at 68 bpm. IMPRESSION: Longstanding hypertension, somewhat labile, with moderate concentric LVH; on nisolidipine and candesartan Isolated supraventricular ectopies, symptomatic Supraventricular tachycardia, asymptomatic Enlarged left atrium (described as severely enlarged on November 27, 2023 and mildly enlarged on November 30, 2023) Mild aortic valve stenosis Mild aortic regurgitation Asthma Chart history of generalized anxiety disorder Options of management discussed with patient and who was present for the entire visit. Via shared decision-making, we have agreed to the following: RECOMMENDATIONS/PLAN: Initiate low-dose beta-esteban therapy with metoprolol succinate, 12.5 mg once per day Continue nisolidipine 8.5 mg/day for now, likely switching to amlodipine 2.5 - 5 mg/day due to costof nisolidipine, after ensuring no issues with the addition of metoprolol, and after exhausting hishome supply of nisolidipine. Continue candesartan Continue atorvastatin Stay hydrated. Avoid home blood pressure monitoring if possible Patient to send me a [employer] Message in one week and/or with any issues. Cardiology follow-up in one month or as needed. ER with any and all emergencies advised. Pipe Moctezuma PA-C Department of Cardiology I spent a total of 40-54 minutes (exact time 40 mins) on the date of service in preparation, delivery, and documentation of the care provided to Michael Farah excluding any time spent in the performance of separately billed services. This visit involved medical care services related to at least one serious condition or complex condition requiring ongoing care. This chart was completed in part utilizing [employer] Speech Voice Recognition Software. Grammatical errors, random word insertions, prounoun errors, and incomplete sentences are an occasional consequence of this system due to software limitations, ambient noise, and hardware issues. Any formal questions or concerns about the content, text, or information contained within the body of this dictation should be directly addressed to the provider for clarification. documented in this encounter Procedure Notes * Jose Leiva DO - 12/04/2023 11:22 AM EDTAssociated Order(s): EKG REASON FOR STUDY: htn; palpitations;htn; palpitations CONCLUSIONS: Normal sinus rhythm Normal ECG When compared with ECG of 22-May-2023 13:16, No significant change was found Ventricular Rate: 68 Atrial Rate: 68 HI Interval: 166 QRS Duration: 100 QT/QTc: 372/395 ms P-R-T [place]: 64 : 55 : 67 degrees documented in this encounter Nursing Notes * Melissa Levi CMA - 12/04/2023 11:08 AM EDT Examination Room: 2 Name: Michael Farah Date of : (1945). Reason for Visit: follow up Interim Hospitalization(s): [facility] ER 12/03 - irregular heart rate Problems/Concerns: elevated BP Chest Pain/SOB: denies [facility] Discussed: Not applicable My [facility] is a way you can talk to your provider online through e-mail. Would you like to sign up? I can activate it for you? ALREADY ACTIVE Patient was instructed to not get up on the exam table until directed and assisted by their provider; patient is to remain seated in the chair/ wheelchair/ exam table for fall prevention and safety reasons. Patient is aware to have assistance to step down off exam table with personnel. Patient voiced full comprehension of instructions. documented in this encounter Plan of Treatment Upcoming Encounters Date Type Department Care Team (Late st Contact Info) Description 12/11/2023 11:30 AM EDT Office Visit Orthopaedics, [place] [address] [place] [address] Karena Brumfield PA-C [address] [place] [address] 12/31/2023 2:30 PM EDT Office Visit Cardiology, [facility] [address] [address] Pipe Moctezuma PA-C [address] [place] [address] 03/07/2024 3:00 PM EDT Office Visit Dermatology [facility] [address] [place] [address] Oriana Ambrosio MD [address] [place] [address] 06/23/2024 1:00 PM EST Office Visit General Internal Medicine [facility] [address] [place] [address] Deangelo Saldaña MD [address] [place] [address] Health Maintenance Due Date Last Done Comments DTaP,Tdap,and Td Vaccines (1 - Tdap) 1964 Zoster Vaccines (2 of 2) 06/17/2020 04/22/2020 COVID-19 Vaccine ( season) 2023 05/26/2022, 05/17/2021, 07/06/2020, Additional history exists GFR 05/12/2024 11/11/2023, 02/0 11/2023, 05/22/2023, Additional history exists CKD HGB USE SMARTSET 35063 07/14/202407/14, 07/14/2023, 05/22/2023, Additional history exists Albumin/Creatinine Ratio 11/10/20242 024, 11/13/2022, 06/05/2021 CKD PHOS USE SMARTSET 18566 11/10/2024 11/11/2023, 0 11/13/2022 Depression Screening 11/10/2024 [...] this encounter Medical Devices Implanted Type [employer] Member Other Ranks Device Identifier Shelf Expiration Date Model / Serial / Lot Lens Li61ao 13.00mm 18.00 - [id number] - [id number] Implanted:Qty: 1 on 07/28/2023 by Eugene Shipley MD at OR [facility] Right: Eye [employer] 04/07/2028 [id number] / [id number] / [id number] Lens Li61ao 13.00mm 17.50 - [id number] - [id number] Implanted:Qty: 1 on 08/11/2023 by Eugene Shipley MD at OR [facility] Left: Eye [employer] 03/07/2028 [id number] / [id number] / [id number] documented as of this encounter Procedures Procedure Name Priority Date/Time Associated Diagnosis Comments HI ECG ROUTINE ECG W/LEAST 12 LDS W/I&R Routine 12/04/2023 11:22 AM EDT HTN, goal below 130/80 Palpitations documented in this encounter Results * EKG (12/04/2023 11:22 AM EDT) 12/04/2023 11:2 2 AM EDT Narrative Procedure Note Jose Leiva DO - 12/04/2023 11:22 AM EDT REASON FOR STUDY: htn; palpitations;htn; palpitations CONCLUSIONS: Normal sinus rhythm Normal ECG When compared with ECG of 15-Dec-2023 13:16, No significant change was found Ventricular Rate: 68 Atrial Rate: 68 HI Interval: 166 QRS Duration: 100 QT/QTc: 372/395 ms P-R-T [place]: 64 : 55 : 67 degrees Pipe Jon Jose Elias WHITE EKG [facility] documented in this encounter Visit Diagnoses Diagnosis HTN, goal below 130/80- Primary Unspecified essential hypertension Mild aortic insufficiency Aortic valve disorders Aortic valve sclerosis Aortic valve disorders Palpitations VLADIMIR (generalized anxiety disorder) Generalized anxiety disorder Hospital discharge follow-up Other follow-up examination documented in this encounter Advance Directives * [...] Power of Attor leslie? No Care Teams Rac Specialist Relationship Specialty Start Date End Date Deangelo Saldaña MD [address] [place] [address] PCP - General Internal Medicine 02/06/21 documented as of this encounter"
--- OUTSIDE RECORDS SUMMARY | 2024-05-06 19:07 | External Medical Summary | Summary of Care ---
Author Name Unknown Organization [facility] Address [address] [place] [address] Phone [phone] Care Team Providers Care Unishear Operator Name Role Phone Deangelo Saldaña MD Primary Care Provider + Encounter Details Date Type Department Care Team (Late st Contact Info) Description 03/09/2024 Telephone [facility] [address] [facility] [place] [address] Deangelo Saldaña MD [address] [facility] [address] Allergies No known active allergiesdocumented as of this encounter (statuses as of 03/09/2024) Medications Medication Sig Dispensed Refills Start Date [...] as of this encounter (statuses as of 03/09/2024) Active Problems Problem Noted Date Diagnosed Date Bilateral carpal tunnel syndrome 11/24/2023 Chronic kidney disease, stage 3a 09/15/2022 Overview: Per CKD protocol HTN, goal below 130/80 05/29/2021 Mixed hyperlipidemia 05/29/2021 VLADIMIR (generalized anxiety disorder) 05/29/2021 Nonrheumatic mitral valve regurgitation 05/29/20 21 Mild aortic insufficiency 05/29/2021 Aortic valve sclerosis 05/29/2021 History of acute prostatitis 05/29/2021 documented as of this encounter (statuses as of 03/09/2024) Resolved Problems Problem Noted Date Diagnosed Date Resolved Date Hyperlipidemia 05/29/2021 05/29/2021 documented as of this encounter (statuses as of 03/09/2024) Immunizations Name Administration Dates Next Due COVID-19 mRNA, LNP-s, No Pre serve, 2-Dose Series ([employer]) 05/17/2021,07/06/2020,06/15/2020 Covid-19, Mrna, Lnp-s, Pf, B ivalent, 30 Mcg, IM, 12 yrs and above ([employer]) 05/26/2022 Pneumococcal Conjugate Vacci ne, 20-valent ([id number]) 12/04/2021 Pneumococcal Polysaccharide PPV23 (Pneumovax) 04/22/2020 Seasonal [...] encounter Miscellaneous Notes * Telephone Encounter - Deangelo Saldaña MD - 03/09/2024 8:57 AM EDT SEE OTHER encounter * Telephone Encounter - Gordon AlexanderSALLIE - 03/09/2024 8:53 AM EDT Pt has the plastic piece to his hearing aid stuck in the ear canal, he wants to see ENT for this vscoming in the office. documented in this encounter Plan of Treatment Upcoming Encounters Date Type Department Care Team (Late st Contact Info) Description 03/09/2024 2:00 PM EDT Office Visit Otolaryngology [facility] [address] [place] [address] Davion Cardenas DO [address] [place] [address] 03/14/2024 12:00 PM EDT Office Visit General Internal Medicine [facility] [address] [place] [address] Yaneth Kay MD [address] [place] [address] 04/21/2024 1:30 PM EST Office Visit Cardiology, [facility] [address] [place] [address] Pipe Moctezuma PA-C [address] [place] [address] 06/23/2024 1:00 PM EST Office Visit General Internal Medicine [facility] [address] [place] [address] Deangelo Saldaña MD [address] [place] [address] 07/11/2024 2:30 PM EST Office Visit Cardiology, [facility] [address] [place] [address] [place], [address] [place] [address] 03/23/2025 1:00 PM EDT Office Visit Dermatology Shanika Paul [address] [place] [address] Rolf Payne MD [address] [facility] [place] [address] Health Maintenance Due Date Last Done Comments DTap/Tdap Vaccines (1 - Tdap) 1964 Adult Wellness Visit 2011 Zoster Vaccines (2 of 2) 06/17/2020 04/22/2020 COVID-19 Vaccine (2023- season) 2024 05/26/2022, 05/17/2021, 07/06/2020, Additional history exists Influenza Vaccine (FLU shot) (#1) 2024 05/22/2023, 05/19/2022, 03/20/2022, Additional history exists GFR 05/12/2024 11/11/2023, 02/0 11/2023, 05/22/2023, Additional history exists CKD HGB USE SMARTSET 19350 07/14/202407/14, 07/14/2023, 05/22/2023, Additional history exists Albumin/Creatinine Ratio 11/10/2024 024, 11/13/2022, 06/05/2021 CKD PHOS USE SMARTSET 95042 11/10/2024 11/11/2023, 0 11/13/2022 Depression Screening 11/10/2024 [...] this encounter Medical Devices Implanted Type Area Table Worker Packager Device Identifier Shelf Expiration Date Model / Serial / Lot Lens Li61ao 13.00mm 18.00 - [id number] - [id number] Implanted:Qty: 1 on 07/28/2023 by Eugene Shipley MD at [facility] Right: Eye [employer] 04/07/2028 [id number] / [id number] / [id number] Lens Li61ao 13.00mm 17.50 - [id number] - [id number] Implanted:Qty: 1 on 08/11/2023 by Eugene Shipley MD at OR [facility] Left: Eye [employer] 03/07/2028 [id number] / [id number] / [id number] documented as of this encounter Advance Directives [...] Power of Attor leslie? No Care Teams Unishear Operator Relationship Specialty Start Date End Date Deangelo Saldaña MD [address] [place] [address] PCP - General Internal Medicine 02/06/21 documented as of this encounter
--- OUTSIDE RECORDS SUMMARY | 2024-05-06 19:07 | External Medical Summary | Summary of Care ---
Author Name Unknown Organization [facility] Address [address] [place] [address] Phone [phone] Care Team Providers Care Spa Therapist Name Role Phone Deangelo Saldaña MD Primary Care Provider + Reason for Visit * Reason Comments Skin Check Encounter Details Date Type Department Care Team (Late st Contact Info) Description 03/07/2024 3:00 PM EDT Office Visit Dermatology [address] [address] Oriana Ambrosio MD [address] [place] [id number] Seborrheic keratosis*; History of nonmelanoma skin cancer; [...] mRNA, LNP-s, No Pre serve, 2-Dose Series (eFans) 05/17/2021,07/06/2020,06/15/2020 Covid-19, Mrna, Lnp-s, Pf, B ivalent, 30 Mcg, IM, 12 yrs and above (Pfizer) 05/26/2022 Pneumococcal Conjugate Vacci ne, 20-valent ([id number]) 12/04/2021 Pneumococcal Polysaccharide PPV23 (Pneumovax) 04/22/2020 Seasonal [...] history of skin CA: Followed previously in [facility] and had remote h/o BCC on chest treatedwith likely ED&C based on description - BCC superficial and nodular right lower leg s/p curettage 2022 Sunscreen use: yes when outside for long periods Blistering sunburns: no Tanning bed use: no Dermatologic family history: Family history of skin CA: sister with history of advanced retroperitoneal melanoma treated at [facility] Family history of other skin disorders: None 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 Data: Medications reviewed. [...] within surrounding white macule on the left church. Ddx: pigmentedAK vs residual SK vs LPLK B. Gritty erythematous papules consistent with actinic keratoses on the right forehead, right church, left church C. At the forehead, trunk and extremities are several scattered nieto/brown hyperkeratotic stuck on appearing waxy papules. Verrucous waxy papule with surrounding erythema on left wrist. D. Well healed scar at primary site(s) without evidence of recurrence. E. Fine, greasy scaling of scalp Assessment and Plan: A. Skin neoplasm, left church Ddx: pigmented AK vs residual SK vs [...] MD 03/07/2024 10:36 AM REF: DEANGELO SALDAÑA [facility] [address] [address] (office) [phone] (fax) PCP: DEANGELO SALDAÑA [address] [address] [phone] documented in this encounter Plan of Treatment Upcoming Encounters Date Type Department Care Team (Late st Contact Info) Description 03/14/2024 12:00 PM EDT Office Visit General Internal Medicine [place] Petra Samuel [address] [address] Yaneth Kay MD 200 [facility] [place] [address] 04/21/2024 1:30 PM EST Office Visit Cardiology, [facility] [address] [facility] [place] [address] Pipe Moctezuma PA-C [address] [facility] [address] 06/23/2024 1:00 PM EST Office Visit General Internal Medicine [facility] [address] [facility] [place] [address] Deangelo Saldaña MD [address] [facility] [place] [address] 07/11/2024 2:30 PM EST Office Visit Cardiology, [facility] [address] [facility] [place] [address] Tor Toledo DO 132 [facility] [place] [address] 03/23/2025 1:00 PM EDT Office Visit Dermatology [place] [address] [place] [address] Rolf Payne MD [address] [place], [place] [id number] Pending Results Name Type Priority Associated Diagnoses [...] Additional history exists CKD HGB USE SMARTSET 65424 07/14/202407/14, 07/14/2023, 05/22/2023, Additional history exists Albumin/Creatinine Ratio 11/10/2024 024, 11/13/2022, 06/05/2021 CKD PHOS USE SMARTSET 88263 11/10/2024 11/11/2023, 0 11/13/2022 Depression Screening 11/10/2024 [...] this encounter Medical Devices Implanted Type Area Securities Research Analyst Device Identifier Shelf Expiration Date Model / Serial / Lot Lens Li61ao 13.00mm 18.00 - [id number] - [id number] Implanted:Qty: 1 on 07/28/2023 by Eugene Shipley MD at [facility] Right: Eye [employer]OM[employer] 04/07/2028 [id number] / [id number] / [id number] Lens Li61ao 13.00mm 17.50 - [id number] - [id number] Implanted:Qty: 1 on 08/11/2023 by Eugene Shipley MD at OR [facility] Left: Eye BAUSCH & LOMB 03/07/2028 [id number] / [id number] / [id number] documented as of this encounter Visit Diagnoses [...] Power of Attor leslie? No Care Teams Spa Therapist Relationship Specialty Start Date End Date Deangelo Saldaña MD [address] [place] [address] PCP - General Internal Medicine 02/06/21 documented as of this encounter
--- OUTSIDE RECORDS SUMMARY | 2024-05-06 19:07 | External Medical Summary | Summary of Care ---
Author Name Unknown Organization [facility] Address [address] [place] [address] Phone [phone] Care Team Providers Care Crane Manager Name Role Phone Deangelo Saldaña MD Primary Care Provider + Reason for Visit * Reason Onset Date Comments Other 12/01/2023 Dr Tor rice Encounter Details Date Type Department Care Team (Late st Contact Info) Description 12/01/2023 Telephone Cardiology, [facility] [address] [place] [address] Tor Toledo, [address] [place] [address] Other (Dr Tor Toledo) Allergies No known active allergiesdocumented as of this encounter (statuses as of 12/10/2023) Medications Medication Sig Dispensed Refills Start Date [...] as of this encounter (statuses as of 12/10/2023) Active Problems Problem Noted Date Diagnosed Date Bilateral carpal tunnel syndrome 11/24/2023 Chronic kidney disease, stage 3a 09/15/2022 Overview: Per CKD protocol HTN, goal below 130/80 05/29/2021 Mixed hyperlipidemia 05/29/2021 VLADIMIR (generalized anxiety disorder) 05/29/2021 Nonrheumatic mitral valve regurgitation 05/29/20 Mild aortic insufficiency 05/29/2021 Aortic valve sclerosis 05/29/2021 History of acute prostatitis 05/29/2021 documented as of this encounter (statuses as of 12/10/2023) Resolved Problems Problem Noted Date Diagnosed Date Resolved Date Hyperlipidemia 05/29/2021 05/29/2021 documented as of this encounter (statuses as of 12/10/2023) Immunizations Name Administration Dates Next Due COVID-19 mRNA, LNP-s, No Pre serve, 2-Dose Series ([employer]) 05/17/2021,07/06/2020,06/15/2020 Covid-19, Mrna, Lnp-s, Pf, B ivalent, 30 Mcg, IM, 12 yrs and above ([employer]) 05/26/2022 Pneumococcal Conjugate Vacci ne, 20-valent ([id number]) 12/04/2021 Pneumococcal Polysaccharide PPV23 (Pneumovax) 04/22/2020 Seasonal [...] money to buy more. Never true 05/28/20 Within the past 12 months, t he [...] encounter Miscellaneous Notes * Telephone Encounter - Tor Toledo DO - 12/10/2023 4:34 PM EDT Message received. Thanks for the help Tor Toledo DO * Telephone Encounter - Zoraida Diggs OSA - 12/01/2023 12:[address] Toledo, I am one of the schedulers for cardiology. The patient asked that I reach out to you on his behalf. Thank you, TERRY Whalen Patient message: Hi Dr Toledo I just wanted to thank you profusely for your care & expertise when I was admitted with an irregular heart rate on November 27, 2023 I know that you personally intervened an my behalf to expedite my stress echocardiogram which was the reece to my diagnosis. I was very appreciative of your care and expertise. Thank you again, Stiven Farah documented in this encounter Plan of Treatment Upcoming Encounters Date Type Department Care Team (Late st Contact Info) Description 12/31/2023 2:30 PM EDT Office Visit Cardiology, [facility] [address] [facility] [place] [address] Pipe Moctezuma PA-C [address] [facility] [address] 03/07/2024 3:00 PM EDT Office Visit Dermatology [facility] [address] [place] [address] Oriana Ambrosio MD [address] [place] [address] 06/23/2024 1:00 PM EST Office Visit General Internal Medicine [facility] [address] [place] [address] Deangelo Saldaña MD [address] [place] [address] Health Maintenance Due Date Last Done Comments DTaP,Tdap,and Td Vaccines (1 - Tdap) 1964 Zoster Vaccines (2 of 2) 06/17/2020 04/22/2020 COVID-19 Vaccine (2022- season) 2023 05/26/2022, 05/17/2021, 07/06/2020, Additional history exists Influenza Vaccine (FLU shot) (#1) 2024 05/22/2023, 05/19/2022, 03/20/2022, Additional history exists GFR 05/12/2024 11/11/2023, 0211/2023, 05/22/2023, Additional history exists CKD HGB USE SMARTSET 04251 07/14/202407/14, 07/14/2023, 05/22/2023, Additional history exists Albumin/Creatinine Ratio 11/10/2024 024, 11/13/2022, 06/05/2021 CKD PHOS USE SMARTSET 36061 11/10/2024 11/11/2023, 0 11/13/2022 Depression Screening 11/10/2024 [...] this encounter Medical Devices Implanted Type Area Crate Liner Device Identifier Shelf Expiration Date Model / Serial / Lot Lens Li61ao 13.00mm 18.00 - [id number] - [id number] Implanted:Qty: 1 on 07/28/2023 by Eugene Shipley MD at OR [facility] Right: Eye [employer]OMB 04/07/2028 [id number] / [id number] / [id number] Lens Li61ao 13.00mm 17.50 - [id number] - [id number] Implanted:Qty: 1 on 08/11/2023 by Eugene Shipley MD at OR [facility] Left: Eye BAUSCH & LOMB 03/07/2028 [id number] / [id number] / [id number] documented as of this encounter Advance Directives [...] Power of Attor leslie? No Care Teams Crane Manager Relationship Specialty Start Date End Date Deangelo Saldaña MD [address] [place] [address] PCP - General Internal Medicine 02/06/21 documented as of this encounter
--- OUTSIDE RECORDS SUMMARY | 2024-05-06 19:07 | External Medical Summary | Summary of Care ---
Author Name Unknown Organization [facility] Address [address] [place] [address] Phone [phone] Care Team Providers Care Forestry Patrolman Name Role Phone Deangelo Saldaña MD Primary Care Provider + Reason for Visit * Reason Comments Ear Problem Left ear hearing aid piece stuck in ear * Evaluate & Treat - Unlimited Visits (Within 24 hrs (call dept; emergent)) - Authorized Specialty Diagnoses / Procedures Referred By Stefanie stephenson Referred To Contact Otolaryngology Diagnoses Foreign body of left ear, initial encounter Deangelo Saldaña MD [address] [place] [address] Referral ID Status Reason Start Date Expiration Date Visits Requested Visits Authorized [id number] Authorized Specialty Services Required 03/09/[phone] Encounter Details Date Type Department Care Team (Late st Contact Info) Description 03/09/2024 2:00 PM EDT [facility] [address] [address] Davion Cardenas DO [address] [place] [address] Bilateral impacted cerumen* Allergies No known active allergiesdocumented as of [...] mRNA, LNP-s, No Pre serve, 2-Dose Series ([employer]) 05/17/2021,07/06/2020,06/15/2020 Covid-19, Mrna, Lnp-s, Pf, B ivalent, 30 Mcg, IM, 12 yrs and above ([employer]) 05/26/2022 Pneumococcal Conjugate Vacci ne, 20-valent ([id number]) 12/04/2021 Pneumococcal Polysaccharide PPV23 (Pneumovax) 04/22/2020 Seasonal [...] Sign Reading Time Taken Comments Blood Pressure - - Pulse - - Temperature - - Respiratory Rate - - Oxygen Saturation - - Inhaled Oxygen Concentration - - Weight 72.3 kg (159 lb 4.8 oz) 03/09/2024 2:07 P M EDT Height 172.7 cm (5' 8") 03/09/2024 2:07 PM EDT Body Mass Index 24.22 03/09/2024 2:07 PM EDT documented in this encounter Progress Notes * Davion Cardenas, - 03/09/2024 2:00 PM EDT 03/09/2024 HISTORY OF PRESENT ILLNESS This 78 year old male is seen at the request of Deangelo Saldaña MD for the initial evaluationof ear canal foreign body. Patient thinks the dome to his hearing aid stuck in his left ear canal. He tried to get this out with a curette without success. His hearing does seem down with the canal occluded.. Problem List Patient Active Problem List Diagnosis HTN, goal [...] TUNNEL performed by Carri Taylor MD at [facility] COLONOSCOPY, DIAGNOSTIC (RECTUM) 09/03/2021 diverticulosis / COLONOSCOPY FLEXIBLE PROXIMAL DIAGNOSTIC performed by Slava Nash MD at ENDOSCOPY [facility] EGD, FLEXIBLE, DIAGNOSTIC 09/03/2021 reflux esophagitis, gastric polyps / ESOPHAGOGASTRODUODENOSCOPY (EGD), FLEXIBLE, TRANSORAL, DIAGNOSTIC performed by Slava Nash MD at ENDOSCOPY [facility] INNER EAR FLUID SAC SURGERY W/SHUNT Left NECK SPINE FUSION (CERV, BELOW C2) NECK SPINE FUSION (CERV, BELOW C2) 06/16/2023 MT RPR INGUN HERNIA SLIDING ANY AGE REMOVE CATARACT, INSERT LENS PROSTH Right 07/28/2023 RIGHT EXTRACAPSULAR CATARACT REMOVAL WITH INTRAOCULAR LENS [facility] REMOVE CATARACT, INSERT LENS PROSTH Left 08/11/2023 LEFT EXTRACAPSULAR CATARACT REMOVAL WITH INTRAOCULAR LENS performed by Eugene Shipley MD at OR [facility] UROLOGY SURGERY PROCEDURE NEC 08/2022 urolift Medications Current Outpatient Medications Medication Sig Dispense [...] morning take 2 tabs at bedtime . Metoprolol Succinate ER 25 MG Oral Tablet Extended Release 24 Hour (Toprol XL) Take 0.5 Tablets by mouth daily. 16 Tablet 5 amLODIPine Besylate 2.5 MG Oral Tablet (Norvasc) Take 1 Tablet by mouth daily. 90 Tablet 3 Candesartan Cilexetil 32 MG Oral Tablet (Atacand) Take by mouth daily. Ketoconazole 2 % External Shampoo (Nizoral) Apply to scalp three times weekly in the shower. Lather, let sit for a few minutes, then rinse off. 120 mL 5 No current facility-administered medications for this visit. Allergies Review of patient's allergies indicates: No Known Allergies Family History Family History Problem Relation Name Age of Onset Cancer Sister melanoma Social History Social History Tobacco Use Smoking status: Never Smokeless tobacco: Never Substance Use Topics Alcohol use: Never Vaping/E-Cigarette Use Vaping/E-Cigarette Use Never User Vaping/E-Cigarette Substances Nicotine No Other No Flavoring No THC No Cannabidiol (CBD) No Vaping/E-Cigarette Devices Disposable No Pre-filled or Refillable Cartridge No Refillable Tank No Pre-filled Pod No Review of Systems Negative for constitutional, eyes, cardiac, pulmonary, hepatic, renal, digestive, hematologic, epileptic, syncopal, musculo-skeletal, mental health, integumentary, hypertensive, lipid, arthritic, diabetic, thyroid, or neurologic disorders (except as listed in the PMH and Problem List). Physical Examination: There were no vitals taken for this visit. PHYSICAL EXAM General: This is a healthy appearing male who appears his stated age. The patient is alert and appropriately verbally conversant without hoarseness. Face: The face was inspected and no cutaneous masses or lesions were visualized. There was no erythema or edema noted. Facial movement was symmetric without weakness. No skin lesions were detected. Eyes: Extra-ocular muscle function was intact. No nystagmus was observed. Pupils were equal. Cranial Nerves: Cranial nerves II, III, IV, and were noted to be intact via extra-ocular muscle movement testing. Cranial nerve VII noted to be intact and symmetric by facial movement. Cranial nerve VIII was tested with tuning fork examination and revealed symmetric hearing. Nose: Examination of the external nose marcial Ears: Examination of the ears revealed that the auricles were normally formed with no lesions. The external auditory canals were cleaned of any obstructing cerumen. The tympanic membranes were intactand freely mobile to pneumatoscopy. There are no significant retraction pockets. There is no inflammation visualized. No effusions are seen. Procedure: In order to assess ears in further detail, the patient was brought to the microscope room and the ears were evaluated under the operating microscope. The findings are as noted in the above physical exam. Assessment: 78-year-old male with bilateral cerumen impactions. Plan: Cerumen removed as above. Patient reassured I do not appreciate a hearing aid dome or other foreign body in the left EAC. Follow-up p.r.n. I spent a total of 20 minutes on the date of service in preparation, delivery, and documentation ofthe care provided to the above patient, excluding any time spent on the performance of any procedures or separately billable services. Davion Cardenas DO, [facility] Manager Assessment, Department of Otolaryngology-Head and Neck Surgery [facility] [address] 03/09/2024 2:15 PM documented in this encounter Nursing Notes * Jany Nguyễn LPN - 03/09/2024 2:10 PM EDT Patient presents today for removal of hearing aid piece stuck in ear. Pt states he noticed about a week ago, when he wasn't able to hear correctly. He denies any ear drainage. 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 documented in this encounter Plan of Treatment Upcoming Encounters Date Type Department Care Team (Late st Contact Info) Description 04/21/2024 1:30 PM EST Office Visit Cardiology, [facility] [address] [facility] [place] [address] Pipe Moctezuma PA-C [facility] [address] 06/23/2024 1:00 PM EST Office Visit General Internal Medicine [place] 200 [facility] [place] [address] Deangelo Saldaña MD 200 [facility] [place] [place] [address] 07/11/2024 2:30 PM EST Office Visit Cardiology [facility] 132 [facility] [place] [address] Tor Toledo DO [address] [place] [address] 03/23/2025 1:00 PM EDT Office [place] [address] [place] [address] Rolf Payne MD [address] [place], [place] [phone] Scheduled Referrals Name Type Priority Associated Diagnoses Order Schedule ADULT/PEDS OTOLARYNGOLOGY REFERRAL OP Referral Within 24 hrs (call dept; emergent) Foreign body of left ear, initial encounter Ordered: 03/09/2024 Health Maintenance Due Date Last Done Comments DTap/Tdap Vaccines (1 - Tdap) 1964 Adult Wellness Visit 2010 Zoster Vaccines (2 of 2) 06/17/2020 04/22/2020 COVID-19 Vaccine ( season) 2024 05/26/2022, 05/17/2021, 07/06/2020, Additional history exists Influenza Vaccine (FLU shot) (#1) 2024 05/22/2023, 05/19/2022, 03/20/2022, Additional history exists GFR 05/12/2024 11/11/2023, 02/0 11/2023, 05/22/2023, Additional history exists CKD HGB USE SMARTSET 16545 07/14/202407/14, 07/14/2023, 05/22/2023, Additional history exists Albumin/Creatinine Ratio 11/10/2024 024, 11/13/2022, 06/05/2021 CKD PHOS USE SMARTSET 54760 11/10/2024 11/11/2023, 0 11/13/2022 Depression Screening 11/10/2024 [...] this encounter Medical Devices Implanted Type Area Corporate Training Manager Device Identifier Shelf Expiration Date Model / Serial / Lot Lens Li61ao 13.00mm 18.00 - [id number] - [id number] Implanted:Qty: 1 on 07/28/2023 by Eugene Shipley MD at OR [facility] Right: Eye [employer] 04/07/2028 [id number] / [id number] / [id number] Lens Li61ao 13.00mm 17.50 - [id number] - [id number] Implanted:Qty: 1 on 08/11/2023 by Eugene Shipley MD at OR [facility] Left: Eye BAUSCH [employer] LOMB 03/07/2028 [id number] / [id number] / [id number] documented as of this encounter Visit Diagnoses Diagnosis Bilateral impacted cerumen- Primary Impacted cerumen documented in this encounter Advance Directives * [...] Power of Attor leslie? No Care Teams Forestry Patrolman Relationship Specialty Start Date End Date Deangelo Saldaña MD [address] [place] [address] PCP - General Internal Medicine 02/06/21 documented as of this encounter
--- OUTSIDE RECORDS SUMMARY | 2024-05-06 19:07 | External Medical Summary | Summary of Care ---
Author Name Unknown Organization [facility] Address [address] [place] [address] Phone [phone] Care Team Providers Care Manager Hvac Name Role Phone Deangelo Saldaña MD Primary Care Provider + Reason for Visit * Reason Comments Skin Check Encounter Details Date Type Department Care Team (Late st Contact Info) Description 03/07/2024 3:00 PM EDT Office Visit Dermatology [address] [address] Oriana Ambrosio MD [address] [place] [address] Seborrheic keratosis*; History of nonmelanoma skin cancer; [...] mRNA, LNP-s, No Pre serve, 2-Dose Series ([employer]) 05/17/2021,07/06/2020,06/15/2020 Covid-19, Mrna, Lnp-s, Pf, B ivalent, 30 Mcg, IM, 12 yrs and above (Pfizer) 05/26/2022 Pneumococcal Conjugate Vacci ne, 20-valent ([id number]) 12/04/2021 Pneumococcal Polysaccharide PPV23 (Pneumovax) 04/22/2020 Seasonal [...] history of skin CA: Followed previously in [facility] and had remote h/o BCC on chest treatedwith likely ED&C based on description - BCC superficial and nodular right lower leg s/p curettage 2022 Sunscreen use: yes when outside for long periods Blistering sunburns: no Tanning bed use: no Dermatologic family history: Family history of skin CA: sister with history of advanced retroperitoneal melanoma treated at [facility] Family history of other skin disorders: None 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 Data: Medications reviewed. [...] within surrounding white macule on the left adventist. Ddx: pigmentedAK vs residual SK vs LPLK B. Gritty erythematous papules consistent with actinic keratoses on the right forehead, right adventist, left adventist C. At the forehead, trunk and extremities are several scattered nieto/brown hyperkeratotic stuck on appearing waxy papules. Verrucous waxy papule with surrounding erythema on left wrist. D. Well healed scar at primary site(s) without evidence of recurrence. E. Fine, greasy scaling of scalp Assessment and Plan: A. Skin neoplasm, left adventist Ddx: pigmented AK vs residual SK vs [...] MD 03/07/2024 10:36 AM REF: DEANGELO SALDAÑA [facility] [address] [address] (office) [phone] (fax) PCP: DEANGELO SALDAÑA [address] [address] [phone] documented in this encounter Plan of Treatment Upcoming Encounters Date Type Department Care Team (Late st Contact Info) Description 03/14/2024 12:00 PM EDT Office Visit General Internal Medicine [place] Petra Samuel [address] [place] [address] [address] Yaneth Kay MD [address] [facility] [place] [address] 04/21/2024 1:30 PM EST Office Visit Cardiology, [facility] [address] [facility] [place] [address] Pipe Moctezuma PA-C [address] [facility] [place] [address] 06/23/2024 1:00 PM EST Office Visit General Internal Medicine [facility] [address] [facility] [place] [address] Deangelo Saldaña MD [address] [facility] [place] [address] 07/11/2024 2:30 PM EST Office Visit Cardiology, [facility] [address] [facility] [place] [address] Tor Toledo DO [address] [facility] [place] [address] 03/23/2025 1:00 PM EDT Office Visit Dermatology [place] [address] [place] [address] Rolf Payne MD [address] [place], [place] [id number] Pending Results Name Type Priority Associated Diagnoses [...] Additional history exists CKD HGB USE SMARTSET 00291 07/14/202407/14, 07/14/2023, 05/22/2023, Additional history exists Albumin/Creatinine Ratio 11/10/2024 024, 11/13/2022, 06/05/2021 CKD PHOS USE SMARTSET 84899 11/10/2024 11/11/2023, 0 11/13/2022 Depression Screening 11/10/2024 [...] this encounter Medical Devices Implanted Type Area Hospice Care Transitions Coordinator Device Identifier Shelf Expiration Date Model / Serial / Lot Lens Li61ao 13.00mm 18.00 - [id number] - [id number] Implanted:Qty: 1 on 07/28/2023 by Eugene Shipley MD at OR [facility] Right: Eye [employer] 04/07/2028 [id number] / [id number] / [id number] Lens Li61ao 13.00mm 17.50 - [id number] - [id number] Implanted:Qty: 1 on 08/11/2023 by Eugene Shipley MD at OR [facility] Left: Eye [employer]USCH [employer]OMB 03/07/2028 [id number] / [id number] / [id number] documented as of this encounter Visit Diagnoses [...] Power of Attor leslie? No Care Teams Manager Hvac Relationship Specialty Start Date End Date Deangelo Saldaña MD [address] [place] [address] PCP - General Internal Medicine 02/06/21 documented as of this encounter
--- OUTSIDE RECORDS SUMMARY | 2024-05-06 19:07 | External Medical Summary | Summary of Care ---
Author Name Unknown Organization [facility] Address [address] [place] [address] Phone [phone] Care Team Providers Care Supervisor Pipe Finishing Name Role Phone Deangelo Saldaña MD Primary Care Provider + Reason for Visit * Reason Comments Follow Up 1 month follow up. D enies chest pain, palpitations, SOB, dizziness and edema. Encounter Details Date Type Department Care Team (Late st Contact Info) Description 12/31/2023 2:30 PM EDT Office Visit Cardiology, [facility] [address] [place] [address] Pipe Moctezuma PA-C [address] [place] [address] HTN, goal below 130/80*; Mild aortic insufficiency; Palpitations; Nonrheumatic aortic valve stenosis; Premature atrial contractions Allergies No known active allergiesdocumented as of this encounter (statuses as of 01/03/2024) Medications Medication Sig Dispensed Refills Start Date [...] Active amLODIPine Besylate 2.5 MG Oral Tablet (Norvasc)Indicatio ns:HTN, goal below 130/80 Take 1 Tablet by mouth daily. 90 Tablet 3 12/11/2023 Active Candesartan Cilexetil 32 MG Oral Tablet (Atacand) Take by mouth daily. Active Candesartan Cilexetil 16 MG Oral Tablet (Atacand)Indicatio ns:HTN, goal below 130/80 Take 2 Tablets by mouth in the morning. 12/03/2023 12/31/2023 Discontinued (Medication List Clean Up) documented as of this encounter (statuses as of 01/03/2024) Active Problems Problem Noted Date Diagnosed Date Bilateral carpal tunnel syndrome 11/24/2023 Chronic kidney disease, stage 3a 09/15/2022 Overview: Per CKD protocol HTN, goal below 130/80 05/29/2021 Mixed hyperlipidemia 05/29/2021 VLADIMIR (generalized anxiety disorder) 05/29/2021 Nonrheumatic mitral valve regurgitation 05/29/20 Mild aortic insufficiency 05/29/2021 Aortic valve sclerosis 05/29/2021 History of acute prostatitis 05/29/2021 documented as of this encounter (statuses as of 01/03/2024) Resolved Problems Problem Noted Date Diagnosed Date Resolved Date Hyperlipidemia 05/29/2021 05/29/2021 documented as of this encounter (statuses as of 01/03/2024) Immunizations Name Administration Dates Next Due COVID-19 mRNA, LNP-s, No Pre serve, 2-Dose Series ([employer]) 05/17/2021,07/06/2020,06/15/2020 Covid-19, Mrna, Lnp-s, Pf, B ivalent, 30 Mcg, IM, 12 yrs and above (Pfizer) 05/26/2022 Pneumococcal Conjugate Vacci ne, 20-valent ([id number]) 12/04/2021 Pneumococcal Polysaccharide PPV23 (Pneumovax) 04/22/2020 Seasonal [...] Sign Reading Time Taken Comments Blood Pressure 128/74 12/31/2023 2:52 PM EDT Pulse 64 12/31/2023 2:52 PM EDT Temperature - - Respiratory Rate 15 12/31/2023 2:52 PM EDT Oxygen Saturation - - Inhaled Oxygen Concentration - - Weight 72.8 kg (160 lb 8 oz) 12/31/2023 2:52 PM EDT Height - - Body Mass Index 24.4 11/11/2023 12:01 PM EDT documented in this encounter Progress Notes * Pipe Moctezuma PA-C - 12/31/2023 3:10 PM EDT History of Present Illness: Michael 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 Patient with a history of labile hypertension chronically treated with nisolidipine (Sular) and candesartan. In 2012, Dr. 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 In early November 2023 hypotension was observed leading to discontinuation of nisoldipine and reductionin candesartan. Resting echocardiography obtained on November 27, 2023 revealed hyperdynamic LV systolic function with inducible LV outflow tract gradient with Valsalva up to 67 mmHg. Moderate concentric LVH present. The aortic valve was described as moderately calcified with mild aortic stenosis and mild aortic regurgitation. Patient hospitalized at [facility] November 30 2023, presenting to the ER [...] described as mildly enlarged on echocardiography at [facility]. Patient evaluated by the undersigned on December 04, 2023. Low-dose beta-esteban therapy was prescribedwith metoprolol succinate 12.5 mg once per day. Nisolidipine 8.5 mg/day was changed to amlodipine 2.5 mg/day due to cost after exhausting his home supply. These changes were tolerated well. Patient returns today, accompanied by spouse, feeling well. No complaints or concerns. Patient notes enjoyingworking out, walking on the treadmill as well as swimming. He recalls a good memory of learning to surf at [facility] during a prior vacation. No activity related chest pain. No palpitations no unusual shortness of breath. No fluid retention. He did have one brief episode of dizziness one morning since last evaluation that his recalled however the patient is not concerned. No vertigo. No syncope. Patient Active Problem List Diagnosis HTN, goal [...] TUNNEL performed by Carri Taylor MD at [facility] COLONOSCOPY, DIAGNOSTIC (RECTUM) 09/03/2021 diverticulosis / COLONOSCOPY FLEXIBLE PROXIMAL DIAGNOSTIC performed by Slava Nash MD at ENDOSCOPY [facility] EGD, FLEXIBLE, DIAGNOSTIC 09/03/2021 reflux esophagitis, gastric polyps / ESOPHAGOGASTRODUODENOSCOPY (EGD), FLEXIBLE, TRANSORAL, DIAGNOSTIC performed by Slava Nash MD at ENDOSCOPY [facility] INNER EAR FLUID SAC SURGERY W/SHUNT Left NECK SPINE FUSION (CERV, BELOW C2) NECK SPINE FUSION (CERV, BELOW C2) 06/16/2023 [facility] RPR INGUN HERNIA SLIDING ANY AGE REMOVE CATARACT, INSERT LENS PROSTH Right 07/28/2023 RIGHT EXTRACAPSULAR CATARACT REMOVAL WITH INTRAOCULAR LENS performed by Eugene Shipley MDat OR [facility] REMOVE CATARACT, INSERT LENS PROSTH Left 08/11/2023 LEFT EXTRACAPSULAR CATARACT REMOVAL WITH INTRAOCULAR LENS performed by Eugene Shipley MD at OR [facility] UROLOGY SURGERY PROCEDURE NEC 08/2022 urolift [...] Oral Tablet (Atacand) Take by mouth daily. Fluticasone Propionate HFA 110 MCG/ACT Inhalation Aerosol (Flovent Hfa) Inhale 2 Puffs by mouth in the morning and 2 Puffs before bedtime. No current facility-administered medications for this visit. OBJECTIVE/PHYSICAL EXAMINATION: BP 128/74 | Pulse 64 | Resp 15 | Wt 72.8 kg (160 lb 8 oz) | BMI 24.40 kg/m | BSA 1.87 m Blood pressure my evaluation was 136/70, equal in both arms, without significant positional change during 3 positioned blood pressure assessment. General: Alert and oriented x3. No acute distress. Pleasant. Comfortable. Cooperative. Skin: No rash Eyes: PER. Conjunctiva pink, sclera clear. HENT: Normocephalic. Atraumatic. Neck: No carotid bruits. No JVD. No HJR. Heart: Regular rate and rhythm, 64 bpm. Grade 2/6 systolic murmur. No diastolic [...] rhythm at 68 bpm. IMPRESSION: Longstanding hypertension, with moderate concentric LVH. Blood pressure well controlled. Isolated supraventricular ectopies, symptomatic, quiescent since addition of low-dose metoprolol succinate Supraventricular tachycardia, asymptomatic Enlarged left atrium (described as severely enlarged on November 27, 2023 and mildly enlarged on November 30, 2023) Mild aortic valve stenosis Mild aortic regurgitation Asthma Chart history of generalized anxiety disorder Options of management discussed with patient and who was present for the entire visit. Via shared decision-making, we have agreed to the following: RECOMMENDATIONS/PLAN: Continue the current medication regimen as prescribed, without change. Hydration encouraged. Cardiology follow-up in 3 months with the undersigned, [address] Toledo. Pipe Moctezuma PA-C Department of Cardiology I spent a total of 20-29 minutes (exact time 24 mins) on the date of service in preparation, delivery, and documentation of the care provided to Michael Farah excluding any time spent in the performance of separately billed services. This visit involved medical care services related to at least one serious condition or complex condition requiring ongoing care. This chart was completed in part utilizing [employer] Speech Voice Recognition Software. Grammatical errors, random word insertions, prounoun errors, and incomplete sentences are an occasional consequence of this system due to software limitations, ambient noise, and hardware issues. Any formal questions or concerns about the content, text, or information contained within the body of this dictation should be directly addressed to the provider for clarification. documented in this encounter Nursing Notes * Santosh Oliveira LPN - 12/31/2023 2:51 PM EDT Patient identified by full name and date of Chief Complaint Patient presents with Follow Up 1 month follow up. Denies chest pain, palpitations, SOB, dizziness and edema. Examination Room: 3 Name: Michael Farah Date of : (1945). Reason for Visit: 1 month follow up Interim Hospitalization(s): [facility] ED 11/30/23 Problems/Concerns: Denies Chest Pain/SOB: Denies [facility] Discussed: Not applicable [facility] is a way you can talk to [...] PM EDT Office Visit Dermatology [facility] [address] [place] [address] Oriana Ambrosio MD [address] [place] [address] 04/21/2024 1:30 PM EST Office Visit Cardiology, [facility] [address] [facility] [place] [address] Pipe Moctezuma PA-C [address] [place] [address] 06/23/2024 1:00 PM EST Office Visit General Internal Medicine [facility] [address] [facility] [place] [address] Deangelo Saldaña MD [address] [facility] [place], [place] [address] 07/11/2024 2:30 PM EST Office Visit Cardiology, [facility] [address] [place] [address] Tor Toledo, [address] [place] [address] Health Maintenance Due Date Last Done Comments DTaP,Tdap,and Td Vaccines (1 - Tdap) 1964 Zoster Vaccines (2 of 2) 06/17/2020 04/22/2020 COVID-19 Vaccine (5 - 2022- season) 2023 05/26/2022, 05/17/2021, 07/06/2020, Additional history exists Influenza Vaccine (FLU shot) (#1) 2024 05/22/2023, 05/19/2022, 03/20/2022, Additional history exists GFR 05/12/2024 11/11/2023, 02/0 11/2023, 05/22/2023, Additional history exists CKD HGB USE SMARTSET 66034 07/14/202407/14, 07/14/2023, 05/22/2023, Additional history exists Albumin/Creatinine Ratio 11/10/20242 024, 11/13/2022, 06/05/2021 CKD PHOS USE SMARTSET 11597 11/10/2024 11/11/2023, 0 11/13/2022 Depression Screening 11/10/2024 [...] this encounter Medical Devices Implanted Type Area Tutor Coordinator Device Identifier Shelf Expiration Date Model / Serial / Lot Lens Li61ao 13.00mm 18.00 - [id number] - [id number] Implanted:Qty: 1 on 07/28/2023 by Eugene Shipley MD at OR [facility] Right: Eye [employer]OM[employer] 04/07/2028 [id number] / [id number] / [id number] Lens Li61ao 13.00mm 17.50 - [id number] - [id number] Implanted:Qty: 1 on 08/11/2023 by Eugene Shipley MD at OR [facility] Left: Eye [employer]OMB 03/07/2028 [id number] / [id number] / [id number] documented as of this encounter Visit Diagnoses Diagnosis HTN, goal below 130/80- Primary Unspecified essential hypertension Mild aortic insufficiency Aortic valve disorders Palpitations Nonrheumatic aortic valve stenosis Aortic valve disorders Premature atrial contractions Supraventricular premature beats documented in this encounter Advance Directives * [...] Power of Attor leslie? No Care Teams Supervisor Pipe Finishing Relationship Specialty Start Date End Date Deangelo Saldaña MD [address] [place] [address] PCP - General Internal Medicine 02/06/21 documented as of this encounter"
--- OUTSIDE RECORDS SUMMARY | 2024-05-06 19:07 | External Medical Summary | Summary of Care ---
Author Name Unknown Organization [facility] Address [address] [place] [address] Phone [phone] Care Team Providers Care Museum Attendant Name Role Phone Deangelo Saldaña MD Primary Care Provider + Reason for Visit * Reason Onset Date Comments Appointment 04/04/2024 Encounter Details Date Type Department Care Team (Late st Contact Info) Description 04/04/2024 Telephone Cardiology, [facility] [address] [facility] [place] [address] Pipe Moctezuma PA-C [address] [facility] [place] [address] Appointment Allergies No known active allergiesdocumented as of this encounter (statuses as of 04/04/2024) Medications Medication Sig Dispensed Refills Start Date [...] as of this encounter (statuses as of 04/04/2024) Active Problems Problem Noted Date Diagnosed Date Bilateral carpal tunnel syndrome 11/24/2023 Chronic kidney disease, stage 3a 09/15/2022 Overview: Per CKD protocol HTN, goal below 130/80 05/29/2021 Mixed hyperlipidemia 05/29/2021 VLADIMIR (generalized anxiety disorder) 05/29/2021 Nonrheumatic mitral valve regurgitation 05/29/20 21 Mild aortic insufficiency 05/29/2021 Aortic valve sclerosis 05/29/2021 History of acute prostatitis 05/29/2021 documented as of this encounter (statuses as of 04/04/2024) Resolved Problems Problem Noted Date Diagnosed Date Resolved Date Hyperlipidemia 05/29/2021 05/29/2021 documented as of this encounter (statuses as of 04/04/2024) Immunizations Name Administration Dates Next Due COVID-19 mRNA, LNP-s, No Pre serve, 2-Dose Series ([employer]) 05/17/2021,07/06/2020,06/15/2020 Covid-19, Mrna, Lnp-s, Pf, B ivalent, 30 Mcg, IM, 12 yrs and above (Pfizer) 05/26/2022 Pneumococcal Conjugate Vacci ne, 20-valent ([id number]) 12/04/2021 Pneumococcal Polysaccharide PPV23 (Pneumovax) 04/22/2020 Seasonal [...] encounter Miscellaneous Notes * Telephone Encounter - Kenroy Villarreal, TERRY - 04/04/2024 2:03 PM EDT Patient has been called and is scheduled and placed on the wait-list for: 06/17/2024 Status: [place] Time: 10:30 AM Length: 30 Visit Type: RETURN CARDIOLOGY [[id number]] Reg Status: Verified Copay: $0.00 Provider: Pipe Moctezuma PA-C Department: CARDIOLOGY [facility] Additional Resources Requested: * Telephone Encounter - Paul Garcia OSA - 04/04/2024 1:50 PM EDT Person calling: Michael Farah Relationship to patient: self Phone/Fax to return call: [phone] Reason for call(brief): Appointment Reschedule Pharmacy: N/A Provider Name:Pipe Moctezuma PA-C Detailed message to office: Patient calling to reschedule appointment with Pipe Moctezuma. Patient was scheduled with Pipe on 04/21/24 but had to cancel due [place] [place] [facility] Patient was offered next available with Pipe for 08/2024 however patient is adamant about being seen for a sooner appointment. Patient did advise he will be back in the area on 04/25/24. If you can please review and advise of a sooner date/time for patient to be seen for follow up? Please respond to the scheduling pool @ [phone] Thank You, Paul Ext [phone] documented in this encounter Plan of Treatment Upcoming Encounters Date Type Department Care Team (Late st Contact Info) Description 06/17/2024 10:30 AM EST Office Visit Cardiology, [facility] [address] [place] [address] Pipe Moctezuma PA-C [address] [place] [address] 06/23/2024 1:00 PM EST Office Visit General Internal Medicine [facility] [place] [facility] [address] Deangelo Saldaña MD [address] [place] [address] 03/23/2025 1:00 PM EDT Office Visit Dermatology [facility] Paul [address] [place] [address] Rolf Payne MD [address] [place] [address] Health Maintenance Due Date Last Done Comments DTap/Tdap Vaccines (1 - Tdap) 1964 Adult Wellness Visit 2010 Zoster Vaccines (2 of 2) 06/17/2020 04/22/2020 COVID-19 Vaccine ( season) 2024 05/26/2022, 05/17/2021, 07/06/2020, Additional history exists Influenza Vaccine (FLU shot) (#1) 2024 05/22/2023, 05/19/2022, 03/20/2022, Additional history exists GFR 05/12/2024 11/11/2023, 02/0 11/2023, 05/22/2023, Additional history exists CKD HGB USE SMARTSET 00938 07/14/202407/14, 07/14/2023, 05/22/2023, Additional history exists Albumin/Creatinine Ratio 11/10/2024 024, 11/13/2022, 06/05/2021 CKD PHOS USE SMARTSET 46549 11/10/2024 11/11/2023, 0 11/13/2022 Depression Screening 11/10/2024 [...] this encounter Medical Devices Implanted Type Area Supervisor Ditching Device Identifier Shelf Expiration Date Model / Serial / Lot Lens Li61ao 13.00mm 18.00 - [id number] - [id number] Implanted:Qty: 1 on 07/28/2023 by Eugene Shipley MD at [place] [facility] Right: Eye [employer] 04/07/2028 [id number] / [id number] / [id number] Lens Li61ao 13.00mm 17.50 - [id number] - [id number] Implanted:Qty: 1 on 08/11/2023 by Eugene Shipley MD at OR [facility] Left: Eye [employer] 03/07/2028 [id number] / [id number] / [id number] documented as of this encounter Advance Directives [...] Power of Attor leslie? No Care Teams Museum Attendant Relationship Specialty Start Date End Date Deangelo Saldaña MD [address] [facility] [place] [address] PCP - General Internal Medicine 02/06/21 documented as of this encounter
--- OUTSIDE RECORDS SUMMARY | 2024-05-06 19:07 | External Medical Summary | Summary of Care ---
Author Name Unknown Organization [facility] Address [address] [place] [address] Phone [phone] Care Team Providers Care Ballistics Teacher Name Role Phone Deangelo Saldaña MD Primary Care Provider + Reason for Visit * Reason Onset Date Comments Advice 10/16/2023 Encounter Details Date Type Department Care Team (Late st Contact Info) Description 10/16/2023 Telephone General Internal Medicine [facility] [address] [facility] [place] [address] Deangelo Saldaña MD [address] [place] [address] Advice Allergies No known active allergiesdocumented as of this encounter (statuses as of 01/15/2024) Medications Medication Sig Dispensed Refills Start Date [...] as of this encounter (statuses as of 01/15/2024) Active Problems Problem Noted Date Diagnosed Date Bilateral carpal tunnel syndrome 11/24/2023 Chronic kidney disease, stage 3a 09/15/2022 Overview: Per CKD protocol HTN, goal below 130/80 05/29/2021 Mixed hyperlipidemia 05/29/2021 VLADIMIR (generalized anxiety disorder) 05/29/2021 Nonrheumatic mitral valve regurgitation 05/29/20 Mild aortic insufficiency 05/29/2021 Aortic valve sclerosis 05/29/2021 History of acute prostatitis 05/29/2021 documented as of this encounter (statuses as of 01/15/2024) Resolved Problems Problem Noted Date Diagnosed Date Resolved Date Hyperlipidemia 05/29/2021 05/29/2021 documented as of this encounter (statuses as of 01/15/2024) Immunizations Name Administration Dates Next Due COVID-19 mRNA, LNP-s, No Pre serve, 2-Dose Series ([employer] 05/17/2021,07/06/2020,06/15/2020 Covid-19, Mrna, Lnp-s, Pf, B ivalent, 30 Mcg, IM, 12 yrs and above ([employer] 05/26/2022 Pneumococcal Conjugate Vacci ne, 20-valent ([id number]) 12/04/2021 Pneumococcal Polysaccharide PPV23 (Pneumovax) 04/22/2020 Seasonal [...] encounter Miscellaneous Notes * Telephone Encounter - Nancy Elder LPN - 10/16/2023 3:35 PM EDT Pt calling due to his nuerosugreon in [facility] ordered an emg to rule out carpral tunnel. He would like to schedule this test. Transferred call to scheduling. documented in this encounter Plan of Treatment Upcoming Encounters Date Type Department Care Team (Late st Contact Info) Description 03/07/2024 3:00 PM EDT Office Visit Dermatology Shanika [place] [address] Oriana Ambrosio MD [address] [place] [address] 04/21/2024 1:30 PM EST Office Visit Cardiology, [facility] [address] [facility] [place] [address] Pipe Moctezuma PA-C [address] [place] [address] 06/23/2024 1:00 PM EST Office Visit General Internal Medicine [facility] [address] [facility] [place] [address] Deangelo Saldaña MD [address] [facility] [place] [address] 07/11/2024 2:30 PM EST Office Visit Cardiology, [facility] [address] [place] [address] Tor Toledo DO [address] [place] [address] Health Maintenance Due Date Last Done Comments DTaP,Tdap,and Td Vaccines (1 - Tdap) 1964 Adult Wellness Visit 2010 Zoster Vaccines (2 of 2) 06/17/2020 04/22/2020 COVID-19 Vaccine ( - 2022- season) 2023 05/26/2022, 05/17/2021, 07/06/2020, Additional history exists Influenza Vaccine (FLU shot) (#1) 2024 05/22/2023, 05/19/2022, 03/20/2022, Additional history exists GFR 05/12/2024 11/11/2023, 02/0 11/2023, 05/22/2023, Additional history exists CKD HGB USE SMARTSET 90901 07/14/202407/14, 07/14/2023, 05/22/2023, Additional history exists Albumin/Creatinine Ratio 11/10/202411/10/ 024, 11/13/2022, 06/05/2021 CKD PHOS USE SMARTSET 59624 11/10/2024 11/11/2023, 0 11/13/2022 Depression Screening 11/10/2024 [...] this encounter Medical Devices Implanted Type Area Health It Specialist Device Identifier Shelf Expiration Date Model / Serial / Lot Lens Li61ao 13.00mm 18.00 - [id number] - [id number] Implanted:Qty: 1 on 07/28/2023 by Eugene Shipley MD at OR [facility] Right: Eye [employer] 04/07/2028 [id number] / [id number] / [id number] Lens Li61ao 13.00mm 17.50 - [id number] - [id number] Implanted:Qty: 1 on 08/11/2023 by Eugene Shipley MD at OR [facility] Left: Eye [employer] 03/07/2028 [id number] / [id number] / [id number] documented as of this encounter Advance Directives [...] Power of Attor leslie? No Care Teams Ballistics Teacher Relationship Specialty Start Date End Date Deangelo Saldaña MD [address] [facility] [place] [address] PCP - General Internal Medicine 02/06/21 documented as of this encounter
--- OUTSIDE RECORDS SUMMARY | 2024-05-06 19:08 | External Medical Summary | Summary of Care ---
Author Name Unknown Organization [facility] Address [address] [place] [address] Phone [phone] Care Team Providers Care Lumber Mover Name Role Phone Deangelo Saldaña MD Primary Care Provider + Encounter Details Date Type Department Care Team (Late st Contact Info) Description 11/30/2023 Result Scan Unspecified Department <No scans attached> Allergies No known active allergiesdocumented as of this encounter (statuses as of 12/02/2023) Medications Medication Sig Dispensed Refills Start Date [...] as of this encounter (statuses as of 12/02/2023) Active Problems Problem Noted Date Diagnosed Date Bilateral carpal tunnel syndrome 11/24/2023 Chronic kidney disease, stage 3a 09/15/2022 Overview: Per CKD protocol HTN, goal below 130/80 05/29/2021 Mixed hyperlipidemia 05/29/2021 VLADIMIR (generalized anxiety disorder) 05/29/2021 Nonrheumatic mitral valve regurgitation 05/29/20 Mild aortic insufficiency 05/29/2021 Aortic valve sclerosis 05/29/2021 History of acute prostatitis 05/29/2021 documented as of this encounter (statuses as of 12/02/2023) Resolved Problems Problem Noted Date Diagnosed Date Resolved Date Hyperlipidemia 05/29/2021 05/29/2021 documented as of this encounter (statuses as of 12/02/2023) Immunizations Name Administration Dates Next Due COVID-19 mRNA, LNP-s, No Pre serve, 2-Dose Series ([employer]) 05/17/2021,07/06/2020,06/15/2020 Covid-19, Mrna, Lnp-s, Pf, B ivalent, 30 Mcg, IM, 12 yrs and above ([employer]) 05/26/2022 Pneumococcal Conjugate Vacci ne, 20-valent ([id number]) 12/04/2021 Pneumococcal Polysaccharide PPV23 (Pneumovax) 04/22/2020 Seasonal [...] 12/04/2023 11:00 AM EDT Office Visit Cardiology, Health system [address] [facility] [place] [address] Pipe Moctezuma PA-C [address] [facility] [place] [address] 12/11/2023 11:30 AM EDT Office Visit Orthopaedics, [facility] [address] [place] [address] Karena Brumfield PA-C [address] [place] [address] 03/07/2024 3:00 PM EDT Office Visit Dermatology Shanika Paul [address] [place] [phone] Oriana Ambrosio MD [address] [place] [address] 06/23/2024 1:00 PM EST Office Visit General Internal Medicine J[facility] Muro [place] [address] [facility] [place] [address] Deangelo Saldaña MD [address] [facility] [place] [address] Health Maintenance Due Date Last Done Comments DTaP,Tdap,and Td Vaccines (1 - Tdap) 1964 Zoster Vaccines (2 of 2) 06/17/2020 04/22/2020 COVID-19 Vaccine (5 - 2022-24 season) 2023 05/26/2022, 05/17/2021, 07/06/2020, Additional history exists GFR 05/12/2024 11/11/2023, 02/0 11/2023, 05/22/2023, Additional history exists CKD HGB USE SMARTSET 50978 07/14/202407/14, 07/14/2023, 05/22/2023, Additional history exists Albumin/Creatinine Ratio 11/10/2024 024, 11/13/2022, 06/05/2021 CKD PHOS USE SMARTSET 34557 11/10/2024 11/11/2023, 0 11/13/2022 Depression Screening 11/10/2024 [...] this encounter Medical Devices Implanted Type Area Curtain Drier Device Identifier Shelf Expiration Date Model / Serial / Lot Lens Li61ao 13.00mm 18.00 - [id number] - [id number] Implanted:Qty: 1 on 07/28/2023 by Eugene Shipley MD at OR [facility] Right: Eye [employer] 04/07/2028 [id number] / [id number] / [id number] Lens Li61ao 13.00mm 17.50 - [id number] - [id number] Implanted:Qty: 1 on 08/11/2023 by Eugene Shipley MD at OR [facility] Left: Eye [employer] 03/07/2028 [id number] / [id number] / [id number] documented as of this encounter Procedures Procedure Name Priority Date/Time Associated Diagnosis Comments ECHOCARDIOLOGY SCANNED RESULT 11/30/2023 documented in this encounter Results * ECHOCARDIOLOGY SCANNED RESULT (11/30/2023) 11/30/2023 No Physician Data Unknown ECHOCARDIOLOGY documented in this encounter Advance Directives * [...] Power of Attor leslie? No Care Teams Lumber Mover Relationship Specialty Start Date End Date Deangelo Saldaña MD [address] [facility], [place] [phone] PCP - General Internal Medicine 02/06/21 documented as of this encounter
--- NOTE | 2024-05-06 19:09 | Emergency Department Note ---
Impression & Plan Dizziness, Abnormal computed tomography angiography of head, Acute UTI, Elevated TSH ED Provider Note CHIEF COMPLAINT: Hypertension, dizziness HISTORY OF PRESENTING ILLNESS: This 79-year-old male patient presents to the emergency department with his for evaluation of dizziness for the past week with development of elevated blood pressure since yesterday. He states that it does not feel like vertigo - just feels like he is imbalanced and feels fatigued. Denies any spinning of the room or spinning of himself. He states that his symptoms are intermittent. Highest BP reading was 180/80 at home which is high for him per patient. He has been taking his BP medications correctly without missed doses. He has not been having any chest pain or SOB. Denies abdominal pain, nausea, or vomiting. Denies any headache or changes in his vision. Denies any fevers, cough, or URI symptoms. Denies any injury or trauma. Denies any changes in his speech or trouble walking. Denies any weakness or numbness/tingling of his extremities. Denies any changes in his personality. Denies any other neurological symptoms. He is not on any blood thinners. REVIEW OF SYSTEMS: See HPI for pertinent positives and pertinent negatives. ALLERGIES: NKDA MEDICATIONS: See below PAST MEDICAL HISTORY: See below PHYSICAL EXAM: VITALS: Vitals are noted on the nurse's note and reviewed by myself. GENERAL: No acute distress, non-diaphoretic. SKIN: Capillary reflex less than 2 seconds. HEAD: No scalp tenderness. No step-offs felt. EARS: Bilateral external auditory canals clear. Bilateral tympanic membranes pearly phelps without erythema or effusion. No hemotympanum. No mcrae sign. No mastoid tenderness. EYES: Pupils equal round and reactive to light and accommodation. Conjunctivae without injection, sclerae without icterus. Extraocular movements intact without pain. No nystagmus. NOSE: Patent, turbinates without inflammation or discharge. No sinus tenderness. No septal hematoma or bleeding. FACE: No facial bone tenderness. Full range of motion of the jaw without tenderness. No facial droop. MOUTH: Mucous membranes moist. Uvula midline. Airway patent. Tongue does not deviate. NECK: Supple without nuchal rigidity. Cervical spine is nontender. Full range of motion of the neck without tenderness and normal strength. HEART: Regular rate and rhythm without murmurs gallops or rubs. LUNGS: Clear to auscultation bilaterally without wheezes, rales or rhonchi. No retractions or accessory muscle use. No chest wall tenderness. ABDOMEN: Positive bowel sounds x 4. Normal tympanic percussion. Soft, nontender to palpation. No masses or hepatosplenomegaly. No guarding or rebound tenderness. No focal RLQ or LLQ tenderness. MUSCULOSKELETAL: No tenderness of the thoracic or lumbar spine or paraspinal muscles. Strength 5/5 and equal bilaterally in the upper and lower extremities. Peripheral pulses 2+ and equal in the bilateral upper and lower extremities. Bilateral calves are nontender to palpation. No erythema, edema, warmth, or cording. Negative Homans' sign. NEURO: Patient was alert and oriented to person place and time. Normal mental status exam. Normal sensation to light and sharp touch. Negative Romberg and pronator drift. Normal jpabbj-nk-naob testing. Normal walking gait. Cerebellar function intact. No focal neurological deficits. DIFFERENTIAL DIAGNOSIS: Differential diagnosis includes benign positional vertigo, dehydration, hypovolemia, anemia, tumor, infection, hypoglycemia, electrolyte abnormalities, cardiac sources, intracerebral event, toxicologic, neurologic, as well as other pathologies. ED COURSE AND MEDICAL DECISION MAKING: HISTORY FROM INDEPENDENT HISTORIAN: Additional history obtained from the patient's . MEDICATIONS GIVEN: Rocephin 2 g IV. There is currently a severe shortage of IV fluids. The patient's condition was assessed and did not meet hospital criteria for IV fluid administration at this time. Therefore, IV fluids were not given. MONITOR: Continuous integration lead: Order was placed for continuous integration lead. Patient was placed on the integration lead and continuous pulse ox. Patient was noted to be in normal sinus rhythm at an initial rate of 64 bpm per my interpretation. EKG: EKG was interpreted by myself as normal sinus rhythm at 60 bpm with no acute ST or T wave changes. INTERPRETATION OF LABS: I interpreted the labs with full lab results as below in the lab section of this note. Pertinent lab results discussed in the MDM section below. INTERPRETATION OF IMAGING: Imaging studies were interpreted by myself and read by radiology as per the imaging section of this note. Chest x-ray negative for acute cardiopulmonary etiology. CT scan of the head without contrast was negative for acute intracranial abnormality. CTA of the head with IV contrast showed a 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. No occlusion or significant stenosis. No other acute abnormalities noted. CTA of the neck with IV contrast showed no acute abnormalities. CONSULTATIONS: On-call hospitalist MDM SUMMARY: I examined the patient. The patient has had a feeling of dizziness and imbalance along with fatigue for the past week. Yesterday he noticed that his blood pressure had been higher than normal and became concerned. He denies any other symptoms at this time. No focal neurological deficits on exam. An IV lock was placed and labs were drawn. White blood cell count normal at 5.71. Hemoglobin stable at 13.3. Platelet count normal at 237. Coags are normal. Sodium slightly low at 135. BUN stable at 25. Glucose 115. CMP otherwise normal. High-sensitivity troponin normal. TSH elevated at 5.197 with a normal free T4 of 0.65. Magnesium normal. Urinalysis with trace blood, 3+ leukocyte esterase, greater than 50 white blood cells, and 1+ bacteria concerning for UTI. Urine culture pending. Lyme disease screen negative. COVID, RSV, and influenza were negative. The patient declined any medication for his symptoms while in the emergency department. The patient initially did not complain of any urinary symptoms, but while in the emergency department he urinated multiple times and states that the urinary frequency was new for him. He was given Rocephin 2 g IV for the UTI with culture pending. There is currently a severe shortage of IV fluids. The patient's condition was assessed and did not meet hospital criteria for IV fluid administration at this time. Therefore, IV fluids were not given. Chest x-ray negative for acute cardiopulmonary etiology. CT scan of the head without contrast was negative for acute intracranial abnormality. CTA of the head with IV contrast showed a 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. No occlusion or significant stenosis. No other acute abnormalities noted. CTA of the neck with IV contrast showed no acute abnormalities. I had a meaningful discussion about this patient with Dr. Collazo who agrees with my assessment and the treatment plan. Given the intermittent dizziness feelings where the patient feels imbalanced and fatigued along with the abnormal CTA of the head and UTI symptoms, we feel the patient would benefit from admission for MRI of the brain to rule out posterior CVA, neurology consult, as well as treatment of his UTI. I spoke with the on-call hospitalist who agreed to admit the patient for further evaluation and treatment. Please refer to their dictation for further details. The patient's care was transferred in stable condition. DIAGNOSIS: Dizziness Fusiform ectasia of the basilar tip UTI Elevated TSH Past Med/Surg History Problem List (Updated 05/07/24 @ 02:04 by Honorio Pritchett MD) Dizziness on standing Elevated TSH (Acute) Acute UTI (Acute) Abnormal computed tomography angiography of head (Acute) Dizziness (Acute) Elevated troponin (Acute) Pulse irregularity (Acute) HTN (hypertension) (Acute) HLD (hyperlipidemia) Social History Smoking Status: Never smoker Second Hand Exposure: No; Do You Dip or Chew Tobacco: No; Hx Alcohol Use: No Hx Substance Use: No Preferred Language: Syriac Communication Ability: Effective Director Information Required: No Beliefs That Will Affect Care: None Current Living Situation: Spouse Other Information That Helps Us Care for You: No Feels Safe at Home: Yes Safety Concerns: Feels Safe At This Time Assistive Devices: Glasses and Hearing Aid - Bilateral Allergies Allergies Allergy/AdvReac Type Severity Reaction Status Date / Time No Known Allergies Allergy Verified 11/29/23 20:10 Home Meds Home Medications Medication Instructions Recorded Confirmed antiox.multivit [id number] 280 1 cap PO DAILY 11/10/22 05/07/24 mg-lutein 10 mg-zeaxanthin 2 mg capsule (I-Caps) atorvastatin 80 mg tablet 80 mg PO DAILY 11/10/22 05/07/24 bioflavonoids 1,000 mg tablet 1,000 mg PO DAILY 11/10/22 05/07/24 candesartan 32 mg tablet 32 mg PO HS 11/10/22 05/07/24 coQ10 (ubiquinol) 200 mg capsule 200 mg PO DAILY 11/10/22 05/07/24 escitalopram oxalate 10 mg tablet 10 mg PO DAILY 11/10/22 05/07/24 famotidine 20 mg tablet 10 mg PO BID Heartburn 11/10/22 05/07/24 ginkgo biloba 40 mg tablet 40 mg PO DAILY 11/10/22 05/07/24 [id number]-[id number] acid-vit 1 tab PO DAILY 11/10/22 05/07/24 K-lycop 400 mcg-20 mcg-370 mcg tablet (Men's 50 Plus Multivitamin) nisoldipine 8.5 mg tablet,extended 8.5 mg PO DAILY 11/10/22 05/07/24 release 24 hr fluticasone propionate 110 1 puff inhalation BID PRN 11/29/23 05/07/24 mcg/actuation HFA aerosol inhaler Shortness Of Breath amlodipine 2.5 mg tablet 2.5 mg DAILY 05/07/24 05/07/24 atorvastatin 80 mg tablet 80 mg DAILY 05/07/24 05/07/24 candesartan 32 mg tablet 32 mg HS 05/07/24 05/07/24 escitalopram oxalate 10 mg tablet 10 mg DAILY 05/07/24 05/07/24 metoprolol succinate 25 mg 12.5 mg PO HS 05/07/24 05/07/24 tablet,extended release 24 hr Results & Data (ED) Vital Signs Vital Signs - 24 hr 05/06/24 19:05 05/06/24 19:23 05/06/24 19:24 Temperature 36.7 C Temperature Source Temporal Artery Scan Pulse Rate 64 60 59 L Pulse Rate [Finger] Pulse Rate from SpO2 Sensor 60 Pulse Rhythm [Finger] Pulse Strength [Finger] Respiratory Rate 16 15 Respiratory Effort / Characteristics Non-Labored Respiratory Depth Normal Respiratory Pattern Blood Pressure 172/79 H 151/72 H Blood Pressure [Left Arm] Blood Pressure Mean 110 98 Blood Pressure Mean [Left Arm] Blood Pressure Position [Left Arm] Pulse Oximetry 97 99 Oxygen Delivery Method Room Air Sepsis Recent Fever Within 48 Hours No Sepsis New/Unexplained Change in Mental Status No Sepsis Action Taken by Nursing No Action Required 05/06/24 19:31 05/06/24 19:33 05/06/24 19:39 Temperature Temperature Source Pulse Rate 57 L Pulse Rate [Finger] 57 L Pulse Rate from SpO2 Sensor 57 L Pulse Rhythm [Finger] Regular Pulse Strength [Finger] Normal Respiratory Rate 20 16 Respiratory Effort / Characteristics Non-Labored Spontaneous Respiratory Depth Normal Respiratory Pattern Regular Blood Pressure 150/75 H Blood Pressure [Left Arm] 150/75 H Blood Pressure Mean 100 Blood Pressure Mean [Left Arm] 100 Blood Pressure Position [Left Arm] Lying Pulse Oximetry 98 98 97 Oxygen Delivery Method Room Air Room Air Sepsis Recent Fever Within 48 Hours Sepsis New/Unexplained Change in Mental Status Sepsis Action Taken by Nursing 05/06/24 20:00 05/06/24 21:00 05/06/24 22:20 Temperature Temperature Source Pulse Rate 60 58 L 60 Pulse Rate [Finger] Pulse Rate from SpO2 Sensor Pulse Rhythm [Finger] Pulse Strength [Finger] Respiratory Rate 16 16 16 Respiratory Effort / Characteristics Respiratory Depth Respiratory Pattern Blood Pressure 160/76 H 148/61 H 165/69 H Blood Pressure [Left Arm] Blood Pressure Mean 104 78 80 Blood Pressure Mean [Left Arm] Blood Pressure Position [Left Arm] Pulse Oximetry 96 97 Oxygen Delivery Method Sepsis Recent Fever Within 48 Hours Sepsis New/Unexplained Change in Mental Status Sepsis Action Taken by Nursing 05/06/24 22:30 05/06/24 23:21 05/06/24 23:30 Temperature Temperature Source Pulse Rate 60 53 L 53 L Pulse Rate [Finger] Pulse Rate from SpO2 Sensor Pulse Rhythm [Finger] Pulse Strength [Finger] Respiratory Rate 16 18 Respiratory Effort / Characteristics Respiratory Depth Respiratory Pattern Blood Pressure 153/74 H 147/74 H Blood Pressure [Left Arm] Blood Pressure Mean 106 92 Blood Pressure Mean [Left Arm] Blood Pressure Position [Left Arm] Pulse Oximetry Oxygen Delivery Method Sepsis Recent Fever Within 48 Hours Sepsis New/Unexplained Change in Mental Status Sepsis Action Taken by Nursing Laboratory Data 05/06/24 19:25 05/06/24 19:25 Lab Results 05/06/24 Range/Units 19:25 WBC 5.71 (4.8-10.8) K/ul RBC 4.07 L (4.70-6.10) M/uL Hgb 13.3 L (14.0-18.0) g/dl Hct 39.4 L (42.0-52.0) % MCV 96.8 (80.0-100.0) fL MCH 32.7 (25.0-34.0) pg MCHC 33.8 (32.0-36.0) g/dL RDW Std Deviation 42.0 (36.4-46.3) fL RDW Coeff of Jose Alejandro 11.8 (11.5-14.5) % Plt Count 237 (130-400) K/uL MPV 9.6 (9.4-12.4) fL Immature Gran % (Auto) 0.2 % Neut % (Auto) 57.2 % Lymph % (Auto) 25.6 % [place] % (Auto) 12.8 % Eos % (Auto) 3.7 % Baso % (Auto) 0.5 % Neut # (Auto) 3.27 (1.40-6.50) K/uL Lymph # (Auto) 1.46 (1.20-3.40) K/uL [place] # (Auto) 0.73 H (0.11-0.59) K/uL Eos # (Auto) 0.21 (0.00-0.50) K/uL Baso # (Auto) 0.03 (0.00-0.20) K/uL Immature Gran # (Auto) 0.01 (0.01-0.20) K/uL PT 11.0 (9.0-12.0) Seconds INR 1.0 (0.9-1.1) APTT 27 (21-31) Seconds PTT Ratio 1.0 Sodium 135 L (136-145) mmol/L Potassium 4.1 (3.5-5.1) mmol/L Chloride 104 (98-107) mmol/L Carbon Dioxide 26 (21-32) mmol/L Anion Gap 5 (3-11) BUN 25 H (6-23) mg/dl Creatinine 1.31 (0.6-1.4) mg/dl Est Cr Clr Drug Dosing 43.5 ml/min eGFR 55.03 BUN/Creatinine Ratio 19.1 (10-20) Glucose 115 H (70-99(Fasting)) mg/dl Calcium 9.4 (8.6-10.3) mg/dl Magnesium 2.1 (1.7-2.4) mg/dl Total Bilirubin 0.3 (0.2-1.0) mg/dl AST 23 (13-39) U/L ALT 21 (7-52) U/L Alkaline Phosphatase 53 (34-104) U/L Troponin I High Sens 16.4 (0-20) pg/ml Total Protein 6.6 (6.0-8.3) gm/dl Albumin 4.1 (3.4-5.0) gm/dl Globulin 2.5 (2.5-4.0) gm/dl Albumin/Globulin Ratio 1.6 (0.9-2) TSH 5.197 H (0.300-4.500) uIu/ml Free T4 0.65 (0.61-1.60) ng/dl Urine Color Yellow Urine Appearance Cloudy A (Clear) Urine pH 6.0 (4.5-7.5) Ur Specific [place] 1.011 (1.000-1.030) Urine Protein Negative (Negative) Urine Glucose (UA) Negative (Negative) Urine Ketones Negative (Negative) Urine Blood Trace H (Negative) Urine Nitrite Negative (Negative) Urine Bilirubin Negative (Negative) Urine Urobilinogen Negative (Negative) Ur Leukocyte Esterase 3+ H (Negative) Urine WBC (Auto) >50 H (0-5) /hpf Urine RBC (Auto) 0-2 (0-2) /hpf U Hyaline Cast (Auto) 0-2 (0-2) /lpf U Epithel Cells (Auto) 0-2 (0-2) /hpf Urine Bacteria (Auto) 1+ H (None Seen) Lyme Disease Screen Negative (Negative) SARS-CoV-2 (PCR) NEGATIVE (Negative) Influenza Type A (PCR) Negative (Neg) Influenza Type B (PCR) Negative (Neg) RSV (RT-PCR) Negative (Neg) Administered Medications Sodium Chloride (Nss) 1,000 mls @ 60 mls/hr IV .[id number] ONE Stop: 05/07/24 16:39 Last Admin: 05/07/24 01:37 Dose: 60 mls/hr Documented By: TOOTIE Discontinued Medications Aspirin (Aspirin 81 Mg Chew) 324 mg PO NOW STA Stop: 05/07/24 00:48 Last Admin: 05/07/24 01:36 Dose: 324 mg Documented By: TOOTIE Famotidine (Famotidine 20 Mg Tab) 20 mg PO NOW ONE Stop: 05/07/24 00:48 Last Admin: 05/07/24 01:52 Dose: Not Given Documented By: TOOTIE Famotidine (Famotidine 10 Mg Tablet) 10 mg PO NOW ONE Stop: 05/07/24 01:16 Last Admin: 05/07/24 01:36 Dose: 10 mg Documented By: TOOTIE Ceftriaxone Sodium (Rocephin) 2,000 mg in 50 mls @ 100 mls/hr IV NOW STA Stop: 05/07/24 00:11 Last Infusion: 05/07/24 01:00 Dose: Infused Documented By: Admin: 05/06/24 23:54 Dose: 100 mls/hr Documented By: JESSICA Piperacillin Sod/Tazobactam Sod (Zosyn) 4.5 gm in 100 mls @ 200 mls/hr IV NOW STA; Protocol Stop: 05/07/24 00:40 Last Infusion: 05/07/24 01:46 Dose: Infused Documented By: Admin: 05/07/24 01:16 Dose: 200 mls/hr Documented By: TOOTIE Ioversol (Optiray 320 125ml) 120 ml IV ONCE ONE Stop: 05/06/24 20:34 Last Admin: 05/06/24 20:34 Dose: 120 ml Documented By: GES Imaging Data Radiologist's Impression: Chest X-Ray 05/06/24 19:22 Exam(s): XR CXR 1 VIEW EXAM: XR Chest, 1 View CLINICAL HISTORY: Reason for exam: Chest pain, nonspecific. TECHNIQUE: Frontal view of the chest. COMPARISON: November 29, 2023 FINDINGS: Lungs: Unremarkable. No consolidation. Pleural space: Unremarkable. No pneumothorax. Heart: Unremarkable. No cardiomegaly. Mediastinum: Unremarkable. Normal mediastinal contour. Bones/joints: Unremarkable. No acute fracture. IMPRESSION: No acute pulmonary pathology. Electronically signed by: Prateek Grayson MD 05/06/24 23:[address] 05/06/24 19:22 Exam(s): CT HEAD Without Contrast EXAM: CT Head Without Intravenous Contrast CLINICAL HISTORY: Reason for exam: Dizziness, HTN. TECHNIQUE: Axial computed tomography images of the head/brain without intravenous contrast. CTDI is 30.44 mGy and DLP is 512.02 mGy-cm. Automated exposure control was utilized for the study. A dose lowering technique was utilized adhering to the principles of ALARA. COMPARISON: No relevant prior studies available. FINDINGS: Brain: Unremarkable. No hemorrhage. No significant white matter disease. No edema. Ventricles: Unremarkable. No ventriculomegaly. Bones/joints: Unremarkable. No acute fracture. Soft tissues: Unremarkable. Sinuses: Unremarkable as visualized. No acute sinusitis. Mastoid air cells: Unremarkable as visualized. No mastoid effusion. IMPRESSION: Head CT negative for acute intracranial abnormality. Electronically signed by: Prateek Grayson MD 05/06/24 23:13 PM Head CTA 05/06/24 19:22 Exam(s): CTA HEAD With Contrast IV Amt: 120 cc otpi 32-0 EXAM: CT Angiography Head With Intravenous Contrast CLINICAL HISTORY: Reason for exam: Dizziness, HTN. TECHNIQUE: Axial computed tomographic angiography images of the head with intravenous contrast. CTDI is 65.45 mGy and DLP is 1107.53 mGy-cm. Automated exposure control was utilized for the study. A dose lowering technique was utilized adhering to the principles of ALARA. MIP reconstructed images were created and reviewed. CONTRAST: Patient received 120 cc otpi 32-0 of IV contrast COMPARISON: No relevant prior studies available. FINDINGS: Right internal carotid artery: No acute findings. Intracranial segment is patent with no significant stenosis. No aneurysm. Right anterior cerebral artery: Unremarkable. No occlusion or significant stenosis. No aneurysm. Right middle cerebral artery: Unremarkable. No occlusion or significant stenosis. No aneurysm. Right posterior cerebral artery: Unremarkable. No occlusion or significant stenosis. No aneurysm. Right vertebral artery: Unremarkable as visualized. Left internal carotid artery: No acute findings. Intracranial segment is patent with no significant stenosis. No aneurysm. Left anterior cerebral artery: Unremarkable. No occlusion or significant stenosis. No aneurysm. Left middle cerebral artery: Unremarkable. No occlusion or significant stenosis. No aneurysm. Left posterior cerebral artery: Unremarkable. No occlusion or significant stenosis. No aneurysm. Left vertebral artery: Unremarkable as visualized. Basilar artery: There is fusiform ectasia of the basilar tip which measures 4 mm in diameter. No occlusion or significant stenosis. 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 Electronically signed by: Prateek Grayson MD 05/06/24 23:06 PM Neck CTA 05/06/24 19:22 Exam(s): CTA NECK With Contrast IV Amt: 120 cc opti 320 EXAM: CT Angiography Neck With Intravenous Contrast CLINICAL HISTORY: Reason for exam: Dizziness, HTN. TECHNIQUE: Routine carotid CT angiography protocol was performed with intravenous contrast. NASCET criteria using the distal ICAs for comparison were used for evaluation of stenoses. CTDI is 65.45 mGy and DLP is 1107.53 mGy-cm. Automated exposure control was utilized for the study. A dose lowering technique was utilized adhering to the principles of ALARA. MIP reconstructed images were created and reviewed. CONTRAST: Patient received 120 cc opti 320 of IV contrast COMPARISON: None. FINDINGS: VASCULATURE: Right common carotid artery: Unremarkable. No occlusion or significant stenosis. No dissection. Right internal carotid artery: Unremarkable. Extracranial segment is patent with no occlusion or significant stenosis. No dissection. Right external carotid artery: Unremarkable. No occlusion. Right vertebral artery: Unremarkable. No occlusion or significant stenosis. No dissection. Left common carotid artery: Unremarkable. No occlusion or significant stenosis. No dissection. Left internal carotid artery: Unremarkable. Extracranial segment is patent with no occlusion or significant stenosis. No dissection. Left external carotid artery: Unremarkable. No occlusion. Left vertebral artery: Unremarkable. No occlusion or significant stenosis. No dissection. NECK: Bones/joints: Unremarkable. No acute fracture. Soft tissues: Unremarkable. Lung apices: Clear. Other findings: Postoperative changes ACDF C3-C5. CAROTID STENOSIS REFERENCE USING NASCET CRITERIA: % ICA stenosis = (1 - narrowest ICA diameter/diameter of distal cervical ICA) x 100. Mild - <50% stenosis. Moderate - 50-69% stenosis. Severe - 70-94% stenosis. Near occlusion - 95-99% stenosis. Occluded - 100% stenosis. IMPRESSION: No acute findings in the arteries of the neck. Electronically signed by: Prateek Grayson MD 05/06/24 23:07 PM Discharge Plan Visit Data Chief Complaint: Hypertension Stated Complaint: HYPERTENSION, DIZZY, LETHAGIC ED Provider: Pipe Collazo ED Midlevel Provider: Maday Palma Discharge Problem: Dizziness, Abnormal computed tomography angiography of head, Acute UTI, Elevated TSH Patient Disposition: Admitted As Inpatient Condition: Good Discharge Instructions Interventions: ED Discharge Assessment Last Done: 05/07/24 01:59
[2024-05-06 19:53] LABS: Basophils # (auto) 0.03 K/uL (0.00-0.20); Basophils % (auto) 0.5 %; Eosinophils # (auto) 0.21 K/uL (0.00-0.50); Eosinophils % (auto) 3.7 %; Hematocrit (blood only) 39.4 % (42.0-52.0); Hemoglobin 13.3 g/dl (14.0-18.0); Immature Granulocytes # (auto) 0.01 K/uL (0.01-0.20); Immature Granulocytes % (auto) 0.2 %; Lymphocytes # (auto) 1.46 K/uL (1.20-3.40); Lymphocytes % (auto) 25.6 %; Mean Corpuscular Hemoglobin 32.7 pg (25.0-34.0); Mean Corpuscular Hgb Conc 33.8 g/dL (32.0-36.0); Mean Corpuscular Volume 96.8 fL (80.0-100.0); Mean Platelet Volume 9.6 fL (9.4-12.4); Monocytes # (auto) 0.73 K/uL (0.11-0.59); Monocytes % (auto) 12.8 %; Neutrophils # (auto) 3.27 K/uL (1.40-6.50); Neutrophils % (auto) 57.2 %; Platelet Count 237 K/uL (130-400); RDW Coefficient of Variation 11.8 % (11.5-14.5); Red Blood Count 4.07 M/uL (4.70-6.10); White Blood Count 5.71 K/ul (4.8-10.8)
[2024-05-06 19:54] LABS: Appearance Urine Cloudy (Clear); Bacteria Urine Automated 1+ (None Seen); Bilirubin Urine Negative (Negative); Blood Urine Trace (Negative); Cast Urine Automated 0-2 /lpf (0-2); Color Urine Yellow; Epithelial Cell Urine Auto 0-2 /hpf (0-2); Glucose Urine UA Negative (Negative); Ketones Urine Negative (Negative); Leukocyte Esterase Urine 3+ (Negative); Nitrite Urine Negative (Negative); Protein Urine Negative (Negative); RBC Urine Automated 0-2 /hpf (0-2); Specific Gravity Urine 1.011 (1.000-1.030); Urobilinogen Urine Negative (Negative); WBC Urine Automated >50 /hpf (0-5)
[2024-05-06 20:16] LABS: Albumin Globulin Ratio 1.6 (0.9-2); Albumin Level 4.1 gm/dl (3.4-5.0); BUN Creatinine Ratio 19.1 (10-20); Bilirubin,Total 0.3 mg/dl (0.2-1.0); Calcium 9.4 mg/dl (8.6-10.3); Creatinine Clr Calc Pharmacy 43.5 ml/min; Globulin 2.5 gm/dl (2.5-4.0); Magnesium 2.1 mg/dl (1.7-2.4); Potassium 4.1 mmol/L (3.5-5.1); Total Protein 6.6 gm/dl (6.0-8.3)
[2024-05-06 20:19] LABS: Partial Thromboplastin Time 27 Seconds (21-31)
[2024-05-06 20:22] LABS: Troponin I High Sensitivity 16.4 pg/ml (0-20)
[2024-05-06 20:32] LABS: Thyroid Stimulating Hormone 5.197 uIu/ml (0.300-4.500)
[2024-05-06] MEDS: OPTIRAY 320 125ml IV ONE (20:34)
[2024-05-06 20:45] LABS: Influenza A virus by PCR Negative (Neg); Influenza B virus by PCR Negative (Neg); RSV by PCR Negative (Neg); SARS CoV2 RNA(COVID-19) Ceph NEGATIVE (Negative)
[2024-05-06 21:07] LABS: T4 Free Thyroxine 0.65 ng/dl (0.61-1.60)
--- NOTE | 2024-05-06 23:07 | CT Scan Report ---
Exam(s): CTA HEAD With Contrast IV Amt: 120 cc otpi 32-0 EXAM: CT Angiography Head With Intravenous Contrast CLINICAL HISTORY: Reason for exam: Dizziness, HTN. TECHNIQUE: Axial computed tomographic angiography images of the head with intravenous contrast. CTDI is 65.45 mGy and DLP is 1107.53 mGy-cm. Automated exposure control was utilized for the study. A dose lowering technique was utilized adhering to the principles of ALARA. MIP reconstructed images were created and reviewed. CONTRAST: Patient received 120 cc otpi 32-0 of IV contrast COMPARISON: No relevant prior studies available. FINDINGS: Right internal carotid artery: No acute findings. Intracranial segment is patent with no significant stenosis. No aneurysm. Right anterior cerebral artery: Unremarkable. No occlusion or significant stenosis. No aneurysm. Right middle cerebral artery: Unremarkable. No occlusion or significant stenosis. No aneurysm. Right posterior cerebral artery: Unremarkable. No occlusion or significant stenosis. No aneurysm. Right vertebral artery: Unremarkable as visualized. Left internal carotid artery: No acute findings. Intracranial segment is patent with no significant stenosis. No aneurysm. Left anterior cerebral artery: Unremarkable. No occlusion or significant stenosis. No aneurysm. Left middle cerebral artery: Unremarkable. No occlusion or significant stenosis. No aneurysm. Left posterior cerebral artery: Unremarkable. No occlusion or significant stenosis. No aneurysm. Left vertebral artery: Unremarkable as visualized. Basilar artery: There is fusiform ectasia of the basilar tip which measures 4 mm in diameter. No occlusion or significant stenosis. 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 Electronically signed by: Prateek Grayson MD 05/06/24 23:06 PM
--- NOTE | 2024-05-06 23:08 | CT Scan Report ---
Exam(s): CTA NECK With Contrast IV Amt: 120 cc opti 320 EXAM: CT Angiography Neck With Intravenous Contrast CLINICAL HISTORY: Reason for exam: Dizziness, HTN. TECHNIQUE: Routine carotid CT angiography protocol was performed with intravenous contrast. NASCET criteria using the distal ICAs for comparison were used for evaluation of stenoses. CTDI is 65.45 mGy and DLP is 1107.53 mGy-cm. Automated exposure control was utilized for the study. A dose lowering technique was utilized adhering to the principles of ALARA. MIP reconstructed images were created and reviewed. CONTRAST: Patient received 120 cc opti 320 of IV contrast COMPARISON: None. FINDINGS: VASCULATURE: Right common carotid artery: Unremarkable. No occlusion or significant stenosis. No dissection. Right internal carotid artery: Unremarkable. Extracranial segment is patent with no occlusion or significant stenosis. No dissection. Right external carotid artery: Unremarkable. No occlusion. Right vertebral artery: Unremarkable. No occlusion or significant stenosis. No dissection. Left common carotid artery: Unremarkable. No occlusion or significant stenosis. No dissection. Left internal carotid artery: Unremarkable. Extracranial segment is patent with no occlusion or significant stenosis. No dissection. Left external carotid artery: Unremarkable. No occlusion. Left vertebral artery: Unremarkable. No occlusion or significant stenosis. No dissection. NECK: Bones/joints: Unremarkable. No acute fracture. Soft tissues: Unremarkable. Lung apices: Clear. Other findings: Postoperative changes ACDF C3-C5. CAROTID STENOSIS REFERENCE USING NASCET CRITERIA: % ICA stenosis = (1 - narrowest ICA diameter/diameter of distal cervical ICA) x 100. Mild - <50% stenosis. Moderate - 50-69% stenosis. Severe - 70-94% stenosis. Near occlusion - 95-99% stenosis. Occluded - 100% stenosis. IMPRESSION: No acute findings in the arteries of the neck. Electronically signed by: Prateek Grayson MD 05/06/24 23:07 PM
--- NOTE | 2024-05-06 23:16 | CT Scan Report ---
Exam(s): CT HEAD Without Contrast EXAM: CT Head Without Intravenous Contrast CLINICAL HISTORY: Reason for exam: Dizziness, HTN. TECHNIQUE: Axial computed tomography images of the head/brain without intravenous contrast. CTDI is 30.44 mGy and DLP is 512.02 mGy-cm. Automated exposure control was utilized for the study. A dose lowering technique was utilized adhering to the principles of ALARA. COMPARISON: No relevant prior studies available. FINDINGS: Brain: Unremarkable. No hemorrhage. No significant white matter disease. No edema. Ventricles: Unremarkable. No ventriculomegaly. Bones/joints: Unremarkable. No acute fracture. Soft tissues: Unremarkable. Sinuses: Unremarkable as visualized. No acute sinusitis. Mastoid air cells: Unremarkable as visualized. No mastoid effusion. IMPRESSION: Head CT negative for acute intracranial abnormality. Electronically signed by: Prateek Grayson MD 05/06/24 23:13 PM
--- NOTE | 2024-05-06 23:16 | XRay Report ---
Exam(s): XR CXR 1 VIEW EXAM: XR Chest, 1 View CLINICAL HISTORY: Reason for exam: Chest pain, nonspecific. TECHNIQUE: Frontal view of the chest. COMPARISON: November 29, 2023 FINDINGS: Lungs: Unremarkable. No consolidation. Pleural space: Unremarkable. No pneumothorax. Heart: Unremarkable. No cardiomegaly. Mediastinum: Unremarkable. Normal mediastinal contour. Bones/joints: Unremarkable. No acute fracture. IMPRESSION: No acute pulmonary pathology. Electronically signed by: Prateek Grayson MD 05/06/24 23:14 PM
[2024-05-06] MEDS: cefTRIAXone SODIUM 2,000 MG/50 ML BAG IV STA (23:54)
--- NOTE | 2024-05-06 23:55 | History & Physical Report ---
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) history SVT, patient with chronic bradycardia hyperlipidemia, on statin Rx bronchial asthma, stable chronic hyponatremia chronic anemia, hemoglobin at baseline hx Mnire's disease status post surgery GERD on H2 esteban anxiety disorder, mild anxiety during exam Hyperglycemia rule out DM Subclinical hypothyroidism, low TSH noted from recent confinement Medical telemetry Urine CS, Zosyn for now until CS resulted, history Enterococcus on previous urine CS Check orthostatic vitals Neurochecks Aspirin for stroke prophylaxis, permissive hypertension until stroke ruled out MRI brain Neurology consult contingent on MRI results Check hemoglobin A1c Recheck TSH outpatient next month DVT prophylaxis. Lovenox subcu Full code Text document was generated using [employer] voice recognition software. It may contain grammatical or spelling errors. Kindly contact undersigned for clarification of any documentation item in question. History of Present Illness Chief Complaint: Imbalance Primary Care Provider: Deangelo Saldaña MD History obtained from patient and records. Medical history significant for valvular heart disease (mild /AR), history SVT, hypertension, hyperlipidemia, bronchial asthma, chronic hyponatremia, chronic anemia (baseline hemoglobin of 13), Mnire's disease status post surgery, recurrent UTIs, history of prostatitis as per records, GERD, anxiety disorder. Last confinement November 2023 for irregular pulse. Patient with intermittent dizziness and fatigue symptoms the last week. Described as imbalanced sensation. Feels like he is going to fall on 1 side when turning. May have happened in the past before but not as bad. No unusual ear pain, hearing loss or tinnitus. Not vertigo as per patient similar to his Mnire disease attacks in the past. Compliant with home meds. Some stress with holiday preparations at home. Frontal headache symptoms. SBP 170s at home which is unusual for him. Denies chest pain, SOB, abdominal pain or hematuria symptoms. Increased urinary frequency without fever or chills. IV ceftriaxone administered at the ER. 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 Allergies Allergy/AdvReac Type Severity Reaction Status Date / Time No Known Allergies Allergy Verified 11/29/23 20:10 Home Medications Medication Instructions Recorded Confirmed Type antiox.multivit 10-fqcpv0s 280 1 cap PO DAILY 11/10/22 05/07/24 History mg-lutein 10 mg-zeaxanthin 2 mg capsule (I-Caps) atorvastatin 80 mg tablet 80 mg PO DAILY 11/10/22 05/07/24 History bioflavonoids 1,000 mg tablet 1,000 mg PO DAILY 11/10/22 05/07/24 History candesartan 32 mg tablet 32 mg PO HS 11/10/22 05/07/24 History coQ10 (ubiquinol) 200 mg capsule 200 mg PO DAILY 11/10/22 05/07/24 History escitalopram oxalate 10 mg tablet 10 mg PO DAILY 11/10/22 05/07/24 History famotidine 20 mg tablet 10 mg PO BID Heartburn 11/10/22 05/07/24 History ginkgo biloba 40 mg tablet 40 mg PO DAILY 11/10/22 05/07/24 History tjgdqxvakguy-bhk-ppbxf acid-vit 1 tab PO DAILY 11/10/22 05/07/24 History K-lycop 400 mcg-20 mcg-370 mcg tablet (Men's 50 Plus Multivitamin) nisoldipine 8.5 mg tablet,extended 8.5 mg PO DAILY 11/10/22 05/07/24 History release 24 hr fluticasone propionate 110 1 puff inhalation BID PRN 11/29/23 05/07/24 History mcg/actuation HFA aerosol inhaler Shortness Of Breath amlodipine 2.5 mg tablet 2.5 mg DAILY 05/07/24 05/07/24 History atorvastatin 80 mg tablet 80 mg DAILY 05/07/24 05/07/24 History candesartan 32 mg tablet 32 mg HS 05/07/24 05/07/24 History escitalopram oxalate 10 mg tablet 10 mg DAILY 05/07/24 05/07/24 History metoprolol succinate 25 mg 12.5 mg PO HS 05/07/24 05/07/24 History tablet,extended release 24 hr Past Med/Surg History Problem List (Updated 05/07/24 @ 02:04 by Honorio Pritchett MD) Dizziness on standing Elevated TSH (Acute) Acute UTI (Acute) Abnormal computed tomography angiography of head (Acute) Dizziness (Acute) Elevated troponin (Acute) Pulse irregularity (Acute) HTN (hypertension) (Acute) HLD (hyperlipidemia) Social History Smoking Status: Never smoker Second Hand Exposure: No; Do You Dip or Chew Tobacco: No; Hx Alcohol Use: No Hx Substance Use: No Preferred Language: Occitan Communication Ability: Effective Weapons Engineer Required: No Beliefs That Will Affect Care: None Current Living Situation: Spouse Feels Safe at Home: Yes Assistive Devices: Glasses Review of Systems Review of Systems: As per HPI, all other systems reviewed and negative Physical Exam Physical Exam: GENERAL: Comfortable, pleasant, slightly anxious, no respiratory distress SKIN: Pallor, warm HEENT: Alopecia, pale palpebral conjunctivae, no ptosis, dry buccal mucosa NECK : Supple, no tenderness CHEST : CTA, no tenderness HEART : Bradycardic, systolic murmur ABDOMEN: Some distention, nontender EXTREMITIES : No LE swelling/tenderness, no other conspicuous deformities noted NEUROLOGIC : Coherent, no facial asymmetry, MMTS BUE/BLE 5/5, gait and stance not assessed Results & Data Results & Data Vital Signs (Past 12 Hours) Vital Signs Temp Pulse Pulse Resp BP BP Pulse Ox 05/06/24 23:30 53 L 18 147/74 H 05/06/24 23:21 53 L 05/06/24 22:30 60 16 153/74 H 05/06/24 22:20 60 16 165/69 H 05/06/24 21:00 58 L 16 148/61 H 97 05/06/24 20:00 60 16 160/76 H 96 05/06/24 19:39 57 L 16 150/75 H 97 05/06/24 19:33 57 L 20 150/75 H 98 05/06/24 19:31 98 05/06/24 19:24 59 L 15 151/72 H 99 05/06/24 19:23 60 05/06/24 19:05 36.7 C 64 16 172/79 H 97 O2 Del Method 05/06/24 23:30 05/06/24 23:21 05/06/24 22:30 05/06/24 22:20 05/06/24 21:00 05/06/24 20:00 05/06/24 19:39 05/06/24 19:33 Room Air 05/06/24 19:31 Room Air 05/06/24 19:24 05/06/24 19:23 05/06/24 19:05 Room Air Laboratory Results Laboratory Results WBC 5.71 K/ul (4.8-10.8) 05/06/24 19:25 RBC 4.07 M/uL (4.70-6.10) L 05/06/24 19:25 Hgb 13.3 g/dl (14.0-18.0) L 05/06/24 19:25 Hct 39.4 % (42.0-52.0) L 05/06/24 19:25 MCV 96.8 fL (80.0-100.0) 05/06/24 19:25 MCH 32.7 pg (25.0-34.0) 05/06/24 19: MCHC 33.8 g/dL (32.0-36.0) 05/06/24 19:25 RDW Std Deviation 42.0 fL (36.4-46.3) 05/06/24 19:25 RDW Coeff of Jose Alejandro 11.8 % (11.5-14.5) 05/06/24 19:25 Plt Count 237 K/uL (130-400) 05/06/24 19:25 MPV 9.6 fL (9.4-12.4) 05/06/24 19:25 Immature Gran % (Auto) 0.2 % 05/06/24 19:25 Neut % (Auto) 57.2 % 05/06/24 19:25 Lymph % (Auto) 25.6 % 05/06/24 19:25 Mitchell % (Auto) 12.8 % 05/06/24 19:25 Eos % (Auto) 3.7 % 05/06/24 19:25 Baso % (Auto) 0.5 % 05/06/24 19:25 Neut # (Auto) 3.27 K/uL (1.40-6.50) 05/06/24 19:25 Lymph # (Auto) 1.46 K/uL (1.20-3.40) 05/06/24 19:25 Mitchell # (Auto) 0.73 K/uL (0.11-0.59) H 05/06/24 19:25 Eos # (Auto) 0.21 K/uL (0.00-0.50) 05/06/24 19:25 Baso # (Auto) 0.03 K/uL (0.00-0.20) 05/06/24 19:25 Immature Gran # (Auto) 0.01 K/uL (0.01-0.20) 05/06/24 19:25 PT 11.0 Seconds (9.0-12.0) 05/06/24 19:25 INR 1.0 (0.9-1.1) 05/06/24 19:25 APTT 27 Seconds (21-31) 05/06/24 19:25 PTT Ratio 1.0 05/06/24 19:25 Sodium 135 mmol/L (136-145) L 05/06/24 19:25 Potassium 4.1 mmol/L (3.5-5.1) 05/06/24 19:25 Chloride 104 mmol/L (98-107) 05/06/24 19:25 Carbon Dioxide 26 mmol/L (21-32) 05/06/24 19:25 Anion Gap 5 (3-11) 05/06/24 19:25 BUN 25 mg/dl (6-23) H 05/06/24 19:25 Creatinine 1.31 mg/dl (0.6-1.4) 05/06/24 19:25 Est Cr Clr Drug Dosing 43.5 ml/min 05/06/24 19:25 eGFR 55.03 05/06/24 19:25 BUN/Creatinine Ratio 19.1 (10-20) 05/06/24 19:25 Glucose 115 mg/dl (70-99(Fasting)) H 05/06/24 19:25 Calcium 9.4 mg/dl (8.6-10.3) 05/06/24 19:25 Magnesium 2.1 mg/dl (1.7-2.4) 05/06/24 19:25 Total Bilirubin 0.3 mg/dl (0.2-1.0) 05/06/24 19:25 AST 23 U/L (13-39) 05/06/24 19:25 ALT 21 U/L (7-52) 05/06/24 19:25 Alkaline Phosphatase 53 U/L (34-104) 05/06/24 19:25 Troponin I High Sens 16.4 pg/ml (0-20) 05/06/24 19: Total Protein 6.6 gm/dl (6.0-8.3) 05/06/24 19: Albumin 4.1 gm/dl (3.4-5.0) 05/06/24 19: Globulin 2.5 gm/dl (2.5-4.0) 05/06/24: Albumin/Globulin Ratio 1.6 (0.9-2) 05/06/24 19:25 TSH 5.197 uIu/ml (0.300-4.500) H 05/06/24 19: Free T4 0.65 ng/dl (0.61-1.60) 05/06/24 19: Urine Color Yellow 05/06/24 19: Urine Appearance Cloudy (Clear) A 05/06/24 19: Urine pH 6.0 (4.5-7.5) 05/06/24 19: Ur Specific [place] 1.011 (1.000-1.030) 05/06/24 19:25 Urine Protein Negative (Negative) 05/06/24 19: Urine Glucose (UA) Negative (Negative) 05/06/24: Urine Ketones Negative (Negative) 05/06/24: Urine Blood Trace (Negative) H 05/06/24 19: Urine Nitrite Negative (Negative) 05/06/24: Urine Bilirubin Negative (Negative) 05/06/24: Urine Urobilinogen Negative (Negative) 05/06/24 19: Ur Leukocyte Esterase 3+ (Negative) H 05/06/24 19:25 Urine WBC (Auto) >50 /hpf (0-5) H 05/06/24 19:25 Urine RBC (Auto) 0-2 /hpf (0-2) 05/06/24 19:25 U Hyaline Cast (Auto) 0-2 /lpf (0-2) 05/06/24 19:25 U Epithel Cells (Auto) 0-2 /hpf (0-2) 05/06/24 19:25 Urine Bacteria (Auto) 1+ (None Seen) H 05/06/24 19:25 Lyme Disease Screen Negative (Negative) 05/06/24 19:25 SARS-CoV-2 (PCR) NEGATIVE (Negative) 05/06/24 19:25 Influenza Type A (PCR) Negative (Neg) 05/06/24 19:25 Influenza Type B (PCR) Negative (Neg) 05/06/24 19:25 RSV (RT-PCR) Negative (Neg) 05/06/24 19:25 Impressions Chest X-Ray 05/06/24 19:22 Exam(s): XR CXR 1 VIEW EXAM: XR Chest, 1 View CLINICAL HISTORY: Reason for exam: Chest pain, nonspecific. TECHNIQUE: Frontal view of the chest. COMPARISON: November 29, 2023 FINDINGS: Lungs: Unremarkable. No consolidation. Pleural space: Unremarkable. No pneumothorax. Heart: Unremarkable. No cardiomegaly. Mediastinum: Unremarkable. Normal mediastinal contour. Bones/joints: Unremarkable. No acute fracture. IMPRESSION: No acute pulmonary pathology. Electronically signed by: Prateek Grayson MD 05/06/24 23:[address] 05/06/24 19:22 Exam(s): CT HEAD Without Contrast EXAM: CT Head Without Intravenous Contrast CLINICAL HISTORY: Reason for exam: Dizziness, HTN. TECHNIQUE: Axial computed tomography images of the head/brain without intravenous contrast. CTDI is 30.44 mGy and DLP is 512.02 mGy-cm. Automated exposure control was utilized for the study. A dose lowering technique was utilized adhering to the principles of ALARA. COMPARISON: No relevant prior studies available. FINDINGS: Brain: Unremarkable. No hemorrhage. No significant white matter disease. No edema. Ventricles: Unremarkable. No ventriculomegaly. Bones/joints: Unremarkable. No acute fracture. Soft tissues: Unremarkable. Sinuses: Unremarkable as visualized. No acute sinusitis. Mastoid air cells: Unremarkable as visualized. No mastoid effusion. IMPRESSION: Head CT negative for acute intracranial abnormality. Electronically signed by: Prateek Grayson MD 05/06/24 23:13 PM Head CTA 05/06/24 19:22 Exam(s): CTA HEAD With Contrast IV Amt: 120 cc otpi 32-0 EXAM: CT Angiography Head With Intravenous Contrast CLINICAL HISTORY: Reason for exam: Dizziness, HTN. TECHNIQUE: Axial computed tomographic angiography images of the head with intravenous contrast. CTDI is 65.45 mGy and DLP is 1107.53 mGy-cm. Automated exposure control was utilized for the study. A dose lowering technique was utilized adhering to the principles of ALARA. MIP reconstructed images were created and reviewed. CONTRAST: Patient received 120 cc otpi 32-0 of IV contrast COMPARISON: No relevant prior studies available. FINDINGS: Right internal carotid artery: No acute findings. Intracranial segment is patent with no significant stenosis. No aneurysm. Right anterior cerebral artery: Unremarkable. No occlusion or significant stenosis. No aneurysm. Right middle cerebral artery: Unremarkable. No occlusion or significant stenosis. No aneurysm. Right posterior cerebral artery: Unremarkable. No occlusion or significant stenosis. No aneurysm. Right vertebral artery: Unremarkable as visualized. Left internal carotid artery: No acute findings. Intracranial segment is patent with no significant stenosis. No aneurysm. Left anterior cerebral artery: Unremarkable. No occlusion or significant stenosis. No aneurysm. Left middle cerebral artery: Unremarkable. No occlusion or significant stenosis. No aneurysm. Left posterior cerebral artery: Unremarkable. No occlusion or significant stenosis. No aneurysm. Left vertebral artery: Unremarkable as visualized. Basilar artery: There is fusiform ectasia of the basilar tip which measures 4 mm in diameter. No occlusion or significant stenosis. 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 Electronically signed by: Prateek Grayson MD 05/06/24 23:06 PM Neck CTA 05/06/24 19:22 Exam(s): CTA NECK With Contrast IV Amt: 120 cc opti 320 EXAM: CT Angiography Neck With Intravenous Contrast CLINICAL HISTORY: Reason for exam: Dizziness, HTN. TECHNIQUE: Routine carotid CT angiography protocol was performed with intravenous contrast. NASCET criteria using the distal ICAs for comparison were used for evaluation of stenoses. CTDI is 65.45 mGy and DLP is 1107.53 mGy-cm. Automated exposure control was utilized for the study. A dose lowering technique was utilized adhering to the principles of ALARA. MIP reconstructed images were created and reviewed. CONTRAST: Patient received 120 cc opti 320 of IV contrast COMPARISON: None. FINDINGS: VASCULATURE: Right common carotid artery: Unremarkable. No occlusion or significant stenosis. No dissection. Right internal carotid artery: Unremarkable. Extracranial segment is patent with no occlusion or significant stenosis. No dissection. Right external carotid artery: Unremarkable. No occlusion. Right vertebral artery: Unremarkable. No occlusion or significant stenosis. No dissection. Left common carotid artery: Unremarkable. No occlusion or significant stenosis. No dissection. Left internal carotid artery: Unremarkable. Extracranial segment is patent with no occlusion or significant stenosis. No dissection. Left external carotid artery: Unremarkable. No occlusion. Left vertebral artery: Unremarkable. No occlusion or significant stenosis. No dissection. NECK: Bones/joints: Unremarkable. No acute fracture. Soft tissues: Unremarkable. Lung apices: Clear. Other findings: Postoperative changes ACDF C3-C5. CAROTID STENOSIS REFERENCE USING NASCET CRITERIA: % ICA stenosis = (1 - narrowest ICA diameter/diameter of distal cervical ICA) x 100. Mild - <50% stenosis. Moderate - 50-69% stenosis. Severe - 70-94% stenosis. Near occlusion - 95-99% stenosis. Occluded - 100% stenosis. IMPRESSION: No acute findings in the arteries of the neck. Electronically signed by: Prateek Grayson MD 05/06/24 23:07 PM Diagnostic Findings EKG as per my interpretation : Rate 60, NSR, normal axis, no ischemia
--- NOTE | 2024-05-07 00:41 | Emergency Department Note ---
ED Visit Note I was consulted in regards to the patient's presentation and plan of care by the Advanced Practice Provider. I engaged in a detailed/meaningful discussion with the Advanced Practice Provider in regards to this patient's workup and plan of care. I performed a substantiative portion of the medical decision making following discussion with the Advanced Practice Provider. Please see the Advanced Practice Provider's separate documentation for full details of the patient's visit. I agree with the assessment and plan of Maady Palma PA-C. Pipe Collazo, DO Emergency Medicine .
[2024-05-07] MEDS ORDERED: FLUTICASONE HFA 110MCG INHALER INH PRN (00:48)
[2024-05-07] MEDS ORDERED: LORazepam 0.5 MG TAB PO PRN (00:50)
[2024-05-07] MEDS ORDERED: MELATONIN 3 MG TAB PO PRN (00:50)
[2024-05-07] MEDS ORDERED: PROMETHAZINE 6.25 MG/50.25 ML BAG IV PRN (00:51)
[2024-05-07] MEDS ORDERED: oxyCODONE HCL IR 5 MG TAB (IMMEDIATE RELEASE) PO PRN (00:51)
[2024-05-07] MEDS ORDERED: PHARMACIST DISCHARGE MED REC CONSULT PRN (00:52)
[2024-05-07] MEDS: PIPERACILLIN/TAZOBACTAM 4.5 GM/100 ML BAG IV STA (01:16)
[2024-05-07] MEDS: ASPIRIN 81 MG CHEW PO STA (01:36)
[2024-05-07] MEDS: FAMOTIDINE 10 MG TABLET PO ONE (01:36)
[2024-05-07] MEDS: SODIUM CHLORIDE 0.9% 1,000 ML IV ONE (01:37)
[2024-05-07] MEDS: FAMOTIDINE 20 MG TAB PO ONE (01:52)
[2024-05-07] MEDS: PIPERACILLIN/TAZOBACTAM 4.5 GM/100 ML BAG IV SCH (05:30)
[2024-05-07 06:22] LABS: Basophils # (auto) 0.04 K/uL (0.00-0.20); Basophils % (auto) 0.6 %; Eosinophils # (auto) 0.25 K/uL (0.00-0.50); Eosinophils % (auto) 3.5 %; Hematocrit (blood only) 38.1 % (42.0-52.0); Immature Granulocytes # (auto) 0.02 K/uL (0.01-0.20); Immature Granulocytes % (auto) 0.3 %; Lymphocytes # (auto) 1.58 K/uL (1.20-3.40); Lymphocytes % (auto) 22.3 %; Mean Corpuscular Hemoglobin 33.2 pg (25.0-34.0); Mean Corpuscular Hgb Conc 34.1 g/dL (32.0-36.0); Mean Corpuscular Volume 97.2 fL (80.0-100.0); Mean Platelet Volume 9.7 fL (9.4-12.4); Monocytes # (auto) 0.86 K/uL (0.11-0.59); Monocytes % (auto) 12.1 %; Neutrophils # (auto) 4.33 K/uL (1.40-6.50); Neutrophils % (auto) 61.2 %; Platelet Count 226 K/uL (130-400); RDW Coefficient of Variation 11.8 % (11.5-14.5); RDW Standard Deviation 42.4 fL (36.4-46.3); Red Blood Count 3.92 M/uL (4.70-6.10); White Blood Count 7.08 K/ul (4.8-10.8)
[2024-05-07 06:42] LABS: BUN Creatinine Ratio 16.7 (10-20); Calcium 8.9 mg/dl (8.6-10.3); Chol HDL Ratio 3.7 (0-5); Creatinine Clr Calc Pharmacy 45.2 ml/min; Potassium 4.6 mmol/L (3.5-5.1)
[2024-05-07] MEDS: ATORVASTATIN 40 MG TAB PO SCH (08:40)
[2024-05-07] MEDS: ENOXAPARIN INJ 40 MG/0.4 ML SYR SQ SCH (08:41)
[2024-05-07] MEDS: ESCITALOPRAM OXALATE 10 MG TAB PO SCH (08:41)
[2024-05-07] MEDS: FAMOTIDINE 10 MG TABLET PO SCH (08:42)
[2024-05-07] MEDS: MULTIVITAMIN TAB PO SCH (08:42)
[2024-05-07] MEDS: FLUTICASONE FUROATE 100MCG 14 PUFFS/INHALER INH SCH (08:42)
[2024-05-07] MEDS ORDERED: ESCITALOPRAM OXALATE 10 MG TAB PO SCH (09:00)
[2024-05-07] MEDS ORDERED: ATORVASTATIN 40 MG TAB PO SCH (09:00)
[2024-05-07] MEDS: ACETAMINOPHEN 325 MG TAB PO PRN (11:08)
--- NOTE | 2024-05-07 12:09 | Hospitalist Progress Note ---
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 He also felt like he was going to fall on 1 side when turning. Denied vertigo. Reported blood pressure with SBP in 170s at home prior to arrival. Denied chest pain or shortness of breath. Reported increased urinary frequency without fever or chills prior to arrival. He is being managed for the following: Complicated UTI Patient presents with increased urinary frequency, associated generalized weakness and lethargy. history Enterococcus on previous urine CS Patient started on Zosyn 05/07, continue. Add probiotic. Follow-up final culture results. Generalized weakness Concern for stroke Patient coming in with progressive generalized weakness and also noted that he was going to fall on 1 side when turning prior to arrival. CT head, CTA head and neck with no hemodynamically significant stenosis. Orthostatic vitals negative. Aspirin for stroke prophylaxis, permissive hypertension until stroke ruled out. Await MRI brain. Neurology consult contingent on MRI results. PT/OT, fall precaution. Patient reports strength getting better. Other chronic medical conditions: Continue with/resume home meds as and when able. valvular heart disease (mild /AR) history SVT, patient with chronic bradycardia hyperlipidemia, on statin Rx bronchial asthma, stable chronic hyponatremia chronic anemia, hemoglobin at baseline hx Mnire's disease status post surgery GERD on H2 esteban anxiety disorder, mild anxiety during exam Subclinical hypothyroidism, low TSH noted from recent confinement, TSH elevated just above 5 this admission, repeat TFT in 6 weeks. DVT prophylaxis. Lovenox subcu Full code Text document was generated using [employer] voice recognition software. It may contain grammatical or spelling errors. Kindly contact undersigned for clarification of any documentation item in question. Admission and Anticipated Discharge Date Admission Date: May 06, 2024 Subjective Patient was seen and examined at bedside. Patient was lying in bed, on room air, NAD, resting comfortably. Patient reports good appetite, denies nausea or vomiting. Patient denies sore throat or cough. Patient denies chest pain and belly pain. Patient reports his weakness is getting better, patient denies any numbness or tingling or focal weakness of any limbs. He reports feeling better. Physical Exam Physical Exam: GENERAL: Comfortable, pleasant, no respiratory distress SKIN: Pallor, warm HEENT: Alopecia, pale palpebral conjunctivae, no ptosis, moist buccal mucosa NECK : Supple, no tenderness CHEST : CTA, no tenderness HEART : Bradycardic, systolic murmur ABDOMEN: Some distention, nontender EXTREMITIES : No LE swelling/tenderness, no other conspicuous deformities noted NEUROLOGIC : Coherent, no facial asymmetry, MMTS BUE/BLE 5/5, gait and stance not assessed Results & Data Results & Data Vital Signs (Past 12 Hours) Vital Signs Temp Pulse Pulse Resp BP Pulse Ox Pulse Ox 05/07/24 11:41 36.9 C 66 16 154/67 H 95 05/07/24 08:01 36.4 C L 55 L 16 138/70 95 05/07/24 08:00 52 L 05/07/24 02:51 36.9 C 55 L 19 138/66 97 05/07/24 01:59 05/07/24 01:43 53 L 05/07/24 00:51 36.9 C 60 21 164/77 H 95 05/07/24 00:51 95 O2 Del Method O2 Del Method 05/07/24 11:41 Room Air 05/07/24 08:01 Room Air 05/07/24 08:00 05/07/24 02:51 Room Air 05/07/24 01:59 Room Air 05/07/24 01:43 05/07/24 00:51 Room Air 05/07/24 00:51 Room Air
--- NOTE | 2024-05-07 13:01 | Electrocardiogram Report ---
Test Reason : Blood Pressure : */* mmHG Vent. Rate : 60 BPM Atrial Rate : 60 BPM P-R Int : 180 ms QRS Dur : 110 ms QT Int : 384 ms P-R-T Axes : 69 32 70 degrees QTcB Int : 384 ms Normal sinus rhythm Normal ECG When compared with ECG of 30-Nov-2023 05:08, No significant change was found Confirmed by Pancho Rodrigues ([id number]) on 05/07/2024 1:00:35 PM Referred By: REFERRED SELF Confirmed By: Pancho Rodrigues
--- NOTE | 2024-05-07 14:25 | Magnetic Resonance Report ---
EXAM: MR brain wo con CLINICAL HISTORY: PT STATES DIZZINESS. FATIGUE. HX OF HYPERTENSION. ELEVATED BP. ? STROKE. NO HX OF STROKE. NO HEAD TRAUMA RECENTLY. NO PRIOR SURGERY. NO HX OF CANCER. TECHNIQUE: An MRI of the brain was performed without contrast with the obtained multiplanar sequences. Images were sent through PACS for diagnostic interpretation. COMPARISON: No previous studies are available for comparison. FINDINGS: Brain Parenchyma: Mild age-related cerebral involutional changes are noted. Scattered few foci of altered signals in the sub-cortical and deep white matter of both frontal and parietal lobes with low T1, bright T2, and FLARI WIs signals, no surrounding edema or mass effect likely related to small vessel disease. No evidence of acute infarction or hemorrhage. Normal phelps-white matter differentiation. No mass lesions or focal cortical abnormalities were identified. Ventricles and Sulci: Normal size and configuration of the lateral ventricles, third ventricle, and fourth ventricle. No evidence of hydrocephalus or ventriculomegaly. Sylvian fissures, sulci, and cisterns are within normal limits. Posterior Fossa: The cerebellum and brainstem appear normal without evidence of mass lesions or signal abnormalities. Cranial Nerves: Normal course and appearance of cranial nerves identified. Vessels: No evidence of vascular malformations or aneurysms. Intracranial arteries and veins appear normal without evidence of stenosis or occlusion. Orbits and Skull Base: Orbits and skull base structures are normal without evidence of abnormalities. IMPRESSION: MRI of the brain: 1. Mild age-related cerebral involutional changes were noted. 2. A few scattered foci of altered signals were related to chronic ischemic changes of small vessel disease. 3. No signs of recent ischemia or hemorrhage are appreciated. Electronically signed by Oumar Weeks 05-07-2024 2:25 PM
[2024-05-07] MEDS: ALUMINUM/MAGNESIUM SUSP 30 ML UDC PO PRN (15:53)
[2024-05-07] MEDS: LOSARTAN POTASSIUM 50 MG TAB PO SCH (19:47)
[2024-05-07] MEDS: METOPROLOL SUCC 25MG EXT REL TAB PO SCH (19:47)
[2024-05-08 07:16] LABS: Basophils # (auto) 0.04 K/uL (0.00-0.20); Basophils % (auto) 0.6 %; Eosinophils # (auto) 0.31 K/uL (0.00-0.50); Hematocrit (blood only) 37.8 % (42.0-52.0); Hemoglobin 12.8 g/dl (14.0-18.0); Immature Granulocytes # (auto) 0.02 K/uL (0.01-0.20); Immature Granulocytes % (auto) 0.3 %; Lymphocytes # (auto) 1.77 K/uL (1.20-3.40); Lymphocytes % (auto) 28.5 %; Mean Corpuscular Hemoglobin 33.3 pg (25.0-34.0); Mean Corpuscular Hgb Conc 33.9 g/dL (32.0-36.0); Mean Corpuscular Volume 98.4 fL (80.0-100.0); Mean Platelet Volume 9.8 fL (9.4-12.4); Monocytes # (auto) 0.69 K/uL (0.11-0.59); Monocytes % (auto) 11.1 %; Neutrophils # (auto) 3.39 K/uL (1.40-6.50); Neutrophils % (auto) 54.5 %; Platelet Count 225 K/uL (130-400); RDW Coefficient of Variation 11.9 % (11.5-14.5); RDW Standard Deviation 43.4 fL (36.4-46.3); Red Blood Count 3.84 M/uL (4.70-6.10); White Blood Count 6.22 K/ul (4.8-10.8)
[2024-05-08 07:24] VITALS: RESP 19
[2024-05-08 07:33] LABS: BUN Creatinine Ratio 14.1 (10-20); Calcium 8.8 mg/dl (8.6-10.3); Creatinine Clr Calc Pharmacy 40.1 ml/min; Magnesium 2.2 mg/dl (1.7-2.4); Phosphorus 3.5 mg/dl (2.5-4.9)
[2024-05-08 07:41] LABS: Estimated Average Glucose 123 mg/dl; Hemoglobin A1C 5.9 % (4.5-5.6)
[2024-05-08] MEDS: ASPIRIN 81 MG ECTAB PO SCH (09:06)
[2024-05-08] MEDS: ADVANCED PROBIOTIC 625 MG CAPSULE PO SCH (09:07)
[2024-05-08] MEDS: amLODIPine BESYLATE 5 MG TAB PO SCH (09:08)
[2024-05-08] MEDS ORDERED: STROKE PATIENT DISCHARGE STA (11:31)
[2024-05-08 11:33] VITALS: BP 133/65; TEMP 98.1; O2SAT 95
--- NOTE | 2024-05-08 11:41 | Pharmacy Report ---
- Date of Service May 08, 2024 - Pharmacy CVA/TIA Medication Review Medications to Prevent Stroke handout has been added to the patients discharge packet. Antiplatelet(s) * aspirin 81mg PO daily Cholesterol * High intensity statin: atorvastatin 80 mg daily DVT Prophylaxis * Enoxaparin SQ Therapeutic Anticoagulation * No history of Afib/Aflutter noted Type 2 Diabetes * Patient does not have T2DM
--- NOTE | 2024-05-08 11:43 | Discharge Summary ---
Date of Service May 08, 2024 Admission HPI Per Admitting Provider History obtained from patient and records. Medical history significant for valvular heart disease (mild /AR), history SVT, hypertension, hyperlipidemia, bronchial asthma, chronic hyponatremia, chronic anemia (baseline hemoglobin of 13), Mnire's disease status post surgery, recurrent UTIs, history of prostatitis as per records, GERD, anxiety disorder. Last confinement November 2023 for irregular pulse. Patient with intermittent dizziness and fatigue symptoms the last week. Described as imbalanced sensation. Feels like he is going to fall on 1 side when turning. May have happened in the past before but not as bad. No unusual ear pain, hearing loss or tinnitus. Not vertigo as per patient similar to his Mnire disease attacks in the past. Compliant with home meds. Some stress with holiday preparations at home. Frontal headache symptoms. SBP 170s at home which is unusual for him. Denies chest pain, SOB, abdominal pain or hematuria symptoms. Increased urinary frequency without fever or chills. IV ceftriaxone administered at the ER. 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 Admission Exam Per Admitting Provider GENERAL: Comfortable, pleasant, slightly anxious, no respiratory distress SKIN: Pallor, warm HEENT: Alopecia, pale palpebral conjunctivae, no ptosis, dry buccal mucosa NECK : Supple, no tenderness CHEST : CTA, no tenderness HEART : Bradycardic, systolic murmur ABDOMEN: Some distention, nontender EXTREMITIES : No LE swelling/tenderness, no other conspicuous deformities noted NEUROLOGIC : Coherent, no facial asymmetry, MMTS BUE/BLE 5/5, gait and stance not assessed Principal Diagnosis Complicated UTI Generalized weakness Incidental finding of remote ischemic stroke Incidental finding of 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 Prediabetes Discharge Exam GENERAL: Comfortable, pleasant, no respiratory distress SKIN: Pallor, warm HEENT: Alopecia, pale palpebral conjunctivae, no ptosis, moist buccal mucosa NECK : Supple, no tenderness CHEST : CTA, no tenderness HEART : Bradycardic, systolic murmur ABDOMEN: Some distention, nontender EXTREMITIES : No LE swelling/tenderness, no other conspicuous deformities noted NEUROLOGIC : Coherent, no facial asymmetry, MMTS BUE/BLE 5/5, gait and stance not assessed Discharge Data Allergies Allergy/AdvReac Type Severity Reaction Status Date / Time No Known Allergies Allergy Verified 11/29/23 20:10 Consultations 05/06/24 23:54 ED Decision to Admit Stat Ordered Studies 05/06/24 19:22 CT head/brain wo con Stat CTA head w con [CT angio head w con] Stat CTA neck with con [CT angio neck with con] Stat 05/07/24 00:52 MR brain wo con Routine Hospital Course (1) Dizziness on standin-year-old male with PMH of SVT, HTN, HLD, bronchial asthma, chronic hyponatremia, chronic anemia [baseline hemoglobin of 13], Mnire's disease status post surgery, recurrent UTIs, prostatitis, GERD, anxiety disorder presented to the ED with complaint of getting progressively weak associated with intermittent dizziness and fatigue symptoms since 1 week ago CST. He also felt like he was going to fall on 1 side when turning. Denied vertigo. Reported blood pressure with SBP in 170s at home prior to arrival. Denied chest pain or shortness of breath. Reported increased urinary frequency without fever or chills prior to arrival. He was managed for the following: Complicated UTI Patient presents with increased urinary frequency, associated generalized weakness and lethargy. history of Enterococcus on previous urine CS Patient started on Zosyn 05/07, continue. Transition to amoxicillin on discharge, continue with probiotic on discharge. 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 Patient was advised to coordinate with his PCP office in case if his urinary symptoms/generalized malaise/systemic symptoms are worsening. He voiced understanding. Generalized weakness Concern for stroke Patient coming in with progressive generalized weakness and also noted that he was going to fall on 1 side when turning prior to arrival. CT head, CTA head and neck with no hemodynamically significant stenosis. Orthostatic vitals negative. 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 Patient has been made aware, patient to get follow-up CTA head in about 6 months time and follow-up with neurology in 2 to 4 weeks time upon discharge. It will need long-term monitoring which patient is aware and will be coordinating with his PCP and neurology office. Patient was made aware of his prediabetes diagnosis and need for long-term follow-up and repeat A1c in 3 months time and encouraged him for lifestyle modifications. He voiced understanding. Patient was made aware of his LDL level of 86 and need for lifestyle modific ation and follow-up on the lipid levels. Patient voiced understanding and stated he will follow-up with his PCP office for long-term monitoring And needed necessary adjustment in his lipid medications. Patient reports his baseline strength back to normal, he is hemodynamically stable and would like to go home. Patient was also made aware of remote history of ischemic changes), he will be discharged on baby aspirin daily. He will follow up with neurology in 2 to 4 weeks time upon discharge, he is aware. Other chronic medical conditions: Continue with/resume home meds as and when able. valvular heart disease (mild /AR) history SVT, patient with chronic bradycardia hyperlipidemia, on statin Rx bronchial asthma, stable chronic hyponatremia chronic anemia, hemoglobin at baseline hx Mnire's disease status post surgery GERD on H2 esteban anxiety disorder, mild anxiety during exam Subclinical hypothyroidism, low TSH noted from recent confinement, TSH elevated just above 5 this admission, repeat TFT in 6 weeks. DVT prophylaxis. Lovenox subcu Full code Follow-up with your primary care physician within a week time and likely you will need labs CBC/CMP/magnesium/phosphorus. You will be discharged on amoxicillin to complete the course for UTI, if you have any worsening symptoms of UTI communicate with your PCP office for further evaluation/management. As discussed at the bedside, your head/brain imaging while in the hospital revealed remote history of ischemic changes and aneurysm. You did not have acut e ischemic changes. you are being discharged on baby aspirin daily. Recommend that you follow-up with neurology in 2 to 4 weeks time upon discharge, coordinate with your PCP office to set up the referral. 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 As discussed at the bedside, you have prediabetes with A1c of 5.9. Encourage daily exercise regimen, healthy diet. You will need repeat A1c in about 3 months time, coordinate with your PCP office for long-term monitoring. Take your medications as prescribed. Your thyroid hormone level (TSH) was slightly elevated, you will need repeat thyroid function test in about 6 weeks time. Coordinate with your PCP office to set up the test. Please make sure that you are able to get your medications today by calling your pharmacy before you leave the hospital so that your treatment continuity is not broken. Text document was generated using [employer] voice recognition software. It may contain grammatical or spelling errors. Kindly contact undersigned for clarification of any documentation item in question. Home Health Attestation I certify that this patient is under my care and that I, or a physicians photographer's assistant working with me, had a face to-face encounter that meets the home health [id number] encounter requirements with this patient. The encounter with the patient was in whole, or in part, for the following medical condition, which is the primary reason for home health care (list medical condition): I certify that, based on my findings, the following services are medically necessary home health services: My clinical findings support the need for the above services because: Further, I certify that my clinical findings support that this patient is homebound (i.e. absences from home require considerable and taxing effort and are for medical reasons or spiritism services or infrequently or of short duration when for other reasons) because: Certification for Home Health Services: Based on the above findings, I certify that this patient is confined to the home and needs intermittent group home care, physical therapy and/or speech therapy or continues to need occupational therapy. The patient is under my care, and I have initiated the establishment of the plan of care. This patient will be followed by a physician who will periodically review the plan of care. 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 You will be discharged on amoxicillin to complete the course for UTI, if you have any worsening symptoms of UTI communicate with your PCP office for further evaluation/management. As discussed at the bedside, your head/brain imaging while in the hospital revealed remote history of ischemic changes and aneurysm. You did not have acute ischemic changes. you are being discharged on baby aspirin daily. Recommend that you follow-up with neurology in 2 to 4 weeks time upon discharge, coordinate with your PCP office to set up the referral. 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 As discussed at the bedside, you have prediabetes with A1c of 5.9. Encourage daily exercise regimen, healthy diet. You will need repeat A1c in about 3 months time, coordinate with your PCP office for long-term monitoring. Take your medications as prescribed. Your thyroid hormone level (TSH) was slightly elevated, you will need repeat thyroid function test in about 6 weeks time. Coordinate with your PCP office to set up the test. Please make sure that you are able to get your medications today by calling your pharmacy before you leave the hospital so that your treatment continuity is not broken. Pending Studies at Discharge: No Stand-Alone Forms: [facility] [employer], Smoking Cessation Medications and DC Order Prescriptions: New aspirin 81 mg Tablet,Delayed Release (Dr/Ec) 81 mg PO DAILY Qty: 30 0RF Advanced Probiotic 625 mg (10 billion cell) Capsule 1 cap PO DAILY 14 Days Qty: 14 0RF amoxicillin 500 mg capsule 1,000 mg PO TID 7 Days Qty: 42 0RF Continued ginkgo biloba 40 mg Tablet 40 mg PO DAILY Rx Instructions: give with meal/snack famotidine 20 mg Tablet 10 mg PO BID candesartan 32 mg tablet 32 mg PO HS bioflavonoids 1,000 mg Tablet 1,000 mg PO DAILY escitalopram oxalate 10 mg tablet 10 mg PO DAILY coQ10 (ubiquinol) 200 mg Capsule 200 mg PO DAILY I-Caps 280-10-2 mg Capsule 1 cap PO DAILY Men's 50 Plus Multivitamin 400-20-370 mcg Tablet 1 tab PO DAILY fluticasone propionate 110 mcg/actuation HFA aerosol inhaler 1 puff INHALATION BID PRN (Reason: Shortness Of Breath) atorvastatin 80 mg tablet 80 mg DAILY amlodipine 2.5 mg tablet 2.5 mg DAILY metoprolol succinate 25 mg tablet extended release 24 hr 12.5 mg PO HS escitalopram oxalate 10 mg tablet 10 mg DAILY Discontinued atorvastatin 80 mg Tablet 80 mg PO DAILY nisoldipine 8.5 mg tablet extended release 24 hr 8.5 mg PO DAILY candesartan 32 mg tablet 32 mg HS Discharge Orders: Discharge Order (Routine); Ordered 05/08/24 Ordered By: Sarai Kathleen Admission Data Admit Date/Time: 05/06/24 23:58 Attending Provider: Sarai Kathleen Admit Provider: Honorio Pritchett Primary Care Provider: Deangelo Saldaña Other Providers: Honorio Pritchett
[2024-05-08 11:49] VITALS: PULSE 58
== END 2024-05-08 12:53 | disposition home or self-care (01) | DRG 690 ==
LOC: ED 19:01 → 2N 23:58